=== PATIENT | female | born 1935 | race Caucasian/White ===

== ENCOUNTER 2017-03-26 11:42 | Emergency (ER) | payer MEDICARE ==
[2017-03-26] MEDS ORDERED: DIPH,PERTUS(ACELL)TETVAC-LF 0.5 ML VIAL IM ONE (12:12)
--- NOTE | 2017-03-26 12:15 | ED ---
Wound/Laceration HPI - General Chief Complaint: Wound/Laceration Stated Complaint: Fall Time Seen by Provider: 03/26/17 12:09 Source: patient, EMS, RN notes reviewed Mode of arrival: EMS Limitations: no limitations - History of Present Illness Initial Comments: 81-year-old female presents emergency department via EMS chief complaint head injury, laceration. Patient states she was going into the building tripped over a curb states she hit her head on the building. She did not lose consciousness. She does have mild headache and some neck pain on the right side. Patient denies any extremity injury no back pain. She is unsure exactly when her last tetanus was. - Related Data Home Medications Medication Instructions Recorded Confirmed Allopurinol [Zyloprim] 100 mg PO DAILY 04/04/14 03/26/17 Simvastatin [Zocor] 20 mg PO DAILY 04/04/14 03/26/17 amLODIPine [Norvasc] 10 mg PO DAILY 04/04/14 03/26/17 Cholecalciferol [Vitamin D3] 1,000 unit PO DAILY 03/26/17 03/26/17 Etanercept [Enbrel] 50 mg SQ FR 03/26/17 03/26/17 Magnesium 200 mg PO HS 03/26/17 03/26/17 Triamterene/Hydrochlorothiazid 2 tab PO DAILY 03/26/17 03/26/17 [Triamterene-Hctz 37.5-25 mg Tb] Allergies Allergy/AdvReac Type Severity Reaction Status Date / Time No Known Allergies Allergy Verified 03/26/17 12:33 Review of Systems ROS Statement: Those systems with pertinent positive or pertinent negative responses have been documented in the HPI. ROS Other: All systems not noted in ROS Statement are negative. 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 Past Anesthesia/Blood Transfusion Reactions: No Reported Reaction Past Psychological History: No Psychological Hx Reported Smoking Status: Never smoker Past Alcohol Use History: None Reported Past Drug Use History: None Reported General Exam Limitations: no limitations General appearance: alert, in no apparent distress Head exam: Present: atraumatic, normocephalic. Absent: normal inspection (9 cm laceration on the forehead) Eye exam: Present: normal appearance, PERRL, EOMI. Absent: scleral icterus, conjunctival injection, periorbital swelling ENT exam: Present: normal exam, normal oropharynx, mucous membranes moist, TM's normal bilaterally, normal external ear exam Neck exam: Present: normal inspection, tenderness. Absent: meningismus, full ROM (Patient in c-collar), lymphadenopathy Respiratory exam: Present: normal lung sounds bilaterally. Absent: respiratory distress, wheezes, rales, rhonchi, stridor Cardiovascular Exam: Present: regular rate, normal rhythm, normal heart sounds. Absent: systolic murmur, diastolic murmur, rubs, gallop, clicks Neurological exam: Present: alert, oriented X3, CN II-XII intact, reflexes normal. Absent: motor sensory deficit Skin exam: Present: warm, dry, intact, normal color. Absent: rash Course Vital Signs 03/26/17 03/26/17 03/26/17 11:51 12:48 13:18 Temperature 97.5 F L 98.5 F Pulse Rate 60 78 78 Respiratory 18 20 20 Rate Blood Pressure 111/56 163/71 163/71 O2 Sat by Pulse 97 99 98 Oximetry Procedures - Laceration Laceration #1 Consent Obtained: verbal consent Indication: laceration Site: face Size (cm): 9 Description: linear Depth: simple, single layer Pre-repair: wound explored, irrigated extensively, deep structures intact Type of Sutures: other (Dermabond) Medical Decision Making - Medical Decision Making 81-year-old female presents for facial laceration, head injury. There is no acute fracture of the cervical spine or intracranial bleed. Patient's wound was cleaned, Dermabond was used to close it. Patient underwent no comp patients. Disposition Clinical Impression: Head injury, Forehead laceration Disposition: HOME SELF-CARE Condition: Stable Instructions: Laceration (ED), Head Injury (ED) Additional Instructions: Please return to the Emergency Department if symptoms worsen or any other concerns. Referrals: Constantine Gallegos MD [Primary Care Provider] - 1-2 days Time of Disposition: 13:32
--- NOTE | 2017-03-26 13:11 | CT ---
EXAMINATION TYPE: CT brain teodora stephens con DATE OF EXAM: 03/26/2017 COMPARISON: NONE HISTORY: Fall CT DLP: 1902 mGycm. Automated Exposure Control for Dose Reduction was Utilized. TECHNIQUE: CT scan of the head and cervical spine are performed without contrast. FINDINGS: FINDINGS: There is no acute intracranial hemorrhage or midline shift identified. There is diffuse ventricular and sulcal prominence consistent with diffuse age-related cerebral atrophy. T here is low-attenuation in the periventricular white matter consistent with chronic small vessel isch emic change. Atherosclerosis is seen of the intracranial vasculature. The globes are intact. Left muc operiosteal thickening is seen of the maxillary sinus with lobular internal soft tissue density measu ring up to 2.3 cm likely related to inspissated mucosal debris. Scant mucosal thickening is seen with in the ethmoid sinuses. Remaining paranasal sinuses and mastoid air cells are well aerated. No fluid is seen within the middle ear cavities. Cervical spine is visualized in its entirety from C1 through upper thoracic levels and demonstrates s atisfactory alignment without evidence of acute fracture or dislocation. Prevertebral soft tissue ap pears within normal limits. The C1-C2 articulation is unremarkable. Complex right thyroid lesion me asures 1.1 x 1.0 cm. Heterogeneity is seen without discrete nodularity of the remainder of the thyroi d gland. Nonenlarged lymph nodes are seen within the anterior and posterior chains of the neck with t he largest lymph node measuring 6 mm in short axis. Fluid is noted within the pericardial recess. Mul tiple prominent superior mediastinal lymph nodes including right paratracheal lymph node measuring up to 6 mm in short axis. Severe multilevel degenerative changes of the cervical spine are seen with multilevel intervertebral disc space narrowing, anterior osteophytes, endplate sclerosis, and disc ossify complex as well as un covertebral hypertrophy and facet arthropathy resulting in variable degrees of neural foraminal narro wing. There is at least resultant mild spinal canal stenosis at C5-C6. IMPRESSION: 1. There is no acute fracture or dislocation evident in the cervical spine. 2. No acute intracranial hemorrhage or midline shift. 3. Diffuse age-related cerebral atrophy and chronic small vessel ischemic change noted. 4. Acute on chronic left maxillary and ethmoid paranasal sinus disease. 5. Severe multilevel degenerative disc disease of the cervical spine resulting in multilevel variable neural foraminal narrowing and at least mild spinal canal stenosis at C5-C6.
[2017-03-26 13:20] VITALS: TEMP 98.5
[2017-03-26] MEDS ORDERED: LIDOCAINE/EPINEPHR/TETRACAINE 5 ML BOTTLE TOPICAL ONE (13:24)
[2017-03-26] MEDS ORDERED: TOPICAL SKIN ADHESIVE 1 EACH AMP TOPICAL ONE ×2 (13:24→13:48)
[2017-03-26 14:09] VITALS: BP 170/73; PULSE 70; RESP 16
== END 2017-03-26 14:09 | disposition home or self-care (01) ==
LOC: EC 11:42
DX: S01.81XA Laceration without foreign body of other part of head, initial encounter (principal); M54.2 Cervicalgia; E78.5 Hyperlipidemia, unspecified; I10 Essential (primary) hypertension; M06.9 Rheumatoid arthritis, unspecified; M10.9 Gout, unspecified; Z79.899 Other long term (current) drug therapy; Z85.828 Personal history of other malignant neoplasm of skin; Z98.890 Other specified postprocedural states; Z23 Encounter for immunization; W18.09XA Striking against other object with subsequent fall, initial encounter; Y93.01 Activity, walking, marching and hiking
CPT/HCPCS: 12015; 70450; 72125; 90471; 90715; 99284

== ENCOUNTER 2020-01-05 12:45 | Inpatient (IN) | payer MEDICARE ==
--- NOTE | 2020-01-05 13:36 | ED ---
General Adult HPI - General Chief complaint: Recheck/Abnormal Lab/Rx Stated complaint: kidney issues Time Seen by Provider: 01/05/20 13:03 Source: patient, family, RN notes reviewed Mode of arrival: ambulatory Limitations: no limitations - History of Present Illness Initial comments: Patient is a pleasant 84-year-old female presenting to the emergency department after being told she had a normal lab tests from her doctor. Patient states she went to see Dr. Neely recently and then received a call today stating kidney function had worsened. Patient was requested to come to the emergency department. Patient states she feels fine otherwise and has no complaints. - Related Data Home Medications Medication Instructions Recorded Confirmed Simvastatin [Zocor] 20 mg PO DAILY 04/04/14 03/26/17 allopurinoL [Zyloprim] 100 mg PO DAILY 04/04/14 03/26/17 amLODIPine [Norvasc] 10 mg PO DAILY 04/04/14 03/26/17 Cholecalciferol [Vitamin D3] 1,000 unit PO DAILY 03/26/17 03/26/17 Etanercept [Enbrel] 50 mg SQ FR 03/26/17 03/26/17 Magnesium 200 mg PO HS 03/26/17 03/26/17 Triamterene/Hydrochlorothiazid 2 tab PO DAILY 03/26/17 03/26/17 [Triamterene-Hctz 37.5-25 mg Tb] Allergies Allergy/AdvReac Type Severity Reaction Status Date / Time No Known Allergies Allergy Verified 01/05/20 12:52 Review of Systems ROS Statement: Those systems with pertinent positive or pertinent negative responses have been documented in the HPI. ROS Other: All systems not noted in ROS Statement are negative. Constitutional: Denies: fever Eyes: Denies: eye pain ENT: Denies: ear pain Respiratory: Denies: cough Cardiovascular: Denies: chest pain Endocrine: Denies: fatigue Gastrointestinal: Denies: abdominal pain Genitourinary: Denies: dysuria Musculoskeletal: Denies: back pain Skin: Denies: rash Neurological: Denies: weakness Past Medical History Past Medical History: Cancer, Hyperlipidemia, Hypertension, Rheumatoid Arthritis (RA) Additional Past Medical History / Comment(s): GOUT, SOME KIDNEY DAMAGE FROM MEDICATIONS, SKIN CANCER ON NOSE. 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 Past Anesthesia/Blood Transfusion Reactions: No Reported Reaction Past Psychological History: No Psychological Hx Reported Smoking Status: Never smoker Past Alcohol Use History: None Reported Past Drug Use History: None Reported General Exam Limitations: no limitations General appearance: alert, in no apparent distress Head exam: Present: normocephalic Eye exam: Present: normal appearance Neck exam: Present: normal inspection Respiratory exam: Present: normal lung sounds bilaterally Cardiovascular Exam: Present: regular rate, normal rhythm GI/Abdominal exam: Present: soft. Absent: tenderness Extremities exam: Present: normal inspection Neurological exam: Present: alert Psychiatric exam: Present: normal affect, normal mood Skin exam: Present: normal color Course Vital Signs 01/05/20 01/05/20 12:46 13:16 Temperature 98.1 F Pulse Rate 100 82 Respiratory 18 18 Rate Blood Pressure 170/71 177/77 O2 Sat by Pulse 99 98 Oximetry Medical Decision Making - Medical Decision Making Patient reevaluated and updated. Case discussed in detail with Dr. Kaplan, covering for Dr. Carson, who will admit who covers for Dr. Underwood. - Lab Data Result diagrams: 01/05/20 13:37 01/05/20 13:37 Lab Results 01/05/20 01/05/20 01/05/20 Range/Units 13:37 13:37 13:37 WBC 11.6 H (3.8-10.6) k/uL RBC 4.23 (3.80-5.40) m/uL Hgb 11.6 (11.4-16.0) gm/dL Hct 36.7 (34.0-46.0) % MCV 86.7 (80.0-100.0) fL MCH 27.4 (25.0-35.0) pg MCHC 31.6 (31.0-37.0) g/dL RDW 14.6 (11.5-15.5) % Plt Count 289 (150-450) k/uL Neutrophils % 85 % Lymphocytes % 9 % Monocytes % 4 % Eosinophils % 1 % Basophils % 1 % Neutrophils # 9.8 H (1.3-7.7) k/uL Lymphocytes # 1.0 (1.0-4.8) k/uL Monocytes # 0.5 (0-1.0) k/uL Eosinophils # 0.1 (0-0.7) k/uL Basophils # 0.1 (0-0.2) k/uL PT 10.0 (9.0-12.0) sec INR 1.0 (<1.2) APTT 22.6 (22.0-30.0) sec Sodium 138 (137-145) mmol/L Potassium 5.2 H (3.5-5.1) mmol/L Chloride 108 H (98-107) mmol/L Carbon Dioxide 16 L (22-30) mmol/L Anion Gap 14 mmol/L BUN 55 H (7-17) mg/dL Creatinine 3.19 H (0.52-1.04) mg/dL Est GFR (CKD-EPI)AfAm 15 (>60 ml/min/1.73 sqM) Est GFR (CKD-EPI)NonAf 13 (>60 ml/min/1.73 sqM) Glucose 255 H (74-99) mg/dL Calcium 9.8 (8.4-10.2) mg/dL Phosphorus 4.1 (2.5-4.5) mg/dL Magnesium 1.9 (1.6-2.3) mg/dL Total Bilirubin 0.9 (0.2-1.3) mg/dL AST 20 (14-36) U/L ALT 11 (4-34) U/L Alkaline Phosphatase 119 (38-126) U/L Total Protein 7.3 (6.3-8.2) g/dL Albumin 4.5 (3.5-5.0) g/dL Disposition Clinical Impression: Acute renal failure (ARF) Disposition: ADMITTED IP TO THIS HOSP Is patient prescribed a controlled substance at d/c from ED?: No Referrals: Al Underwood MD [Primary Care Provider] - 1-2 days Decision Time: 14:36
[2020-01-05 13:49] LABS: Basophils # (A) 0.1 k/uL (0-0.2); Basophils % (A) 1 %; Eosinophils # (A) 0.1 k/uL (0-0.7); Eosinophils % (A) 1 %; HCT 36.7 % (34.0-46.0); HGB 11.6 gm/dL (11.4-16.0); Lymphocytes % (A) 9 %; MCH 27.4 pg (25.0-35.0); MCHC 31.6 g/dL (31.0-37.0); MCV 86.7 fL (80.0-100.0); Mean Platelet Volume 6.7; Monocytes # (A) 0.5 k/uL (0-1.0); Monocytes % (A) 4 %; Neutrophils # (A) 9.8 k/uL (1.3-7.7); Neutrophils % (A) 85 %; Platelet Count 289 k/uL (150-450); RBC 4.23 m/uL (3.80-5.40); RDW 14.6 % (11.5-15.5); WBC 11.6 k/uL (3.8-10.6)
[2020-01-05 13:58] LABS: Albumin 4.5 g/dL (3.5-5.0); Calcium 9.8 mg/dL (8.4-10.2); Magnesium 1.9 mg/dL (1.6-2.3); Phosphorus 4.1 mg/dL (2.5-4.5); Potassium 5.2 mmol/L (3.5-5.1); Total Bilirubin 0.9 mg/dL (0.2-1.3); Total Protein 7.3 g/dL (6.3-8.2)
[2020-01-05 14:04] LABS: Partial Thromboplastin Time 22.6 sec (22.0-30.0)
[2020-01-05] MEDS ORDERED: NALOXONE 0.4 MG/ML 1 ML VIAL IV PRN (14:37)
--- NOTE | 2020-01-05 15:32 | US ---
EXAMINATION TYPE: US kidneys/renal and bladder DATE OF EXAM: 01/05/2020 COMPARISON: NONE CLINICAL HISTORY: arf. ARF EXAM MEASUREMENTS: Right Kidney: 9.2 x 3.6 x 3.3 cm Left Kidney: 8.8 x 3.7 x 3.4 cm Right Kidney: no evidence of hydronephrosis Left Kidney: multiple cystic areas noted, largest = 5.2 x 4.7 x 4.9cm Bladder: not fully distended Bilateral Jets seen: NO There is no evidence for hydronephrosis at this point in time. No nephrolithiasis is seen. Large exo phytic 5.2 cm thin-walled cyst is seen from the upper pole level medially left kidney. Smaller thin- walled cyst noted not measured towards end of study. Increased cortical echogenicity and loss of zarina ical medullary differentiation more prominent in left kidney noted. The urinary bladder is not greatl y distended. Bilateral ureteral jets are not seen. IMPRESSION: No hydronephrosis is noted bilaterally.
[2020-01-05 17:11] LABS: Appearance,Urine Cloudy (Clear); Bacteria,Urine Many /hpf; Bilirubin,Urine Negative (Negative); Blood,Urine Trace (Negative); Color,Urine Yellow; Glucose,Urine (UA) Trace (Negative); Hyaline Casts,Urine 1 /lpf (0-2); Ketones,Urine Negative (Negative); Leukocyte Esterase,Urine Large (Negative); Mucus,Urine Rare /hpf; Nitrite,Urine Negative (Negative); Protein,Urine 3+ (Negative); RBC,Urine 3 /hpf (0-5); Specific Gravity,Urine 1.014 (1.001-1.035); Squamous Epithelial Cell,Urine 1 /hpf (0-4); Urobilinogen,Urine <2.0 mg/dL (<2.0); WBC,Urine 63 /hpf (0-5)
[2020-01-05] MEDS: SODIUM CHLORIDE 0.9% 1,000 ML IV SCH (17:32)
[2020-01-05 17:39] LABS: Glucose,Whole Blood 109 mg/dL (75-99)
[2020-01-05] MEDS: INSULIN ASPART (NovoLOG) 100 UNIT/ML VIAL SQ SCH ×2 (17:40→20:59)
[2020-01-05 20:42] LABS: Glucose,Whole Blood 153 mg/dL (75-99)
[2020-01-05] MEDS: allopurinoL 100 MG TAB PO SCH (21:00)
--- NOTE | 2020-01-05 22:24 | HP ---
HISTORY AND PHYSICAL DATE OF SERVICE: 01/05/2020 CHIEF COMPLAINTS: Abnormal labs and worsening renal function. HISTORY OF PRESENT ILLNESS: This 84-year-old woman with a past medical history of multiple medical problems, including hypertension, hyperlipidemia, rheumatoid arthritis, history of gout, cholecystectomy, being followed by Dr. Al Underwood in the outpatient setting, had renal failure previously. The patient apparently was being followed with repeated blood testing, and today the patient was called because of a high creatinine. The patient came to [facility] and was admitted for further evaluation. Creatinine was found to be 3.19. The previous creatinine in 2013 was only 1.81. There is no history of any fever, rigor or chills. No history of headache, loss of consciousness, seizures, chest pain, palpitations, hematochezia, melena, diarrhea at this time. PAST MEDICAL HISTORY: Hypertension, hyperlipidemia, history of rheumatoid arthritis, history of gout, history of renal failure. MEDICATIONS: Medications prior to admission include Aldactone 25 mg daily and 50 mg at bedtime, Norvasc 10 mg daily, Zyloprim 100 mg t.i.d., Zocor 20 mg daily, vitamin D3 1000 daily. ALLERGIES: NONE. FAMILY HISTORY: History of myocardial infarction in the family. SOCIAL HISTORY: No history of smoking. No history of alcohol intake. REVIEW OF SYSTEMS: ENT: Diminished hearing. Diminished vision. CARDIOVASCULAR SYSTEM: No angina, palpitations. RESPIRATORY SYSTEM: No cough, hemoptysis. GI: As mentioned earlier. : As mentioned earlier. NERVOUS SYSTEM: No numbness, weakness. ALLERGY/IMMUNOLOGY: No asthma, hayfever. MUSCULOSKELETAL: As mentioned earlier. HEMATOLOGY/ONCOLOGY: No history of anemia. ENDOCRINE: No history of diabetes, hypothyroidism. CONSTITUTIONAL: As mentioned earlier. DERMATOLOGY: Negative. RHEUMATOLOGY: Negative. PSYCHIATRY: As mentioned earlier. PHYSICAL EXAMINATION: Patient alert and oriented x3. Pulse is 87, blood pressure 163/71, respiration 18, temperature 97.4, pulse ox 100% on room air. HEENT: Conjunctivae normal. Oral mucosa moist. NECK: No jugular venous distention. No carotid bruit. No lymph node enlargement. CARDIOVASCULAR SYSTEM: S1, S2 muffled. RESPIRATORY SYSTEM: Breath sounds diminished at the bases. No rhonchi. No crackles. ABDOMEN: Soft, non-tender. No mass palpable. LEGS: No edema. No swelling. NERVOUS SYSTEM: Higher functions as mentioned earlier. Moves all 4 limbs. No focal motor or sensory deficit. LYMPHATICS: No lymph node palpable in neck, axillae or groin. SKIN: No ulcer, rash, bleeding. JOINTS: No active deforming arthropathy. LABS: Labs at this time show WBC 11.6 and sodium 138, potassium 5.2. Creatinine is 3.19 and glucose is 255. UA: Possible UTI. ASSESSMENT: 1. Acute on chronic renal failure, possibly acute prerenal acute tubular necrosis. 2. Acute urinary tract infection, present on admission. 3. Diabetes mellitus, type 2, with hyperglycemia. 4. History of hypertension. 5. Hyperlipidemia. 6. History of rheumatoid arthritis. 7. History of gout. 8. History of chronic kidney disease, stage 3 baseline. 9. History of cholecystectomy. 10.History of hysterectomy. 11.History of cataracts. RECOMMENDATIONS AND DISCUSSION: In this 84-year-old woman who presented with multiple complex medical issues, we will monitor the patient closely, continue the current medications, continue with symptomatic treatment. IV fluids. Repeat labs. Nephrology evaluation. Empiric antibiotics. Follow the cultures. Prognosis is guarded because of multiple complex medical issues. Further recommendations to follow. COVID-19 has also been ordered. A copy of this dictation is being forwarded to Dr. Al Underwood, who is the primary physician. MMODL / IJN: [id number] /
[2020-01-06] MEDS: SODIUM CHLORIDE 0.9% 1,000 ML IV SCH (05:48)
[2020-01-06 07:01] LABS: Glucose,Whole Blood 119 mg/dL (75-99)
[2020-01-06 07:31] LABS: Basophils # (A) 0.1 k/uL (0-0.2); Basophils % (A) 1 %; Eosinophils # (A) 0.2 k/uL (0-0.7); Eosinophils % (A) 2 %; HCT 33.7 % (34.0-46.0); HGB 10.6 gm/dL (11.4-16.0); Lymphocytes # (A) 1.2 k/uL (1.0-4.8); Lymphocytes % (A) 14 %; MCH 27.2 pg (25.0-35.0); MCHC 31.3 g/dL (31.0-37.0); MCV 86.9 fL (80.0-100.0); Mean Platelet Volume 6.6; Monocytes # (A) 0.5 k/uL (0-1.0); Monocytes % (A) 5 %; Neutrophils # (A) 6.8 k/uL (1.3-7.7); Neutrophils % (A) 77 %; Platelet Count 258 k/uL (150-450); RBC 3.88 m/uL (3.80-5.40); RDW 14.6 % (11.5-15.5); WBC 8.9 k/uL (3.8-10.6)
[2020-01-06 07:54] LABS: Calcium 9.3 mg/dL (8.4-10.2); Potassium 5.1 mmol/L (3.5-5.1)
[2020-01-06] MEDS: INSULIN ASPART (NovoLOG) 100 UNIT/ML VIAL SQ SCH ×4 (08:05→22:09)
[2020-01-06] MEDS: ATORVASTATIN 10 MG TAB PO SCH (08:13)
[2020-01-06] MEDS: allopurinoL 100 MG TAB PO SCH ×3 (08:13→22:10)
[2020-01-06] MEDS: CHOLECALCIFEROL 1,000 UNIT TAB PO SCH (08:13)
[2020-01-06] MEDS: amLODIPine 10 MG TAB PO SCH (08:13)
--- NOTE | 2020-01-06 08:52 | XR ---
EXAMINATION TYPE: XR chest 1V portable DATE OF EXAM: 01/06/2020 CLINICAL HISTORY: CHF TECHNIQUE: Frontal portable view of the chest obtained COMPARISON: None FINDINGS: The cardiomediastinal silhouette is within normal limits for size. Pulmonary vasculature i s mildly prominent. There is no focal air space opacity, pleural effusion, or pneumothorax seen. The osseous structures are intact. IMPRESSION: Mild central pulmonary vascular congestion.
[2020-01-06 11:30] LABS: Glucose,Whole Blood 123 mg/dL (75-99)
--- NOTE | 2020-01-06 11:46 | CONS ---
CONSULTATION REASON FOR CONSULT: Renal failure. HISTORY OF PRESENT ILLNESS: The patient is an 84-year-old female with past medical history of chronic kidney disease, NKF stage 3B to 4 with baseline creatinine 1.9 to 2.3 for the last couple of years. Patient was admitted to the hospital as her renal function was progressively worsening as outpatient. Her diuretics were held. However, her creatinine still increased to 3.4 on 01/03/2020 with estimated GFR of 12 mL/minute. Patient denies any significant symptoms. She was found to have a urinary tract infection, is currently maintained on IV fluids. She denied any nausea, vomiting, abdominal pain, diarrhea. No change in medications. No history of use of NSAIDs. PAST MEDICAL HISTORY: Chronic kidney disease stage 4, hypertension, history of rheumatoid arthritis, hyperlipidemia, gout, skin cancer on the nose. PAST SURGICAL HISTORY: Cholecystectomy, hysterectomy, cataract surgery left eye. MEDICATIONS: Prior to admission, Zocor, Zyloprim, Norvasc, vitamin D3, Amaryl, triamterene, hydrochlorothiazide. ALLERGIES: None. REVIEW OF SYSTEMS: As per HPI. Other systems negative. PHYSICAL EXAMINATION: Patient is comfortable, awake, she is not in any acute distress. Alert and oriented x3. Blood pressure is elevated 173/72, heart rate 80 per minute, she is afebrile. Examination of the heart S1, S2. Examination of the lungs, bilateral breath sounds are heard. Abdomen is soft, nontender. Examination of the lower extremities shows no evidence of edema. 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 LABS: Show sodium 141, potassium 5.1, chloride 112, CO2 is 17, BUN 55, creatinine 3.15, hemoglobin 10.6. UA shows 3+ protein, trace blood, WBC is 63, WBC clumps few. Hemoglobin 10.6 g/dL. ASSESSMENT: 1. Acute kidney injury most likely prerenal. Continue with IV fluids. Check ultrasound of the kidneys. This was already done yesterday and it shows no evidence of hydronephrosis. Both kidneys are of fair size. 2. Urinary tract infection. Urine culture is pending. Patient is maintained on empiric antibiotics. 3. Hypertension. I will maintain the patient off the hydrochlorothiazide. We can add Norvasc for blood pressure as her blood pressure is elevated and then add Cozaar if it remains uncontrolled. 4. Dyslipidemia, maintained on Lipitor. 5. History of gout, currently on allopurinol. 6. Metabolic acidosis secondary to renal failure. Change IV to bicarb drip. PLAN: Change IV fluids to bicarb drip and repeat labs in a.m. Encourage increased oral intake. Continue empiric antibiotics. Continue IV fluids and repeat labs in a.m. Thank you for this consultation. Will continue to follow the patient with you during her hospitalization. MMODL / IJN: [id number] /
[2020-01-06] MEDS: DEXTROSE 5% IN WATER 1,000 ML with SODIUM BICARB (1 MEQ/ML) 150 ML IV SCH (13:46)
--- NOTE | 2020-01-06 16:27 | PN ---
PROGRESS NOTE DATE OF SERVICE: 01/06/2020 This is an 84-year-old woman who was admitted with abnormal labs and worsening renal failure, is being closely monitored. Patient also had UTI. The patient is on antibiotics. No chest pain. No palpitations. No fever. PHYSICAL EXAMINATION: Alert and oriented x3. Pulse 77, blood pressure 170/69, respiration 18, temperature 98.2, pulse ox 98% on room air. HEENT: Conjunctivae normal. NECK: No jugular venous distension. CARDIOVASCULAR: S1, S2, muffled. RESPIRATORY: Breath sounds diminished at the bases, no rhonchi, no crackles. ABDOMEN: Soft, nontender. LEGS: No edema, no swelling. NERVOUS SYSTEM: No focal deficits. LABS: WBC 8.2, hemoglobin 10.6, sodium 141, potassium 5.1 creatinine is 3.15. ASSESSMENT: 1. Acute on chronic renal failure with possible acute prerenal acute tubular necrosis. 2. Acute urinary tract infection present on admission. 3. Diabetes mellitus type 2 with hyperglycemia. 4. History of hypertension. 5. Hyperlipidemia. 6. History of rheumatoid arthritis. 7. History of gout. 8. History of chronic kidney stage 3, baseline. 9. History of cholecystectomy. 10.History of hysterectomy. 11.History of cataracts. RECOMMENDATION: Recommend to continue current medications, management and symptomatic treatment. Otherwise at this time, the antibiotics initiated discussed with Dr. Neely. Continue with IV fluids. Further recommendations to follow. MMODL / MORALESN: [id number] /
[2020-01-06 17:09] LABS: Glucose,Whole Blood 176 mg/dL (75-99)
[2020-01-06 20:12] LABS: Glucose,Whole Blood 148 mg/dL (75-99)
[2020-01-07 05:30] VITALS: BP 134/66; PULSE 92; RESP 16; TEMP 98.3
[2020-01-07] MEDS: DEXTROSE 5% IN WATER 1,000 ML with SODIUM BICARB (1 MEQ/ML) 150 ML IV SCH ×2 (06:24→08:10)
[2020-01-07 07:04] LABS: Glucose,Whole Blood 146 mg/dL (75-99)
[2020-01-07] MEDS: allopurinoL 100 MG TAB PO SCH (08:11)
[2020-01-07] MEDS: ATORVASTATIN 10 MG TAB PO SCH (08:11)
[2020-01-07] MEDS: INSULIN ASPART (NovoLOG) 100 UNIT/ML VIAL SQ SCH (08:11)
[2020-01-07] MEDS: CHOLECALCIFEROL 1,000 UNIT TAB PO SCH (08:11)
[2020-01-07] MEDS: amLODIPine 10 MG TAB PO SCH (08:11)
[2020-01-07 09:21] LABS: Basophils # (A) 0.1 k/uL (0-0.2); Basophils % (A) 1 %; Calcium 9.3 mg/dL (8.4-10.2); Eosinophils # (A) 0.2 k/uL (0-0.7); Eosinophils % (A) 3 %; HCT 33.8 % (34.0-46.0); HGB 11.2 gm/dL (11.4-16.0); Lymphocytes # (A) 1.3 k/uL (1.0-4.8); Lymphocytes % (A) 15 %; MCH 28.6 pg (25.0-35.0); MCHC 33.1 g/dL (31.0-37.0); MCV 86.5 fL (80.0-100.0); Mean Platelet Volume 6.5; Monocytes # (A) 0.4 k/uL (0-1.0); Monocytes % (A) 5 %; Neutrophils # (A) 6.4 k/uL (1.3-7.7); Neutrophils % (A) 76 %; Platelet Count 280 k/uL (150-450); Potassium 4.7 mmol/L (3.5-5.1); RBC 3.91 m/uL (3.80-5.40); RDW 14.4 % (11.5-15.5); WBC 8.4 k/uL (3.8-10.6)
--- NOTE | 2020-01-07 13:08 | PN ---
PROGRESS NOTE Patient is seen for followup for acute kidney injury which was mainly prerenal on top of chronic kidney disease. She is doing well. She is started on IV fluids. Renal function has improved with creatinine down to 2.72. The patient wants to go home and she could be discharged and plans to follow up as outpatient in one weeks time. PHYSICAL EXAMINATION: On examination today, blood pressure is 134/66, heart rate 92 per minute, she is afebrile. Examination shows patient is euvolemic with no evidence of edema bilateral lower extremities. 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 LABS: Show sodium 139, potassium 4.7, chloride 108, BUN 49, creatinine 2.7. ASSESSMENT: 1. Acute kidney injury, prerenal, currently improved. 2. Chronic kidney disease stage 4 secondary to nephrosclerosis. Baseline creatinine about 1.9-2.3 mg/dL. 3. Hypertension. Continue off hydrochlorothiazide for now. 4. Metabolic acidosis, improved. Patient has been on IV bicarb. 5. Urinary tract infection. Urine culture grew Gram-negative bacilli. ASSESSMENT: Patient can go home on antibiotics. She is encouraged to increase her oral fluid intake and we will follow her up as outpatient in 1-2 weeks. MMODL / IJN: [id number] /
--- NOTE | 2020-01-07 13:50 | DS ---
DISCHARGE SUMMARY DATE OF SERVICE: 01/07/2020 FINAL DIAGNOSES: 1. Acute on chronic renal failure with possible acute tubular necrosis. 2. Acute urinary tract infection present on admission. 3. Diabetes type 2 with hyperglycemia. 4. History of hypertension. 5. Hyperlipidemia. 6. History of rheumatoid arthritis. 7. History of gout. 8. History of chronic kidney stage 3 baseline. 9. History of cholecystectomy. 10.History of hysterectomy. 11.History of cataracts. DISCHARGE DISPOSITION: The patient will be discharged in stable condition with guarded prognosis. Nephrology cleared the patient for discharge. HISTORY OF PRESENT ILLNESS: This 84-year-old woman with a past medical history of multiple medical problems, admitted with acute on chronic renal failure. Treated symptomatically. Creatinine stabilized. Urine culture showed gram-negative bacilli. The patient was empirically treated. The final culture report to be followed by Dr. Leonel Underwood in the outpatient setting. On exam: Vitals signs stable. Cardiovascular S1, S2. Abdomen soft. Nervous system: No numbness or weakness. DISCHARGE ADVICE AND MEDICATIONS: 1. Discharge diet is cardiac diet. 2. Activity limited until followup. 3. Follow up with Dr. Leonel Underwood within 2-3 days. 4. Follow up with Nephrology as recommended. 5. Norvasc 10 mg daily. 6. Vitamin D3 daily. 7. Zocor 20 mg daily. 8. Zyloprim 100 mg daily. 9. Hold the Aldactone. 10.Ceftin 500 daily p.o. b.i.d. for 3 days. 11.Sodium bicarb 650 b.i.d. 12. MMODL / IJN: [id number] /
== END 2020-01-07 11:15 | disposition home or self-care (01) | DRG 683 ==
LOC: EC 12:45 → 4SSUR 14:37 → 5NMEDONC 15:25
PROVIDERS: ADMIT Hospitalist; ATTEND Hospitalist
DX: N17.0 Acute kidney failure with tubular necrosis (principal); E87.2 Acidosis; N39.0 Urinary tract infection, site not specified; N18.4 Chronic kidney disease, stage 4 (severe); E11.22 Type 2 diabetes mellitus with diabetic chronic kidney disease; E11.65 Type 2 diabetes mellitus with hyperglycemia; E78.5 Hyperlipidemia, unspecified; I12.9 Hypertensive chronic kidney disease with stage 1 through stage 4 chronic kidney disease, or unspecified chronic kidney disease; M06.9 Rheumatoid arthritis, unspecified; B96.89 Other specified bacterial agents as the cause of diseases classified elsewhere; H26.9 Unspecified cataract; M10.9 Gout, unspecified; Z11.59 Encounter for screening for other viral diseases; H91.90 Unspecified hearing loss, unspecified ear; H54.7 Unspecified visual loss; Z79.899 Other long term (current) drug therapy; Z85.828 Personal history of other malignant neoplasm of skin; Z90.49 Acquired absence of other specified parts of digestive tract; Z90.710 Acquired absence of both cervix and uterus; Z98.42 Cataract extraction status, left eye; Z82.49 Family history of ischemic heart disease and other diseases of the circulatory system
CPT/HCPCS: 36415; 71045; 76770; 80048; 80053; 81001; 83735; 84100; 85025; 85610; 85730; 87040; 87077; 87086; 87186; 99284

== ENCOUNTER 2020-02-14 14:42 | Observation (INO) | payer MEDICARE ==
[2020-02-14] MEDS ORDERED: SODIUM CHLORIDE 0.9% 500 ML 500 ML IV STA (14:58)
[2020-02-14] MEDS ORDERED: SODIUM CHLORIDE 0.9% 1,000 ML IV ONE (14:58)
[2020-02-14] MEDS ORDERED: SODIUM CHLORIDE 0.9% 1,000 ML IV STA (14:58)
--- NOTE | 2020-02-14 15:00 | ED ---
Recheck HPI - General Chief Complaint: Recheck/Abnormal Lab/Rx Stated Complaint: Abn Labs Time Seen by Provider: 02/14/20 14:58 Source: patient, RN notes reviewed, old records reviewed Mode of arrival: ambulatory Limitations: no limitations - History of Present Illness Initial Comments: This is an 82-year-old female DF for evaluation recheck of abnormal labs. Patient was seen at another facility prior to arrival with renal failure elevated potassium dehydration. Patient has no complaints currently no new complaints. MD Complaint: abnormal lab (Elevated potassium) -: unknown Returns Today for: Called Because of Abnormal Lab/Test Symptoms Since Prior Visit: no new symptoms Context: planned re-check, called for abnormal lab result Associated Symptoms: none - Related Data Home Medications Medication Instructions Recorded Confirmed Simvastatin [Zocor] 20 mg PO HS 04/04/14 02/14/20 allopurinoL [Zyloprim] 100 mg PO TID 04/04/14 02/14/20 amLODIPine [Norvasc] 10 mg PO DAILY 04/04/14 02/14/20 Cholecalciferol [Vitamin D3 (25 1,000 unit PO DAILY 03/26/17 02/14/20 Mcg = 1000 Iu)] Etanercept [Enbrel Sureclick] 50 mg SQ Q7D 02/14/20 02/14/20 Magnesium Gluconate [Magonate] 500 mg PO DAILY 02/14/20 02/14/20 Allergies Allergy/AdvReac Type Severity Reaction Status Date / Time No Known Allergies Allergy Verified 02/14/20 15:37 Review of Systems ROS Statement: Those systems with pertinent positive or pertinent negative responses have been documented in the HPI. ROS Other: All systems not noted in ROS Statement are negative. 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 Past Anesthesia/Blood Transfusion Reactions: No Reported Reaction Past Psychological History: No Psychological Hx Reported Smoking Status: Never smoker Past Alcohol Use History: None Reported Past Drug Use History: None Reported - Past Family History Father Family Medical History: Myocardial Infarction ([place]) Mother Family Medical History: Myocardial Infarction ([place]) General Exam Limitations: no limitations General appearance: alert, in no apparent distress Head exam: Present: atraumatic, normocephalic, normal inspection Eye exam: Present: normal appearance, PERRL, EOMI. Absent: scleral icterus, conjunctival injection, periorbital swelling ENT exam: Present: normal exam, mucous membranes moist Neck exam: Present: normal inspection. Absent: tenderness, meningismus, lymphadenopathy Respiratory exam: Present: normal lung sounds bilaterally. Absent: respiratory distress, wheezes, rales, rhonchi, stridor Cardiovascular Exam: Present: regular rate, normal rhythm, normal heart sounds. Absent: systolic murmur, diastolic murmur, rubs, gallop, clicks GI/Abdominal exam: Present: soft, normal bowel sounds. Absent: distended, tenderness, guarding, rebound, rigid Extremities exam: Present: normal inspection, full ROM, normal capillary refill. Absent: tenderness, pedal edema, joint swelling, calf tenderness Back exam: Present: normal inspection Neurological exam: Present: alert, oriented X3, CN II-XII intact Psychiatric exam: Present: normal affect, normal mood Skin exam: Present: warm, dry, intact, normal color. Absent: rash Course Vital Signs 02/14/20 14:44 Temperature 97.7 F Pulse Rate 97 Respiratory 18 Rate Blood Pressure 114/71 O2 Sat by Pulse 99 Oximetry - Reevaluation(s) Reevaluation #1: 02/14/20 16:09 Medical records reviewed 02/14/20 16:09 Transfer paperwork is reviewed Reevaluation #2: 02/14/20 16:09 Patient remains asymptomatic - Consultations Consultation #1: Spoke with H who agree to admit this patient Medical Decision Making - Medical Decision Making 84 female DF for evaluation of weakness patient is to be admitted for renal failure dehydration and elevated potassium - Lab Data Result diagrams: 02/14/20 15:30 02/14/20 15:30 - EKG Data -: EKG Interpreted by Me (EKG shows sinus rhythm 80 OK 20 to QRS 94 QTC 426) Disposition Clinical Impression: Acute renal failure (ARF), Hyperkalemia Disposition: ADMITTED IP TO THIS HOSP Condition: Fair Is patient prescribed a controlled substance at d/c from ED?: No
[2020-02-14 15:41] LABS: Basophils # (A) 0.1 k/uL (0-0.2); Basophils % (A) 1 %; Eosinophils % (A) 0 %; HGB 11.4 gm/dL (11.4-16.0); Lymphocytes # (A) 0.8 k/uL (1.0-4.8); Lymphocytes % (A) 9 %; MCH 28.5 pg (25.0-35.0); MCHC 32.4 g/dL (31.0-37.0); MCV 87.7 fL (80.0-100.0); Mean Platelet Volume 6.8; Monocytes # (A) 0.5 k/uL (0-1.0); Monocytes % (A) 5 %; Neutrophils # (A) 7.3 k/uL (1.3-7.7); Neutrophils % (A) 83 %; Platelet Count 262 k/uL (150-450); RBC 3.99 m/uL (3.80-5.40); RDW 15.5 % (11.5-15.5); WBC 8.8 k/uL (3.8-10.6)
--- NOTE | 2020-02-14 15:50 | XR ---
EXAMINATION TYPE: XR chest 2V DATE OF EXAM: 02/14/2020 COMPARISON: Chest x-ray January 06, 2020. HISTORY: Abnormal labs. Weakness. TECHNIQUE: Frontal and lateral views of the chest are obtained. FINDINGS: There is some chronic frontal changes without suspicious focal air space opacity, pleural effusion, or pneumothorax seen. The cardiac silhouette size remains within normal limits. Multilevel spurring of thoracic spine is present. IMPRESSION: No acute cardiopulmonary process.
[2020-02-14 15:54] LABS: Albumin 4.2 g/dL (3.5-5.0); Calcium 9.7 mg/dL (8.4-10.2); Magnesium 2.1 mg/dL (1.6-2.3); Phosphorus 4.1 mg/dL (2.5-4.5); Total Bilirubin 0.7 mg/dL (0.2-1.3); Total Protein 6.8 g/dL (6.3-8.2)
[2020-02-14] MEDS ORDERED: DEXTROSE 50% SYRINGE 50 ML IVP STA (17:05)
[2020-02-14] MEDS ORDERED: INSULIN REGULAR 100 UNIT/ML VIAL IV ONE (17:15)
[2020-02-14] MEDS ORDERED: SODIUM BICARB 8.4% 50 ML SYR (1 MEQ/ML) IV STA (17:45)
[2020-02-14] MEDS ORDERED: DEXTROSE 5% IN WATER 1,000 ML with SODIUM BICARB (1 MEQ/ML) 150 ML IV SCH (18:30)
[2020-02-14] MEDS ORDERED: ATORVASTATIN 10 MG TAB PO SCH (21:00)
[2020-02-14 22:21] LABS: Calcium 9.2 mg/dL (8.4-10.2); Potassium 5.1 mmol/L (3.5-5.1)
[2020-02-14 23:25] LABS: Appearance,Urine Clear (Clear); Bilirubin,Urine Negative (Negative); Blood,Urine Negative (Negative); Color,Urine Light Yellow; Glucose,Urine (UA) Negative (Negative); Ketones,Urine Negative (Negative); Leukocyte Esterase,Urine Negative (Negative); Nitrite,Urine Negative (Negative); PH, Urine 7.5 (5.0-8.0); Protein,Urine 1+ (Negative); RBC,Urine 1 /hpf (0-5); Specific Gravity,Urine 1.009 (1.001-1.035); Urobilinogen,Urine <2.0 mg/dL (<2.0); WBC,Urine <1 /hpf (0-5)
[2020-02-14 23:38] LABS: Glucose,Whole Blood 114 mg/dL (75-99)
--- NOTE | 2020-02-15 00:25 | P.HPIM ---
History of Present Illness H&P Date: 02/14/20 Chief Complaint: Abnormal Potassium level Patient is a 84-year-old female with a known history of CKD stage IV, hypertension, hyperlipidemia, gout, rheumatoid arthritis currently on Enbrel was sent to hospital due to elevated potassium levels. Patient was on follow-up with nephrology in the clinic and had lab work-up done which showed elevated potassium level and patient was referred to ER for evaluation. Currently patient denied any complaints of chest pain or shortness breath. No fever no chills. Denied any palpitations. No headache or dizziness or ligh theadedness. Laboratory data showed WBC 8.8, hemoglobin 11.4, platelets 262 Sodium 138, potassium 6.0 Chloride 113 and bicarb is 16 BUN 16 creatinine 3.19 Liver enzymes are not elevated Urinalysis is negative for infection. Chest x-ray showed no acute cardiopulmonary process EKG showed normal sinus rhythm. No evidence of peaked. T waves Review of Systems Constitutional: Patient denies any fever or chills . No generalized weakness or weight loss. Abdomen: Patient denied nausea vomiting and diarrhea and abdominal pain. Cardiovascular: Patient denies any chest pain or short of breath no palpitations. Respiratory: patient denied any cough is from production. No shortness of breath Neurologic: Patient denied any numbness or tingling headache. Musculoskeletal: Patient denies any complaints of joint swelling or deformity. Skin: Negative Psychiatric: Negative Endocrine: No heat or cold intolerance. No recent weight gain. Genitourinary: No dysuria or hematuria. All other 14 point ROS negative except the above Past Medical History Past Medical History: Cancer, Hyperlipidemia, Hypertension, Rheumatoid Arthritis (RA) Additional Past Medical History / Comment(s): GOUT, SOME KIDNEY DAMAGE FROM MEDICATIONS, SKIN CANCER ON NOSE. 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 Past Anesthesia/Blood Transfusion Reactions: No Reported Reaction Past Psychological History: No Psychological Hx Reported Smoking Status: Never smoker Past Alcohol Use History: None Reported Past Drug Use History: None Reported - Past Family History Father Family Medical History: Myocardial Infarction ([place]) Mother Family Medical History: Myocardial Infarction ([place]) Medications and Allergies Home Medications Medication Instructions Recorded Confirmed Type Simvastatin [Zocor] 20 mg PO HS 04/04/14 02/14/20 History allopurinoL [Zyloprim] 100 mg PO TID 04/04/14 02/14/20 History amLODIPine [Norvasc] 10 mg PO DAILY 04/04/14 02/14/20 History Cholecalciferol [Vitamin D3 (25 1,000 unit PO DAILY 03/26/17 02/14/20 History Mcg = 1000 Iu)] Etanercept [Enbrel Sureclick] 50 mg SQ Q7D 02/14/20 02/14/20 History Magnesium Gluconate [Magonate] 500 mg PO DAILY 02/14/20 02/14/20 History Allergies Allergy/AdvReac Type Severity Reaction Status Date / Time No Known Allergies Allergy Verified 02/14/20 15:37 Physical Exam Vitals: Vital Signs Temp Pulse Resp BP Pulse Ox 02/14/20 16:24 87 18 173/68 96 02/14/20 14:44 97.7 F 97 18 114/71 99 Intake and Output 02/14/20 02/14/20 02/14/20 06:59 14:59 22:59 Other: Weight 70.307 kg PHYSICAL EXAMINATION: Patient is lying in the bed comfortably, no acute distress, awake alert and oriented.. HEENT: Normocephalic. Neck is supple. Pupils reactive. Nostrils clear. Oral cavity is moist. Ears reveal no drainage. Neck reveals no JVD, carotid bruits, or thyromegaly. CHEST EXAMINATION: Trachea is central. Symmetrical expansion. Lung davidson clear to auscultation and percussion. CARDIAC: Normal S1, S2 with no gallops. No murmurs ABDOMEN: Soft. Bowel sounds normal. No organomegaly. No abdominal bruits. Extremities: reveal no edema. No clubbing or cyanosis Neurologically awake, alert, oriented x3 with well-coordinated movements. No focal deficits noted Skin: No rash or skin lesions. Psychiatric: Coperative. Nonsuicidal Musculoskeletal: No joint swelling or deformity. Normal range of motion. Results CBC & Chem 7: 02/14/20 15:30 02/14/20 21:32 Labs: Abnormal Lab Results - Last 24 Hours (Table) 02/14/20 02/14/20 Range/Units 15:30 15:30 Lymphocytes # 0.8 L (1.0-4.8) k/uL Potassium 6.0 H (3.5-5.1) mmol/L Chloride 113 H (98-107) mmol/L Carbon Dioxide 16 L (22-30) mmol/L BUN 60 H (7-17) mg/dL Creatinine 3.19 H (0.52-1.04) mg/dL Glucose 119 H (74-99) mg/dL Thrombosis Risk Factor Assmnt - DVT/VTE Prophylaxis DVT/VTE Prophylaxis: Pharmacologic Prophylaxis ordered Assessment and Plan Assessment: Hyperkalemia due to acute on chronic kidney disease Acute on chronic kidney disease stage IV with baseline creatinine around 2.7 Metabolic acidosis secondary to CKD hypertension Gout Rheumatoid arthritis currently on Enbrel Hyperlipidemia DVT prophylaxis with heparin subcu Plan: Patient was given fluid bolus in the ER. Will review D50 and insulin. Repeat potassium level. Nephrology was consulted. EKG showed no changes. Continue with home medications and follow-up closely. Time with Patient: Greater than 30
[2020-02-15 06:57] LABS: Basophils # (A) 0.1 k/uL (0-0.2); Basophils % (A) 1 %; Eosinophils # (A) 0.2 k/uL (0-0.7); Eosinophils % (A) 2 %; HCT 33.4 % (34.0-46.0); HGB 10.5 gm/dL (11.4-16.0); Lymphocytes # (A) 1.6 k/uL (1.0-4.8); Lymphocytes % (A) 20 %; MCH 27.6 pg (25.0-35.0); MCHC 31.5 g/dL (31.0-37.0); MCV 87.7 fL (80.0-100.0); Mean Platelet Volume 6.8; Monocytes # (A) 0.5 k/uL (0-1.0); Monocytes % (A) 6 %; Neutrophils # (A) 5.6 k/uL (1.3-7.7); Neutrophils % (A) 70 %; Platelet Count 247 k/uL (150-450); RBC 3.81 m/uL (3.80-5.40); RDW 15.5 % (11.5-15.5)
[2020-02-15] MEDS ORDERED: amLODIPine 10 MG TAB PO SCH (09:00)
[2020-02-15] MEDS ORDERED: SODIUM CHLORIDE 0.9% 1,000 ML IV SCH (09:00)
[2020-02-15 09:31] VITALS: RESP 16
[2020-02-15 14:42] VITALS: BP 159/64; PULSE 89; TEMP 98.2
--- NOTE | 2020-02-15 15:59 | CONS ---
CONSULTATION REASON FOR CONSULT: Renal failure. HISTORY OF PRESENT ILLNESS: The patient is an 84-year-old female who was admitted to the hospital for evaluation of abnormal labs as outpatient. The patient was noted to have an elevated potassium at 6.0 and a creatinine of 3.19. The patient has a history of hypertension and chronic kidney disease, NKF stage 3B to 4, with previous creatinine around 3 and 2.7 mg/dL. The patient was supposed to follow up as outpatient. She has not been seen outpatient yet for chronic kidney disease. The patient denied use of any nonsteroidal anti- inflammatory agents prior to admission. Her blood pressure was not low. She was noted to be acidotic and is currently maintained on bicarb drip. Her potassium has improved to 5.0 and creatinine is down to 2.75 today. No nausea, vomiting or diarrhea noted. PAST MEDICAL HISTORY: 1. CKD, stage 4, secondary to nephrosclerosis. Baseline creatinine 2.7 previously in December of 2019. Patient will need followup as outpatient. 2. Acute kidney injury, mostly prerenal, currently improved with IV fluids. 3. Non-gap metabolic acidosis secondary to renal failure, improved with bicarb drip. 4. History of gout. 5. Dyslipidemia. 6. Hyperkalemia associated with acute kidney injury and metabolic acidosis, now improved. 7. Rheumatoid arthritis, maintained on Enbrel. PLAN: Maintain patient on oral sodium bicarb. She could be discharged and she should follow up as outpatient in about 1 to 2 weeks' time. Continue to avoid use of NSAIDs and monitor blood pressure at home. Thank you for this consultation. Will continue to follow the patient with you during her hospitalization. MMODL / IJN: [id number] /
[2020-02-15] MEDS ORDERED: SODIUM BICARBONATE TAB 650 MG TAB PO SCH (21:00)
--- NOTE | 2020-02-28 21:29 | P.DS ---
Providers Date of admission: 02/14/20 15:09 Expected date of discharge: 02/15/20 Attending physician: Marilu Kaplan Consults: 02/14/20 17:02 Consult Physician Routine Consulting Provider: Migue Yan Consult Reason/Comments: hyperkalemia Do you want consulting provider notified?: Yes Primary care physician: Al Underwood MD Hospital Course: Discharge diagnosis Hyperkalemia due to acute on chronic kidney disease Acute on chronic kidney disease stage IV with baseline creatinine around 2.7 Metabolic acidosis secondary to CKD hypertension Gout Rheumatoid arthritis currently on Enbrel Hyperlipidemia DVT prophylaxis with heparin subcu Hospital course Patient is a 84-year-old female with a known history of CKD stage IV, hypertension, hyperlipidemia, gout, rheumatoid arthritis currently on Enbrel was sent to hospital due to elevated potassium levels. Patient was on follow-up with nephrology in the clinic and had lab work-up done which showed elevated potassium level and patient was referred to ER for evaluation. Currently patient denied any complaints of chest pain or shortness breath. No fever no chills. Denied any palpitations. No headache or dizziness or lightheadedness. Laboratory data showed WBC 8.8, hemoglobin 11.4, platelets 262 Sodium 138, potassium 6.0 Chloride 113 and bicarb is 16 BUN 16 creatinine 3.19 Liver enzymes are not elevated Urinalysis is negative for infection. Chest x-ray showed no acute cardiopulmonary process EKG showed normal sinus rhythm. No evidence of peaked. T waves On 02/15/2020 Patient is currently lying in the bed comfortably. Awake alert oriented x3. Potassium level is normalized at 5.0 today. Renal function with slight improvement of creatinine to 2.75 around her baseline. Patient will need to be followed up with nephrology in the clinic. No complaints of chest pain or shortness breath. No palpitations. Patient wishes to be discharged home. PHYSICAL EXAMINATION: Patient is lying in the bed comfortably, no acute distress, awake alert and oriented.. HEENT: Normocephalic. Neck is supple. Pupils reactive. Nostrils clear. Oral cavity is moist. Ears reveal no drainage. Neck reveals no JVD, carotid bruits, or thyromegaly. CHEST EXAMINATION: Trachea is central. Symmetrical expansion. Lung davidson clear to auscultation and percussion. CARDIAC: Normal S1, S2 with no gallops. No murmurs ABDOMEN: Soft. Bowel sounds normal. No organomegaly. No abdominal bruits. Extremities: reveal no edema. No clubbing or cyanosis Neurologically awake, alert, oriented x3 with well-coordinated movements. No focal deficits noted Skin: No rash or skin lesions. Psychiatric: Coperative. Nonsuicidal Musculoskeletal: No joint swelling or deformity. Normal range of motion. Discharge vitals reviewed. Patient Condition at Discharge: Fair Plan - Discharge Summary Discharge Rx Participant: No New Discharge Prescriptions: Continue Simvastatin [Zocor] 20 mg PO HS amLODIPine [Norvasc] 10 mg PO DAILY Cholecalciferol [Vitamin D3 (25 Mcg = 1000 Iu)] 1,000 unit PO DAILY Magnesium Gluconate [Magonate] 500 mg PO DAILY Etanercept [Enbrel Sureclick] 50 mg SQ Q7D Changed allopurinoL [Zyloprim] 100 mg PO BID #0 Discharge Medication List Simvastatin [Zocor] 20 mg PO HS 04/04/14 [History] amLODIPine [Norvasc] 10 mg PO DAILY 04/04/14 [History] Cholecalciferol [Vitamin D3 (25 Mcg = 1000 Iu)] 1,000 unit PO DAILY 03/26/17 [History] Etanercept [Enbrel Sureclick] 50 mg SQ Q7D 02/14/20 [History] Magnesium Gluconate [Magonate] 500 mg PO DAILY 02/14/20 [History] allopurinoL [Zyloprim] 100 mg PO BID #0 02/15/20 [Rx] Follow up Appointment(s)/Referral(s): Al Underwood MD [Primary Care Provider] - 02/16/20 2:00 pm Patient Instructions/Handouts: Acute Kidney Injury (GEN), Hyperkalemia (GEN) Discharge Disposition: HOME SELF-CARE
== END 2020-02-15 15:25 | disposition home or self-care (01) ==
LOC: EC 14:42 → 3NCARDOBS 15:09
PROVIDERS: ADMIT Hospitalist; ATTEND Hospitalist
DX: N17.9 Acute kidney failure, unspecified (principal); E87.5 Hyperkalemia; N18.4 Chronic kidney disease, stage 4 (severe); I12.9 Hypertensive chronic kidney disease with stage 1 through stage 4 chronic kidney disease, or unspecified chronic kidney disease; E87.2 Acidosis; E86.0 Dehydration; M06.9 Rheumatoid arthritis, unspecified; E78.5 Hyperlipidemia, unspecified; M10.9 Gout, unspecified; Z79.899 Other long term (current) drug therapy; Z90.49 Acquired absence of other specified parts of digestive tract; Z90.710 Acquired absence of both cervix and uterus; Z98.42 Cataract extraction status, left eye; Z85.828 Personal history of other malignant neoplasm of skin; Z82.49 Family history of ischemic heart disease and other diseases of the circulatory system
CPT/HCPCS: 99285 ×3; 96374; 96375; 96361; 93005; 80053; 80048 ×2; 83605; 83735; 84100; 84484; 85025 ×2; 81001; 71046; G0378 ×2

== ENCOUNTER 2020-06-05 20:06 | Inpatient (IN) | payer MEDICARE ==
--- NOTE | 2020-06-05 20:57 | ED ---
General Adult HPI - General Source: patient Mode of arrival: wheelchair Limitations: no limitations <Linda Sinclair - Last Filed: 06/05/20 22:29> <Amber Garcia - Last Filed: 06/06/20 09:07> - General Chief complaint: Shortness of Breath Stated complaint: Kidney Failure Time Seen by Provider: 06/05/20 20:30 - History of Present Illness Initial comments: 84-year-old female patient presents to the emergency department today for recheck of her kidney function. Patient states that she recently had a fistula placed in her left arm to start dialysis. States that her physician told her that her labs are worsening or couple of days ago and to present to the emergency department she developed any vomiting or diarrhea. Patient states that she did have a loose bowel movement today so she presented here for further evaluation. She has been having intermittent nausea, no vomiting. Patient states that she goes from lying to sitting she does feel some shortness of breath but she is able to ablate to the house without any difficulty. Denies any cough or congestion. Denies any chest pain or abdominal pain. Patient denies any recent rash, back pain, numbness, tingling, dizziness, weakness, hematuria, dysuria, urinary urgency, urinary frequency, headache, visual changes, or any other complaints. (Linda Sinclair) - Related Data Home Medications Medication Instructions Recorded Confirmed Simvastatin [Zocor] 20 mg PO HS 04/04/14 06/05/20 amLODIPine [Norvasc] 10 mg PO DAILY 04/04/14 06/05/20 Etanercept [Enbrel Sureclick] 50 mg SQ FR 02/14/20 06/05/20 Sodium Bicarbonate Tab 650 mg PO BID 06/05/20 06/05/20 allopurinoL [Zyloprim] 100 mg PO TID 06/05/20 06/05/20 cloNIDine HCL [Catapres] 0.1 mg PO BID 06/05/20 06/05/20 Allergies Allergy/AdvReac Type Severity Reaction Status Date / Time No Known Allergies Allergy Verified 06/05/20 21:21 Review of Systems ROS Other: All systems not noted in ROS Statement are negative. <Linda Sinclair - Last Filed: 06/05/20 22:29> ROS Other: All systems not noted in ROS Statement are negative. <Amber Garcia - Last Filed: 06/06/20 09:07> ROS Statement: Those systems with pertinent positive or pertinent negative responses have been documented in the HPI. 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 Past Anesthesia/Blood Transfusion Reactions: No Reported Reaction Past Psychological History: No Psychological Hx Reported Smoking Status: Never smoker Past Alcohol Use History: None Reported Past Drug Use History: None Reported - Past Family History Father Family Medical History: Myocardial Infarction ([place]) Mother Family Medical History: Myocardial Infarction ([place]) <Linda Sinclair - Last Filed: 06/05/20 22:29> General Exam Limitations: no limitations General appearance: alert, in no apparent distress, other (Physical well- developed, well-nourished adult female patient in no acute distress. Vital signs upon presentation are temperature 98.9F, pulse 101, respirations 18, blood pressure 138/72, pulse ox 97% on room air.) Respiratory exam: Present: normal lung sounds bilaterally. Absent: respiratory distress, wheezes, rales, rhonchi, stridor Cardiovascular Exam: Present: regular rate, normal rhythm, normal heart sounds. Absent: systolic murmur, diastolic murmur, rubs, gallop, clicks GI/Abdominal exam: Present: soft, normal bowel sounds. Absent: distended, tenderness, guarding, rebound, rigid Extremities exam: Present: normal inspection, full ROM, normal capillary refill, other (Radial pulses 2+ and equal bilaterally). Absent: tenderness, pedal edema, joint swelling, calf tenderness Psychiatric exam: Present: normal affect, normal mood Skin exam: Present: warm, dry, intact, normal color. Absent: rash <Linda Sinclair - Last Filed: 06/05/20 22:29> Course Vital Signs 06/05/20 06/05/20 06/05/20 20:17 22:00 23:00 Temperature 98.9 F Pulse Rate 101 H 83 82 Pulse Rate [ Pulse Oximetery ] Respiratory 18 18 16 Rate Blood Pressure 138/72 165/62 161/64 Blood Pressure [Right Arm] O2 Sat by Pulse 97 97 96 Oximetry 06/05/20 06/05/20 23:15 23:58 Temperature 98.5 F 98.2 F Pulse Rate 96 Pulse Rate [ 98 Pulse Oximetery ] Respiratory 22 18 Rate Blood Pressure 167/61 Blood Pressure 169/65 [Right Arm] O2 Sat by Pulse 95 96 Oximetry EKG Findings - EKG Comments: EKG Findings:: EKG obtained at 2102 shows sinus rhythm with a first-degree AV block with a right bundle branch block. Ventricular rate is 91, LA interval to 18, QRS duration 144, QT 396, QTC 487. <Linda Sinclair - Last Filed: 06/05/20 22:29> Medical Decision Making - Lab Data Result diagrams: 06/05/20 21:03 06/05/20 21:03 - Radiology Data Radiology results: report reviewed, image reviewed <Linda Sinclair - Last Filed: 06/05/20 22:29> - Lab Data Result diagrams: 06/05/20 21:03 06/05/20 21:03 <Amber Garcia - Last Filed: 06/06/20 09:07> - Medical Decision Making 84-year-old female patient presents to the emergency department today for evaluation of shortness of breath and possible worsening kidney function. Physical examination reveals clear equal lung sounds. Labs reviewed and revealed normal CBC, sodium 136, chloride 111, carbon dioxide 16, BUN 52, creatinine 2.95, glucose 130, alk phos 127. Kidney function is not significantly worsened previous exam but chest x-ray does show bilateral pleural effusions and patient does have edema to her face, hands, and ankles. She'll be admitted for fluid overload, we did give Lasix. Patient is agreeable with this plan. (Linda Sinclair) I was available for consultation in the emergency department. The history and physical exam were done by the midlevel provider. I was consulted for this patients care. I reviewed the case with the midlevel provider and based on their presentation of the patient, I agree with the assessment, medical decision making and plan of care as documented. Chart was dictated using [employer] dictation software. Attempts were made to correct any dictation errors however some typographical errors may persist. Patient was seen during a national state of emergency due to the Covid-19 pandemic. (Amber Garcia) - Lab Data Lab Results 06/05/20 06/05/20 06/05/20 Range/Units 21:03 21:03 21:03 WBC 6.8 (3.8-10.6) k/uL RBC 4.16 (3.80-5.40) m/uL Hgb 11.8 (11.4-16.0) gm/dL Hct 36.9 (34.0-46.0) % MCV 88.6 (80.0-100.0) fL MCH 28.3 (25.0-35.0) pg MCHC 32.0 (31.0-37.0) g/dL RDW 14.3 (11.5-15.5) % Plt Count 246 (150-450) k/uL MPV 6.9 Neutrophils % 75 % Lymphocytes % 14 % Monocytes % 6 % Eosinophils % 4 % Basophils % 1 % Neutrophils # 5.1 (1.3-7.7) k/uL Lymphocytes # 0.9 L (1.0-4.8) k/uL Monocytes # 0.4 (0-1.0) k/uL Eosinophils # 0.2 (0-0.7) k/uL Basophils # 0.0 (0-0.2) k/uL PT 10.3 (9.0-12.0) sec INR 1.0 (<1.2) APTT 23.8 (22.0-30.0) sec Sodium 136 L (137-145) mmol/L Potassium 4.8 (3.5-5.1) mmol/L Chloride 111 H (98-107) mmol/L Carbon Dioxide 16 L (22-30) mmol/L Anion Gap 9 mmol/L BUN 52 H (7-17) mg/dL Creatinine 2.95 H (0.52-1.04) mg/dL Est GFR (CKD-EPI)AfAm 16 (>60 ml/min/1.73 sqM) Est GFR (CKD-EPI)NonAf 14 (>60 ml/min/1.73 sqM) Glucose 130 H (74-99) mg/dL Calcium 9.3 (8.4-10.2) mg/dL Phosphorus 4.0 (2.5-4.5) mg/dL Magnesium 2.0 (1.6-2.3) mg/dL Total Bilirubin 1.0 (0.2-1.3) mg/dL AST 28 (14-36) U/L ALT 17 (4-34) U/L Alkaline Phosphatase 127 H (38-126) U/L Total Protein 6.6 (6.3-8.2) g/dL Albumin 4.0 (3.5-5.0) g/dL - Radiology Data Two-view x-ray of the chest is obtained. Report was reviewed in its entirety. Impression by Dr. Purcell shows new bilateral pleural effusions and basilar pulmonary infiltrates compared to old exam. There is probably minimal heart failure. (Linda Sinclair) Disposition Decision to Admit Reason: Admit from EC Decision Date: 06/05/20 Decision Time: 22:11 <Linda Sinclair - Last Filed: 06/05/20 22:29> <Amber Garcia - Last Filed: 06/06/20 09:07> Clinical Impression: Fluid overload, Dyspnea, Pleural effusion, bilateral Disposition: ADMITTED IP TO THIS [facility] Condition: Serious
[2020-06-05 21:10] LABS: Basophils % (A) 1 %; Eosinophils # (A) 0.2 k/uL (0-0.7); Eosinophils % (A) 4 %; HCT 36.9 % (34.0-46.0); HGB 11.8 gm/dL (11.4-16.0); Lymphocytes # (A) 0.9 k/uL (1.0-4.8); Lymphocytes % (A) 14 %; MCH 28.3 pg (25.0-35.0); MCV 88.6 fL (80.0-100.0); Mean Platelet Volume 6.9; Monocytes # (A) 0.4 k/uL (0-1.0); Monocytes % (A) 6 %; Neutrophils # (A) 5.1 k/uL (1.3-7.7); Neutrophils % (A) 75 %; Platelet Count 246 k/uL (150-450); RBC 4.16 m/uL (3.80-5.40); RDW 14.3 % (11.5-15.5); WBC 6.8 k/uL (3.8-10.6)
[2020-06-05 21:18] LABS: Partial Thromboplastin Time 23.8 sec (22.0-30.0); Prothrombin Time 10.3 sec (9.0-12.0)
[2020-06-05 21:21] LABS: Calcium 9.3 mg/dL (8.4-10.2); Potassium 4.8 mmol/L (3.5-5.1); Total Protein 6.6 g/dL (6.3-8.2)
--- NOTE | 2020-06-05 21:30 | XR ---
EXAMINATION TYPE: XR chest 2V DATE OF EXAM: 06/05/2020 COMPARISON: 02/14/2020 HISTORY: Short of breath TECHNIQUE: FINDINGS: There is blunting of the costophrenic angles. Heart is slightly enlarged. There is some inf iltrate at the lung bases. There are chest leads. There is minimal pulmonary congestion. IMPRESSION: There are new bilateral pleural effusions and basilar pulmonary infiltrates compared to o ld exam. There is probably minimal heart failure.
[2020-06-05] MEDS ORDERED: FUROSEMIDE 10 MG/ML 4 ML VIAL IV STA (22:08)
[2020-06-05] MEDS ORDERED: ACETAMINOPHEN TAB 325 MG TAB PO PRN (22:09)
[2020-06-05] MEDS ORDERED: NALOXONE 0.4 MG/ML 1 ML VIAL IV PRN (22:09)
[2020-06-05] MEDS ORDERED: ONDANSETRON 4 MG/2 ML VIAL IVP PRN (22:09)
[2020-06-06 07:14] VITALS: RESP 18
[2020-06-06] MEDS ORDERED: FUROSEMIDE 10 MG/ML 4 ML VIAL IV SCH (09:00)
--- NOTE | 2020-06-06 10:59 | P.NPCON ---
History of Present Illness - Reason for Consult chronic renal failure - History of Present Illness Reason for consultation: Chronic kidney disease History of present illness: A stent patient is a 84-year-old female seen in consultation for chronic kidney disease. 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 Patient presented to the hospital with diarrhea. Patient states she developed 2-3 loose bowel movements prior to admission but now resolved. She denies any vomiting. Oral intake is good. Denies metallic taste in her mouth. No fever or chills. No chest pain. She did have some shortness of breath as well as edema in her ankles. She is currently on IV Lasix 40 mg twice daily. Admits to good urine output. Edema is improved. No shortness of breath at this time. Creatinine was 2.95 on admission yesterday. Labs from today are pending. She does have an AV fistula which was placed about a week ago. Denies use of nonsteroidals. No history of diabetes. Vital signs are stable. General: The patient appeared well nourished and normally developed. HEENT: Head exam is unremarkable. Neck is without jugular venous distension. LUNGS: Breath sounds decreased. HEART: Rate and Rhythm are regular. ABDOMEN: Soft, nontender. EXTREMITITES: Trace edema. 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 Past Anesthesia/Blood Transfusion Reactions: No Reported Reaction Past Psychological History: No Psychological Hx Reported Smoking Status: Never smoker Past Alcohol Use History: None Reported Past Drug Use History: None Reported - Past Family History Father Family Medical History: No Reported History, Myocardial Infarction ([place]) Additional Family Medical History / Comment(s): pt. can't remember medical hx Mother Family Medical History: No Reported History, Myocardial Infarction ([place]) Additional Family Medical History / Comment(s): pt. can't remember medical hx Medications and Allergies Home Medications Medication Instructions Recorded Confirmed Type Simvastatin [Zocor] 20 mg PO HS 04/04/14 06/05/20 History amLODIPine [Norvasc] 10 mg PO DAILY 04/04/14 06/05/20 History Etanercept [Enbrel Sureclick] 50 mg SQ FR 02/14/20 06/05/20 History Sodium Bicarbonate Tab 650 mg PO BID 06/05/20 06/05/20 History allopurinoL [Zyloprim] 100 mg PO TID 06/05/20 06/05/20 History cloNIDine HCL [Catapres] 0.1 mg PO BID 06/05/20 06/05/20 History Allergies Allergy/AdvReac Type Severity Reaction Status Date / Time No Known Allergies Allergy Verified 06/05/20 21:21 Physical Exam Vitals: Vital Signs Temp Pulse Pulse Resp BP BP Pulse Ox 06/06/20 07:13 98.2 F 92 18 178/78 94 L 06/06/20 06:58 99 20 06/06/20 02:34 99 20 06/06/20 01:13 98.0 F 99 20 177/64 95 06/06/20 00:15 98.5 F 98 22 169/65 95 06/05/20 23:58 98.2 F 96 18 167/61 96 06/05/20 23:15 98.5 F 98 22 169/65 95 06/05/20 23:00 82 16 161/64 96 06/05/20 22:00 83 18 165/62 97 06/05/20 20:17 98.9 F 101 H 18 138/72 97 Intake and Output 06/05/20 06/06/20 06/06/20 22:59 06:59 14:59 Other: Voiding Method Toilet # Voids 3 Weight 74.843 kg 74.843 kg Results - Lab Results Most recent lab results Calcium 9.3 mg/dL (8.4-10.2) 06/05/20 21:03 Phosphorus 4.0 mg/dL (2.5-4.5) 06/05/20 21:03 Magnesium 2.0 mg/dL (1.6-2.3) 06/05/20 21:03 06/05/20 21:03 06/05/20 21:03 Assessment and Plan Plan: Assessment: 1. 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 She has a maturing AV fistula. GFR at baseline. Labs pending from today. 2. Volume overload. Improved with diuresis. 3. Hypertension with chronic kidney disease. 4. Metabolic acidosis secondary to chronic kidney disease and diarrhea. 5. Diarrhea. Likely viral. Rule out C. diff. Plan: Stop IV Lasix. Add Demadex 20 mg once daily. Add oral sodium bicarbonate. Resume amlodipine and clonidine. Check phosphorus level. No urgent need for renal replacement therapy at this time. Continue to monitor renal function and urine output. Thank you for the consultation. I will continue to follow the patient with you during her hospital stay.
[2020-06-06] MEDS ORDERED: amLODIPine 10 MG TAB PO SCH (11:00)
[2020-06-06] MEDS ORDERED: SODIUM BICARBONATE TAB 650 MG TAB PO SCH (11:00)
[2020-06-06 11:53] LABS: African American GFR (CKD) 16 (>60 ml/min/1.73 sqM); Anion Gap 8 mmol/L; Blood Urea Nitrogen 52 mg/dL (7-17); Calcium 9.2 mg/dL (8.4-10.2); Carbon Dioxide 19 mmol/L (22-30); Chloride 112 mmol/L (98-107); Glucose 142 mg/dL (74-99); Magnesium 1.8 mg/dL (1.6-2.3); Non-African American GFR(CKD) 14 (>60 ml/min/1.73 sqM); Phosphorus 3.8 mg/dL (2.5-4.5); Potassium 4.7 mmol/L (3.5-5.1); Sodium 139 mmol/L (137-145)
[2020-06-06 14:15] VITALS: BP 173/52; PULSE 102; TEMP 98.4
--- NOTE | 2020-06-06 14:23 | P.HPIM ---
History of Present Illness H&P Date: 06/06/20 Chief Complaint: Vomiting and diarrhea 84-year-old female patient presents to the emergency department today for recheck of her kidney function. Patient states that she recently had a fistula placed in her left arm to start dialysis. States that her physician told her that her labs are worsening or couple of days ago and to present to the emergency department she developed any vomiting or diarrhea. Patient states that she did have a loose bowel movement today so she presented here for further evaluation. She has been having intermittent nausea, no vomiting. Patient states that she goes from lying to sitting she does feel some shortness of breath but she is able to ablate to the house without any difficulty. Denies any cough or congestion. Denies any chest pain or abdominal pain. Patient denies any recent rash, back pain, numbness, tingling, dizziness, weakness, hematuria, dysuria, urinary urgency, urinary frequency, headache, visual changes, or any other complaints. Nephrology has been consulted there evaluated the patient, patient was kept overnight for ongoing diarrhea-like symptoms Review of Systems All systems: negative Past Medical History Past Medical History: Cancer, Hyperlipidemia, Hypertension, Rheumatoid Arthritis (RA) Additional Past Medical History / Comment(s): GOUT, SOME KIDNEY DAMAGE FROM MEDICATIONS, SKIN CANCER ON NOSE. 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 Past Anesthesia/Blood Transfusion Reactions: No Reported Reaction Past Psychological History: No Psychological Hx Reported Smoking Status: Never smoker Past Alcohol Use History: None Reported Past Drug Use History: None Reported - Past Family History Father Family Medical History: No Reported History, Myocardial Infarction ([place]) Additional Family Medical History / Comment(s): pt. can't remember medical hx Mother Family Medical History: No Reported History, Myocardial Infarction ([place]) Additional Family Medical History / Comment(s): pt. can't remember medical hx Medications and Allergies Home Medications Medication Instructions Recorded Confirmed Type Simvastatin [Zocor] 20 mg PO HS 04/04/14 06/05/20 History amLODIPine [Norvasc] 10 mg PO DAILY 04/04/14 06/05/20 History Etanercept [Enbrel Sureclick] 50 mg SQ FR 02/14/20 06/05/20 History Sodium Bicarbonate Tab 650 mg PO BID 06/05/20 06/05/20 History allopurinoL [Zyloprim] 100 mg PO TID 06/05/20 06/05/20 History cloNIDine HCL [Catapres] 0.1 mg PO BID 06/05/20 06/05/20 History Allergies Allergy/AdvReac Type Severity Reaction Status Date / Time No Known Allergies Allergy Verified 06/05/20 21:21 Physical Exam Vitals: Vital Signs Temp Pulse Pulse Resp BP BP Pulse Ox 06/06/20 14:00 98.4 F 102 H 18 173/52 96 06/06/20 11:39 85 179/69 06/06/20 07:13 98.2 F 92 18 178/78 94 L 06/06/20 06:58 99 20 06/06/20 02:34 99 20 06/06/20 01:13 98.0 F 99 20 177/64 95 06/06/20 00:15 98.5 F 98 22 169/65 95 06/05/20 23:58 98.2 F 96 18 167/61 96 06/05/20 23:15 98.5 F 98 22 169/65 95 06/05/20 23:00 82 16 161/64 96 06/05/20 22:00 83 18 165/62 97 06/05/20 20:17 98.9 F 101 H 18 138/72 97 Intake and Output 06/05/20 06/06/20 06/06/20 22:59 06:59 14:59 Other: Voiding Method Toilet # Voids 3 Weight 74.843 kg 74.843 kg - Constitutional General appearance: average body habitus - EENT Eyes: PERRLA Ears: bilateral: normal - Neck Carotids: bilateral: upstroke normal - Respiratory Respiratory: bilateral: CTA - Cardiovascular Heart sounds: normal: S1, S2 - Gastrointestinal General gastrointestinal: normal bowel sounds, soft - Integumentary Integumentary: normal turgor - Neurologic Neurologic: CNII-XII intact - Musculoskeletal Musculoskeletal: gait normal, generalized weakness - Psychiatric Psychiatric: A&O x's 3 Results CBC & Chem 7: 06/05/20 21:03 06/06/20 11:22 Labs: Abnormal Lab Results - Last 24 Hours (Table) 06/05/20 06/05/20 06/06/20 Range/Units 21:03 21:03 11:22 Lymphocytes # 0.9 L (1.0-4.8) k/uL Sodium 136 L (137-145) mmol/L Chloride 111 H 112 H (98-107) mmol/L Carbon Dioxide 16 L 19 L (22-30) mmol/L BUN 52 H 52 H (7-17) mg/dL Creatinine 2.95 H 2.97 H (0.52-1.04) mg/dL Glucose 130 H 142 H (74-99) mg/dL Alkaline Phosphatase 127 H (38-126) U/L Thrombosis Risk Factor Assmnt - Choose All That Apply Any of the Below Risk Factors Present?: Yes Each Factor Represents 1 point: Swollen legs (current) Each Risk Factor Represents 3 Points: Age 75 years or older Other congenital or acquired thrombophilia - If yes, enter type in comment: No Thrombosis Risk Factor Assessment Total Risk Factor Score: 4 Thrombosis Risk Factor Assessment Level: Moderate Risk Assessment and Plan Assessment: Nausea vomiting Dyslipidemia Hypertension hypertensive cardiovascular disease Rheumatoid arthritis Chronic kidney disease stage V due to interstitial nephritis\\volume overload\\metabolic acidosis Plan: Monitor clinical course closely gentle rehydration likely discharge in next 24 hours patient to be evaluated by renal services were Time with Patient: Greater than 30
--- NOTE | 2020-06-06 14:35 | P.DS ---
Providers Date of admission: 06/05/20 22:30 Expected date of discharge: 06/06/20 Attending physician: Baldev Manriquez Consults: 06/05/20 22:29 Consult Physician Routine Consulting Provider: Gloria Neely Consult Reason/Comments: Fluid overload Do you want consulting provider notified?: Yes Primary care physician: Al Underwood MD Hospital Course: 06/06/2020, patient expresses that she wants to go home feeling fine and denies any nausea vomiting diarrhea no dizziness lightheadedness is present, discussed with the renal service here for discharge 84-year-old female patient presents to the emergency department today for recheck of her kidney function. Patient states that she recently had a fistula placed in her left arm to start dialysis. States that her physician told her t hat her labs are worsening or couple of days ago and to present to the emergency department she developed any vomiting or diarrhea. Patient states that she did have a loose bowel movement today so she presented here for further evaluation. She has been having intermittent nausea, no vomiting. Patient states that she goes from lying to sitting she does feel some shortness of breath but she is abl e to ablate to the house without any difficulty. Denies any cough or congestion. Denies any chest pain or abdominal pain. Patient denies any recent rash, back pain, numbness, tingling, dizziness, weakness, hematuria, dysuria, urinary urgency, urinary frequency, headache, visual changes, or any other complaints. 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\\volume overload\\metabolic acidosis Patient Condition at Discharge: Good Plan - Discharge Summary Discharge Rx Participant: Yes New Discharge Prescriptions: Continue Simvastatin [Zocor] 20 mg PO HS amLODIPine [Norvasc] 10 mg PO DAILY Etanercept [Enbrel Sureclick] 50 mg SQ FR Sodium Bicarbonate Tab 650 mg PO BID cloNIDine HCL [Catapres] 0.1 mg PO BID allopurinoL [Zyloprim] 100 mg PO TID Discharge Medication List Simvastatin [Zocor] 20 mg PO HS 04/04/14 [History] amLODIPine [Norvasc] 10 mg PO DAILY 04/04/14 [History] Etanercept [Enbrel Sureclick] 50 mg SQ FR 02/14/20 [History] Sodium Bicarbonate Tab 650 mg PO BID 06/05/20 [History] allopurinoL [Zyloprim] 100 mg PO TID 06/05/20 [History] cloNIDine HCL [Catapres] 0.1 mg PO BID 06/05/20 [History] Follow up Appointment(s)/Referral(s): Al Underwood MD [Primary Care Provider] - 1-2 days Discharge Disposition: HOME SELF-CARE
[2020-06-06] MEDS ORDERED: cloNIDine HCL 0.1 MG TAB PO SCH (21:00)
[2020-06-07] MEDS ORDERED: TORSEMIDE 20 MG TAB PO SCH (09:00)
== END 2020-06-06 15:54 | disposition home or self-care (01) | DRG 683 ==
LOC: EC 20:06 → 5NMEDONC 22:30
PROVIDERS: ADMIT Internal Medicine Sleep Medicine; ATTEND Internal Medicine Sleep Medicine
DX: I12.0 Hypertensive chronic kidney disease with stage 5 chronic kidney disease or end stage renal disease (principal); N18.5 Chronic kidney disease, stage 5; N12 Tubulo-interstitial nephritis, not specified as acute or chronic; E87.2 Acidosis; J90 Pleural effusion, not elsewhere classified; M06.9 Rheumatoid arthritis, unspecified; K29.70 Gastritis, unspecified, without bleeding; I45.10 Unspecified right bundle-branch block; I44.0 Atrioventricular block, first degree; E78.5 Hyperlipidemia, unspecified; M10.9 Gout, unspecified; Z79.899 Other long term (current) drug therapy; Z90.49 Acquired absence of other specified parts of digestive tract; Z90.710 Acquired absence of both cervix and uterus; Z87.19 Personal history of other diseases of the digestive system; Z85.828 Personal history of other malignant neoplasm of skin; Z87.42 Personal history of other diseases of the female genital tract; Z98.42 Cataract extraction status, left eye; Z98.890 Other specified postprocedural states; Z82.49 Family history of ischemic heart disease and other diseases of the circulatory system
CPT/HCPCS: 36415; 71046; 80048; 80053; 83735; 84100; 85025; 85610; 85730; 93005; 96374; 99285

== ENCOUNTER 2020-08-11 22:38 | Inpatient (IN) | payer MEDICARE ==
--- NOTE | 2020-08-11 23:34 | XR ---
EXAMINATION TYPE: XR Hip LT and AP Pelvis DATE OF EXAM: 08/11/2020 COMPARISON: NONE HISTORY: Left hip pain TECHNIQUE: 3 views FINDINGS: The pelvic ring is intact. There is acetabular spur formation bilaterally. There is left hi p joint space narrowing. I see no fracture. The proximal femurs are intact. Sacroiliac joints are nor mal. 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 No fracture seen.
--- NOTE | 2020-08-11 23:36 | XR ---
EXAMINATION TYPE: XR chest 2V DATE OF EXAM: 08/11/2020 COMPARISON: 06/05/2020 HISTORY: Chest pain TECHNIQUE: 2 views FINDINGS: Heart is enlarged. There is blunting of the costophrenic angles. There is probably some inf iltrate right lung base. Bony thorax is intact. IMPRESSION: Pleural effusions and basilar pulmonary infiltrates overall not significantly different t lou last exam minimal pulmonary congestion but no obvious heart failure.
--- NOTE | 2020-08-12 00:01 | ED ---
Extremity Problem HPI - General Chief complaint: Extremity Problem,Nontraumatic Stated complaint: Left hip pain Time Seen by Provider: 08/11/20 22:47 Source: patient, EMS, RN notes reviewed, old records reviewed Mode of arrival: EMS Limitations: no limitations - History of Present Illness Initial comments: This is a 85-year-old female to the ER for evaluation patient presenta today for left hip and upper thigh. Multiple other complaints, patient feels weak patient is coming in for hip pain but on arrival was found to be short of breath with low oxygen. History of obtained from her daughter who is ar bedside MD Complaint: other (atient has significant weakness does not feel well) -: days(s) Location: right, lower extremity History of Same: Yes -: Yes arthralgia Radiation: none Severity scale (1-10): 7 Quality: aching Consistency: constant Improves with: nothing Worsens with: nothing Associated Symptoms: fever - Related Data Home Medications Medication Instructions Recorded Confirmed Simvastatin [Zocor] 20 mg PO HS 04/04/14 08/12/20 amLODIPine [Norvasc] 10 mg PO DAILY 04/04/14 08/12/20 Etanercept [Enbrel Sureclick] 50 mg SQ FR 02/14/20 08/12/20 allopurinoL [Zyloprim] 100 mg PO BID 06/05/20 08/12/20 Cholecalciferol [Vitamin D3 (25 25 mcg PO DAILY 08/12/20 08/12/20 Mcg = 1000 Iu)] Previous Rx's Medication Instructions Recorded Acetaminophen Tab [Tylenol] 650 mg PO Q4HR PRN tab 08/13/20 Capsaicin Cream [Trixaicin Cream] 1 applic TOPICAL TID applic 08/13/20 Torsemide [Demadex] 40 mg PO DAILY 30 Days #30 tab 08/13/20 traMADol HCl [Ultram] 50 mg PO BID #10 tab 08/13/20 Allergies Allergy/AdvReac Type Severity Reaction Status Date / Time No Known Allergies Allergy Verified 08/12/20 08:28 Review of Systems ROS Statement: Those systems with pertinent positive or pertinent negative responses have been documented in the HPI. ROS Other: All systems not noted in ROS Statement are negative. 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 Past Anesthesia/Blood Transfusion Reactions: No Reported Reaction Past Psychological History: No Psychological Hx Reported Smoking Status: Never smoker Past Alcohol Use History: None Reported Past Drug Use History: None Reported - Past Family History Father Family Medical History: No Reported History, Myocardial Infarction ([place]) Additional Family Medical History / Comment(s): pt. can't remember medical hx Mother Family Medical History: No Reported History, Myocardial Infarction ([place]) Additional Family Medical History / Comment(s): pt. can't remember medical hx General Exam Limitations: no limitations Course Vital Signs 08/11/20 08/11/20 08/12/20 22:39 22:56 00:53 Temperature 99.1 F 99.3 F Pulse Rate 69 98 Respiratory 18 20 Rate Blood Pressure 148/68 157/71 O2 Sat by Pulse 86 L 94 L 94 L Oximetry 08/12/20 01:59 Temperature Pulse Rate 98 Respiratory 18 Rate Blood Pressure 146/72 O2 Sat by Pulse 95 Oximetry - Reevaluation(s) Reevaluation #1: Medical record is reviewed Patient symptoms are improved here in the ER Patient is significantly hypoxic on arrival although improved here in the ER Patient will admit for monitoring of hypoxia Medical Decision Making - Medical Decision Making 85 female to the ER for evaluation patient found to be significantly hypoxic here in the ER x-ray does show pulmonary edema patient will be admitted for cardiology to evaluate treat - Lab Data Result diagrams: 08/12/20 06:59 08/12/20 06:59 Lab Results 08/12/20 08/12/20 08/12/20 Range/Units 00:01 00:14 00:14 WBC 12.1 H (3.8-10.6) k/uL RBC 3.73 L (3.80-5.40) m/uL Hgb 10.5 L (11.4-16.0) gm/dL Hct 33.0 L (34.0-46.0) % MCV 88.7 (80.0-100.0) fL MCH 28.1 (25.0-35.0) pg MCHC 31.7 (31.0-37.0) g/dL RDW 15.0 (11.5-15.5) % Plt Count 224 (150-450) k/uL MPV 6.7 Neutrophils % 88 % Lymphocytes % 5 % Monocytes % 6 % Eosinophils % 0 % Basophils % 0 % Neutrophils # 10.6 H (1.3-7.7) k/uL Lymphocytes # 0.6 L (1.0-4.8) k/uL Monocytes # 0.7 (0-1.0) k/uL Eosinophils # 0.1 (0-0.7) k/uL Basophils # 0.0 (0-0.2) k/uL PT 10.8 (9.0-12.0) sec INR 1.0 (<1.2) APTT 22.3 (22.0-30.0) sec Sodium (137-145) mmol/L Potassium (3.5-5.1) mmol/L Chloride (98-107) mmol/L Carbon Dioxide (22-30) mmol/L Anion Gap mmol/L BUN (7-17) mg/dL Creatinine (0.52-1.04) mg/dL Est GFR (CKD-EPI)AfAm (>60 ml/min/1.73 sqM) Est GFR (CKD-EPI)NonAf (>60 ml/min/1.73 sqM) Glucose (74-99) mg/dL Plasma Lactic Acid Clarence (0.7-2.0) mmol/L Calcium (8.4-10.2) mg/dL Phosphorus (2.5-4.5) mg/dL Magnesium (1.6-2.3) mg/dL Total Bilirubin (0.2-1.3) mg/dL AST (14-36) U/L ALT (4-34) U/L Alkaline Phosphatase (38-126) U/L Creatine Kinase (30-135) U/L Troponin I (0.000-0.034) ng/mL NT-Pro-B Natriuret Pep pg/mL Total Protein (6.3-8.2) g/dL Albumin (3.5-5.0) g/dL Urine Color Yellow Urine Appearance Clear (Clear) Urine pH 6.5 (5.0-8.0) Ur Specific [place] 1.011 (1.001-1.035) Urine Protein 3+ H (Negative) Urine Glucose (UA) Negative (Negative) Urine Ketones Negative (Negative) Urine Blood Negative (Negative) Urine Nitrite Negative (Negative) Urine Bilirubin Negative (Negative) Urine Urobilinogen <2.0 (<2.0) mg/dL Ur Leukocyte Esterase Negative (Negative) Urine RBC <1 (0-5) /hpf Urine WBC 2 (0-5) /hpf Ur Squamous Epith Cells <1 (0-4) /hpf Hyaline Casts 23 H (0-2) /lpf Urine Mucus Rare H (None) /hpf 08/12/20 08/12/20 08/12/20 Range/Units 00:14 00:14 00:14 WBC (3.8-10.6) k/uL RBC (3.80-5.40) m/uL Hgb (11.4-16.0) gm/dL Hct (34.0-46.0) % MCV (80.0-100.0) fL MCH (25.0-35.0) pg MCHC (31.0-37.0) g/dL RDW (11.5-15.5) % Plt Count (150-450) k/uL MPV Neutrophils % % Lymphocytes % % Monocytes % % Eosinophils % % Basophils % % Neutrophils # (1.3-7.7) k/uL Lymphocytes # (1.0-4.8) k/uL Monocytes # (0-1.0) k/uL Eosinophils # (0-0.7) k/uL Basophils # (0-0.2) k/uL PT (9.0-12.0) sec INR (<1.2) APTT (22.0-30.0) sec Sodium 136 L (137-145) mmol/L Potassium 3.6 (3.5-5.1) mmol/L Chloride 96 L (98-107) mmol/L Carbon Dioxide 30 (22-30) mmol/L Anion Gap 10 mmol/L BUN 20 H (7-17) mg/dL Creatinine 2.62 H (0.52-1.04) mg/dL Est GFR (CKD-EPI)AfAm 19 (>60 ml/min/1.73 sqM) Est GFR (CKD-EPI)NonAf 16 (>60 ml/min/1.73 sqM) Glucose 149 H (74-99) mg/dL Plasma Lactic Acid Clarence 0.7 (0.7-2.0) mmol/L Calcium 8.8 (8.4-10.2) mg/dL Phosphorus 3.5 (2.5-4.5) mg/dL Magnesium 1.8 (1.6-2.3) mg/dL Total Bilirubin 1.9 H (0.2-1.3) mg/dL AST 25 (14-36) U/L ALT 13 (4-34) U/L Alkaline Phosphatase 100 (38-126) U/L Creatine Kinase 33 (30-135) U/L Troponin I 0.048 H* (0.000-0.034) ng/mL NT-Pro-B Natriuret Pep pg/mL Total Protein 5.7 L (6.3-8.2) g/dL Albumin 3.5 (3.5-5.0) g/dL Urine Color Urine Appearance (Clear) Urine pH (5.0-8.0) Ur Specific [place] (1.001-1.035) Urine Protein (Negative) Urine Glucose (UA) (Negative) Urine Ketones (Negative) Urine Blood (Negative) Urine Nitrite (Negative) Urine Bilirubin (Negative) Urine Urobilinogen (<2.0) mg/dL Ur Leukocyte Esterase (Negative) Urine RBC (0-5) /hpf Urine WBC (0-5) /hpf Ur Squamous Epith Cells (0-4) /hpf Hyaline Casts (0-2) /lpf Urine Mucus (None) /hpf 08/12/20 Range/Units 00:14 WBC (3.8-10.6) k/uL RBC (3.80-5.40) m/uL Hgb (11.4-16.0) gm/dL Hct (34.0-46.0) % MCV (80.0-100.0) fL MCH (25.0-35.0) pg MCHC (31.0-37.0) g/dL RDW (11.5-15.5) % Plt Count (150-450) k/uL MPV Neutrophils % % Lymphocytes % % Monocytes % % Eosinophils % % Basophils % % Neutrophils # (1.3-7.7) k/uL Lymphocytes # (1.0-4.8) k/uL Monocytes # (0-1.0) k/uL Eosinophils # (0-0.7) k/uL Basophils # (0-0.2) k/uL PT (9.0-12.0) sec INR (<1.2) APTT (22.0-30.0) sec Sodium (137-145) mmol/L Potassium (3.5-5.1) mmol/L Chloride (98-107) mmol/L Carbon Dioxide (22-30) mmol/L Anion Gap mmol/L BUN (7-17) mg/dL Creatinine (0.52-1.04) mg/dL Est GFR (CKD-EPI)AfAm (>60 ml/min/1.73 sqM) Est GFR (CKD-EPI)NonAf (>60 ml/min/1.73 sqM) Glucose (74-99) mg/dL Plasma Lactic Acid Cla[place] (0.7-2.0) mmol/L Calcium (8.4-10.2) mg/dL Phosphorus (2.5-4.5) mg/dL Magnesium (1.6-2.3) mg/dL Total Bilirubin (0.2-1.3) mg/dL AST (14-36) U/L ALT (4-34) U/L Alkaline Phosphatase (38-126) U/L Creatine Kinase (30-135) U/L Troponin I (0.000-0.034) ng/mL NT-Pro-B Natriuret Pep 40227 pg/mL Total Protein (6.3-8.2) g/dL Albumin (3.5-5.0) g/dL Urine Color Urine Appearance (Clear) Urine pH (5.0-8.0) Ur Specific [place] (1.001-1.035) Urine Protein (Negative) Urine Glucose (UA) (Negative) Urine Ketones (Negative) Urine Blood (Negative) Urine Nitrite (Negative) Urine Bilirubin (Negative) Urine Urobilinogen (<2.0) mg/dL Ur Leukocyte Esterase (Negative) Urine RBC (0-5) /hpf Urine WBC (0-5) /hpf Ur Squamous Epith Cells (0-4) /hpf Hyaline Casts (0-2) /lpf Urine Mucus (None) /hpf - EKG Data -: EKG Interpreted by Me (EKG is sinus rhythm 100 AL 214 QRS 142 QTC 523) - Radiology Data Radiology results: report reviewed (Chest x-ray hip x-ray does show PERRLA edema and effusion), image reviewed Disposition Clinical Impression: Acute renal failure (ARF), Dyspnea, Pleural effusion, bilateral, Urinary tract infection, Fluid overload Disposition: ADMITTED IP TO THIS HOSP Condition: Fair Is patient prescribed a controlled substance at d/c from ED?: No
[2020-08-12 00:35] LABS: Basophils % (A) 0 %; Eosinophils # (A) 0.1 k/uL (0-0.7); Eosinophils % (A) 0 %; HGB 10.5 gm/dL (11.4-16.0); Lymphocytes # (A) 0.6 k/uL (1.0-4.8); Lymphocytes % (A) 5 %; MCH 28.1 pg (25.0-35.0); MCHC 31.7 g/dL (31.0-37.0); MCV 88.7 fL (80.0-100.0); Mean Platelet Volume 6.7; Monocytes # (A) 0.7 k/uL (0-1.0); Monocytes % (A) 6 %; Neutrophils # (A) 10.6 k/uL (1.3-7.7); Neutrophils % (A) 88 %; Platelet Count 224 k/uL (150-450); RBC 3.73 m/uL (3.80-5.40); WBC 12.1 k/uL (3.8-10.6)
[2020-08-12] MEDS ORDERED: MORPHINE SULFATE 4 MG/ML SYRINGE IVP STA (00:46)
[2020-08-12 00:47] LABS: Partial Thromboplastin Time 22.3 sec (22.0-30.0); Prothrombin Time 10.8 sec (9.0-12.0)
[2020-08-12 00:49] LABS: Albumin 3.5 g/dL (3.5-5.0); Calcium 8.8 mg/dL (8.4-10.2); Magnesium 1.8 mg/dL (1.6-2.3); Phosphorus 3.5 mg/dL (2.5-4.5); Potassium 3.6 mmol/L (3.5-5.1); Total Bilirubin 1.9 mg/dL (0.2-1.3); Total Protein 5.7 g/dL (6.3-8.2)
[2020-08-12] MEDS: FUROSEMIDE 10 MG/ML 4 ML VIAL IV SCH ×2 (01:59→08:21)
[2020-08-12] MEDS: MORPHINE SULFATE 4 MG/ML SYRINGE IVP PRN ×2 (03:02→06:40)
[2020-08-12 07:26] LABS: Basophils # (A) 0.1 k/uL (0-0.2); Basophils % (A) 1 %; Eosinophils % (A) 0 %; HGB 10.4 gm/dL (11.4-16.0); Lymphocytes # (A) 0.9 k/uL (1.0-4.8); Lymphocytes % (A) 9 %; MCH 29.4 pg (25.0-35.0); MCHC 32.7 g/dL (31.0-37.0); MCV 90.1 fL (80.0-100.0); Mean Platelet Volume 6.7; Monocytes # (A) 0.8 k/uL (0-1.0); Monocytes % (A) 8 %; Neutrophils # (A) 8.3 k/uL (1.3-7.7); Neutrophils % (A) 82 %; Platelet Count 197 k/uL (150-450); RBC 3.55 m/uL (3.80-5.40); WBC 10.2 k/uL (3.8-10.6)
[2020-08-12 07:42] LABS: Calcium 8.5 mg/dL (8.4-10.2); Magnesium 1.8 mg/dL (1.6-2.3); Potassium 3.5 mmol/L (3.5-5.1)
[2020-08-12] MEDS ORDERED: HYDROcodone/APAP 7.5-325MG 1 EACH TAB PO ONE (09:45)
[2020-08-12] MEDS ORDERED: POTASSIUM CHLORIDE ER 20 MEQ TAB.ER PO STA (10:21)
--- NOTE | 2020-08-12 10:21 | P.NPCON ---
History of Present Illness - Reason for Consult end stage renal disease - History of Present Illness Reason for consultation: End-stage renal disease History of present illness: Patient is a 85-year-old female seen in renal consultation for end-stage renal disease. Etiology is interstitial nephritis. She is maintained on hemodialysis at [facility]. She has a left upper extremity AV fistula. Patient presented to the hospital with pain in her left hip. Patient states she was having difficulty with ambulation. She denies any falls or trauma. She does have history of rheumatoid arthritis. X-ray revealed hip joint osteoarthritis which is worse on the left side. Blood pressure stable. No fever or chills. No vomiting. Oral intake is fair. Chest x-ray did reveal pleural effusions and basilar pulmonary infiltrates similar to prior exam. Hemoglobin is stable. No melena or hematochezia. No chest pain or shortness of breath. She does make some urine. No history of diabetes. Vital signs are stable. General: The patient appeared well nourished and normally developed. HEENT: Head exam is unremarkable. Neck is without jugular venous distension. LUNGS: Breath sounds decreased. HEART: Rate and Rhythm are regular. ABDOMEN: Soft, nontender. EXTREMITITES: Trace edema. 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 Past Anesthesia/Blood Transfusion Reactions: No Reported Reaction Past Psychological History: No Psychological Hx Reported Smoking Status: Never smoker Past Alcohol Use History: None Reported Past Drug Use History: None Reported - Past Family History Father Family Medical History: No Reported History, My[place] Infarction ([place]) Additional Family Medical History / Comment(s): pt. can't remember medical hx Mother Family Medical History: No Reported History, Myocardial Infarction ([place]) Additional Family Medical History / Comment(s): pt. can't remember medical hx Medications and Allergies Home Medications Medication Instructions Recorded Confirmed Type Simvastatin [Zocor] 20 mg PO HS 04/04/14 08/12/20 History amLODIPine [Norvasc] 10 mg PO DAILY 04/04/14 08/12/20 History Etanercept [Enbrel Sureclick] 50 mg SQ FR 02/14/20 08/12/20 History allopurinoL [Zyloprim] 100 mg PO BID 06/05/20 08/12/20 History Cholecalciferol [Vitamin D3 (25 25 mcg PO DAILY 08/12/20 08/12/20 History Mcg = 1000 Iu)] Allergies Allergy/AdvReac Type Severity Reaction Status Date / Time No Known Allergies Allergy Verified 08/12/20 08:28 Physical Exam Vitals: Vital Signs Temp Pulse Pulse Resp BP BP BP 08/12/20 08:15 98.6 F 93 18 159/71 08/12/20 04:00 99.0 F 90 16 159/72 08/12/20 03:22 94 18 08/12/20 03:00 99 F 94 19 164/74 08/12/20 01:59 98 18 146/72 08/12/20 00:53 99.3 F 98 20 157/71 08/11/20 22:56 08/11/20 22:39 99.1 F 69 18 148/68 Pulse Ox 08/12/20 08:15 94 L 08/12/20 04:00 92 L 08/12/20 03:22 08/12/20 03:00 95 08/12/20 01:59 95 08/12/20 00:53 94 L 08/11/20 22:56 94 L 08/11/20 22:39 86 L Intake and Output 08/11/20 08/12/20 08/12/20 22:59 06:59 14:59 Output Total 0 Balance 0 Output: Urine 0 Other: Voiding Method External Catheter External Catheter # Voids 0 0 # Bowel Movements 0 Weight 77.111 kg 71 kg Results - Lab Results Most recent lab results Calcium 8.5 mg/dL (8.4-10.2) 08/12/20 06:59 Phosphorus 3.5 mg/dL (2.5-4.5) 08/12/20 00:14 Magnesium 1.8 mg/dL (1.6-2.3) 08/12/20 06:59 08/12/20 06:59 08/12/20 06:59 Assessment and Plan Plan: Assessment: 1. End-stage renal disease maintained on hemodialysis on Thursday schedule. She has a left upper extremity AV fistula. 2. Mild volume overload. 3. Left hip pain. X-ray concerning for worsening arthritis. 4. Hypertension with chronic kidney disease. 5. Hypokalemia from diuresis. 6. Rheumatoid arthritis. Plan: Hemodialysis tomorrow. I will change Lasix to Demadex 40 mg daily. Replace potassium. 40 mEq today. Phosphorus normal. Thank you for the consultation. I will continue to follow the patient with you during her hospital stay.
--- NOTE | 2020-08-12 10:49 | P.CRDCN ---
History of Present Illness History of present illness: HISTORY OF PRESENTING ILLNESS This is a pleasant 85-year-old male past medical history significant for hypertension, dyslipidemia, chronic kidney disease, rheumatoid arthritis. She states she recently started dialysis for the first time last week. She denies prior history of coronary artery disease and does not follow with a quitline counselor for any reason. We have been asked to see in consultation for heart failure. She presented to the hospital with symptoms of left leg discomfort. She states she woke up yesterday morning and she felt achy in the left hip. She went to dialysis and sat in the chair for 4 hours and the maneuvers time to get up and move around her left hip again continue to feel achy and sore. Diagnostic imaging reveals hip joint osteoarthritis worse on the left with no acute fracture noted. The patient states she did not fall or have any injury. She denies shortness of breath, chest pain, dizziness or palpitations. DIAGNOSTICS EKG reveals sinus mechanism, first-degree AV block and right bundle branch block. Telemetry tracings indicate sinus mechanism. Chest xray blunting of the costophrenic angles with pleural effusions no change from previous. Laboratory reviewed, WBC 12.1 on admission, repeat today 10.2, hemoglobin 10.4, platelets 197, sodium 136, potassium 3.5, creatinine 2.77, magnesium 1.8, troponin 0.0 48 and NT proBNP 17,600. Current cardiac medications include amlodipine 10 mg daily and simvastatin 20 mg daily. REVIEW OF SYSTEMS At the time of my exam: CONSTITUTIONAL: Denies fever or chills. CARDIOVASCULAR: Denies chest pain, shortness of breath, orthopnea, PND or palpitations. RESPIRATORY: Denies cough. GASTROINTESTINAL: Denies abdominal pain, diarrhea, constipation, nausea or vomiting. MUSCULOSKELETAL: Complains of left hip pain NEUROLOGIC: Denies numbness, tingling, headacbe or weakness. ENDOCRINE: Denies fatigue, weight change, polydipsia or polyurina. GENITOURINARY: Denies burning, hematuria or urgency with micturation. HEMATOLOGIC: Denies history of anemia or bleeding. PHYSICAL EXAMINATION Blood pressure 159/71 heart rate 93 afebrile and maintaining oxygen saturation on nasal cannula. CONSTITUTIONAL: No apparent distress. HEENT: Head is normocephalic. Pupils are equal, round. Sclerae anicteric. Mucous membranes of the mouth are moist. No JVD. No carotid bruit. CHEST EXAMINATION: Lungs are clear to auscultation. No chest wall tenderness is noted on palpation or with deep breathing. HEART EXAMINATION: Regular rate and rhythm. S1, S2 heard. No murmurs, gallops or rub. ABDOMEN: Soft, nontender. Positive bowel sounds. EXTREMITIES: 2+ peripheral pulses, no lower extremity edema and no calf tend erness. NEUROLOGIC EXAMINATION: Patient is awake, alert and oriented x3. ASSESSMENT Left hip pain Chronic kidney disease on HD Hypertension PLAN Elevated troponin secondary to renal function, not primary myocardial injury. Elevated BNP secondary to renal function not heart failure. Diuretics per nephrology. Clinically she is euvolemic and not in overt heart failure. Continue amlodipine as previously ordered. Obtain 2D echocardiogram and doppler study to assess cardiac structure and function. Thank you kindly for this consultation. Nurse Practitioner note has been reviewed, I agree with a documented findings and plan of care. Patient was seen and examined. 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 Past Anesthesia/Blood Transfusion Reactions: No Reported Reaction Past Psychological History: No Psychological Hx Reported Smoking Status: Never smoker Past Alcohol Use History: None Reported Past Drug Use History: None Reported - Past Family History Father Family Medical History: No Reported History, Myocardial Infarction ([place]) Additional Family Medical History / Comment(s): pt. can't remember medical hx Mother Family Medical History: No Reported History, Myocardial Infarction ([place]) Additional Family Medical History / Comment(s): pt. can't remember medical hx Medications and Allergies Home Medications Medication Instructions Recorded Confirmed Type Simvastatin [Zocor] 20 mg PO HS 04/04/14 08/12/20 History amLODIPine [Norvasc] 10 mg PO DAILY 04/04/14 08/12/20 History Etanercept [Enbrel Sureclick] 50 mg SQ FR 02/14/20 08/12/20 History allopurinoL [Zyloprim] 100 mg PO BID 06/05/20 08/12/20 History Cholecalciferol [Vitamin D3 (25 25 mcg PO DAILY 08/12/20 08/12/20 History Mcg = 1000 Iu)] Allergies Allergy/AdvReac Type Severity Reaction Status Date / Time No Known Allergies Allergy Verified 08/12/20 08:28 Physical Exam Vitals: Vital Signs Temp Pulse Pulse Resp BP BP BP 08/12/20 08:15 98.6 F 93 18 159/71 08/12/20 04:00 99.0 F 90 16 159/72 08/12/20 03:22 94 18 08/12/20 03:00 99 F 94 19 164/74 08/12/20 01:59 98 18 146/72 08/12/20 00:53 99.3 F 98 20 157/71 08/11/20 22:56 08/11/20 22:39 99.1 F 69 18 148/68 Pulse Ox 08/12/20 08:15 94 L 08/12/20 04:00 92 L 08/12/20 03:22 08/12/20 03:00 95 08/12/20 01:59 95 08/12/20 00:53 94 L 08/11/20 22:56 94 L 08/11/20 22:39 86 L Intake and Output 08/11/20 08/12/20 08/12/20 22:59 06:59 14:59 Output Total 0 Balance 0 Output: Urine 0 Other: Voiding Method External Catheter External Catheter # Voids 0 0 # Bowel Movements 0 Weight 77.111 kg 71 kg Results 08/12/20 06:59 08/12/20 06:59 Cardiac Enzymes 08/12/20 08/12/20 Range/Units 00:14 00:14 AST 25 (14-36) U/L Troponin I 0.048 H* (0.000-0.034) ng/mL Coagulation 08/12/20 Range/Units 00:14 PT 10.8 (9.0-12.0) sec APTT 22.3 (22.0-30.0) sec CBC 08/12/20 08/12/20 Range/Units 00:14 06:59 WBC 12.1 H 10.2 (3.8-10.6) k/uL RBC 3.73 L 3.55 L (3.80-5.40) m/uL Hgb 10.5 L 10.4 L (11.4-16.0) gm/dL Hct 33.0 L 32.0 L (34.0-46.0) % Plt Count 224 197 (150-450) k/uL Comprehensive Metabolic Panel 08/12/20 08/12/20 Range/Units 00:14 06:59 Sodium 136 L 136 L (137-145) mmol/L Potassium 3.6 3.5 (3.5-5.1) mmol/L Chloride 96 L 98 (98-107) mmol/L Carbon Dioxide 30 33 H (22-30) mmol/L BUN 20 H 21 H (7-17) mg/dL Creatinine 2.62 H 2.77 H (0.52-1.04) mg/dL Glucose 149 H 124 H (74-99) mg/dL Calcium 8.8 8.5 (8.4-10.2) mg/dL AST 25 (14-36) U/L ALT 13 (4-34) U/L Alkaline Phosphatase 100 (38-126) U/L Total Protein 5.7 L (6.3-8.2) g/dL Albumin 3.5 (3.5-5.0) g/dL Current Medications Generic Name Dose Route Start Last Admin Trade Name Freq PRN Reason Stop Dose Admin Amlodipine Besylate 10 mg 08/12/20 09:30 Amlodipine 10 Mg Tab PO DAILY [facility] Atorvastatin Calcium 10 mg 08/12/20 21:00 Atorvastatin 10 Mg Tab PO HS [facility] Capsaicin 1 applic 08/12/20 10:00 Capsaicin 0.025% Cream 60 Gm Tube TOPICAL TID AGUSTINA Morphine Sulfate 4 mg 08/12/20 00:46 08/12/20 06:40 Morphine Sulfate 4 Mg/Ml Syringe IVP 4 mg Q4HR PRN Administration Pain Torsemide 40 mg 08/13/20 09:00 Torsemide 20 Mg Tab PO DAILY [facility] Intake and Output 08/11/20 08/12/20 08/12/20 22:59 06:59 14:59 Output Total 0 Balance 0 Output: Urine 0 Other: Voiding Method External Catheter External Catheter # Voids 0 0 # Bowel Movements 0 Weight 77.111 kg 71 kg 08/12/20 06:59 08/12/20 06:59
[2020-08-12] MEDS ORDERED: ACETAMINOPHEN TAB 325 MG TAB PO PRN (11:05)
[2020-08-12] MEDS ORDERED: traMADol 50 MG TAB PO PRN (11:05)
[2020-08-12] MEDS: amLODIPine 10 MG TAB PO SCH (12:03)
--- NOTE | 2020-08-12 13:52 | P.HPIM ---
History of Present Illness 85-year-old female patient came in with severe pain in the left hip is found have severe osteoarthritis of the left hip. Although cardiology was consulted for mildly elevated troponins and concerns of heart failure although patient doesn't have any signs or symptoms of heart failure patient doesn't have any pedal edema doesn't have JVD. Patient does have a history of ulcer disease secondary to interstitial nephritis was recently started on hemodialysis patient has an AV fistula in the left arm. Patient doesn't creatinine is 2.77 nephrology evaluated the patient. Patient does have elevated BNP secondary to renal failure. He still having severe pain in the left hip operative surgery will be consulted patient was started on nonsteroidal anti-puberty medications. Patient does have leukocytosis or any evidence of infection. He doesn't have any chest pain at this time. - Review of Systems REVIEW OF SYSTEMS: CONSTITUTIONAL: No fever, no malaise, no fatigue. HEENT: No recent visual problems or hearing problems. Denied any sore throat. CARDIOVASCULAR: No chest pain, orthopnea, PND, no palpitations, no syncope. PULMONARY: No shortness of breath, no cough, no hemoptysis. GASTROINTESTINAL: No diarrhea, no nausea, no vomiting, no abdominal pain. NEUROLOGICAL: No headaches, no weakness, no numbness. HEMATOLOGICAL: Denies any bleeding or petechiae. GENITOURINARY: Denies any burning micturition, frequency, or urgency. MUSCULOSKELETAL/RHEUMATOLOGICAL: As mentioned in HPI ENDOCRINE: Denies any polyuria or polydipsia. The rest of the 14-point review of systems is negative. 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 Past Anesthesia/Blood Transfusion Reactions: No Reported Reaction Past Psychological History: No Psychological Hx Reported Smoking Status: Never smoker Past Alcohol Use History: None Reported Past Drug Use History: None Reported - Past Family History Father Family Medical History: No Reported History, Myocardial Infarction (AL) Additional Family Medical History / Comment(s): pt. can't remember medical hx Mother Family Medical History: No Reported History, Myocardial Infarction (AL) Additional Family Medical History / Comment(s): pt. can't remember medical hx Medications and Allergies Home Medications Medication Instructions Recorded Confirmed Type Simvastatin [Zocor] 20 mg PO HS 04/04/14 08/12/20 History amLODIPine [Norvasc] 10 mg PO DAILY 04/04/14 08/12/20 History Etanercept [Enbrel Sureclick] 50 mg SQ FR 02/14/20 08/12/20 History allopurinoL [Zyloprim] 100 mg PO BID 06/05/20 08/12/20 History Cholecalciferol [Vitamin D3 (25 25 mcg PO DAILY 08/12/20 08/12/20 History Mcg = 1000 Iu)] Allergies Allergy/AdvReac Type Severity Reaction Status Date / Time No Known Allergies Allergy Verified 08/12/20 08:28 Physical Exam Vitals: Vital Signs Temp Pulse Pulse Resp BP BP BP 08/12/20 12:01 78 16 127/60 08/12/20 08:15 98.6 F 93 18 159/71 08/12/20 04:00 99.0 F 90 16 159/72 08/12/20 03:22 94 18 08/12/20 03:00 99 F 94 19 164/74 08/12/20 01:59 98 18 146/72 08/12/20 00:53 99.3 F 98 20 157/71 08/11/20 22:56 08/11/20 22:39 99.1 F 69 18 148/68 Pulse Ox 08/12/20 12:01 94 L 08/12/20 08:15 94 L 08/12/20 04:00 92 L 08/12/20 03:22 08/12/20 03:00 95 08/12/20 01:59 95 08/12/20 00:53 94 L 08/11/20 22:56 94 L 08/11/20 22:39 86 L Intake and Output 08/11/20 08/12/20 08/12/20 22:59 06:59 14:59 Output Total 0 Balance 0 Output: Urine 0 Other: Voiding Method External Catheter External Catheter # Voids 0 0 # Bowel Movements 0 Weight 77.111 kg 71 kg PHYSICAL EXAMINATION: GENERAL: The patient is alert and oriented x3, not in any acute distress. Well developed, well nourished. HEENT: Pupils are round and equally reacting to light. EOMI. No scleral icterus. No conjunctival pallor. Normocephalic, atraumatic. No pharyngeal erythema. No thyromegaly. CARDIOVASCULAR: S1 and S2 present. No murmurs, rubs, or gallops. PULMONARY: Chest is clear to auscultation, no wheezing or crackles. ABDOMEN: Soft, nontender, nondistended, normoactive bowel sounds. No palpable organomegaly. MUSCULOSKELETAL: No joint swelling or deformity. EXTREMITIES: No cyanosis, clubbing, or pedal edema. NEUROLOGICAL: Gross neurological examination did not reveal any focal deficits. SKIN: No rashes. Results CBC & Chem 7: 08/12/20 06:59 08/12/20 06:59 Labs: Abnormal Lab Results - Last 24 Hours (Table) 08/12/20 08/12/20 08/12/20 Range/Units 00:14 00:14 00:14 WBC 12.1 H (3.8-10.6) k/uL RBC 3.73 L (3.80-5.40) m/uL Hgb 10.5 L (11.4-16.0) gm/dL Hct 33.0 L (34.0-46.0) % Neutrophils # 10.6 H (1.3-7.7) k/uL Lymphocytes # 0.6 L (1.0-4.8) k/uL Sodium 136 L (137-145) mmol/L Chloride 96 L (98-107) mmol/L Carbon Dioxide (22-30) mmol/L BUN 20 H (7-17) mg/dL Creatinine 2.62 H (0.52-1.04) mg/dL Glucose 149 H (74-99) mg/dL Total Bilirubin 1.9 H (0.2-1.3) mg/dL Troponin I 0.048 H* (0.000-0.034) ng/mL Total Protein 5.7 L (6.3-8.2) g/dL 08/12/20 08/12/20 Range/Units 06:59 06:59 WBC (3.8-10.6) k/uL RBC 3.55 L (3.80-5.40) m/uL Hgb 10.4 L (11.4-16.0) gm/dL Hct 32.0 L (34.0-46.0) % Neutrophils # 8.3 H (1.3-7.7) k/uL Lymphocytes # 0.9 L (1.0-4.8) k/uL Sodium 136 L (137-145) mmol/L Chloride (98-107) mmol/L Carbon Dioxide 33 H (22-30) mmol/L BUN 21 H (7-17) mg/dL Creatinine 2.77 H (0.52-1.04) mg/dL Glucose 124 H (74-99) mg/dL Total Bilirubin (0.2-1.3) mg/dL Troponin I (0.000-0.034) ng/mL Total Protein (6.3-8.2) g/dL Thrombosis Risk Factor Assmnt - Choose All That Apply Each Factor Represents 1 point: Obesity (BMI >25), Swollen legs (current) Each Risk Factor Represents 3 Points: Age 75 years or older Thrombosis Risk Factor Assessment Total Risk Factor Score: 5 Thrombosis Risk Factor Assessment Level: High Risk Assessment and Plan Plan: Severe osteoporosis of the left hip: Patient has significant irritability because of this osteoporosis. Physical therapy and occupational therapy will evaluate the patient. Ultimate decision surgery will evaluate the patient. -End-stage renal disease dialysis dependent nephrology evaluated the patient patient will be discontinued on scheduled hemodialysis patient was a started on Demadex 40 mg by nephrology -Elevated troponins and BMP secondary to end-stage renal disease patient doesn't appear to be in volume overload clinically. 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
[2020-08-12 16:20] LABS: Appearance,Urine Clear (Clear); Bilirubin,Urine Negative (Negative); Blood,Urine Negative (Negative); Color,Urine Yellow; Glucose,Urine (UA) Negative (Negative); Hyaline Casts,Urine 23 /lpf (0-2); Ketones,Urine Negative (Negative); Leukocyte Esterase,Urine Negative (Negative); Mucus,Urine Rare /hpf; Nitrite,Urine Negative (Negative); PH, Urine 6.5 (5.0-8.0); Protein,Urine 3+ (Negative); RBC,Urine <1 /hpf (0-5); Specific Gravity,Urine 1.011 (1.001-1.035); Squamous Epithelial Cell,Urine <1 /hpf (0-4); Urobilinogen,Urine <2.0 mg/dL (<2.0); WBC,Urine 2 /hpf (0-5)
[2020-08-12] MEDS: CAPSAICIN 0.025% CREAM 60 GM TUBE TOPICAL SCH ×3 (16:31→22:59)
[2020-08-12] MEDS: HEPARIN SODIUM,PORCINE 5,000 UNIT/ML 1 ML VIAL SQ SCH (19:37)
[2020-08-12] MEDS ORDERED: ATORVASTATIN 10 MG TAB PO SCH (21:00)
[2020-08-13] MEDS: CAPSAICIN 0.025% CREAM 60 GM TUBE TOPICAL SCH (08:08)
[2020-08-13] MEDS: HEPARIN SODIUM,PORCINE 5,000 UNIT/ML 1 ML VIAL SQ SCH (08:08)
[2020-08-13] MEDS: amLODIPine 10 MG TAB PO SCH (08:08)
[2020-08-13] MEDS ORDERED: TORSEMIDE 20 MG TAB PO SCH (09:00)
--- NOTE | 2020-08-13 11:16 | P.PN ---
Subjective Patient is seen in follow-up for end-stage renal disease. Scheduled for dialysis today. Hip pain improved. Hemodynamically stable. No active com plaints at this time. Vital signs are stable. General: The patient appeared well nourished and normally developed. HEENT: Head exam is unremarkable. Neck is without jugular venous distension. LUNGS: Breath sounds decreased. HEART: Rate and Rhythm are regular. ABDOMEN: Soft, nontender. EXTREMITITES: 1+ edema. Objective - Vital Signs Vital signs: Vital Signs Temp 97.4 F L 08/13/20 08:00 Pulse 104 H 08/13/20 08:00 Resp 18 08/13/20 08:00 BP 148/66 08/13/20 08:00 Pulse Ox 95 08/13/20 08:00 Intake & Output 08/12/20 08/13/20 08/13/20 18:59 06:59 18:59 Intake Total 760 300 Output Total 200 Balance 560 300 Weight 69.8 kg Intake: Oral 760 Blood Product 300 Output: Urine 200 Other: Voiding Method External Catheter Toilet Toilet # Voids 0 1 1 # Bowel Movements 0 - Labs CBC & Chem 7: 08/12/20 06:59 08/12/20 06:59 Labs: Abnormal Lab Results - Last 24 Hours (Table) 08/12/20 Range/Units 00:01 Urine Protein 3+ H (Negative) Hyaline Casts 23 H (0-2) /lpf Urine Mucus Rare H (None) /hpf Assessment and Plan Plan: Assessment: 1. End-stage renal disease maintained on hemodialysis on Thursday schedule. She has a left upper extremity AV fistula. 2. Mild volume overload. 3. Left hip pain. X-ray concerning for worsening arthritis. Pain improved. 4. Hypertension with chronic kidney disease. Stable. 5. Hypokalemia from diuresis. Replaced. 6. Rheumatoid arthritis. Plan: Hemodialysis today. Maintain Demadex. Phosphorus normal. Stable for discharge after dialysis today.
--- NOTE | 2020-08-13 12:47 | ECHOF ---
Referral Reason:elev trop MEASUREMENTS -------- HEIGHT: 165.1 cm WEIGHT: 69.4 kg BP: 133/61 RVIDd: 2.7 cm (< 3.3) IVSd: 1.3 cm (0.6 - 1.1) LVIDd: 5.0 cm (3.9 - 5.3) LVPWd: 1.3 cm (0.6 - 1.1) IVSs: 1.5 cm LVIDs: 3.9 cm LVPWs: 1.6 cm LA Diam: 3.2 cm (2.7 - 3.8) LAESV Index (A-L): 33.84 ml/m Ao Diam: 3.1 cm (2.0 - 3.7) AV Cusp: 1.7 cm (1.5 - 2.6) MV EXCURSION: 21.171 mm (> 18.000) MV EF SLOPE: 96 mm/s (70 - 150) EPSS: 0.9 cm MV E Branden: 0.45 m/s MV DecT: 199 ms MV A Branden: 0.84 m/s MV E/A Ratio: 0.53 AR PHT: 389 ms RAP: 5.00 mmHg RVSP: 36.89 mmHg FINDINGS -------- Sinus rhythm. This was a technically adequate study. The left ventricular size is normal. There is mild concentric left ventricular hypertrophy. Overa ll left ventricular systolic function is low-normal with, an EF between 50 - 55 %. The right ventricle is normal in size. LA is midly dilated 29-33ml/m2. The right atrial size is normal. There is mild aortic valve sclerosis. There is mild aortic regurgitation. Moderate mitral regurgitation is present. Moderate tricuspid regurgitation present. There is mild pulmonary hypertension. The right ventric ular systolic pressure, as measured by Doppler, is 36.89mmHg. Trace/mild (physiologic) pulmonic regurgitation. The aortic root size is normal. There is a trivial pericardial effusion present. CONCLUSIONS -------- 1. The left ventricular size is normal. 2. There is mild concentric left ventricular hypertrophy. 3. Overall left ventricular systolic function is low-normal with, an EF between 50 - 55 %. 4. The right ventricle is normal in size. 5. LA is midly dilated 29-33ml/m2. 6. The right atrial size is normal. 7. There is mild aortic valve sclerosis. 8. There is mild aortic regurgitation. 9. Moderate mitral regurgitation is present. 10. Moderate tricuspid regurgitation present. 11. There is mild pulmonary hypertension. 12. The right ventricular systolic pressure, as measured by Doppler, is 36.89mmHg. 13. Trace/mild (physiologic) pulmonic regurgitation. 14. The aortic root size is normal. 15. There is a trivial pericardial effusion present. CUSTOM FEED MILL OPERATOR HELPER: Татьяна Echols RDCS
[2020-08-13 14:58] VITALS: BMI 25.6
--- NOTE | 2020-08-13 15:13 | P.PN ---
Subjective This is a pleasant 85-year-old female past medical history significant for hypertension, dyslipidemia, chronic kidney disease, rheumatoid arthritis. She states she recently started dialysis for the first time last week. She denies prior history of coronary artery disease and does not follow with a systems development consultant for any reason. We have been asked to see in consultation for heart failure and elevated troponins. Chest xray blunting of the costophrenic angles with pleural effusions no change from previous. Patient seen and examined this morning, resting in bed comfortably. She denies shortness of breath, chest pain, dizziness or palpitations. She still makes urine. Telemetry tracings indicate sinus mechanism. Laboratory reviewed from yesterday, WBC 10.2, hemoglobin 10.4, platelets 197, sodium 136, potassium 3.5, creatinine 2.77, magnesium 1.8, troponin 0.0 48 and NT proBNP 17,600. Current cardiac medications include amlodipine 10 mg daily and simvastatin 20 mg daily. Echo 08/13/20- EF 50-55%, mild aortic valve sclerosis, mild aortic regurgitation, moderate mitral regurgitation, moderate tricuspid regurgitation, mild pulmonary hypertension. PHYSICAL EXAMINATION Blood pressure 137/53 heart rate 85 afebrile and maintaining oxygen saturation on nasal cannula. CONSTITUTIONAL: No apparent distress. HEENT: Head is normocephalic. Pupils are equal, round. Sclerae anicteric. Mucous membranes of the mouth are moist. No JVD. No carotid bruit. CHEST EXAMINATION: Lungs are clear to auscultation. No chest wall tenderness is noted on palpation or with deep breathing. HEART EXAMINATION: Regular rate and rhythm. S1, S2 heard. No murmurs, gallops or rub. ABDOMEN: Soft, nontender. Positive bowel sounds. EXTREMITIES: LUE AV fistula positive thrill, positive bruit, 2+ peripheral pulses, no lower extremity edema and no calf tenderness. NEUROLOGIC EXAMINATION: Patient is awake, alert and oriented x3. ASSESSMENT Left hip pain End Stage Renal Disease on Hemodialysis (MWF) through LUE AV fistula Hypertension Elevated troponin secondary to renal function, not primary myocardial injury Elevated BNP secondary to renal function not heart failure. PLAN Diuretics per nephrology. Clinically she is euvolemic and not in overt heart failure, TTE today revealed EF 50-55%. Continue amlodipine as previously ordered. Cardiology will sign off at this time, patient to follow up with cardiology in outpatient clinic. Thank you kindly for this consultation. Nurse Practitioner note has been reviewed, I agree with a documented findings and plan of care. Patient was seen and examined. Objective - Vital Signs Vital signs: Vital Signs Temp 98 F 08/13/20 11:25 Pulse 85 08/13/20 11:25 Resp 16 08/13/20 11:25 BP 137/53 08/13/20 11:25 Pulse Ox 95 08/13/20 11:25 Intake & Output 08/12/20 08/13/20 08/13/20 18:59 06:59 18:59 Intake Total 760 300 Output Total 200 Balance 560 300 Weight 69.8 kg Intake: Oral 760 Blood Product 300 Output: Urine 200 Other: Voiding Method External Catheter Toilet Toilet # Voids 0 1 1 # Bowel Movements 0 - Labs CBC & Chem 7: 08/12/20 06:59 08/12/20 06:59 Labs: Abnormal Lab Results - Last 24 Hours (Table) 08/12/20 Range/Units 00:01 Urine Protein 3+ H (Negative) Hyaline Casts 23 H (0-2) /lpf Urine Mucus Rare H (None) /hpf
[2020-08-13 16:32] VITALS: BP 142/76; PULSE 84; RESP 20; TEMP 98.4
[2020-08-14 06:06] LABS: Hepatitis B Surface AB- Quant 3.5 mIU/mL; Hepatitis B Surface Antibody Non-Reactive (Non-Reactive); Hepatitis B Surface Antigen Non-Reactive (Non-Reactive)
--- NOTE | 2020-08-14 09:14 | P.DS ---
Providers Date of admission: 08/12/20 00:46 Expected date of discharge: 08/13/20 Attending physician: Marilu Kaplan Consults: 08/12/20 00:46 Consult Physician Routine Consulting Provider: Tamela Roman Consult Reason/Comments: chf Do you want consulting provider notified?: Yes Consult Physician Routine Consulting Provider: Gloria Neely Consult Reason/Comments: renalFail Do you want consulting provider notified?: Yes Primary care physician: Al Underwood MD Hospital Course: Final diagnosis -Severe osteoporosis of the left hip -End-stage renal disease dialysis dependent -Elevated troponins and BMP secondary to end-stage renal disease -Hypertension -Hypokalemia -Rheumatoid arthritis -Hyperlipidemia -Rhematoid arthritis Discharge disposition Patient is being discharged in a stable condition with guarded prognosis to home. Patient will follow-up with Dr. Al Underwood in the outpatient setting upon discharge. Patient also instructed to follow-up with cardiology Dr. Roman along with nephrology in the outpatient setting. Patient is to continue with hemodialysis Thursday/Thursday/Thursday as scheduled. Total time taken is greater than 35 minutes. Hospital course 85-year-old female patient came in with severe pain in the left hip is found have severe osteoarthritis of the left hip. Although cardiology was consulted for mildly elevated troponins and concerns of heart failure although patient doesn't have any signs or symptoms of heart failure patient doesn't have any pedal edema doesn't have JVD. Patient does have a history of ulcer disease s econdary to interstitial nephritis was recently started on hemodialysis patient has an AV fistula in the left arm. Patient doesn't creatinine is 2.77 nephrology evaluated the patient. Patient does have elevated BNP secondary to renal failure. He still having severe pain in the left hip operative surgery will be consulted patient was started on nonsteroidal anti-puberty medications. Patient does have leukocytosis or any evidence of infection. He doesn't have any chest pain at this time. 08/13/2020 Patient is seen and evaluated and is continued to be closely monitored. Cardiology has evaluated the patient recommending outpatient follow-up with Dr. Roman. Patient also being followed by nephrology and currently awaiting to receive hemodialysis today as she is on a Thursday/Thursday/Thursday schedule. Attempts for weaning FiO2 with nursing staff was unsuccessful yesterday although patient states shortness of breath has improved and is currently 94% on room air. Patient will need outpatient follow-up for further testing with pulmonary if oxygen is needed. Patient is being continued on torsemide 40 mg daily and will follow-up closely with repeat labs with nephrology and continue her hemodialysis schedule. Patient states she would like to go home. Currently no reports of chest pain, worsening shortness of breath, or palpitations. Patient is afebrile. No reports of nausea or vomiting and patient is tolerating diet. Patient will discharged home today. On exam vital signs are stable. Cardio S1, S2 are muffled. Respiratory system shows diminished breath sounds at the bases with no wheezing or rhonchi noted. Abdomen is soft and nontender. Nervous system show no focal deficits. Please refer to medication reconciliation sheet for a list of medications. Patient Condition at Discharge: Stable Plan - Discharge Summary Discharge Rx Participant: Yes New Discharge Prescriptions: New Torsemide [Demadex] 40 mg PO DAILY 30 Days #30 tab Capsaicin Cream [Trixaicin Cream] 1 applic TOPICAL TID applic Acetaminophen Tab [Tylenol] 650 mg PO Q4HR PRN tab PRN Reason: Fever And/ Or Pain traMADol HCl [Ultram] 50 mg PO BID #10 tab Continue Simvastatin [Zocor] 20 mg PO HS amLODIPine [Norvasc] 10 mg PO DAILY Etanercept [Enbrel Sureclick] 50 mg SQ FR allopurinoL [Zyloprim] 100 mg PO BID Cholecalciferol [Vitamin D3 (25 Mcg = 1000 Iu)] 25 mcg PO DAILY Discharge Medication List Simvastatin [Zocor] 20 mg PO HS 04/04/14 [History] amLODIPine [Norvasc] 10 mg PO DAILY 04/04/14 [History] Etanercept [Enbrel Sureclick] 50 mg SQ FR 02/14/20 [History] allopurinoL [Zyloprim] 100 mg PO BID 06/05/20 [History] Cholecalciferol [Vitamin D3 (25 Mcg = 1000 Iu)] 25 mcg PO DAILY 08/12/20 [History] Acetaminophen Tab [Tylenol] 650 mg PO Q4HR PRN tab 08/13/20 [Rx] Capsaicin Cream [Trixaicin Cream] 1 applic TOPICAL TID applic 08/13/20 [Rx] Torsemide [Demadex] 40 mg PO DAILY 30 Days #30 tab 08/13/20 [Rx] traMADol HCl [Ultram] 50 mg PO BID #10 tab 08/13/20 [Rx] Follow up Appointment(s)/Referral(s): Gloria Neely MD [STAFF PHYSICIAN] - 1 Week (please make f/u appt ) Tamela Roman MD [STAFF PHYSICIAN] - 2 Weeks (office closed make appointment tomorrow please, cardiology office f/u) Al Underwood MD [Primary Care Provider] - 1-2 days (please call office tomorrow to make f/u appt ) Patient Instructions/Handouts: Dialysis Diet (DC) Activity/Diet/Wound Care/Special Instructions: Patient will need home O2 due to CHF Activity Limited until follow-up Follow Up with primary care provider upon discharge Follow-up with cardiology outpatient Continue dialysis Thursday/Thursday/Thursday Continue current renal diet low-sodium, low potassium Discharge Disposition: HOME SELF-CARE
== END 2020-08-13 18:10 | disposition home or self-care (01) | DRG 553 ==
LOC: EC 22:38 → 3SCARD 08-12 00:46
PROVIDERS: ADMIT Hospitalist; ATTEND Hospitalist
PROC: 5A1D70Z Performance of Urinary Filtration, Intermittent, Less than 6 Hours Per Day (ICD-10-PCS; principal; 2020-08-13)
DX: M16.12 Unilateral primary osteoarthritis, left hip (principal); N18.6 End stage renal disease; I13.2 Hypertensive heart and chronic kidney disease with heart failure and with stage 5 chronic kidney disease, or end stage renal disease; N12 Tubulo-interstitial nephritis, not specified as acute or chronic; E78.5 Hyperlipidemia, unspecified; E87.6 Hypokalemia; I08.1 Rheumatic disorders of both mitral and tricuspid valves; I27.20 Pulmonary hypertension, unspecified; I44.0 Atrioventricular block, first degree; I45.10 Unspecified right bundle-branch block; I50.9 Heart failure, unspecified; M06.9 Rheumatoid arthritis, unspecified; Z20.822 Contact with and (suspected) exposure to COVID-19; Z79.899 Other long term (current) drug therapy; Z85.828 Personal history of other malignant neoplasm of skin; Z90.710 Acquired absence of both cervix and uterus; Z99.2 Dependence on renal dialysis; Z90.49 Acquired absence of other specified parts of digestive tract; Z98.42 Cataract extraction status, left eye; T50.2X5A Adverse effect of carbonic-anhydrase inhibitors, benzothiadiazides and other diuretics, initial encounter; M10.9 Gout, unspecified; E87.70 Fluid overload, unspecified
CPT/HCPCS: 36415; 71046; 73502; 80048; 80053; 81001; 82550; 83605; 83735; 83880; 84100; 84484; 85025; 85610; 85730; 86706; 87340; 87635; 90935; 93005; 93306; 96374; 96375; 99285

== ENCOUNTER → 2021-07-23 | Outpatient (CLI) | payer MEDICARE ==
[2021-07-23 18:19] LABS: Basophils # (A) 0.07 X 10*3/uL (0.00-0.10); Basophils % (A) 0.7 %; Eosinophils # (A) 0.27 X 10*3/uL (0.04-0.35); Eosinophils % (A) 2.7 %; HCT 37.5 % (37.2-46.3); HGB 11.8 g/dL (12.0-15.0); Immature Grans, Automated 0.2 %; Lymphocytes # (A) 1.69 X 10*3/uL (0.90-5.00); MCH 29.7 pg (27.0-32.0); MCHC 31.5 g/dL (32.0-37.0); MCV 94.5 fL (80.0-97.0); Mean Platelet Volume 9.4 fL (9.5-12.2); Monocytes # (A) 1.02 X 10*3/uL (0.20-1.00); Monocytes % (A) 10.2 %; NRBC Per 100 WBC 0 /100 WBCS (0.0-0.0); Neutrophils % (A) 69.2 %; Platelet Count 331 X 10*3/uL (140-440); RBC 3.97 X 10*6/uL (4.10-5.20); RDW 13.6 % (11.5-14.5); WBC 9.97 X 10*3/uL (4.50-10.00)
[2021-07-23 18:25] LABS: Carbon Dioxide 28.9 mmol/L (20.0-27.5); Potassium 3.8 mmol/L (3.5-5.5)
== END | disposition home or self-care (01) ==
LOC: LABPAT 13:41
PROVIDERS: ATTEND Surgery
DX: Z01.812 Encounter for preprocedural laboratory examination (principal); N18.6 End stage renal disease
CPT/HCPCS: 80051; 85025

== ENCOUNTER → 2021-07-30 | Day surgery (SDC) | payer MEDICARE ==
[2021-07-26 17:21] VITALS: BMI 24.1
[~2021-07-30] MED LIST: SODIUM CHLORIDE 0.9% 1,000 ML in EMPTY BAG 1 BAG IV ONE
[2021-07-30 09:37] VITALS: BP 190/81; PULSE 83; RESP 16; TEMP 98.9
== END ==
LOC: CATHCVL 09:08
PROVIDERS: ATTEND Surgery
DX: Z53.9 Procedure and treatment not carried out, unspecified reason (principal); Z20.822 Contact with and (suspected) exposure to COVID-19
CPT/HCPCS: 87635

== ENCOUNTER 2021-08-06 06:22 | Day surgery (SDC) | payer MEDICARE ==
[2021-08-02 15:30] VITALS: BMI 23.9
[2021-08-06 06:59] VITALS: RESP 18; TEMP 98.5
[2021-08-06] MEDS ORDERED: SODIUM CHLORIDE 0.9% 500 ML 500 ML IV ONE (06:59)
[2021-08-06] MEDS ORDERED: LIDOCAINE 1% INJ 10MG/ML (20 ML MDV) ONE (07:30)
[2021-08-06] MEDS ORDERED: MIDAZOLAM 2 MG/2 ML VIAL IV ONE (07:35)
[2021-08-06] MEDS ORDERED: LIDOCAINE 1% INJ 10MG/ML (20 ML MDV) SQ ONE (07:39)
[2021-08-06] MEDS ORDERED: HEPARIN SODIUM 1,000 UN/ML (10ML VL) ONE (07:45)
[2021-08-06] MEDS ORDERED: HEPARIN SODIUM 1,000 UN/ML (10ML VL) IV ONE (07:46)
[2021-08-06] MEDS ORDERED: IOPAMIDOL-370 50ML BTL INJ ONE (08:08)
--- NOTE | 2021-08-06 08:28 | P.OP ---
Date of Procedure: 08/06/21 Preoperative Diagnosis: ESRD on HD, Fistula dysfunction Postoperative Diagnosis: Left upper extremity fistula dysfunction with outflow stenosis Procedure(s) Performed: 1. Ultrasound guided left upper extremity fistula access 2. Fistulagram left upper extremity 3. PTBA of the outflow stenosis 4. Conscious sedation x 30 mins Anesthesia: local Surgeon: Memo Delatorre Estimated Blood Loss (ml): 10 Pathology: none sent Condition: stable Disposition: PACU Indications for Procedure: 86 year old female with history of ESRD on HD via left upper extremity fistula presented to the office for evaluation and ultrasound demonstrated decrease flows distal at the shoulder. She states having some decreased flows during dialysis and presents today for evaluation. 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 Description of Procedure: Operative narrative: After written informed consent was obtained the patient all risks benefits competitions were described the patient is brought to the Court Registry Officer and laid in a supine position with their left arm outstretched on an armboard. The area of the arm was prepped and draped in usual sterile fashion. Utilizing local anesthetic the fistula was accessed under ultrasound guidance and a 6-Guyanese sheath was placed. Fistulogram was then obtained demonstrating stenosis at the cephalic vein at the axillary region measuring roughly 90%. 035 Glidewire was then placed across this lesion and serial balloon dilation with a 7 x 40 mm balloon and high pressured 7 x 40 mm balloon followed by a drug- eluting 8 x 40 mm balloon. Once completed the fissure gram was obtained demonstrating improvement of the stenosis with residual of 20%. Patient had good palpable thrill throughout the fistula and guidewires and catheters were then removed. Sheath was removed and suture was placed for hemostasis. She tolerated the procedure well and was sent to recovery. Plan - Discharge Summary Discharge Rx Participant: No New Discharge Prescriptions: No Action Simvastatin [Zocor] 20 mg PO HS amLODIPine [Norvasc] 10 mg PO DAILY Etanercept [Enbrel Sureclick] 50 mg SQ FR allopurinoL [Zyloprim] 100 mg PO BID Cholecalciferol [Vitamin D3 (25 Mcg = 1000 Iu)] 25 mcg PO DAILY Acetaminophen Tab [Tylenol] 650 mg PO Q6H PRN PRN Reason: Pain Furosemide [Lasix] 80 mg PO DAILY Sevelamer [Renvela] 800 mg PO AC-TID Discharge Medication List Simvastatin [Zocor] 20 mg PO HS 04/04/14 [History] amLODIPine [Norvasc] 10 mg PO DAILY 04/04/14 [History] Etanercept [Enbrel Sureclick] 50 mg SQ FR 02/14/20 [History] allopurinoL [Zyloprim] 100 mg PO BID 06/05/20 [History] Cholecalciferol [Vitamin D3 (25 Mcg = 1000 Iu)] 25 mcg PO DAILY 08/12/20 [History] Acetaminophen Tab [Tylenol] 650 mg PO Q6H PRN 07/26/21 [History] Furosemide [Lasix] 80 mg PO DAILY 07/26/21 [History] Sevelamer [Renvela] 800 mg PO AC-TID 07/26/21 [History]
[2021-08-06 09:13] VITALS: BP 151/73; PULSE 76
--- NOTE | 2021-08-06 11:29 | IR ---
Fluoroscopy support for Fistulogram HISTORY: Venous stenosis 6.2 minutes fluoroscopy time supplied to the referring clinician, 205 intraoperative C-arm images doc ument the procedure, see vascular surgery report for full evaluation.
== END 2021-08-06 09:20 | disposition home or self-care (01) ==
LOC: CATHCVL 06:22
PROVIDERS: ATTEND Surgery
DX: T82.858A Stenosis of other vascular prosthetic devices, implants and grafts, initial encounter (principal); I12.0 Hypertensive chronic kidney disease with stage 5 chronic kidney disease or end stage renal disease; N18.6 End stage renal disease; Z99.2 Dependence on renal dialysis; Z20.822 Contact with and (suspected) exposure to COVID-19; C44.90 Unspecified malignant neoplasm of skin, unspecified; Z90.49 Acquired absence of other specified parts of digestive tract; Z90.710 Acquired absence of both cervix and uterus; Z82.49 Family history of ischemic heart disease and other diseases of the circulatory system; Z83.3 Family history of diabetes mellitus; Z79.899 Other long term (current) drug therapy
CPT/HCPCS: 36901; 87635; C1894 ×2; C1769 ×4; C1725 ×2; C2623; J2250; J2001; J1644; Q9967

== ENCOUNTER 2022-10-14 05:48 | Day surgery (SDC) | payer MEDICARE ==
[2022-10-14] MEDS ORDERED: SODIUM CHLORIDE 0.9% 500 ML 500 ML IV ONE (06:23)
[2022-10-14 06:24] VITALS: RESP 18; TEMP 98.6
[2022-10-14 06:50] LABS: Basophils # (A) 0.1 k/uL (0-0.2); Basophils % (A) 1 %; Eosinophils # (A) 0.1 k/uL (0-0.7); Eosinophils % (A) 1 %; HCT 39.1 % (34.0-46.0); HGB 12.4 gm/dL (11.4-16.0); Lymphocytes # (A) 1.5 k/uL (1.0-4.8); Lymphocytes % (A) 13 %; MCH 29.4 pg (25.0-35.0); MCHC 31.6 g/dL (31.0-37.0); MCV 93.1 fL (80.0-100.0); Mean Platelet Volume 6.9; Monocytes # (A) 0.7 k/uL (0-1.0); Monocytes % (A) 7 %; Neutrophils # (A) 8.3 k/uL (1.3-7.7); Neutrophils % (A) 77 %; Platelet Count 287 k/uL (150-450); RBC 4.21 m/uL (3.80-5.40); RDW 14.2 % (11.5-15.5); WBC 10.8 k/uL (3.8-10.6)
[2022-10-14 06:59] LABS: Calcium 9.4 mg/dL (8.4-10.2); Potassium 5.5 mmol/L (3.5-5.1)
[2022-10-14] MEDS ORDERED: LIDOCAINE 1% INJ 10MG/ML (20 ML MDV) ONE (07:26)
[2022-10-14] MEDS ORDERED: fentaNYL (PF) 50 MCG/ML 2 ML AMP ONE (07:33)
[2022-10-14] MEDS: MIDAZOLAM 2 MG/2 ML VIAL IVP ONE ×2 (07:37→08:33)
[2022-10-14] MEDS: fentaNYL (PF) 50 MCG/ML 2 ML AMP IVP ONE ×3 (07:37→08:55)
[2022-10-14] MEDS ORDERED: LIDOCAINE 1% INJ 10MG/ML (20 ML MDV) SQ ONE (07:40)
[2022-10-14] MEDS ORDERED: ALTEPLASE 2 MG VIAL (CATHFLO) IA STA (08:07)
[2022-10-14] MEDS ORDERED: ALTEPLASE 2 MG VIAL (CATHFLO) IV STA (08:27)
[2022-10-14] MEDS ORDERED: ALTEPLASE 2 MG VIAL (CATHFLO) IV ONE ×4 (08:29→08:48)
[2022-10-14] MEDS ORDERED: HEPARIN SODIUM 1,000 UN/ML (10ML VL) ONE (08:44)
[2022-10-14] MEDS ORDERED: HEPARIN SODIUM 1,000 UN/ML (10ML VL) IVP ONE (08:45)
[2022-10-14] MEDS ORDERED: HYDROmorphone 0.5 MG/0.5 ML SYRINGE IVP ONE (08:51)
[2022-10-14] MEDS ORDERED: MIDAZOLAM 2 MG/2 ML VIAL IVP ONE (09:07)
[2022-10-14] MEDS ORDERED: IOPAMIDOL-370 100ML BTL INJ ONE ×2 (09:26→09:30)
--- NOTE | 2022-10-14 10:00 | P.OP ---
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 Ultrasound guided left upper extremity fistula access 2. Left upper extremity fistulagram 3. Percutaneous thrombolysis and thrombectomy with Penumbra CAT 8 device 4. Percutaneous balloon angioplasty of the outflow stenosis with 6x60, 8x60 Blanchard balloons and 8x60 drug eluding balloon 5. Conscious sedation 110 minutes Anesthesia: local Surgeon: Memo Delatorre Estimated Blood Loss (ml): 300 Pathology: none sent Condition: stable Disposition: PACU Indications for Procedure: 87 year old female with history of ESRD on HD via left upper extremity fistula has been having issues with access at the dialysis center. She states the last complete run was Thursday. She had an ultrasound which demonstrated some thrombus and stenosis of the outflow and she presents today for fistulagram and intervention. Operative Findings: Thrombosed left upper extremity fistula Outflow stenosis >80% at the cephalic sweep and midportion of the fistula Description of Procedure: Operative narrative: After written informed consent was obtained the patient all risks benefits competitions were described the patient is brought to the [employer] Member and laid in a supine position with their left arm outstretched on an armboard. The area of the arm was prepped and draped in usual sterile fashion. Utilizing local anesthetic the fistula was accessed under ultrasound guidance and a 6-Beninese sheath was placed. Fistulogram was then obtained demonstrating thrombus extending from the midportion to the axillary region. It was difficult to pass a wire demonstrating significant thrombus and possible chronicity. An 035 Glidewire was then placed followed by a quick cross catheter and the thrombus, lesion was crossed. Central venogram was obtained demonstrating good intraluminal access of the subclavian vein. Due to the significant thrombus the catheter, fistula was infused with 4 mg of TPA and the sheath was upsized to a 10-Beninese sheath to allow access for a Penumbra catheter. A Penumbra CAT 8 device was then placed and multiple passes were performed throughout the entirety of the fistula with large amount of thrombus removed. Once this was completed fistulogram was obtained demonstrating improved lumen to the fistula but significant areas of stenosis noted throughout as well as retained thrombus. A guidewire was then placed across the lesions and balloon angioplasty was performed with a 6 x 60 mm Blanchard balloon at the cephalic sweep followed by an 8 x 60 mm Blanchard balloon throughout the entirety of the fistula. Once completed a cystogram was obtained demonstrating improved lumen but still retained thrombus and therefore the thrombectomy catheter was placed and suction thrombectomy was performed once again as well as another infusion of 4 mg of TPA. Utilizing an 8 x 60 mm drug-eluting balloon the area at the axillary region was ballooned again with significant improvement of flow. Majority of the residual thrombus was removed with final thrombectomy. Final fistulogram demonstrated brisk flow through this area with significantly improved stenosis. The fistula itself does appear to be older and has areas of abnormality but ultimately patent. All guidewires and catheters were then removed. Suture was placed at the access site and hemostasis was ensured as the suture was secured. The patient tolerated the procedure well and had a palpable thrill at the fistula at the conclusion of the procedure. She will follow-up in one week for reevaluation in the office. Plan - Discharge Summary Discharge Rx Participant: No New Discharge Prescriptions: No Action Simvastatin [Zocor] 20 mg PO HS amLODIPine [Norvasc] 10 mg PO DAILY Etanercept [Enbrel Sureclick] 50 mg SQ FR allopurinoL [Zyloprim] 100 mg PO BID Cholecalciferol [Vitamin D3 (25 Mcg = 1000 Iu)] 25 mcg PO DAILY Furosemide [Lasix] 80 mg PO DAILY Sevelamer [Renvela] 800 mg PO AC-TID Discharge Medication List Simvastatin [Zocor] 20 mg PO HS 04/04/14 [History] amLODIPine [Norvasc] 10 mg PO DAILY 04/04/14 [History] Etanercept [Enbrel Sureclick] 50 mg SQ FR 02/14/20 [History] allopurinoL [Zyloprim] 100 mg PO BID 06/05/20 [History] Cholecalciferol [Vitamin D3 (25 Mcg = 1000 Iu)] 25 mcg PO DAILY 08/12/20 [History] Furosemide [Lasix] 80 mg PO DAILY 07/26/21 [History] Sevelamer [Renvela] 800 mg PO AC-TID 07/26/21 [History] Follow up Appointment(s)/Referral(s): Memo Delatorre DO [STAFF PHYSICIAN] - 1 Week Patient Instructions/Handouts: Moderate Sedation (DC), Fistulogram (DC) Discharge Disposition: HOME SELF-CARE
--- NOTE | 2022-10-14 10:46 | IR ---
EXAMINATION TYPE: IR angio upper extremity LT DATE OF EXAM: 10/14/2022 COMPARISON: NONE HISTORY: Fluoroscopy time. Fluoroscopy was provided to the referring clinician.
[2022-10-14 11:30] VITALS: BP 160/68; PULSE 66
== END 2022-10-14 10:50 | disposition home or self-care (01) ==
LOC: CATHCVL 05:48
PROVIDERS: ATTEND Surgery
DX: T82.868A Thrombosis due to vascular prosthetic devices, implants and grafts, initial encounter (principal); T82.858A Stenosis of other vascular prosthetic devices, implants and grafts, initial encounter; I12.0 Hypertensive chronic kidney disease with stage 5 chronic kidney disease or end stage renal disease; N18.6 End stage renal disease; Z99.2 Dependence on renal dialysis; Z85.828 Personal history of other malignant neoplasm of skin; Z79.899 Other long term (current) drug therapy; Z98.890 Other specified postprocedural states; Y82.8 Other medical devices associated with adverse incidents
CPT/HCPCS: 36905; 80048; 85025; C1894 ×3; C1769 ×4; C1887; C1757; C1725 ×2; C2623; J2250; J2001; J3010; J1644; J2997; J1170; Q9967; 36902; 36904

== ENCOUNTER 2022-10-28 09:26 | Day surgery (SDC) | payer MEDICARE ==
[2022-10-24 14:39] VITALS: BMI 23.3
[~2022-10-28 09:26] MED LIST changes: +SODIUM CHLORIDE 0.9% 1,000 ML IV SCH; -SODIUM CHLORIDE 0.9% 1,000 ML in EMPTY BAG 1 BAG IV ONE
[2022-10-28 09:55] VITALS: TEMP 97.9
[2022-10-28 10:15] LABS: Calcium 8.9 mg/dL (8.4-10.2); Potassium 4.4 mmol/L (3.5-5.1)
[2022-10-28] MEDS: MIDAZOLAM 2 MG/2 ML VIAL IVP ONE ×2 (11:35→11:53)
[2022-10-28] MEDS: fentaNYL (PF) 50 MCG/1 ML VIAL IVP ONE ×2 (11:35→11:53)
[2022-10-28] MEDS ORDERED: LIDOCAINE 1% INJ 10MG/ML (5 ML VIAL-PF) SQ ONE (11:37)
[2022-10-28] MEDS ORDERED: IOPAMIDOL-370 100ML BTL INTRATHECA ONE (12:12)
--- NOTE | 2022-10-28 12:36 | IR ---
EXAMINATION TYPE: IR fistula/abscess/sinus tract DATE OF EXAM: 10/28/2022 COMPARISON: NONE HISTORY: Fluoroscopy time. Fluoroscopy was provided to the referring clinician.
[2022-10-28 18:38] VITALS: RESP 16
[2022-10-28 18:47] VITALS: BP 152/65; PULSE 72
--- NOTE | 2022-11-08 14:54 | P.OP ---
Date of Procedure: 10/28/22 Preoperative Diagnosis: left upper extremity fistula dysfunction Postoperative Diagnosis: Left upper extremity fistula thrombosis Procedure(s) Performed: 1. Left upper extremity fistulagram 2. Failed thrombectomy Anesthesia: local Surgeon: Memo Delatorre Estimated Blood Loss (ml): 10 Pathology: none sent Condition: stable Disposition: PACU Indications for Procedure: 87 year old female with history of ESRD on HD presents to the hospital secondary to dysfunctional AVF for fistulagram. Operative Findings: Thrombosed left upper extremity fistula with occluded cephalic vein. Branch noted extending to the proximal forearm filling without stenosis. Description of Procedure: After written and informed consent was obtained and all risks, benefits and complications were discussed the patient was brought to the laborer poultry hatchery and laid in a supine position with left arm outstretched on an armboard. The area of the left upper extremity was prepped and draped in the usual sterile fashion. Utilizing ultrasound the fistula was accessed with a multipurpose needle and a 4 maltese sheath was placed and fistulagram was obtained demonstrating occlusion of the outflow. Attempt with multiple wires and and crossing catheters was per formed without success. Multiple angiograms demonstrated occlusion with reconstitution at the subclavian vein. No other significant stenosis noted. All guidewires and catheters were then removed and pressure held for hemostasis and dressings were placed. The patient tolerated the procedure well and will require revision of the fistula and possible tunneled catheter.
== END 2022-10-28 14:02 | disposition home or self-care (01) ==
LOC: CATHCVL 09:26
PROVIDERS: ATTEND Surgery
DX: T82.898A Other specified complication of vascular prosthetic devices, implants and grafts, initial encounter (principal); T82.868A Thrombosis due to vascular prosthetic devices, implants and grafts, initial encounter; I12.0 Hypertensive chronic kidney disease with stage 5 chronic kidney disease or end stage renal disease; N18.6 End stage renal disease; Z99.2 Dependence on renal dialysis; Z85.828 Personal history of other malignant neoplasm of skin; Z79.899 Other long term (current) drug therapy; Y82.8 Other medical devices associated with adverse incidents
CPT/HCPCS: 76080; 80048; 36901; C1894; C1769 ×5; C1887; J2250; J2001; Q9967; J3010

== ENCOUNTER 2022-11-11 09:21 | Day surgery (SDC) | payer MEDICARE ==
[2022-11-06 15:37] VITALS: BMI 23.4
[~2022-11-11 09:21] MED LIST changes: -SODIUM CHLORIDE 0.9% 1,000 ML IV SCH; +SODIUM CHLORIDE 0.9% 500 ML 500 ML IV SCH
[2022-11-11 09:57] VITALS: RESP 16; TEMP 98
[2022-11-11] MEDS ORDERED: LIDOCAINE 1% INJ 10MG/ML (20 ML MDV) ONE (10:35)
[2022-11-11] MEDS ORDERED: HEPARIN SODIUM 1,000 UN/ML (10ML VL) ONE (10:35)
[2022-11-11] MEDS ORDERED: LIDOCAINE 1% INJ 10MG/ML (30 ML VIAL-PF) SQ ONE (11:00)
[2022-11-11] MEDS ORDERED: MIDAZOLAM 2 MG/2 ML VIAL IV ONE (11:05)
--- NOTE | 2022-11-11 11:32 | P.OP ---
Date of Procedure: 11/11/22 Description of Procedure: Preoperative diagnosis: End-stage renal failure Postoperative diagnosis: Same Procedure: Placement of tunneled hemodialysis catheter via right internal jugular vein ultrasound-guided access Surgeon: Memo Delatorre D.O. Anesthesia: Local with sedation Estimated blood loss: Minimal Complications: None Condition: Stable Indication for procedure: 87-year-old female with history of end-stage renal disease on hemodialysis via left upper extremity arteriovenous fistula which has been failing and has had multiple interventions, balloon angioplasty of the outflow with last intervention failing to get across the thrombosed fistula. She presents today for tunneled hemodialysis catheter placement and will follow- up in the office for further planning for revision of the left upper extremity access. Operative narrative: After written and informed consent was obtained and all risks, benefits and competitions were described the patient was brought to the Media Marketing Director and laid in a supine position. The area of the right neck was prepped and draped in the usual sterile fashion. Timeout was performed in normal fashion and antibiotics were administered prior to access. Utilizing ultrasound the right internal jugular vein was visualized and shown to be patent without any thrombus. Under ultrasound guidance the vein was then cannulated with dark nonpulsatile blood flow visualized. Guidewire was placed under direct visualization of fluoroscopy into the superior vena cava. Attention was then placed to the chest wall. A small incision was created on the lateral aspect of the chest wall as well as the access site at the neck. A 19 centimeter palindrome hemodialysis catheter was then tunneled from the chest wall to the neck. Serial dilation was then performed and breakaway sheath was placed into the internal jugular vein under direct visualization of fluoroscopy. The catheter was then placed within the break away sheath the sheath was removed. The ports were assessed for patency and rosalba and flushed easily and then were hep-locked. The catheter was then sutured in place, cleansed and dressings were placed. The patient tolerated procedure well. Plan - Discharge Summary Discharge Rx Participant: No New Discharge Prescriptions: No Action Simvastatin [Zocor] 20 mg PO HS amLODIPine [Norvasc] 10 mg PO DAILY Etanercept [Enbrel Sureclick] 50 mg SQ FR allopurinoL [Zyloprim] 100 mg PO BID Cholecalciferol [Vitamin D3 (25 Mcg = 1000 Iu)] 25 mcg PO DAILY Furosemide [Lasix] 80 mg PO DAILY Sevelamer [Renvela] 800 mg PO AC-TID Discharge Medication List Simvastatin [Zocor] 20 mg PO HS 04/04/14 [History] amLODIPine [Norvasc] 10 mg PO DAILY 04/04/14 [History] Etanercept [Enbrel Sureclick] 50 mg SQ FR 02/14/20 [History] allopurinoL [Zyloprim] 100 mg PO BID 06/05/20 [History] Cholecalciferol [Vitamin D3 (25 Mcg = 1000 Iu)] 25 mcg PO DAILY 08/12/20 [History] Furosemide [Lasix] 80 mg PO DAILY 07/26/21 [History] Sevelamer [Renvela] 800 mg PO AC-TID 07/26/21 [History]
--- NOTE | 2022-11-11 11:37 | IR ---
EXAMINATION TYPE: IR cvc insert central tunneled DATE OF EXAM: 11/11/2022 COMPARISON: NONE HISTORY: Fluoroscopy time. Fluoroscopy was provided to the referring clinician.
--- NOTE | 2022-11-11 12:04 | XR ---
EXAMINATION TYPE: XR chest 1V confirm line [facility] DATE OF EXAM: 11/11/2022 COMPARISON: 08/11/2020 HISTORY: Postdialysis catheter placement TECHNIQUE: Single frontal view of the chest is obtained. FINDINGS: There is no focal air space opacity, pleural effusion, or pneumothorax seen. The cardiac silhouette size is within normal limits. The osseous structures demonstrate hypertrophic degenerati ve change of the spine. Diffuse osteopenia.. Hyperinflation suggests COPD. Double lumen dialysis cath eter seen with the tip overlying the SVC. IMPRESSION: 1. Dialysis catheter the tip overlying the SVC and no pneumothorax. 2. COPD.
[2022-11-11 18:57] VITALS: BP 154/70; PULSE 83
== END 2022-11-11 12:35 | disposition home or self-care (01) ==
LOC: CATHCVL 09:21
PROVIDERS: ATTEND Surgery
DX: I12.0 Hypertensive chronic kidney disease with stage 5 chronic kidney disease or end stage renal disease (principal); N18.6 End stage renal disease; Z99.2 Dependence on renal dialysis; Z98.890 Other specified postprocedural states; Z85.828 Personal history of other malignant neoplasm of skin; Z79.899 Other long term (current) drug therapy
CPT/HCPCS: 36558; 76937; 77001; C1769; C1750; J2250; J0690; J2001

== ENCOUNTER 2022-11-12 15:45 | Emergency (ER) | payer MEDICARE ==
[2022-11-12 15:51] VITALS: TEMP 97.9
[2022-11-12] MEDS ORDERED: cloNIDine HCL 0.2 MG TAB PO STA (17:11)
[2022-11-12 17:45] LABS: Basophils % (A) 1 %; Eosinophils # (A) 0.1 k/uL (0-0.7); Eosinophils % (A) 1 %; HCT 33.1 % (34.0-46.0); HGB 10.7 gm/dL (11.4-16.0); Hypochromasia Slight; Lymphocytes # (A) 0.9 k/uL (1.0-4.8); Lymphocytes % (A) 12 %; MCH 30.9 pg (25.0-35.0); MCHC 32.3 g/dL (31.0-37.0); MCV 95.6 fL (80.0-100.0); Mean Platelet Volume 7.2; Monocytes # (A) 0.5 k/uL (0-1.0); Monocytes % (A) 7 %; Neutrophils # (A) 6.2 k/uL (1.3-7.7); Neutrophils % (A) 78 %; Platelet Count 323 k/uL (150-450); RBC 3.46 m/uL (3.80-5.40); RDW 15.5 % (11.5-15.5); WBC 7.8 k/uL (3.8-10.6)
--- NOTE | 2022-11-12 17:49 | ED ---
General Adult HPI - General Chief complaint: Recheck/Abnormal Lab/Rx Stated complaint: left arm bump Time Seen by Provider: 11/12/22 17:05 Source: patient Mode of arrival: ambulatory Limitations: no limitations - History of Present Illness Initial comments: This patient has an 87-year-old woman with history of end-stage renal disease taking hemodialysis, who presents with complaint that her left arm is having progressive swelling near the side of the dialysis graft. The patient did have her last dialysis session today. They're using a right chest dialysis catheter, they are not currently using the left arm. The patient is denying symptoms currently staying that she feels well. History is also given per the patient's son who states that they are able to notice increasing swelling of the arm over the past 45 minutes. Patient denies weakness or numbness. No systemic symptoms. Onset/Timin -: hour(s) Severity scale (1-10): 0 Consistency: constant Improves with: none Worsens with: none Associated Symptoms: denies other symptoms Treatments Prior to Arrival: none - Related Data Home Medications Medication Instructions Recorded Confirmed Simvastatin [Zocor] 20 mg PO HS 04/04/14 11/13/22 amLODIPine [Norvasc] 10 mg PO DAILY 04/04/14 11/13/22 Etanercept [Enbrel Sureclick] 50 mg SQ FR 02/14/20 11/13/22 allopurinoL [Zyloprim] 100 mg PO BID 06/05/20 11/13/22 Cholecalciferol [Vitamin D3 (25 25 mcg PO DAILY 08/12/20 11/13/22 Mcg = 1000 Iu)] Furosemide [Lasix] 80 mg PO DAILY 07/26/21 11/13/22 Sevelamer [Renvela] 800 mg PO AC-TID 07/26/21 11/13/22 Allergies Allergy/AdvReac Type Severity Reaction Status Date / Time No Known Allergies Allergy Verified 11/13/22 14:52 Review of Systems ROS Statement: Those systems with pertinent positive or pertinent negative responses have been documented in the HPI. ROS Other: All systems not noted in ROS Statement are negative. Constitutional: Denies: fever, chills Respiratory: Denies: cough, dyspnea Cardiovascular: Denies: chest pain, palpitations, edema Gastrointestinal: Denies: abdominal pain, nausea, vomiting Genitourinary: Denies: dysuria, hematuria Musculoskeletal: Reports: other (Left arm swelling). Denies: back pain Skin: Denies: rash Neurological: Denies: headache, weakness, numbness Hematological/Lymphatic: Denies: easy bleeding Past Medical History Past Medical History: Cancer, Hyperlipidemia, Hypertension, Renal Disease, Rheumatoid Arthritis (RA), Thyroid Disorder Additional Past Medical History / Comment(s): Gout, kidney damage from Rx - dialysis MWF, skin cancer, thyroid nodules. History of Any Multi-Drug Resistant Organisms: None Reported Past Surgical History: Cholecystectomy, Hysterectomy Additional Past Surgical History / Comment(s): Bilateral cataract surgery, skin cancer excised from nose X2, fistula left arm, "artery in left arm cleaned out." Past Anesthesia/Blood Transfusion Reactions: No Reported Reaction Past Psychological History: No Psychological Hx Reported Smoking Status: Never smoker Past Alcohol Use History: None Reported Past Drug Use History: None Reported - Past Family History Father Family Medical History: Unable to Obtain, Myocardial Infarction (VT) Additional Family Medical History / Comment(s): Pt can't remember medical hx. Mother Family Medical History: Unable to Obtain, Myocardial Infarction (VT) Additional Family Medical History / Comment(s): Pt can't remember medical hx. General Exam Limitations: no limitations General appearance: alert, in no apparent distress Head exam: Present: atraumatic, normocephalic Eye exam: Present: normal appearance. Absent: scleral icterus, conjunctival injection ENT exam: Present: normal oropharynx Neck exam: Present: normal inspection Respiratory exam: Present: normal lung sounds bilaterally. Absent: respiratory distress, wheezes, rales, rhonchi, stridor Cardiovascular Exam: Present: regular rate, normal rhythm, normal heart sounds. Absent: systolic murmur, diastolic murmur, rubs, gallop GI/Abdominal exam: Present: soft. Absent: distended, tenderness, guarding, rebound, rigid, mass Extremities exam: Present: normal inspection, normal capillary refill, other (There is a small hematoma over the left upper arm dialysis graft). Absent: pedal edema, calf tenderness Back exam: Present: normal inspection. Absent: CVA tenderness (R), CVA tenderness (L) Neurological exam: Present: alert Skin exam: Present: warm, dry, intact, normal color. Absent: rash Course Vital Signs 11/12/22 11/12/22 11/12/22 15:49 18:38 21:00 Temperature 97.9 F Pulse Rate 110 H 73 70 Respiratory 20 18 16 Rate Blood Pressure 160/75 136/71 127/80 O2 Sat by Pulse 99 100 99 Oximetry Medical Decision Making - Medical Decision Making This patient is a 87-year-old woman presenting with acute hematoma from the left arm dialysis graft. Pressure was applied here and there did appear to be hemostasis, there was no further enlargement. The patient has no neurovascular complications to the arm. I did discuss the case with vascular surgery on-call and they believe that patient is stable for outpatient follow-up. Laboratory evaluation is reassuring, there is not significant anemia. Discussed with the patient and her family the appropriate further care and follow-up. Discussed return parameters. Was pt. sent in by a medical professional or institution (, GERA, [employer], urgent care, hospital, or detention...) When possible be specific @ -[No] Did you speak to anyone other than the patient for history (EMS, parent, family, police, friend...)? What history was obtained from this source @ -[Patient's family member gave additional history Did you review nursing and triage notes (agree or disagree)? Why? @ -[I reviewed and agree with nursing and triage notes] Were old charts reviewed (outside hosp., previous admission, EMS record, old EKG, old radiological studies, urgent care reports/EKG's, detention records)? Report findings @ -[No old charts were reviewed] Differential Diagnosis (chest pain, altered mental status, abdominal pain women, abdominal pain men, vaginal bleeding, weakness, fever, dyspnea, syncope, headache, dizziness, GI bleed, back pain, seizure, CVA, palpatations, mental health, musculoskeletal)? @ -[Differential diagnosis of the patient's arm swelling includes acute trauma, hematoma, lymphedema, DVT, dissection, amongst other conditions EKG interpreted by me (3pts min.). @ -[ X-rays interpreted by me (1pt min.). @ -[None done] CT interpreted by me (1pt min.). @ -[None done] U/S interpreted by me (1pt. min.). @ -[None done] What testing was considered but not performed or refused? (CT, X-rays, U/S, labs)? Why? @ -[None] What meds were considered but not given or refused? Why? @ -[None] Did you discuss the management of the patient with other professionals (professionals i.e. , PA, [employer], lab, RT, psych nurse, social sciences lecturer, cookie mixer helper, teacher, gifts officer, onsite case manager)? Give summary @ -[Case was discussed with the vascular surgeon Was smoking cessation discussed for >3mins.? @ -[No] Was critical care preformed (if so, how long)? @ -[No] Were there social determinants of health that impacted care today? How? (Homelessness, low income, unemployed, alcoholism, drug addiction, transportation, low edu. Level, literacy, decrease access to med. care, retirement, rehab)? @ -[No] Was there de-escalation of care discussed even if they declined (Discuss DNR or withdrawal of care, Hospice)? DNR status @ -[No] What co-morbidities impacted this encounter? (DM, HTN, Smoking, COPD, CAD, Cancer, CVA, ARF, Chemo, Hep., AIDS, mental health diagnosis, sleep apnea, morbid obesity)? @ -[Chronic renal failure Was patient admitted / discharged? Hospital course, mention meds given and route, prescriptions, significant lab abnormalities, going to OR and other pertinent info. @ -[The patient was discharged after having had pressure applied, and then being observed to ensure no further enlargement of the hematoma Undiagnosed new problem with uncertain prognosis? @ -[No] Drug Therapy requiring intensive monitoring for toxicity (Heparin, Nitro, Insulin, Cardizem)? @ -[No] Were any procedures done? @ -[No] Diagnosis/symptom? @ -[Acute left arm hematoma, related to dialysis graft Acute, or Chronic, or Acute on Chronic? @ -[Acute Uncomplicated (without systemic symptoms) or Complicated (systemic symptoms)? @ -[Uncomplicated Side effects of treatment? @ -[No] Exacerbation, Progression, or Severe Exacerbation? @ -[No] Poses a threat to life or bodily function? How? (Chest pain, USA, VT, pneumonia, PE, COPD, DKA, ARF, appy, cholecystitis, CVA, Diverticulitis, Homicidal, Suicidal, threat to staff... and all critical care pts) @ -[No] - Lab Data Result diagrams: 11/12/22 17:30 11/12/22 17:30 Lab Results 11/12/22 11/12/22 11/12/22 Range/Units 17:30 17:30 17:30 WBC 7.8 (3.8-10.6) k/uL RBC 3.46 L (3.80-5.40) m/uL Hgb 10.7 L (11.4-16.0) gm/dL Hct 33.1 L (34.0-46.0) % MCV 95.6 (80.0-100.0) fL MCH 30.9 (25.0-35.0) pg MCHC 32.3 (31.0-37.0) g/dL RDW 15.5 (11.5-15.5) % Plt Count 323 (150-450) k/uL MPV 7.2 Neutrophils % 78 % Lymphocytes % 12 % Monocytes % 7 % Eosinophils % 1 % Basophils % 1 % Neutrophils # 6.2 (1.3-7.7) k/uL Lymphocytes # 0.9 L (1.0-4.8) k/uL Monocytes # 0.5 (0-1.0) k/uL Eosinophils # 0.1 (0-0.7) k/uL Basophils # 0.0 (0-0.2) k/uL Hypochromasia Slight PT 9.9 (9.0-12.0) sec INR 0.9 (<1.2) APTT 22.4 (22.0-30.0) sec Sodium 139 (137-145) mmol/L Potassium 4.2 (3.5-5.1) mmol/L Chloride 102 (98-107) mmol/L Carbon Dioxide 26 (22-30) mmol/L Anion Gap 11 mmol/L BUN 52 H (7-17) mg/dL Creatinine 3.72 H (0.52-1.04) mg/dL Est GFR (CKD-EPI)AfAm 12 (>60 ml/min/1.73 sqM) Est GFR (CKD-EPI)NonAf 11 (>60 ml/min/1.73 sqM) Glucose 110 H (74-99) mg/dL Calcium 8.8 (8.4-10.2) mg/dL Total Bilirubin 0.6 (0.2-1.3) mg/dL AST 17 (14-36) U/L ALT 9 (4-34) U/L Alkaline Phosphatase 110 (38-126) U/L Total Protein 6.8 (6.3-8.2) g/dL Albumin 3.7 (3.5-5.0) g/dL Disposition Clinical Impression: Hematoma Disposition: HOME SELF-CARE Condition: Good Instructions (If sedation given, give patient instructions): Hematoma (ED) Is patient prescribed a controlled substance at d/c from ED?: No Referrals: None,Stated [Primary Care Provider] - 1-2 days Memo Dealtorre DO [STAFF PHYSICIAN] - 1-2 days
[2022-11-12 17:54] LABS: Albumin 3.7 g/dL (3.5-5.0); Calcium 8.8 mg/dL (8.4-10.2); Potassium 4.2 mmol/L (3.5-5.1); Total Bilirubin 0.6 mg/dL (0.2-1.3); Total Protein 6.8 g/dL (6.3-8.2)
[2022-11-12 18:03] LABS: INR 0.9 (<1.2); Partial Thromboplastin Time 22.4 sec (22.0-30.0); Prothrombin Time 9.9 sec (9.0-12.0)
[2022-11-12] MEDS ORDERED: TRANEXAMIC ACID 1,000 MG in SODIUM CHLORIDE 0.9% 100 ML IVPB ONE (19:17)
[2022-11-12] MEDS ORDERED: HYDROcodone/APAP 5-325MG 1 EACH TAB PO STA (20:24)
[2022-11-12 21:37] VITALS: BP 127/80; PULSE 70; RESP 16
== END 2022-11-12 21:32 | disposition home or self-care (01) ==
LOC: EC 15:45
DX: S40.022A Contusion of left upper arm, initial encounter (principal); E78.5 Hyperlipidemia, unspecified; M06.9 Rheumatoid arthritis, unspecified; I12.0 Hypertensive chronic kidney disease with stage 5 chronic kidney disease or end stage renal disease; N18.6 End stage renal disease; Z99.2 Dependence on renal dialysis; Z79.899 Other long term (current) drug therapy
CPT/HCPCS: 36415; 80053; 85025; 85610; 85730; 96365; 99283

== ENCOUNTER → 2022-11-13 | Outpatient (CLI) | payer MEDICARE ==
[2022-11-13] MEDS: ALTEPLASE 2 MG VIAL (CATHFLO) MISCELLANE NR ×2 (15:00→15:01)
[2022-11-13 15:20] VITALS: BP 150/73; PULSE 80; RESP 16; TEMP 97.8
== END ==
LOC: PROCWHC3 14:16
PROVIDERS: ATTEND Surgery
DX: Z46.82 Encounter for fitting and adjustment of non-vascular catheter (principal)
CPT/HCPCS: 36593; J2997

== ENCOUNTER 2022-12-08 11:49 | Day surgery (SDC) | payer MEDICARE ==
[~2022-12-08 11:49] MED LIST changes: +DEXAMETHASONE SOD PHOSPHATE 4 MG/ML 1 ML VIAL IV ONE; +HYDROmorphone 0.5 MG/0.5 ML SYRINGE IVP PRN; +LACTATED RINGERS 1,000 ML IV SCH; +MIDAZOLAM 2 MG/2 ML VIAL IV PRN; +ONDANSETRON 4 MG/2 ML VIAL IVP ONE; -SODIUM CHLORIDE 0.9% 500 ML 500 ML IV SCH
[2022-12-08 12:45] LABS: Glucose,Whole Blood 175 mg/dL (70-110)
[2022-12-08] MEDS ORDERED: SODIUM CHLORIDE 0.9% 1,000 ML IV ONE (12:55)
[2022-12-08 13:13] LABS: ALT 14 U/L (4-34); AST 18 U/L (14-36); African American GFR (CKD) 11 (>60 ml/min/1.73 sqM); Albumin 3.7 g/dL (3.5-5.0); Alkaline Phosphatase 123 U/L (38-126); Anion Gap 10 mmol/L; Blood Urea Nitrogen 49 mg/dL (7-17); Calcium 8.8 mg/dL (8.4-10.2); Carbon Dioxide 26 mmol/L (22-30); Chloride 101 mmol/L (98-107); Glucose 178 mg/dL (74-99); Non-African American GFR(CKD) 9 (>60 ml/min/1.73 sqM); Potassium 4.3 mmol/L (3.5-5.1); Sodium 137 mmol/L (137-145); Total Bilirubin 0.7 mg/dL (0.2-1.3); Total Protein 6.7 g/dL (6.3-8.2)
[2022-12-08] MEDS ORDERED: HEPARIN SODIUM,PORCINE 5,000 UNIT/ML 1 ML VIAL ONE (13:40)
[2022-12-08] MEDS ORDERED: PROPOFOL 10 MG/ML 20 ML VIAL IV ONE (13:40)
[2022-12-08] MEDS ORDERED: SUCCINYLCHOLINE CHLORIDE 200 MG/10 ML VIAL IV ONE (13:40)
[2022-12-08] MEDS ORDERED: fentaNYL (PF) 50 MCG/ML 2 ML AMP ONE (13:40)
[2022-12-08] MEDS ORDERED: LIDOCAINE 1% INJ 10MG/ML (20 ML MDV) SQ ONE ×2 (14:07)
[2022-12-08] MEDS ORDERED: HEPARIN SODIUM (1,000 UNIT/ML) 2,000 UNIT in SODIUM CHLORIDE 0.9% 1,000 ML IRRIGATION ONE (14:10)
[2022-12-08] MEDS ORDERED: ceFAZolin 2,000 MG in SODIUM CHLORIDE 0.9% 500 ML IRRIGATION ONE (14:43)
[2022-12-08 17:11] VITALS: TEMP 97
--- NOTE | 2022-12-08 17:26 | XR ---
EXAMINATION TYPE: XR chest 1V portable DATE OF EXAM: 12/08/2022 HISTORY: Shortness of breath. COMPARISON: 11/11/2022 TECHNIQUE: Single view of the chest is submitted. FINDINGS: Demonstrated are scattered senescent parenchymal change. There is no evidence for focal infiltrate. Large bore right sided central venous line with its distal tip overlying the SVC. No evidence for pneumothorax. Soft tissue air noted in the region of the left axilla. The heart is stable. Hilar and mediastinal structures are within normal limits. Degenerative changes are seen of the dorsal spine. IMPRESSION: 1. Chronic changes without evidence for acute pulmonary disease.
[2022-12-08 18:05] VITALS: RESP 14
[2022-12-08 18:25] VITALS: BP 133/63; PULSE 62
--- NOTE | 2022-12-08 22:34 | FL ---
EXAMINATION TYPE: FL guided central line placement DATE OF EXAM: 12/08/2022 CLINICAL HISTORY: Tunneled catheter replacement TECHNIQUE: Fluoroscopy. COMPARISON: None. FINDINGS: Fluoroscopic guidance was provided during tunneled catheter replacement procedure performe d by Dr. Delatorre. A total of 19 seconds of fluoroscopic time was utilized during the procedure and 4 spot images was acquired. Total dose area product (DAP) in uGy*m?, mGy*cm? (or similar: 0.8851. IMPRESSION: As Above.
--- NOTE | 2022-12-09 17:31 | P.OP ---
Date of Procedure: 12/08/22 Description of Procedure: Date: 12/08/2022 Preoperative diagnosis: End-stage renal failure Postoperative diagnosis: Same Procedure: 1. Left upper extremity arteriovenous fistula revision with interposition [place] PTFE graft placement. 2. Guidewire exchange of right IJ tunneled hemodialysis catheter Surgeon: Memo Delatorre D.O. Anesthesia: General Estimated blood loss: Minimal Complications: None Condition: Stable Indication for procedure: 87-year-old female with history of end-stage renal disease on hemodialysis via a right-sided tunneled hemodialysis catheter. She has a history of previous left upper extremity arteriovenous fistula which has since thrombosed and was unable to be revascularized. She is also having issues with her tunneled hemodialysis catheter per the dialysis center and would like it replaced. She does have a previous large branch coming off her arteriovenous fistula on the left that they have attempted to utilize but was unable to run with good flows and therefore she presents today for revision of her left upper extremity arteriovenous fistula with tunneled loop graft and ligation of the previous branch. Operative narrative: After written informed consent was obtained the patient all risks benefits and complications were described patient is brought to the operative suite and laid in a supine position with the left arm outstretched on an armboard. The area of the arm was then prepped and draped in usual sterile fashion after appropriate anesthetic was performed per the anesthesiologist. A timeout was performed in normal fashion antibiotics were administered prior to incision. A transverse incision was then created just proximal to the elbow and dissection was carried down to the existing arteriovenous fistula and this was dissected free in a circumferential manner. Proximal and distal control was obtained with vessel loops. Attention was then placed to the axillary vein. A vertical incision was created just anterior to the axilla after utilizing ultrasound to localize the brachial and axillary vein. The vein was then located and circumference a dissection was created around this area and multiple branches were encountered dissected free and controlled with vessel loops. Once controlled attention was then placed to tunneling the [place] graft. A tunnel was then created from the previous incision at the antecubital area to the axillary incision. A 4-7 mm [place] propatent graft was then tunneled. Patient was then administered heparin. Arterial anastomosis was then performed after the previous fistula was clamped and cut. The distal aspect was suture ligated with Prolene suture. The [place] graft was then spatulated and an anterior and anastomosis was created with 6-0 Prolene suture in a running fashion. Control was then released into the graft revealing good pulsatile blood flow. Attention was then placed to the venous anastomosis at the axilla. Venotomy was created with 11 blade scalpel and extended with Pott Underwood scissors at the axillary vein. A 7 mm aspect of the graft was then spatulated in normal fashion and anastomosis was created with 6-0 Prolene suture in a running fashion. Prior to last sutures being placed control was released revealing good backbleeding from the vein. The graft was flushed with heparin saline. Control was then released revealing good pulsatile blood flow within the vein with a good palpable thrill noted. Hemostasis was then assured. Incisions were then closed in a multilayer fashion. Skin was cleansed and dressings were placed. The patient tolerated the procedure well and was sent to PACU for recovery. Attention was then placed to the tunneled catheter placement. The area of the right neck was prepped and draped in the usual sterile fashion. Timeout was performed in normal fashion and antibiotics were administered prior to access. Small incision was created overlying the existing catheter at the neck and dissection was carried down to the catheter which was grasped and pulled externally. The catheter was then cut and a guidewire was placed under direct visualization of fluoroscopy into the superior vena cava and the catheter was removed. Attention was then placed to the chest wall. A small incision was created on the lateral aspect of the chest wall as well as the access site at the neck. A 23 centimeter palindrome hemodialysis catheter was then tunneled from the chest wall to the neck. Breakaway sheath was placed into the internal jugular vein under direct visualization of fluoroscopy. The catheter was then placed within the break away sheath the sheath was removed. The ports were assessed for patency and rosalba and flushed easily and then were hep-locked. The catheter was then sutured in place, cleansed and dressings were placed. The patient tolerated procedure well.
== END 2022-12-08 18:54 | disposition home or self-care (01) ==
LOC: OR 11:49
PROVIDERS: ATTEND Surgery
DX: T82.868A Thrombosis due to vascular prosthetic devices, implants and grafts, initial encounter (principal); Y83.2 Surgical operation with anastomosis, bypass or graft as the cause of abnormal reaction of the patient, or of later complication, without mention of misadventure at the time of the procedure; I12.0 Hypertensive chronic kidney disease with stage 5 chronic kidney disease or end stage renal disease; N18.6 End stage renal disease; Z99.2 Dependence on renal dialysis; Z85.828 Personal history of other malignant neoplasm of skin; Z79.52 Long term (current) use of systemic steroids; Z79.899 Other long term (current) drug therapy; Z98.890 Other specified postprocedural states
CPT/HCPCS: 36832; 80053; 77001; 71045; L8670; J0330; J1644 ×2; J0690 ×2; J2405; J2001; J3010; J1642; J2704

== ENCOUNTER 2023-04-02 14:15 | Emergency (ER) | payer MEDICARE ==
--- NOTE | 2023-04-02 14:44 | ED ---
Fall HPI - General Chief Complaint: Fall Stated Complaint: Fall,Head Injury Time Seen by Provider: 04/02/23 14:17 Source: patient, RN notes reviewed, old records reviewed Mode of arrival: EMS Limitations: no limitations - History of Present Illness Initial Comments: This is a 87-year-old female to the emergency department for evaluation today. Patient Dese for evaluation regards to fall. Significant fall from standing she did land on her face after tripping off the curb she has have significant pain to her forehead right eye with positive loss of consciousness. No blood thinners MD Complaint: fall -: minutes(s) Fall From: standing, from height (distance) (Off a curb) When Fall Occurred: 1 hour [employer] INSPECT[employer] Fall Witnessed: no Place Fall Occurred: home Loss of Consciousness: none Prolonged Down Time?: no Symptoms Prior to Fall: none Location: head, face Severity: severe Severity scale (1-10): 5 Quality: sharp Context: tripped/slipped Associated Symptoms: denies - Related Data Home Medications Medication Instructions Recorded Confirmed Simvastatin [Zocor] 20 mg PO HS 04/04/14 12/08/22 amLODIPine [Norvasc] 10 mg PO DAILY 04/04/14 12/08/22 Etanercept [Enbrel Sureclick] 50 mg SQ FR 02/14/20 12/08/22 allopurinoL [Zyloprim] 100 mg PO BID 06/05/20 12/08/22 Cholecalciferol [Vitamin D3 (25 25 mcg PO DAILY 08/12/20 12/08/22 Mcg = 1000 Iu)] Furosemide [Lasix] 80 mg PO DAILY 07/26/21 12/08/22 Sevelamer [Renvela] 800 mg PO AC-TID 07/26/21 12/08/22 predniSONE 1.5 mg PO DAILY 12/04/22 12/08/22 Allergies Allergy/AdvReac Type Severity Reaction Status Date / Time No Known Allergies Allergy Verified 04/02/23 14:21 Review of Systems ROS Statement: Those systems with pertinent positive or pertinent negative responses have been documented in the HPI. ROS Other: All systems not noted in ROS Statement are negative. Past Medical History Past Medical History: Cancer, Hyperlipidemia, Hypertension, Renal Disease, Rheumatoid Arthritis (RA), Thyroid Disorder Additional Past Medical History / Comment(s): Gout, kidney damage from Rx - dialysis MWF, skin cancer, thyroid nodules. fisutla to left arm not able to be used at this time. History of Any Multi-Drug Resistant Organisms: None Reported Past Surgical History: Cholecystectomy, Hysterectomy Additional Past Surgical History / Comment(s): Bilateral cataract surgery, skin cancer excised from nose X2, fistula left arm, "artery in left arm cleaned out.". mediport to rt chest,10/2022 has since plugged up. Past Anesthesia/Blood Transfusion Reactions: No Reported Reaction Past Psychological History: No Psychological Hx Reported Smoking Status: Never smoker Past Alcohol Use History: None Reported Past Drug Use History: None Reported - Past Family History Father Family Medical History: Unable to Obtain, Myocardial Infarction (AR) Additional Family Medical History / Comment(s): Pt can't remember medical hx. Mother Family Medical History: Unable to Obtain, Myocardial Infarction (AR) Additional Family Medical History / Comment(s): Pt can't remember medical hx. General Exam Limitations: no limitations General appearance: alert, in no apparent distress Head exam: Present: normocephalic, normal inspection. Absent: atraumatic (Facial hematoma) Eye exam: Present: normal appearance, PERRL, EOMI. Absent: scleral icterus, conjunctival injection, periorbital swelling ENT exam: Present: normal exam, mucous membranes moist Neck exam: Present: normal inspection. Absent: tenderness, meningismus, lymp hadenopathy Respiratory exam: Present: normal lung sounds bilaterally. Absent: respiratory distress, wheezes, rales, rhonchi, stridor Cardiovascular Exam: Present: regular rate, normal rhythm, normal heart sounds. Absent: systolic murmur, diastolic murmur, rubs, gallop, clicks GI/Abdominal exam: Present: soft, normal bowel sounds. Absent: distended, tenderness, guarding, rebound, rigid Extremities exam: Present: normal inspection, full ROM, normal capillary refill. Absent: tenderness, pedal edema, joint swelling, calf tenderness Back exam: Present: normal inspection Neurological exam: Present: alert, oriented X3, CN II-XII intact Psychiatric exam: Present: normal affect, normal mood Skin exam: Present: warm, dry, intact, normal color. Absent: rash Course Vital Signs 04/02/23 04/02/23 14:17 16:24 Temperature 98.5 F 98.1 F Pulse Rate 95 83 Respiratory 18 16 Rate Blood Pressure 186/75 166/76 O2 Sat by Pulse 95 96 Oximetry - Reevaluation(s) Reevaluation #1: 04/02/23 15:07 Medical records reviewed Reevaluation #2: Patient symptoms are improved here in the ER Reevaluation #3: Patient informed of results questions answered Reevaluation #4: 04/02/23 14:57 Was pt. sent in by a medical professional or institution ([facility] [place], [employer], urgent care, hospital, or long term...) When possible be specific @ -no Did you speak to anyone other than the patient for history (EMS, parent, family, police, friend...)? What history was obtained from this source @ -no Did you review nursing and triage notes (agree or disagree)? Why? @ -agree Are old charts reviewed (outside hosp., previous admission, EMS record, old EKG, old radiological studies, urgent care reports/EKG's, long term records)? Report findings @ -yes Differential Diagnosis (chest pain, altered mental status, abdominal pain women, abdominal pain men, vaginal bleeding, weakness, fever, dyspnea, syncope, headache, dizziness, GI bleed, back pain, seizure, CVA, palpatations, mental health, musculoskeletal)? @ -prior EKG interpreted by me (3pts min.). @ -no X-rays interpreted by me (1pt min.). @ -yes CT interpreted by me (1pt min.). @ -yes U/S interpreted by me (1pt. min.). @ -no What testing was considered but not performed or refused? (CT, X-rays, U/S, labs)? Why? @ -none What meds were considered but not given or refused? Why? @ -none Did you discuss the management of the patient with other professionals (josefina liao i.e. [facility], [employer] ENGINEER, lab, RT, psych nurse, social sciences department chair, functional analyst, teacher, commanding officer motorized squad, case reviewer)? Give summary @ -no Was smoking cessation discussed for >3mins.? @ -no Was critical care preformed (if so, how long)? @ -no Were there social determinants of health that impacted care today? How? (Homelessness, low income, unemployed, alcoholism, drug addiction, transportation, low edu. Level, literacy, decrease access to med. care, usp, rehab)? @ -none Was there de-escalation of care discussed even if they declined (Discuss DNR or withdrawal of care, Hospice)? DNR status @ -no What co-morbidities impacted this encounter? (DM, HTN, Smoking, COPD, CAD, Cancer, CVA, ARF, Chemo, Hep., AIDS, mental health diagnosis, sleep apnea, morbid obesity)? @ -none Was patient admitted / discharged? Hospital course, mention meds given and route, prescriptions, significant lab abnormalities, going to OR and other pertinent info. @ - 87 female to the emergency department for weakness after fall and periorbital hematoma no acute medical injury otherwise. Patient is able to ambulate and walk without difficulty safe for discharge home Discharge fall, head injury, periorbital hematoma Undiagnosed new problem with uncertain prognosis? @ -no Drug Therapy requiring intensive monitoring for toxicity (Heparin, Nitro, Insulin, Cardizem)? @ -no Were any procedures done? @ -no Diagnosis/symptom? @ - Acute, or Chronic, or Acute on Chronic? @ -Acute Uncomplicated (without systemic symptoms) or Complicated (systemic symptoms)? @ -Complicated Side effects of treatment? @ -no Exacerbation, Progression, or Severe Exacerbation? @ -exacerbation Poses a threat to life or bodily function? How? (Chest pain, [place], AR, pneumonia, PE, COPD, DKA, ARF, appy, cholecystitis, CVA, Diverticulitis, Homicidal, Suicidal, threat to staff... and all critical care pts) @ -yes with significant fall extreme of age Medical Decision Making - Medical Decision Making 87 female to the emergency department for weakness after fall and periorbital hematoma no acute medical injury otherwise. Patient is able to ambulate and walk without difficulty safe for discharge home - Radiology Data Radiology results: report reviewed (CT brain C-spine and x-rays negative for acute disease), image reviewed Disposition Clinical Impression: Fall, Weakness, Periorbital hematoma of right eye Disposition: HOME SELF-CARE Condition: Fair Instructions (If sedation given, give patient instructions): Fall Prevention for Older Adults (ED), Head Injury (ED), Hematoma (ED) Is patient prescribed a controlled substance at d/c from ED?: No Referrals: Al Underwood MD [Primary Care Provider] - 1-2 days Time of Disposition: 16:30
--- NOTE | 2023-04-02 15:58 | CT ---
EXAMINATION TYPE: CT brain teodora sanchez DATE OF EXAM: 04/02/2023 COMPARISON: 03/26/2017 HISTORY: pain after fall CT DLP: 987.[address] of the brain was performed. The ventricles, basal cisterns and sulci overlying the cerebral convexities demonstrate mild enlargem ent. There is no evidence for intracranial hemorrhage or sulcal effacement. There is decreased attenuatio n about the periventricular white matter and deep white matter of both cerebral hemispheres, compatib le with chronic small vessel ischemia. No mass effects are seen. If symptoms persist consider MRI. Osseous calvarium is intact. Right frontal scalp hematoma. IMPRESSION: 1. Age related atrophic and chronic small vessel ischemic change without acute intracranial process seen at this time. CT Cervical Spine: Unenhanced CT of the cervical spine was performed with bone and soft tissue window settings submitted . Coronal and sagittal reconstruction is obtained. There is normal alignment and prevertebral soft tissues. No evidence for acute cervical fracture . Scattered degenerative disc disease and spondylosis. 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 Biapical scarring. IMPRESSION: 1. No evidence for acute fracture or subluxation of the cervical spine.
--- NOTE | 2023-04-02 16:02 | CT ---
EXAMINATION TYPE: CT facial bones wo con DATE OF EXAM: 04/02/2023 COMPARISON: None HISTORY: pain after fall CT DLP: 987.[address] of the facial bones was performed in the axial and coronal planes. Bone and soft tissu e window settings are submitted. Right periorbital and supraorbital soft tissue swelling noted. I do not see evidence for acute displaced facial bone fracture or depressed facial bone fracture. T here is cortical lucency involving the posterior wall of the left maxilla with cortical thickening. T his may reflect remote fracture. The globes are intact. Moderate mucosal opacification left maxillary sinus. No air-fluid levels seen. IMPRESSION: 1. No evidence for acute depressed or displaced facial bone fracture. 2. There is cortical lucency involving the posterior wall of the left maxilla with cortical thickeni ng. This may reflect remote fracture. 3. Right periorbital and right frontal soft tissue swelling.
--- NOTE | 2023-04-02 16:14 | XR ---
EXAMINATION TYPE: XR elbow complete bilateral DATE OF EXAM: 04/02/2023 CLINICAL HISTORY: pain TECHNIQUE: Frontal, lateral and oblique images of the bilateral elbows are obtained. COMPARISON: None. FINDINGS: There is no acute fracture/dislocation evident of the elbow. Plate and screw fixation left ulna. No abnormal fat pad signs are seen. The overlying soft tissue appears unremarkable. IMPRESSION: There is no acute fracture or dislocation of the elbows. ICD 10 NO FRACTURE, INITIAL EVALUATION
[2023-04-02 16:41] VITALS: BP 166/76; PULSE 83; RESP 16; TEMP 98.1
== END 2023-04-02 17:14 | disposition home or self-care (01) ==
LOC: EC 14:15
DX: S00.11XA Contusion of right eyelid and periocular area, initial encounter (principal); R53.1 Weakness; I10 Essential (primary) hypertension; E78.5 Hyperlipidemia, unspecified; M06.9 Rheumatoid arthritis, unspecified; M10.9 Gout, unspecified; Z79.899 Other long term (current) drug therapy; Z90.49 Acquired absence of other specified parts of digestive tract; W10.1XXA Fall (on)(from) sidewalk curb, initial encounter; Y92.009 Unspecified place in unspecified non-institutional (private) residence as the place of occurrence of the external cause
CPT/HCPCS: 70450; 70486; 72125; 99285

== ENCOUNTER 2023-04-23 05:09 | Inpatient (IN) | payer MEDICARE ==
[2023-04-23] MEDS ORDERED: IPRATROPIUM-ALBUTEROL 3 ML NEB INHALATION STA ×2 (05:22→05:41)
[2023-04-23] MEDS ORDERED: MORPHINE SULFATE 2 MG/ML SYRINGE IVP STA (05:23)
[2023-04-23] MEDS ORDERED: SODIUM CHLORIDE 0.9% 1,000 ML IV STA (05:23)
[2023-04-23] MEDS ORDERED: methylPREDNISolone SOD SUCCI 125 MG/2 ML VIAL IV STA (05:23)
[2023-04-23] MEDS ORDERED: LORazepam 2 MG/ML INJ IV STA (05:23)
--- NOTE | 2023-04-23 05:27 | ED ---
SOB HPI - General Chief Complaint: Shortness of Breath Stated Complaint: Difficulty Breathing Time Seen by Provider: 04/23/23 05:21 Source: EMS, RN notes reviewed, old records reviewed Mode of arrival: EMS Limitations: no limitations - History of Present Illness Initial Comments: This is a 87-year-old female to the emergency department for evaluation of severe weakness shortness of breath significant. Patient just by EMS in significant distress a she was found to have a significantly low oxygen level on EMS arrival. Patient is no travel show sick contacts no other complaints. MD Complaint: shortness of breath, cough, anxiety -: days(s) Severity: moderate Severity scale (1-10): 6 Quality: aching Consistency: constant Improves With: nothing Known History Of: COPD, congestive heart failure Context: recent URI, recent illness Associated Symptoms: denies other symptoms Treatments Prior to Arrival: none - Related Data Home Medications Medication Instructions Recorded Confirmed Simvastatin [Zocor] 20 mg PO HS 04/04/14 04/23/23 Etanercept [Enbrel Sureclick] 50 mg SQ FR 02/14/20 04/23/23 allopurinoL [Zyloprim] 100 mg PO TID 06/05/20 04/23/23 Furosemide [Lasix] 80 mg PO DAILY 07/26/21 04/23/23 Sevelamer [Renvela] 800 mg PO AC-TID 07/26/21 04/23/23 Midodrine [ProAmatine] 5 - 10 mg PO MOWEFR 04/23/23 04/23/23 Omeprazole [PriLOSEC] 20 mg PO DAILY 04/23/23 04/23/23 predniSONE 5 mg PO DAILY 04/23/23 04/23/23 tiZANidine [Zanaflex] 2 mg PO HS PRN 04/23/23 04/23/23 Previous Rx's Medication Instructions Recorded Acetaminophen Tab [Tylenol] 650 mg PO Q6HR PRN tab 04/24/23 Cefuroxime [Ceftin] 250 mg PO DAILY 3 Days #3 tab 04/24/23 Allergies Allergy/AdvReac Type Severity Reaction Status Date / Time No Known Allergies Allergy Verified 04/23/23 08:43 Review of Systems ROS Statement: Those systems with pertinent positive or pertinent negative responses have been documented in the HPI. ROS Other: All systems not noted in ROS Statement are negative. Past Medical History Past Medical History: Cancer, Hyperlipidemia, Hypertension, Renal Disease, Rheumatoid Arthritis (RA), Thyroid Disorder Additional Past Medical History / Comment(s): Gout, kidney damage from Rx - dialysis MWF, skin cancer, thyroid nodules. fisutla to left arm not able to be used at this time. History of Any Multi-Drug Resistant Organisms: None Reported Past Surgical History: Cholecystectomy, Hysterectomy Additional Past Surgical History / Comment(s): Bilateral cataract surgery, skin cancer excised from nose X2, fistula left arm, "artery in left arm cleaned o ut.". mediport to rt chest,10/2022 has since plugged up. Past Anesthesia/Blood Transfusion Reactions: No Reported Reaction Past Psychological History: No Psychological Hx Reported Smoking Status: Never smoker Past Alcohol Use History: None Reported Past Drug Use History: None Reported - Past Family History Father Family Medical History: Unable to Obtain, Myocardial Infarction ([place]) Additional Family Medical History / Comment(s): Pt can't remember medical hx. Mother Family Medical History: Unable to Obtain, Myocardial Infarction ([place]) Additional Family Medical History / Comment(s): Pt can't remember medical hx. General Exam General appearance: alert, anxious, in distress Head exam: Present: atraumatic, normocephalic, normal inspection Eye exam: Present: normal appearance, PERRL, EOMI. Absent: scleral icterus, conjunctival injection, periorbital swelling ENT exam: Present: normal exam, mucous membranes moist Neck exam: Present: normal inspection. Absent: tenderness, meningismus, lympha denopathy Respiratory exam: Present: respiratory distress, wheezes, accessory muscle use, decreased breath sounds, prolonged expiratory. Absent: rales, rhonchi, stridor Cardiovascular Exam: Present: normal rhythm, tachycardia, normal heart sounds. Absent: systolic murmur, diastolic murmur, rubs, gallop, clicks GI/Abdominal exam: Present: soft, normal bowel sounds. Absent: distended, tenderness, guarding, rebound, rigid Extremities exam: Present: normal inspection, full ROM, normal capillary refill. Absent: tenderness, pedal edema, joint swelling, calf tenderness Back exam: Present: normal inspection Neurological exam: Present: alert, oriented X3, CN II-XII intact Psychiatric exam: Present: normal affect, normal mood Skin exam: Present: warm, dry, intact, normal color. Absent: rash Course Vital Signs 04/23/23 04/23/23 04/23/23 05:10 05:24 05:47 Temperature 98.2 F Pulse Rate 108 H 93 98 Pulse Rate [ Pulse Oximetery ] Respiratory 20 Rate Blood Pressure 186/89 Blood Pressure [Left Arm] Blood Pressure [Right Arm] O2 Sat by Pulse 95 Oximetry Fraction of Inspired Oxygen (FIO2) 04/23/23 04/23/23 04/23/23 06:40 07:32 08:13 Temperature 98.2 F Pulse Rate 96 98 101 H Pulse Rate [ Pulse Oximetery ] Respiratory 20 20 Rate Blood Pressure 175/87 180/78 Blood Pressure [Left Arm] Blood Pressure [Right Arm] O2 Sat by Pulse 95 93 L 94 L Oximetry Fraction of 94 Inspired Oxygen (FIO2) 04/23/23 04/23/23 04/23/23 08:30 11:30 11:41 Temperature Pulse Rate 103 H 107 H 96 Pulse Rate [ Pulse Oximetery ] Respiratory Rate Blood Pressure 164/82 Blood Pressure [Left Arm] Blood Pressure [Right Arm] O2 Sat by Pulse Oximetry Fraction of Inspired Oxygen (FIO2) 04/23/23 04/23/23 04/23/23 12:00 13:00 14:05 Temperature 97.5 F L Pulse Rate 101 H 110 H Pulse Rate [ 102 H Pulse Oximetery ] Respiratory 16 16 Rate Blood Pressure 177/94 168/74 Blood Pressure 171/87 [Left Arm] Blood Pressure [Right Arm] O2 Sat by Pulse 95 96 96 Oximetry Fraction of Inspired Oxygen (FIO2) 04/23/23 04/23/23 04/23/23 15:10 15:18 15:22 Temperature Pulse Rate 83 107 H Pulse Rate [ 102 H Pulse Oximetery ] Respiratory 18 18 Rate Blood Pressure Blood Pressure [Left Arm] Blood Pressure [Right Arm] O2 Sat by Pulse Oximetry Fraction of Inspired Oxygen (FIO2) 04/23/23 04/23/23 17:20 18:35 Temperature 97.6 F Pulse Rate Pulse Rate [ 92 95 Pulse Oximetery ] Respiratory 16 20 Rate Blood Pressure Blood Pressure 174/78 [Left Arm] Blood Pressure 162/90 [Right Arm] O2 Sat by Pulse 98 Oximetry Fraction of Inspired Oxygen (FIO2) - Reevaluation(s) Reevaluation #1: 04/23/23 05:45 Medical records reviewed Reevaluation #2: 04/23/23 05:45 Patient symptoms are mildly improving Reevaluation #3: 04/23/23 05:45 Patient informed results and questions answered Reevaluation #4: 04/23/23 05:45 Was pt. sent in by a medical professional or institution (, [facility], FILM LIBRARY CLERK, urgent care, hospital, or long term...) When possible be specific @ -no Did you speak to anyone other than the patient for history (EMS, parent, family, police, friend...)? What history was obtained from this source @ -no Did you review nursing and triage notes (agree or disagree)? Why? @ -agree Are old charts reviewed (outside hosp., previous admission, EMS record, old EKG, old radiological studies, urgent care reports/EKG's, long term records)? Report findings @ -yes Differential Diagnosis (chest pain, altered mental status, abdominal pain women, abdominal pain men, vaginal bleeding, weakness, fever, dyspnea, syncope, headache, dizziness, GI bleed, back pain, seizure, CVA, palpatations, mental health, musculoskeletal)? @ -prior EKG interpreted by me (3pts min.). @ -yes X-rays interpreted by me (1pt min.). @ -yes CT interpreted by me (1pt min.). @ -no U/S interpreted by me (1pt. min.). @ -no What testing was considered but not performed or refused? (CT, X-rays, U/S, labs)? Why? @ -none What meds were considered but not given or refused? Why? @ -none Did you discuss the management of the patient with other professionals (jomar quezada i.e. [facility] [place], FILM LIBRARY CLERK, lab, RT, psych nurse, social worker clinical, billiard table repairer, teacher, international first officer, casey saw operator)? Give summary @ -no Was smoking cessation discussed for >3mins.? @ -no Was critical care preformed (if so, how long)? @ -no Were there social determinants of health that impacted care today? How? (Homelessness, low income, unemployed, alcoholism, drug addiction, transportation, low edu. Level, literacy, decrease access to med. care, senior living, rehab)? @ -none Was there de-escalation of care discussed even if they declined (Discuss DNR or withdrawal of care, Hospice)? DNR status @ -no What co-morbidities impacted this encounter? (DM, HTN, Smoking, COPD, CAD, Cancer, CVA, ARF, Chemo, Hep., AIDS, mental health diagnosis, sleep apnea, morbid obesity)? @ -none Was patient admitted / discharged? Hospital course, mention meds given and route, prescriptions, significant lab abnormalities, going to OR and other pertinent info. @ - 87 female to the emergency department was severe shortness of breath does have elevated white blood cell count likely pneumonia with CHF and fluid ov erload pulmonary edema and acute kidney disease. Patient will be admitted for further evaluation management Admitted Undiagnosed new problem with uncertain prognosis? @ -no Drug Therapy requiring intensive monitoring for toxicity (Heparin, Nitro, Insulin, Cardizem)? @ -no Were any procedures done? @ -no Diagnosis/symptom? @ -Pneumonia, CHF pulmonary edema and fluid overload secondary to renal failure Acute, or Chronic, or Acute on Chronic? @ -Acute Uncomplicated (without systemic symptoms) or Complicated (systemic symptoms)? @ -Complicated Side effects of treatment? @ -no Exacerbation, Progression, or Severe Exacerbation? @ -exacerbation Poses a threat to life or bodily function? How? (Chest pain, [place], [place], pneumonia, PE, COPD, DKA, ARF, appy, cholecystitis, CVA, Diverticulitis, Homicidal, Suicidal, threat to staff... and all critical care pts) @ -yes pulmonary edema Reevaluation #5: 04/23/23 05:45 Differential Dyspnea: Coronary syndrome, arrhythmia, tamponade, asthma, COPD, pulmonary embolism, pneumonia, pneumothorax, pulmonary effusion, anaphylaxis, diabetic ketoacidosis, flailed chest, pulmonary contusion, diaphragmatic rupture, anemia, neuromuscular, this is not meant to be an all-inclusive list. - Consultations Consultation #1: Spoke with Dr. del castillo we'll admit this patient Medical Decision Making - Medical Decision Making 87 female to the emergency department was severe shortness of breath does have elevated white blood cell count likely pneumonia with CHF and fluid overload pulmonary edema and acute kidney disease. Patient will be admitted for further evaluation management - Lab Data Result diagrams: 04/24/23 07:48 04/24/23 07:48 Lab Results 04/23/23 04/23/23 04/23/23 Range/Units 05:26 05:26 05:26 WBC 16.2 H (3.8-10.6) k/uL RBC 4.75 (3.80-5.40) m/uL Hgb 14.1 (11.4-16.0) gm/dL Hct 44.7 (34.0-46.0) % MCV 94.2 (80.0-100.0) fL MCH 29.7 (25.0-35.0) pg MCHC 31.6 (31.0-37.0) g/dL RDW 17.7 H (11.5-15.5) % Plt Count 180 (150-450) k/uL MPV 7.4 Neutrophils % 85 % Lymphocytes % 9 % Monocytes % 5 % Eosinophils % 1 % Basophils % 0 % Neutrophils # 13.8 H (1.3-7.7) k/uL Lymphocytes # 1.4 (1.0-4.8) k/uL Monocytes # 0.7 (0-1.0) k/uL Eosinophils # 0.1 (0-0.7) k/uL Basophils # 0.0 (0-0.2) k/uL Hypochromasia Slight Anisocytosis Slight Macrocytosis Slight PT 10.4 (10.0-12.5) sec INR 0.9 (<1.2) APTT 21.7 L (22.0-30.0) sec Sodium 140 (137-145) mmol/L Potassium 3.4 L (3.5-5.1) mmol/L Chloride 104 (98-107) mmol/L Carbon Dioxide 22 (22-30) mmol/L Anion Gap 14 mmol/L BUN 58 H (7-17) mg/dL Creatinine 3.95 H (0.52-1.04) mg/dL Est GFR (CKD-EPI)AfAm 11 (>60 ml/min/1.73 sqM) Est GFR (CKD-EPI)NonAf 10 (>60 ml/min/1.73 sqM) Glucose 149 H (74-99) mg/dL Plasma Lactic Acid Clarence (0.7-2.0) mmol/L Calcium 8.8 (8.4-10.2) mg/dL Magnesium 2.0 (1.6-2.3) mg/dL Total Bilirubin 1.6 H (0.2-1.3) mg/dL AST 25 (14-36) U/L ALT 24 (4-34) U/L Alkaline Phosphatase 115 (38-126) U/L Troponin I (0.000-0.034) ng/mL NT-Pro-B Natriuret Pep 41359 pg/mL Total Protein 6.2 L (6.3-8.2) g/dL Albumin 3.7 (3.5-5.0) g/dL Hep Bs Antigen Hep Bs Antibody (Negative) Hep Bs Antibody, Quant mIU/mL 04/23/23 04/23/23 04/23/23 Range/Units 05:26 05:26 05:26 WBC (3.8-10.6) k/uL RBC (3.80-5.40) m/uL Hgb (11.4-16.0) gm/dL Hct (34.0-46.0) % MCV (80.0-100.0) fL MCH (25.0-35.0) pg MCHC (31.0-37.0) g/dL RDW (11.5-15.5) % Plt Count (150-450) k/uL MPV Neutrophils % % Lymphocytes % % Monocytes % % Eosinophils % % Basophils % % Neutrophils # (1.3-7.7) k/uL Lymphocytes # (1.0-4.8) k/uL Monocytes # (0-1.0) k/uL Eosinophils # (0-0.7) k/uL Basophils # (0-0.2) k/uL Hypochromasia Anisocytosis Macrocytosis PT (10.0-12.5) sec INR (<1.2) APTT (22.0-30.0) sec Sodium (137-145) mmol/L Potassium (3.5-5.1) mmol/L Chloride (98-107) mmol/L Carbon Dioxide (22-30) mmol/L Anion Gap mmol/L BUN (7-17) mg/dL Creatinine (0.52-1.04) mg/dL Est GFR (CKD-EPI)AfAm (>60 ml/min/1.73 sqM) Est GFR (CKD-EPI)NonAf (>60 ml/min/1.73 sqM) Glucose (74-99) mg/dL Plasma Lactic Acid Clarence 1.3 (0.7-2.0) mmol/L Calcium (8.4-10.2) mg/dL Magnesium (1.6-2.3) mg/dL Total Bilirubin (0.2-1.3) mg/dL AST (14-36) U/L ALT (4-34) U/L Alkaline Phosphatase (38-126) U/L Troponin I 0.323 H* (0.000-0.034) ng/mL NT-Pro-B Natriuret Pep pg/mL Total Protein (6.3-8.2) g/dL Albumin (3.5-5.0) g/dL Hep Bs Antigen Nonreactive Hep Bs Antibody (Negative) Hep Bs Antibody, Quant mIU/mL 04/23/23 Range/Units 05:26 WBC (3.8-10.6) k/uL RBC (3.80-5.40) m/uL Hgb (11.4-16.0) gm/dL Hct (34.0-46.0) % MCV (80.0-100.0) fL MCH (25.0-35.0) pg MCHC (31.0-37.0) g/dL RDW (11.5-15.5) % Plt Count (150-450) k/uL MPV Neutrophils % % Lymphocytes % % Monocytes % % Eosinophils % % Basophils % % Neutrophils # (1.3-7.7) k/uL Lymphocytes # (1.0-4.8) k/uL Monocytes # (0-1.0) k/uL Eosinophils # (0-0.7) k/uL Basophils # (0-0.2) k/uL Hypochromasia Anisocytosis Macrocytosis PT (10.0-12.5) sec INR (<1.2) APTT (22.0-30.0) sec Sodium (137-145) mmol/L Potassium (3.5-5.1) mmol/L Chloride (98-107) mmol/L Carbon Dioxide (22-30) mmol/L Anion Gap mmol/L BUN (7-17) mg/dL Creatinine (0.52-1.04) mg/dL Est GFR (CKD-EPI)AfAm (>60 ml/min/1.73 sqM) Est GFR (CKD-EPI)NonAf (>60 ml/min/1.73 sqM) Glucose (74-99) mg/dL Plasma Lactic Acid Clarence (0.7-2.0) mmol/L Calcium (8.4-10.2) mg/dL Magnesium (1.6-2.3) mg/dL Total Bilirubin (0.2-1.3) mg/dL AST (14-36) U/L ALT (4-34) U/L Alkaline Phosphatase (38-126) U/L Troponin I (0.000-0.034) ng/mL NT-Pro-B Natriuret Pep pg/mL Total Protein (6.3-8.2) g/dL Albumin (3.5-5.0) g/dL Hep Bs Antigen Hep Bs Antibody (Negative) Hep Bs Antibody, Quant 3.5 mIU/mL - EKG Data -: EKG Interpreted by Me (EKG is sinus tach 102 MO 191 QRS 149 QTc 440) Critical Care Time Critical Care Time: Yes Total Critical Care Time: 31 Disposition Clinical Impression: Weakness, Acute renal failure (ARF), Pleural effusion, bilateral, Dyspnea, Congestive heart failure, Community acquired pneumonia, Hypoxia, NSTEMI (non-ST elevated myocardial infarction), Elevated troponin Disposition: ADMITTED IP TO THIS HOSP Condition: Serious Is patient prescribed a controlled substance at d/c from ED?: No Time of Disposition: 06:00
[2023-04-23 05:36] LABS: Anisocytosis Slight; Basophils % (A) 0 %; Eosinophils # (A) 0.1 k/uL (0-0.7); Eosinophils % (A) 1 %; HCT 44.7 % (34.0-46.0); HGB 14.1 gm/dL (11.4-16.0); Hypochromasia Slight; Lymphocytes # (A) 1.4 k/uL (1.0-4.8); Lymphocytes % (A) 9 %; MCH 29.7 pg (25.0-35.0); MCHC 31.6 g/dL (31.0-37.0); MCV 94.2 fL (80.0-100.0); Macrocytosis Slight; Mean Platelet Volume 7.4; Monocytes # (A) 0.7 k/uL (0-1.0); Monocytes % (A) 5 %; Neutrophils # (A) 13.8 k/uL (1.3-7.7); Neutrophils % (A) 85 %; Platelet Count 180 k/uL (150-450); RBC 4.75 m/uL (3.80-5.40); RDW 17.7 % (11.5-15.5); WBC 16.2 k/uL (3.8-10.6)
[2023-04-23] MEDS ORDERED: NALOXONE 0.4 MG/ML 1 ML VIAL IV PRN (05:41)
[2023-04-23] MEDS ORDERED: ONDANSETRON 4 MG/2 ML VIAL IVP PRN (05:41)
[2023-04-23] MEDS ORDERED: MORPHINE SULFATE 4 MG/ML SYRINGE IV PRN (05:41)
[2023-04-23] MEDS ORDERED: AZITHROMYCIN 500 MG in SODIUM CHLORIDE 0.9% 250 ML IVPB STA (05:41)
[2023-04-23 05:45] LABS: ALT 24 U/L (4-34); AST 25 U/L (14-36); African American GFR (CKD) 11 (>60 ml/min/1.73 sqM); Albumin 3.7 g/dL (3.5-5.0); Alkaline Phosphatase 115 U/L (38-126); Anion Gap 14 mmol/L; Blood Urea Nitrogen 58 mg/dL (7-17); Calcium 8.8 mg/dL (8.4-10.2); Carbon Dioxide 22 mmol/L (22-30); Chloride 104 mmol/L (98-107); Glucose 149 mg/dL (74-99); Non-African American GFR(CKD) 10 (>60 ml/min/1.73 sqM); Potassium 3.4 mmol/L (3.5-5.1); Sodium 140 mmol/L (137-145); Total Bilirubin 1.6 mg/dL (0.2-1.3); Total Protein 6.2 g/dL (6.3-8.2)
[2023-04-23] MEDS ORDERED: SODIUM CHLORIDE 0.9% 1,000 ML IV SCH (05:45)
[2023-04-23 05:48] LABS: INR 0.9 (<1.2); Prothrombin Time 10.4 sec (10.0-12.5)
[2023-04-23 05:51] LABS: Partial Thromboplastin Time 21.7 sec (22.0-30.0)
--- NOTE | 2023-04-23 07:18 | XR ---
EXAMINATION TYPE: XR chest 1V portable DATE OF EXAM: 04/23/2023 5:44 AM CLINICAL INDICATION:Female, 87 years old with history of sob; COMPARISON: Chest radiographs from 12/08/2022 TECHNIQUE: XR chest 1V portable Frontal view of the chest. FINDINGS: Lungs/Pleura: Bibasilar airspace opacities are new. There is no evidence of pleural effusion, focal c onsolidation, or pneumothorax. Pulmonary vascularity: There may be some mild pulmonary vascular congestion. Heart/mediastinum: Cardiomediastinal silhouette is enlarged and stable. Musculoskeletal: No acute osseous pathology. Other findings: None IMPRESSION: * Bibasilar airspace opacities correlate for pneumonia possibly aspiration. * Correlate with serum BNP to rule out underlying component of congestive heart failure given cardio megaly
[2023-04-23] MEDS: ALBUTEROL NEBULIZED 2.5 MG/3 ML INHALATION SCH ×4 (08:13→20:01)
[2023-04-23] MEDS ORDERED: tiZANidine 4 MG TAB PO PRN (11:11)
[2023-04-23] MEDS: PANTOPRAZOLE 40 MG TABLET PO SCH (11:57)
[2023-04-23] MEDS: SEVELAMER 800 MG TAB PO SCH ×2 (11:57→17:51)
[2023-04-23] MEDS: allopurinoL 100 MG TAB PO SCH ×3 (11:57→21:11)
[2023-04-23] MEDS: FUROSEMIDE 80 MG TAB PO SCH (11:57)
[2023-04-23] MEDS ORDERED: ACETAMINOPHEN TAB 325 MG TAB PO PRN (13:22)
[2023-04-23] MEDS ORDERED: LACTULOSE 20 GM/30 ML CUP PO PRN (13:22)
[2023-04-23] MEDS ORDERED: CALCIUM CARBONATE 500 MG CHEWABLE PO PRN (13:22)
--- NOTE | 2023-04-23 13:50 | P.NPCON ---
History of Present Illness - Reason for Consult end stage renal disease - History of Present Illness Patient is an 87-year-old female with end-stage renal disease maintained on hemodialysis on a Thursday schedule. She is admitted to the hospital with complaints of shortness of breath. Patient denied any chest pain. She has some cough but is not bringing up any phlegm. No history of nausea vomiting abdominal pain or diarrhea. Blood pressure was elevated with systolic in the 180s. Chest x-ray shows mild pulmonary vascular congestion. Currently maintained on 2 L nasal cannula. Patient did not have dialysis yesterday. Her last treatment was 04/20/2023 Review of Systems As per HPI Past Medical History Past Medical History: Cancer, Hyperlipidemia, Hypertension, Renal Disease, Rheumatoid Arthritis (RA), Thyroid Disorder Additional Past Medical History / Comment(s): Gout, kidney damage from Rx - dialysis MWF, skin cancer, thyroid nodules. fisutla to left arm not able to be used at this time. History of Any Multi-Drug Resistant Organisms: None Reported Past Surgical History: Cholecystectomy, Hysterectomy Additional Past Surgical History / Comment(s): Bilateral cataract surgery, skin cancer excised from nose X2, fistula left arm, "artery in left arm cleaned out.". mediport to rt chest,10/2022 has since plugged up. Past Anesthesia/Blood Transfusion Reactions: No Reported Reaction Past Psychological History: No Psychological Hx Reported Smoking Status: Never smoker Past Alcohol Use History: None Reported Past Drug Use History: None Reported - Past Family History Father Family Medical History: Unable to Obtain, Myocardial Infarction ([place]) Additional Family Medical History / Comment(s): Pt can't remember medical hx. Mother Family Medical History: Unable to Obtain, Myocardial Infarction ([place]) Additional Family Medical History / Comment(s): Pt can't remember medical hx. Medications and Allergies Home Medications Medication Instructions Recorded Confirmed Type Simvastatin [Zocor] 20 mg PO HS 04/04/14 04/23/23 History Etanercept [Enbrel Sureclick] 50 mg SQ FR 02/14/20 04/23/23 History allopurinoL [Zyloprim] 100 mg PO TID 06/05/20 04/23/23 History Furosemide [Lasix] 80 mg PO DAILY 07/26/21 04/23/23 History Sevelamer [Renvela] 800 mg PO AC-TID 07/26/21 04/23/23 History Midodrine [ProAmatine] 5 - 10 mg PO MOWEFR 04/23/23 04/23/23 History Omeprazole [PriLOSEC] 20 mg PO DAILY 04/23/23 04/23/23 History predniSONE 5 mg PO DAILY 04/23/23 04/23/23 History tiZANidine [Zanaflex] 2 mg PO HS PRN 04/23/23 04/23/23 History Allergies Allergy/AdvReac Type Severity Reaction Status Date / Time No Known Allergies Allergy Verified 04/23/23 08:43 Physical Exam Vitals: Vital Signs Temp Pulse Resp BP Pulse Ox FiO2 04/23/23 13:00 97.5 F L 110 H 168/74 96 04/23/23 12:00 101 H 16 177/94 95 04/23/23 11:41 96 04/23/23 11:30 107 H 04/23/23 08:30 103 H 164/82 04/23/23 08:13 101 H 94 L 94 04/23/23 07:32 98.2 F 98 20 180/78 93 L 04/23/23 06:40 96 20 175/87 95 04/23/23 05:47 98 04/23/23 05:24 93 04/23/23 05:10 98.2 F 108 H 20 186/89 95 Intake and Output 04/22/23 04/23/23 04/23/23 22:59 06:59 14:59 Other: Weight 63.503 kg Patient is awake, comfortable, no acute distress Examination of the heart S1 and S2 Examination of the lungs bilateral breath sounds are heard Abdomen is soft nontender Examination of lower extremities shows 1+ edema bilaterally FOOD CONSULTANT exam grossly intact Results - Lab Results Most recent lab results Calcium 8.8 mg/dL (8.4-10.2) 04/23/23 05:26 Magnesium 2.0 mg/dL (1.6-2.3) 04/23/23 05:26 04/23/23 05:26 04/23/23 05:26 Assessment and Plan Assessment: 1. End-stage renal disease on hemodialysis on a Thursday schedule. Patient has a left arm AV fistula. She missed dialysis yesterday and she will be dialyzed today and then again in a.m. 2. Volume overload 3. Hypertension with CK D stage IV, uncontrolled secondary to volume overload 4. CK D mineral bone disorder. 5. Possible pneumonia maintained on antibiotics Plan: Hemodialysis today and repeat again in a.m. Continue empiric antibiotics Continue Renvela with meals. Thank you for the consultation. We will continue to follow the patient with you during her hospitalization.
[2023-04-23] MEDS: ENOXAPARIN 40 MG/0.4 ML SYRINGE SQ SCH (14:04)
--- NOTE | 2023-04-23 15:31 | P.HPIM ---
History of Present Illness H&P Date: 04/23/23 Chief Complaint: Short of breath This is a pleasant 87-year-old patient who was following with Dr. Al Underwood previously. Chronic stable medical conditions include hypertension, hyperlipidemia, rheumatoid arthritis, hypothyroid, gout, end-stage kidney disease on hemodialysis Thursday for last 3 years. Has a left upper extremity AV fistula. Few days ago patient fell down hitting her face. Computed tomography scan rule out fractures. Patient is having some pain in the abdomen in the gallbladder area. She was told it probably from the fall. Yesterday patient did not make it to the dialysis. Yesterday was not feeling well. Woke up in the middle night short of breath. Had to sit up. [place] better. No chest pain or palpitation. Decided to come to the hospital. Patient not on home oxygen. Review of systems: GEN.: Tired EYES: None HEENT: None NECK: None RESPIRATORY: As above CARDIOVASCULAR: None GASTROINTESTINAL: Has a bowel movement every day GENITOURINARY: None MUSCULOSKELETAL: Some joint pains LYMPHATICS: None HEMATOLOGICAL: None PSYCHIATRY: None NEUROLOGICAL: None Past medical history to include: Hypertension, hyperlipidemia, end-stage kidney disease on hemodialysis Thursday for 3 years with left upper extremity AV fistula. Rheumatoid arthritis, hypothyroid, gout, skin cancer, thyroid nodule Social history: Lives with . Does use a cane. No alcohol or smoking. Physical examination: VITAL SIGNS: 98.2, 98, 20, 180/78, 93% on 2 L GENERAL: BMI 23.3, sitting at the site of the bed not in distress. EYES: Pupils equal. Conjunctiva normal. HEENT: External appearance of nose and ears normal, oral cavity grossly normal. NECK: JVD not raised; masses not palpable. HEART: First and second heart sounds are normal; no edema. LUNGS: Respiratory rate increased increased breath sounds. ABDOMEN: Soft, nontender, liver spleen not palpable, no masses palpable. PSYCH: Alert and oriented x3; mood and affect normal. MUSCULOSKELETAL:No Clubbing/cyanosis;muscles-grossly intact. Left upper extremi ty AV fistula NEUROLOGICAL: Cranial nerves grossly intact; no facial asymmetry, power and sensation grossly intact. LYMPHATICS: No lymph nodes palpable in the axilla and neck INVESTIGATIONS, reviewed in the clinical context: 04/23/2023: White count 6.2 hemoglobin 14.1 platelets 48D sodium 140 potassium 3.4 BUN 58 creatinine 3.95 Troponin I 0.3-3 albumin 3.7 EKG tracing personally reviewed by me-sinus tachycardia. Intraventricular conduction delay. Chest x-ray film personally reviewed by me-cardiomegaly. Possible infiltrate Assessment and plan: -Shortness of breath that developed at night, having missed hemodialysis. Possibly fluid overload. Underlying pneumonia possible. -Possible pneumonia suspect gram-negative organism IV ceftriaxone, Zithromax -Acute Fluid overload from having missed hemodialysis Hemodialysis today -End-stage kidney disease hemodialysis for last 3 years. Left upper extremity AV fistula Nephrology consulted -Chronic hyperuricemia Allopurinol -Chronic hypotension Midodrine when necessary -Hyperlipidemia Zocor 20 mg daily at bedtime -Positive troponin in the setting of end-stage kidney disease. No chest pain. Does not require any further workup -GERD PPI -Full code Care was discussed with the patient. Questions answered. 2-D echocardiogram. Past Medical History Past Medical History: Cancer, Hyperlipidemia, Hypertension, Renal Disease, Rheumatoid Arthritis (RA), Thyroid Disorder Additional Past Medical History / Comment(s): Gout, kidney damage from Rx - dialysis MWF, skin cancer, thyroid nodules. fisutla to left arm not able to be used at this time. History of Any Multi-Drug Resistant Organisms: None Reported Past Surgical History: Cholecystectomy, Hysterectomy Additional Past Surgical History / Comment(s): Bilateral cataract surgery, skin cancer excised from nose X2, fistula left arm, "artery in left arm cleaned out.". mediport to rt chest,10/2022 has since plugged up. Past Anesthesia/Blood Transfusion Reactions: No Reported Reaction Past Psychological History: No Psychological Hx Reported Smoking Status: Never smoker Past Alcohol Use History: None Reported Past Drug Use History: None Reported - Past Family History Father Family Medical History: Unable to Obtain, Myocardial Infarction (PR) Additional Family Medical History / Comment(s): Pt can't remember medical hx. Mother Family Medical History: Unable to Obtain, Myocardial Infarction (PR) Additional Family Medical History / Comment(s): Pt can't remember medical hx. Medications and Allergies Home Medications Medication Instructions Recorded Confirmed Type Simvastatin [Zocor] 20 mg PO HS 04/04/14 04/23/23 History Etanercept [Enbrel Sureclick] 50 mg SQ FR 02/14/20 04/23/23 History allopurinoL [Zyloprim] 100 mg PO TID 06/05/20 04/23/23 History Furosemide [Lasix] 80 mg PO DAILY 07/26/21 04/23/23 History Sevelamer [Renvela] 800 mg PO AC-TID 07/26/21 04/23/23 History Midodrine [ProAmatine] 5 - 10 mg PO MOWEFR 04/23/23 04/23/23 History Omeprazole [PriLOSEC] 20 mg PO DAILY 04/23/23 04/23/23 History predniSONE 5 mg PO DAILY 04/23/23 04/23/23 History tiZANidine [Zanaflex] 2 mg PO HS PRN 04/23/23 04/23/23 History Allergies Allergy/AdvReac Type Severity Reaction Status Date / Time No Known Allergies Allergy Verified 04/23/23 08:43 Physical Exam Vitals: Vital Signs Temp Pulse Resp BP Pulse Ox FiO2 04/23/23 08:30 103 H 164/82 04/23/23 08:13 101 H 94 L 94 04/23/23 07:32 98.2 F 98 20 180/78 93 L 04/23/23 06:40 96 20 175/87 95 04/23/23 05:47 98 04/23/23 05:24 93 04/23/23 05:10 98.2 F 108 H 20 186/89 95 Intake and Output 04/22/23 04/23/23 04/23/23 22:59 06:59 14:59 Other: Weight 63.503 kg Results CBC & Chem 7: 04/23/23 05:26 04/23/23 05:26 Labs: Abnormal Lab Results - Last 24 Hours (Table) 04/23/23 04/23/23 04/23/23 Range/Units 05:26 05:26 05:26 WBC 16.2 H (3.8-10.6) k/uL RDW 17.7 H (11.5-15.5) % Neutrophils # 13.8 H (1.3-7.7) k/uL APTT 21.7 L (22.0-30.0) sec Potassium 3.4 L (3.5-5.1) mmol/L BUN 58 H (7-17) mg/dL Creatinine 3.95 H (0.52-1.04) mg/dL Glucose 149 H (74-99) mg/dL Total Bilirubin 1.6 H (0.2-1.3) mg/dL Troponin I (0.000-0.034) ng/mL Total Protein 6.2 L (6.3-8.2) g/dL 04/23/23 Range/Units 05:26 WBC (3.8-10.6) k/uL RDW (11.5-15.5) % Neutrophils # (1.3-7.7) k/uL APTT (22.0-30.0) sec Potassium (3.5-5.1) mmol/L BUN (7-17) mg/dL Creatinine (0.52-1.04) mg/dL Glucose (74-99) mg/dL Total Bilirubin (0.2-1.3) mg/dL Troponin I 0.323 H* (0.000-0.034) ng/mL Total Protein (6.3-8.2) g/dL
[2023-04-23] MEDS: predniSONE 5 MG TAB PO SCH (17:51)
[2023-04-23] MEDS ORDERED: ATORVASTATIN 10 MG TAB PO SCH (21:00)
[2023-04-23 21:45] LABS: Hepatitis B Surface AB- Quant 3.5 mIU/mL
[2023-04-24] MEDS: ALBUTEROL NEBULIZED 2.5 MG/3 ML INHALATION SCH ×5 (00:19→16:14)
[2023-04-24] MEDS ORDERED: AZITHROMYCIN 500 MG in SODIUM CHLORIDE 0.9% 250 ML IVPB SCH (06:00)
[2023-04-24] MEDS: PANTOPRAZOLE 40 MG TABLET PO SCH (06:12)
[2023-04-24] MEDS: SEVELAMER 800 MG TAB PO SCH (06:14)
[2023-04-24 07:59] LABS: Anisocytosis Slight; Basophils % (A) 0 %; Eosinophils # (A) 0.1 k/uL (0-0.7); Eosinophils % (A) 1 %; HCT 38.7 % (34.0-46.0); HGB 12.2 gm/dL (11.4-16.0); Hypochromasia Slight; Lymphocytes # (A) 0.5 k/uL (1.0-4.8); Lymphocytes % (A) 4 %; MCH 30.1 pg (25.0-35.0); MCHC 31.4 g/dL (31.0-37.0); MCV 95.6 fL (80.0-100.0); Macrocytosis Slight; Mean Platelet Volume 7.4; Monocytes # (A) 0.7 k/uL (0-1.0); Monocytes % (A) 6 %; Neutrophils # (A) 11.6 k/uL (1.3-7.7); Neutrophils % (A) 90 %; Platelet Count 224 k/uL (150-450); RBC 4.05 m/uL (3.80-5.40); RDW 17.9 % (11.5-15.5)
[2023-04-24 08:24] LABS: ALT 32 U/L (4-34); AST 36 U/L (14-36); African American GFR (CKD) 15 (>60 ml/min/1.73 sqM); Albumin 3.1 g/dL (3.5-5.0); Alkaline Phosphatase 100 U/L (38-126); Anion Gap 12 mmol/L; Blood Urea Nitrogen 40 mg/dL (7-17); Calcium 8.7 mg/dL (8.4-10.2); Carbon Dioxide 22 mmol/L (22-30); Chloride 104 mmol/L (98-107); Glucose 324 mg/dL (74-99); Non-African American GFR(CKD) 13 (>60 ml/min/1.73 sqM); Potassium 4.4 mmol/L (3.5-5.1); Sodium 138 mmol/L (137-145); Total Protein 5.6 g/dL (6.3-8.2)
[2023-04-24] MEDS ORDERED: NON FORMULARY DRUG (Etanercept [Enbrel Sureclick] 50 MG/ML Pen.Injctr) SQ SCH (09:00)
[2023-04-24] MEDS: allopurinoL 100 MG TAB PO SCH ×2 (09:04→16:28)
[2023-04-24] MEDS: ENOXAPARIN 40 MG/0.4 ML SYRINGE SQ SCH (09:05)
[2023-04-24] MEDS: predniSONE 5 MG TAB PO SCH (09:05)
--- NOTE | 2023-04-24 10:58 | P.PN ---
Subjective Patient is seen for follow-up for end-stage renal disease. She was admitted with uncontrolled hypertension and abdominal pain. Abdominal pain has improved to some degree. No fever or chills noted. Status post UF 2.5 L with hemodialysis yesterday. Patient will be dialyzed again today Objective - Vital Signs Vital signs: Vital Signs Temp 98.3 F 04/24/23 08:00 Pulse 96 04/24/23 09:00 Resp 20 04/24/23 08:00 BP 150/79 04/24/23 08:00 Pulse Ox 95 04/24/23 08:47 FiO2 94 04/23/23 08:13 Intake & Output 04/23/23 04/24/23 04/24/23 18:59 06:59 18:59 Intake Total 500 540 110 Output Total 2500 Balance -1999 540 110 Weight 63.503 kg 64 kg Intake: Oral 540 110 Hemodialysis 500 Output: Hemodialysis 2500 Other: # Voids 1 - Exam Patient is awake, comfortable, no acute distress Examination of the heart S1 and S2 Examination of the lungs bilateral breath sounds are heard Abdomen is soft nontender Examination of lower extremities shows 1+ edema bilaterally [employer] exam grossly intact - Labs CBC & Chem 7: 04/24/23 07:48 04/24/23 07:48 Labs: Abnormal Lab Results - Last 24 Hours (Table) 04/24/23 04/24/23 Range/Units 07:48 07:48 WBC 13.0 H (3.8-10.6) k/uL RDW 17.9 H (11.5-15.5) % Neutrophils # 11.6 H (1.3-7.7) k/uL Lymphocytes # 0.5 L (1.0-4.8) k/uL BUN 40 H (7-17) mg/dL Creatinine 3.04 H (0.52-1.04) mg/dL Glucose 324 H (74-99) mg/dL Total Protein 5.6 L (6.3-8.2) g/dL Albumin 3.1 L (3.5-5.0) g/dL Assessment and Plan Assessment: 1. End-stage renal disease on hemodialysis on a Thursday schedule. Patient has a left arm AV fistula. 2. Volume overload 3. Hypertension with CK D stage IV, uncontrolled secondary to volume overload 4. CK D mineral bone disorder. 5. Possible pneumonia maintained on antibiotics Plan: Hemodialysis today Continue with antibiotics Consider imaging of the abdomen of abdominal pain persists.
--- NOTE | 2023-04-24 13:09 | CDI ---
Documentation Clarification Form Date: From: Erma Chiu Phone: [phone] Admit Date: 04/23/2023 05:41:00 AM Patient Name: Shagufta Valverde Visit Number: [id number] Discharge Date: ATTENTION: The Clinical Documentation Specialists (CDI) and [facility] Coding Staff appreciate your assistance in clarifying documentation. Please respond to the clarification below the line at the bottom and electronically sign. The CDI & [facility] Coding staff will review the response and follow-up if needed. Please note: Queries are made part of the Legal Health Record. If you have any questions, please contact the author of this message via ITS. Dr. Elias Carson Your patient has Dyspnea and Oxygen usage documented in the chart. Based on this information and the findings below, is there an additional diagnosis that is clinically appropriate for this patient? History/Risk Factors: "87-year-old patient who was following with Dr. Al Underwood previously. Chronic stable medical conditions include hypertension, hyperlipidemia, rheumatoid arthritis, hypothyroid, gout, end-stage kidney disease on hemodialysis" - Per H&P on 04/23 Tobacco use: No Home oxygen: No Clinical Indicators: "Respiratory rate increased increased breath sounds." "Shortness of breath that developed at night, having missed hemodialysis. Possibly fluid overload. Underlying pneumonia possible" - Per H&P on 04/23 O2: 04/23 93% on 2L, 04/24 92% on 2L, 92% on Room Air, 95% on Room Air, Treatment: Duoneb x 2, Albuterol Q4H, Solumedrol 125mg IV x 1, Prednisone 5mg PO Daily, Lasix 80mg PO - Per AUG Intermittent Pulse ox, O2 Is there an additional diagnosis that is clinically appropriate for this patient? [ + ] Acute Hypoxic Respiratory Failure (pO2 <60 mm Hg or SpO2 <91% on room air) [ ] Acute Respiratory Distress [ ] Acute Respiratory Insufficiency [ ] Other Diagnosis, please specify [ ] Unable to determine MTDD
[2023-04-24 16:23] VITALS: BP 138/70; PULSE 82; RESP 18; TEMP 97.7
[2023-04-24] MEDS: FUROSEMIDE 80 MG TAB PO SCH (16:28)
--- NOTE | 2023-04-24 17:02 | CA ---
Transthoracic Echo Report Name: Shagufta Valverde Age: 87 Gender: F : 1935 Exam Date: 04/24/2023 11:12 Exam Location: [place] [facility] Ht (in): 65 Wt (lb): 140 Ordering Physician: Elias Crason MD Attending/Referring Phys: Cleaning Attendant Peter Durbin Procedure CPT: Indications: Cardiomegaly Cardiac Hx: Technical Quality: Technically difficult study Contrast 1: Total Dose (mL): Contrast 2: Total Dose (mL): MEASUREMENTS (Male / Female) Normal Values 2D ECHO LV Diastolic Diameter PLAX 5.3 cm 4.2 - 5.9 / 3.9 - 5.3 cm LV Systolic Diameter PLAX 4.7 cm IVS Diastolic Thickness 1.3 cm 0.6 - 1.0 / 0.6 - 0.9 cm LVPW Diastolic Thickness 1.2 cm 0.6 - 1.0 / 0.6 - 0.9 cm LV Relative Wall Thickness 0.5 RV Internal Dim ED PLAX 3.3 cm LVOT Diameter 1.9 cm Aortic Root Diameter 3.2 cm LA Systolic Diameter LX 2.8 cm 3.0 - 4.0 / 2.7 - 3.8 cm MV Area Planimetry 0.0 cm??? LV Diastolic Volume MOD BP 91.8 cm??? 67 - 155 / 56 - 104 cm??? LV Systolic Volume MOD BP 52.8 cm??? 22 - 58 / 19 - 49 cm??? LV Ejection Fraction MOD BP 42.5 % >= 55 % LV Cardiac Index MOD BP 2621.8 cm???/min???m??? LV Diastolic Volume MOD 4C 81.1 cm??? LV Systolic Volume MOD 4C 43.1 cm??? LV Ejection Fraction MOD 4C 46.9 % LV Cardiac Index MOD 4C 2550.8 cm???/min???m??? LV Diastolic Length 4C 7.0 cm LV Systolic Length 4C 6.1 cm LV Diastolic Volume MOD 2C 97.4 cm??? LV Systolic Volume MOD 2C 61.6 cm??? LV Ejection Fraction MOD 2C 36.7 % LV Cardiac Index MOD 2C 2399.9 cm???/min???m??? LV Diastolic Length 2C 6.5 cm LV Systolic Length 2C 6.4 cm LA Volume 62.0 cm??? 18 - 58 / 22 - 52 cm??? LA Volume Index 36.2 cm???/m??? 16 - 28 cm???/m??? DOPPLER AV Peak Velocity 124.1 cm/s AV Peak Gradient 6.2 mmHg AV Mean Velocity 90.8 cm/s AV Mean Gradient 3.6 mmHg AV Velocity Time Integral 25.8 cm AI Peak Velocity 365.2 cm/s AI Peak Gradient 53.3 mmHg AI Pressure Half Time 245.7 ms LVOT Peak Velocity 75.4 cm/s LVOT Peak Gradient 2.3 mmHg LVOT Velocity Time Integral 16.2 cm LVOT Stroke Volume 45.9 cm??? LVOT Stroke Volume Index 27.0 ml/m??? LVOT Cardiac Index 3082.3 cm???/min???m??? AV Area Cont Eq vti 1.8 cm??? AV Area Cont Eq pk 1.7 cm??? MV Peak Velocity 235.1 cm/s MV Peak Gradient 22.1 mmHg MV Mean Velocity 90.4 cm/s MV Mean Gradient 4.9 mmHg MV Velocity Time Integral 32.1 cm MR Peak Velocity 552.5 cm/s MR Peak Gradient 122.1 mmHg Mitral E Point Velocity 182.4 cm/s Mitral A Point Velocity 42.2 cm/s Mitral E to A Ratio 4.3 MV Deceleration Time 107.1 ms TR Peak Velocity 289.8 cm/s TR Peak Gradient 33.6 mmHg Right Ventricular Systolic Press 38.7 mmHg PV Peak Velocity 103.4 cm/s PV Peak Gradient 4.3 mmHg FINDINGS Left Ventricle Mildly increased left ventricular systolic volume. Moderately decreased left ventricular ejection fraction. Left ventricular ejection fraction is estimated at 30-35 %. Global hypokinesis.Mildly increased left ventricular wall thickness. Right Ventricle RV at upper limits of size. RVSP= 39mmHg. Right Atrium Normal right atrial size. Left Atrium Mildly increased left atrial volume. LA volume index= 36ml/m2 Mitral Valve Structurally normal mitral valve. Moderate to severeMR. Mitral annular calcification. Aortic Valve Trileaflet aortic valve. Mild to Moderate AI. Tricuspid Valve Mild to moderate TR.structurally normal tricuspid valve. Pulmonic Valve Pulmonic valve not well visualized. Mild PI. Pericardium No pericardial effusion. Aorta Normal size aortic root. CONCLUSIONS 1. Severely impaired left ventricle systolic function with global hypokinesis 2. Moderate severe mitral with mild to moderate aortic regurgitation 3. Mild to moderate tricuspid regurgitation Previewed by: Dr. Tamela Roman MD (Electronically Signed) Final Date: 24 April 2023 17:01
--- NOTE | 2023-04-24 17:23 | P.DS ---
Providers Date of admission: 04/23/23 05:41 Expected date of discharge: 04/24/23 Attending physician: Elias Carson Consults: 04/23/23 07:41 Consult Physician Stat Consulting Provider: Gloria Neely Consult Reason/Comments: dialysis Do you want consulting provider notified?: Yes Primary care physician: Al Underwood MD Hospital Course: Chief Complaint: Short of breath This is a pleasant 87-year-old patient who was following with Dr. Al Underwood previously. Chronic stable medical conditions include hypertension, hyperlipidemia, rheumatoid arthritis, hypothyroid, gout, end-stage kidney disease on hemodialysis Thursday for last 3 years. Has a left upper extremity AV fistula. Few days ago patient fell down hitting her face. Computed tomography scan rule out fractures. Patient is having some pain in the abdomen in the gallbladder area. She was told it probably from the fall. Yesterday patient did not make it to the dialysis. Yesterday was not feeling well. Woke up in the middle night short of breath. Had to sit up. [place] better. No chest pain or palpitation. Decided to come to the hospital. Patient not on home oxygen. April 24: Feeling really good. Sitting up in bed. Was dialyzed yesterday. dialysis today. He came to home. Discussed. 2-D echo came back showing EF 30- 35%. Patient will follow-up with cardiology. Discussed with patient. Past medical history to include: Hypertension, hyperlipidemia, end-stage kidney disease on hemodialysis Thursday for 3 years with left upper extremity AV fistula. Rheumatoid arthritis, hypothyroid, gout, skin cancer, thyroid nodule Social history: Lives with . Does use a cane. No alcohol or smoking. Physical examination: VITAL SIGNS: 98.1, 89, 19, 1:30/70, 95% room air GENERAL: Sitting edge of the bed, comfortable EYES: Pupils equal. Conjunctiva normal. HEENT: External appearance of nose and ears normal, oral cavity grossly normal. NECK: JVD not raised; masses not palpable. HEART: First and second heart sounds are normal; no edema. LUNGS: Respiratory rate normal , lungs clear. ABDOMEN: Soft, nontender, liver spleen not palpable, no masses palpable. PSYCH: Alert and oriented x3; mood and affect normal. MUSCULOSKELETAL:No Clubbing/cyanosis;muscles-grossly intact. Left upper extremity AV fistula INVESTIGATIONS, reviewed in the clinical context: April 24: White count 13 hemoglobin 12.2 potassium 4.4 BUN 40 creatinine 3.04 procalcitonin 0.65 04/23/2023: White count 6.2 hemoglobin 14.1 platelets 48D sodium 140 potassium 3.4 BUN 58 creatinine 3.95 Troponin I 0.3-3 albumin 3.7 EKG tracing personally reviewed by me-sinus tachycardia. Intraventricular conduction delay. Chest x-ray film personally reviewed by me-cardiomegaly. Possible infiltrate Assessment and plan: -Possible pneumonia suspect gram-negative organism: Improved IV ceftriaxone, Zithromax Discharge on Ceftin 250 mg daily for 3 more days -Acute Fluid overload from having missed hemodialysis and CHF exacerbation Hemodialysis yesterday and today -Acute congestive heart failure exacerbation from systolic dysfunction EF 30-35%.: Improved Follow-up with cardiology outpatient -End-stage kidney disease hemodialysis for last 3 years. Left upper extremity AV fistula Nephrology followed -Chronic hyperuricemia Allopurinol -Chronic hypotension Midodrine when necessary -Hyperlipidemia Zocor 20 mg daily at bedtime -Positive troponin in the setting of end-stage kidney disease. No chest pain. Does not require any further workup -GERD PPI -Full code Disposition: Home Patient Condition at Discharge: Serious Plan - Discharge Summary Discharge Rx Participant: No New Discharge Prescriptions: New Acetaminophen Tab [Tylenol] 650 mg PO Q6HR PRN tab PRN Reason: Mild Pain Or Fever > 100.5 Cefuroxime [Ceftin] 250 mg PO DAILY 3 Days #3 tab Continue Simvastatin [Zocor] 20 mg PO HS Etanercept [Enbrel Sureclick] 50 mg SQ FR allopurinoL [Zyloprim] 100 mg PO TID predniSONE 5 mg PO DAILY Midodrine [ProAmatine] 5 - 10 mg PO MOWEFR Omeprazole [PriLOSEC] 20 mg PO DAILY Furosemide [Lasix] 80 mg PO DAILY Sevelamer [Renvela] 800 mg PO AC-TID tiZANidine [Zanaflex] 2 mg PO HS PRN PRN Reason: Muscle Spasm Discharge Medication List Simvastatin [Zocor] 20 mg PO HS 04/04/14 [History] Etanercept [Enbrel Sureclick] 50 mg SQ FR 02/14/20 [History] allopurinoL [Zyloprim] 100 mg PO TID 06/05/20 [History] Furosemide [Lasix] 80 mg PO DAILY 07/26/21 [History] Sevelamer [Renvela] 800 mg PO AC-TID 07/26/21 [History] Midodrine [ProAmatine] 5 - 10 mg PO MOWEFR 04/23/23 [History] Omeprazole [PriLOSEC] 20 mg PO DAILY 04/23/23 [History] predniSONE 5 mg PO DAILY 04/23/23 [History] tiZANidine [Zanaflex] 2 mg PO HS PRN 04/23/23 [History] Acetaminophen Tab [Tylenol] 650 mg PO Q6HR PRN tab 04/24/23 [Rx] Cefuroxime [Ceftin] 250 mg PO DAILY 3 Days #3 tab 04/24/23 [Rx] Follow up Appointment(s)/Referral(s): Rigoberto Rae MD [Medical Doctor] - 1 Week (Office will give you a call for date and time for follow up. ) Leonel Farley MD [REFERRING] - 1 Week Activity/Diet/Wound Care/Special Instructions: inform pt pharmacy to cancel previous ceftin Rx Discharge Disposition: HOME SELF-CARE
[2023-04-25] MEDS ORDERED: ENOXAPARIN 30 MG/0.3 ML SYRINGE SQ SCH (09:00)
== END 2023-04-24 16:45 | disposition home or self-care (01) | DRG 291 ==
LOC: EC 05:09 → 4SSUR 05:41 → 3SCARD 07:17
PROVIDERS: ADMIT Hospitalist; ATTEND Hospitalist
PROC: 5A1D70Z Performance of Urinary Filtration, Intermittent, Less than 6 Hours Per Day (ICD-10-PCS; principal; 2023-04-23)
DX: I13.2 Hypertensive heart and chronic kidney disease with heart failure and with stage 5 chronic kidney disease, or end stage renal disease (principal); I50.23 Acute on chronic systolic (congestive) heart failure; N18.6 End stage renal disease; J15.69 Pneumonia due to other Gram-negative bacteria; N17.9 Acute kidney failure, unspecified; I95.89 Other hypotension; Z99.2 Dependence on renal dialysis; M06.9 Rheumatoid arthritis, unspecified; E03.9 Hypothyroidism, unspecified; Z79.890 Hormone replacement therapy; E78.5 Hyperlipidemia, unspecified; F41.9 Anxiety disorder, unspecified; K21.9 Gastro-esophageal reflux disease without esophagitis; E04.1 Nontoxic single thyroid nodule; M10.9 Gout, unspecified; M89.8X9 Other specified disorders of bone, unspecified site; Z85.828 Personal history of other malignant neoplasm of skin; Z90.710 Acquired absence of both cervix and uterus; Z79.899 Other long term (current) drug therapy; Z82.49 Family history of ischemic heart disease and other diseases of the circulatory system
CPT/HCPCS: 36415; 71045; 80053; 83605; 83735; 83880; 84145; 84484; 85025; 85610; 85730; 86706; 87040; 87340; 90935; 93005; 93306; 94640; 94760

== ENCOUNTER 2023-05-07 16:51 | Inpatient (IN) | payer MEDICARE ==
--- NOTE | 2023-05-07 17:24 | ED ---
Dizziness HPI - General Chief Complaint: Dizziness Stated Complaint: Dizziness Time Seen by Provider: 05/07/23 17:03 Source: patient, RN notes reviewed, old records reviewed, Caregiver Mode of arrival: ambulatory Limitations: no limitations - History of Present Illness Initial Comments: This is a 87-year-old female the ER stay. Patient comes in after Thanksgiving dinner stay not feeling well. Lightheaded dizziness or weakness all starting after dialysis yesterday. Patient did complete dialysis yesterday and is since about a week weak on her feet with shortness of breath. Significant shortness of breath this emergency room exertion. Occasional chest pain. No fevers no cough no congestion. Ration does feel weak in the legs especially with exertion MD Complaint: dizziness, lightheadedness -: days(s) Timing: gradual onset Description: lightheadedness History of Same: Yes History of Trauma: Yes Severity: moderate Improves With: nothing Worsens With: movement, exertion Associated Symptoms: chest pain, loss of appetite, malaise, shortness of breath, weakness - Related Data Home Medications Medication Instructions Recorded Confirmed Simvastatin [Zocor] 20 mg PO HS 04/04/14 05/07/23 Etanercept [Enbrel Sureclick] 50 mg SQ FR 02/14/20 05/07/23 allopurinoL [Zyloprim] 100 mg PO TID 06/05/20 05/07/23 Sevelamer [Renvela] 800 mg PO AC-TID 07/26/21 05/07/23 Midodrine [ProAmatine] 5 - 10 mg PO MOWEFR 04/23/23 05/07/23 Omeprazole [PriLOSEC] 20 mg PO DAILY 04/23/23 05/07/23 predniSONE 5 mg PO DAILY 04/23/23 05/07/23 Benzonatate [Tessalon Perles] 100 mg PO TID PRN 05/07/23 05/07/23 Previous Rx's Medication Instructions Recorded Acetaminophen Tab [Tylenol] 650 mg PO Q6HR PRN tab 04/24/23 Allergies Allergy/AdvReac Type Severity Reaction Status Date / Time No Known Allergies Allergy Verified 05/07/23 20:13 Review of Systems ROS Statement: Those systems with pertinent positive or pertinent negative responses have been documented in the HPI. ROS Other: All systems not noted in ROS Statement are negative. Past Medical History Past Medical History: Cancer, Hyperlipidemia, Hypertension, Renal Disease, Rheumatoid Arthritis (RA), Thyroid Disorder Additional Past Medical History / Comment(s): Gout, kidney damage from Rx - dialysis MWF, skin cancer, thyroid nodules. fisutla to left arm not able to be used at this time. History of Any Multi-Drug Resistant Organisms: None Reported Past Surgical History: Cholecystectomy, Hysterectomy Additional Past Surgical History / Comment(s): Bilateral cataract surgery, skin cancer excised from nose X2, fistula left arm, "artery in left arm cleaned out.". mediport to rt chest,10/2022 has since plugged up. Past Anesthesia/Blood Transfusion Reactions: No Reported Reaction Past Psychological History: No Psychological Hx Reported Smoking Status: Never smoker Past Alcohol Use History: None Reported Past Drug Use History: None Reported - Past Family History Father Family Medical History: Unable to Obtain, Myocardial Infarction ([place]) Additional Family Medical History / Comment(s): Pt can't remember medical hx. Mother Family Medical History: Unable to Obtain, Myocardial Infarction ([place]) Additional Family Medical History / Comment(s): Pt can't remember medical hx. General Exam Limitations: no limitations General appearance: alert, in no apparent distress, anxious Head exam: Present: atraumatic, normocephalic, normal inspection Eye exam: Present: normal appearance, PERRL, EOMI. Absent: scleral icterus, conjunctival injection, periorbital swelling ENT exam: Present: normal exam, mucous membranes moist Neck exam: Present: normal inspection. Absent: tenderness, meningismus, lymphadenopathy Respiratory exam: Present: rhonchi, decreased breath sounds, prolonged expiratory. Absent: respiratory distress, wheezes, rales, stridor Cardiovascular Exam: Present: regular rate, normal rhythm, normal heart sounds. Absent: systolic murmur, diastolic murmur, rubs, gallop, clicks GI/Abdominal exam: Present: soft, normal bowel sounds. Absent: distended, tenderness, guarding, rebound, rigid Extremities exam: Present: normal inspection, full ROM, normal capillary refill. Absent: tenderness, pedal edema, joint swelling, calf tenderness Back exam: Present: normal inspection Neurological exam: Present: alert, oriented X3, CN II-XII intact Psychiatric exam: Present: normal affect, normal mood Skin exam: Present: warm, dry, intact, normal color. Absent: rash Course Vital Signs 05/07/23 05/07/23 05/07/23 16:58 19:52 20:02 Temperature 98.4 F 98.3 F Pulse Rate 80 93 Pulse Rate [ Right Brachial] Respiratory 20 18 Rate Blood Pressure 131/70 145/78 Blood Pressure [Right Arm] O2 Sat by Pulse 96 92 L Oximetry 05/07/23 05/07/23 05/07/23 21:00 22:00 22:04 Temperature Pulse Rate 84 89 89 Pulse Rate [ Right Brachial] Respiratory 20 20 22 Rate Blood Pressure 143/90 140/70 144/69 Blood Pressure [Right Arm] O2 Sat by Pulse 95 93 L 94 L Oximetry 05/07/23 05/08/23 05/08/23 23:00 00:00 01:00 Temperature Pulse Rate 98 99 82 Pulse Rate [ Right Brachial] Respiratory 24 17 22 Rate Blood Pressure 144/69 149/69 137/76 Blood Pressure [Right Arm] O2 Sat by Pulse 93 L 92 L 94 L Oximetry 05/08/23 05/08/23 05/08/23 02:00 03:00 04:00 Temperature Pulse Rate 94 93 97 Pulse Rate [ Right Brachial] Respiratory 19 22 18 Rate Blood Pressure 148/72 139/76 142/97 Blood Pressure [Right Arm] O2 Sat by Pulse 96 94 L 91 L Oximetry 05/08/23 05/08/23 05/08/23 08:00 11:00 12:00 Temperature Pulse Rate 97 94 99 Pulse Rate [ Right Brachial] Respiratory 18 18 20 Rate Blood Pressure 146/79 154/67 121/91 Blood Pressure [Right Arm] O2 Sat by Pulse 90 L 96 Oximetry 05/08/23 05/08/23 05/08/23 14:12 17:09 18:16 Temperature 97.7 F Pulse Rate 94 96 Pulse Rate [ 88 Right Brachial] Respiratory 18 18 18 Rate Blood Pressure 129/82 130/78 Blood Pressure 138/92 [Right Arm] O2 Sat by Pulse 95 94 L Oximetry 05/08/23 05/08/23 19:00 20:16 Temperature 97.9 F Pulse Rate 112 H 93 Pulse Rate [ Right Brachial] Respiratory 18 22 Rate Blood Pressure 157/109 145/80 Blood Pressure [Right Arm] O2 Sat by Pulse 94 L 95 Oximetry - Reevaluation(s) Reevaluation #1: 05/07/23 21:22 Medical records reviewed Reevaluation #2: 05/07/23 21:22 Patient symptoms unchanged Reevaluation #3: 05/07/23 21:22 Patient informed results and questions are answered Reevaluation #4: 05/07/23 21:22 Was pt. sent in by a medical professional or institution ([facility], PRISON CLASSIFICATION COUNSELOR, urgent care, hospital, or alf...) When possible be specific @ -no Did you speak to anyone other than the patient for history (EMS, parent, family, police, friend...)? What history was obtained from this source @ -no Did you review nursing and triage notes (agree or disagree)? Why? @ -agree Are old charts reviewed (outside hosp., previous admission, EMS record, old EKG, old radiological studies, urgent care reports/EKG's, alf records)? Report findings @ -yes Differential Diagnosis (chest pain, altered mental status, abdominal pain women, abdominal pain men, vaginal bleeding, weakness, fever, dyspnea, syncope, headache, dizziness, GI bleed, back pain, seizure, CVA, palpatations, mental health, musculoskeletal)? @ -prior EKG interpreted by me (3pts min.). @ -yes X-rays interpreted by me (1pt min.). @ -yes CT interpreted by me (1pt min.). @ -no U/S interpreted by me (1pt. min.). @ -no What testing was considered but not performed or refused? (CT, X-rays, U/S, labs)? Why? @ -none What meds were considered but not given or refused? Why? @ -none Did you discuss the management of the patient with other professionals (professionals i.e. [facility], PRISON CLASSIFICATION COUNSELOR, lab, RT, psych nurse, social scientist, bar supervisor, teacher, environmental compliance officer, dependency case manager)? Give summary @ -no Was smoking cessation discussed for >3mins.? @ -no Was critical care preformed (if so, how long)? @ -no Were there social determinants of health that impacted care today? How? (Homelessness, low income, unemployed, alcoholism, drug addiction, transportation, low edu. Level, literacy, decrease access to med. care, usp, rehab)? @ -none Was there de-escalation of care discussed even if they declined (Discuss DNR or withdrawal of care, Hospice)? DNR status @ -no What co-morbidities impacted this encounter? (DM, HTN, Smoking, COPD, CAD, Cancer, CVA, ARF, Chemo, Hep., AIDS, mental health diagnosis, sleep apnea, morbid obesity)? @ -none Was patient admitted / discharged? Hospital course, mention meds given and route, prescriptions, significant lab abnormalities, going to OR and other pertinent info. @ - 87 female to the emergency department today with significant weakness elder ecially with exertion shortness of breath and CHF. Patient will be admitted to the hospital with significant respiratory distress, diuresis and supportive care Admitted Undiagnosed new problem with uncertain prognosis? @ -no Drug Therapy requiring intensive monitoring for toxicity (Heparin, Nitro, Insulin, Cardizem)? @ -no Were any procedures done? @ -no Diagnosis/symptom? @ -CHF, weakness Acute, or Chronic, or Acute on Chronic? @ -Acute Uncomplicated (without systemic symptoms) or Complicated (systemic symptoms)? @ -Complicated Side effects of treatment? @ -no Exacerbation, Progression, or Severe Exacerbation? @ -exacerbation Poses a threat to life or bodily function? How? (Chest pain, [place], [place], pneumonia, PE, COPD, DKA, ARF, appy, cholecystitis, CVA, Diverticulitis, Homicidal, Awad icidal, threat to staff... and all critical care pts) @ -yes with significant extremity Reevaluation #5: 05/07/23 21:23 Differential Dyspnea: Coronary syndrome, arrhythmia, tamponade, asthma, COPD, pulmonary embolism, pneumonia, pneumothorax, pulmonary effusion, anaphylaxis, diabetic ketoacidosis, flailed chest, pulmonary contusion, diaphragmatic rupture, anemia, neuromuscular, this is not meant to be an all-inclusive list. Differential Weakness: Hypoglycemia, shock, sepsis, hyponatremia, anemia, infection, [place], ETOH, adverse medicine reaction, overdose, stroke, this is not meant to be an all-inclusive list. - Consultations Consultation #1: With sound who agrees to admit this patient EKG Findings - EKG Comments: EKG Findings:: EKG is sinus 93 MA 208 QRS 158 QTc 461 - EKG Results: EKG: interpreted by [facility] Medical Decision Making - Medical Decision Making 87 female to the emergency department today with significant weakness especially with exertion shortness of breath and CHF. Patient will be admitted to the hospital with significant respiratory distress, diuresis and supportive care - Lab Data Result diagrams: 05/08/23 06:43 05/12/23 07:56 Lab Results 05/07/23 05/07/23 05/07/23 Range/Units 17:58 17:58 17:58 WBC 7.5 (3.8-10.6) k/uL RBC 3.98 (3.80-5.40) m/uL Hgb 12.3 (11.4-16.0) gm/dL Hct 37.6 (34.0-46.0) % MCV 94.6 (80.0-100.0) fL MCH 30.9 (25.0-35.0) pg MCHC 32.7 (31.0-37.0) g/dL RDW 16.8 H (11.5-15.5) % Plt Count 363 (150-450) k/uL MPV 7.4 Neutrophils % 87 % Lymphocytes % 8 % Monocytes % 4 % Eosinophils % 0 % Basophils % 0 % Neutrophils # 6.6 (1.3-7.7) k/uL Lymphocytes # 0.6 L (1.0-4.8) k/uL Monocytes # 0.3 (0-1.0) k/uL Eosinophils # 0.0 (0-0.7) k/uL Basophils # 0.0 (0-0.2) k/uL Anisocytosis Slight PT 10.3 (10.0-12.5) sec INR 0.9 (<1.2) APTT 23.4 (22.0-30.0) sec Sodium 134 L (137-145) mmol/L Potassium 4.0 (3.5-5.1) mmol/L Chloride 97 L (98-107) mmol/L Carbon Dioxide 24 (22-30) mmol/L Anion Gap 13 mmol/L BUN 33 H (7-17) mg/dL Creatinine 3.60 H (0.52-1.04) mg/dL Est GFR (CKD-EPI)AfAm 13 (>60 ml/min/1.73 sqM) Est GFR (CKD-EPI)NonAf 11 (>60 ml/min/1.73 sqM) Glucose 338 H (74-99) mg/dL Lactic Ac Sepsis Rflx Plasma Lactic Acid Clarence (0.7-2.0) mmol/L Calcium 9.1 (8.4-10.2) mg/dL Phosphorus 2.9 (2.5-4.5) mg/dL Magnesium 2.0 (1.6-2.3) mg/dL Total Bilirubin 0.9 (0.2-1.3) mg/dL AST 27 (14-36) U/L ALT 21 (4-34) U/L Alkaline Phosphatase 116 (38-126) U/L Troponin I (0.000-0.034) ng/mL NT-Pro-B Natriuret Pep 35839 pg/mL Total Protein 5.9 L (6.3-8.2) g/dL Albumin 3.3 L (3.5-5.0) g/dL TSH 1.410 (0.465-4.680) mIU/L 05/07/23 05/07/23 05/07/23 Range/Units 17:58 17:58 19:16 WBC (3.8-10.6) k/uL RBC (3.80-5.40) m/uL Hgb (11.4-16.0) gm/dL Hct (34.0-46.0) % MCV (80.0-100.0) fL MCH (25.0-35.0) pg MCHC (31.0-37.0) g/dL RDW (11.5-15.5) % Plt Count (150-450) k/uL MPV Neutrophils % % Lymphocytes % % Monocytes % % Eosinophils % % Basophils % % Neutrophils # (1.3-7.7) k/uL Lymphocytes # (1.0-4.8) k/uL Monocytes # (0-1.0) k/uL Eosinophils # (0-0.7) k/uL Basophils # (0-0.2) k/uL Anisocytosis PT (10.0-12.5) sec INR (<1.2) APTT (22.0-30.0) sec Sodium (137-145) mmol/L Potassium (3.5-5.1) mmol/L Chloride (98-107) mmol/L Carbon Dioxide (22-30) mmol/L Anion Gap mmol/L BUN (7-17) mg/dL Creatinine (0.52-1.04) mg/dL Est GFR (CKD-EPI)AfAm (>60 ml/min/1.73 sqM) Est GFR (CKD-EPI)NonAf (>60 ml/min/1.73 sqM) Glucose (74-99) mg/dL Lactic Ac Sepsis Rflx Y Plasma Lactic Acid Clarence 3.4 H* (0.7-2.0) mmol/L Calcium (8.4-10.2) mg/dL Phosphorus (2.5-4.5) mg/dL Magnesium (1.6-2.3) mg/dL Total Bilirubin (0.2-1.3) mg/dL AST (14-36) U/L ALT (4-34) U/L Alkaline Phosphatase (38-126) U/L Troponin I 0.123 H* (0.000-0.034) ng/mL NT-Pro-B Natriuret Pep pg/mL Total Protein (6.3-8.2) g/dL Albumin (3.5-5.0) g/dL TSH (0.465-4.680) mIU/L - EKG Data -: EKG Interpreted by Me - Radiology Data Radiology results: report reviewed (Chest x-rays positive for CHF), image reviewed Disposition Clinical Impression: Dehydration, Congestive heart failure, Acute renal failure (ARF), Fluid overload, Dyspnea, Pulmonary edema, Lactic acidosis, Weakness, Dizziness Disposition: ADMITTED IP TO THIS HOSP Condition: Stable Is patient prescribed a controlled substance at d/c from ED?: No Time of Disposition: 20:30
[2023-05-07 18:14] LABS: Anisocytosis Slight; Basophils % (A) 0 %; Eosinophils % (A) 0 %; HCT 37.6 % (34.0-46.0); HGB 12.3 gm/dL (11.4-16.0); Lymphocytes # (A) 0.6 k/uL (1.0-4.8); Lymphocytes % (A) 8 %; MCH 30.9 pg (25.0-35.0); MCHC 32.7 g/dL (31.0-37.0); MCV 94.6 fL (80.0-100.0); Mean Platelet Volume 7.4; Monocytes # (A) 0.3 k/uL (0-1.0); Monocytes % (A) 4 %; Neutrophils # (A) 6.6 k/uL (1.3-7.7); Neutrophils % (A) 87 %; Platelet Count 363 k/uL (150-450); RBC 3.98 m/uL (3.80-5.40); RDW 16.8 % (11.5-15.5); WBC 7.5 k/uL (3.8-10.6)
[2023-05-07 18:28] LABS: INR 0.9 (<1.2); Partial Thromboplastin Time 23.4 sec (22.0-30.0); Prothrombin Time 10.3 sec (10.0-12.5)
[2023-05-07 18:46] LABS: ALT 21 U/L (4-34); AST 27 U/L (14-36); African American GFR (CKD) 13 (>60 ml/min/1.73 sqM); Albumin 3.3 g/dL (3.5-5.0); Alkaline Phosphatase 116 U/L (38-126); Anion Gap 13 mmol/L; Blood Urea Nitrogen 33 mg/dL (7-17); Calcium 9.1 mg/dL (8.4-10.2); Carbon Dioxide 24 mmol/L (22-30); Chloride 97 mmol/L (98-107); Glucose 338 mg/dL (74-99); Non-African American GFR(CKD) 11 (>60 ml/min/1.73 sqM); Phosphorus 2.9 mg/dL (2.5-4.5); Sodium 134 mmol/L (137-145); Total Bilirubin 0.9 mg/dL (0.2-1.3); Total Protein 5.9 g/dL (6.3-8.2)
[2023-05-07 19:11] LABS: NT-Pro-B-Type Natriuretic Pept 75800 pg/mL
--- NOTE | 2023-05-07 19:12 | XR ---
EXAMINATION TYPE: XR chest 2V DATE OF EXAM: 05/07/2023 6:18 PM CLINICAL INDICATION:Female, 87 years old with history of Weakness; [facility] COMPARISON: 04/23/2023 TECHNIQUE: XR chest 2V Frontal and lateral views of the chest. FINDINGS: Lines/Tubes: EKG leads overlie the chest. No indwelling lines are seen. Lungs/Pleura: Mildly increased interstitial markings again seen. Increased bibasilar opacities, likel y small to moderate pleural effusions with adjacent atelectasis, edema or infiltrate. No visible pneu mothorax. Pulmonary vascularity: Increased Heart/mediastinum: Cardiac mediastinal silhouette is stable. Heart appears mildly enlarged. Musculoskeletal: No acute bony abnormality in the limits of the exam. Moderate degenerative changes o f the spine with apex right thoracic scoliosis. Mild degenerative changes of the shoulders. Other findings: EKG leads overlie the chest. No indwelling lines are seen. IMPRESSION: 1. Mild cardiomegaly with pulmonary vascular congestion. 2. Mild to moderate bilateral pleural effusions, with adjacent atelectasis, edema or infiltrate. Cor relate for CHF. Superimposed infection should be excluded clinically.
[2023-05-07] MEDS ORDERED: NALOXONE 0.4 MG/ML 1 ML VIAL IV PRN (20:14)
[2023-05-07] MEDS ORDERED: ONDANSETRON 4 MG/2 ML VIAL IVP PRN (20:14)
[2023-05-07] MEDS: FUROSEMIDE 10 MG/ML 10 ML VIAL IV SCH (20:36)
--- NOTE | 2023-05-08 01:13 | P.HPIM ---
History of Present Illness H&P Date: 05/07/23 Patient is a 87-year-old female with a PMH of ESRD on hemodialysis MWF, rheumatoid arthritis, hypertension, hyperlipidemia, gout who presents to the emergency room for multiple complaints. Patient notes that over the past 1 week, she has been feeling increasingly weak and not quite like herself. She has also been experiencing lightheadedness with the dialysis, and was unable to tolerate her complete dialysis session yesterday. Also reports occasional shortness of breath during this time. Denies fever, chills, cough, nausea, vomiting, diaphoresis. In the emergency room with chest x-ray revealed findings consistent with congestive heart failure. EKG reveals sinus rhythm with APCs at 93 bpm with a right bundle-branch block as reviewed by me. Laboratory evaluation was remarkable for troponin 0.1-3, lactic acid 3.4, creatinine 3.6, and sodium 134. The patient's SpO2 in the emergency room was 92% on 2 L is a cannula oxygen. ED documentation reviewed and case discussed with ED provider. Review of systems: Pertinent positives and negatives as discussed in HPI, a complete review of systems was performed and all other systems are negative. Physical examination: Vital signs reviewed General: non toxic, no distress, appears at stated age, normal weight Derm: no unusual rashes/lesions, warm Head: atraumatic, normocephalic, symmetric Eyes: EOMI, no lid lag, anicteric sclera, pupils equal round reactive to light ENT: Nose and ears atraumatic Neck: No cervical lymphadenopathy, trachea midline, supple Mouth: no lip lesion, mucus membranes moist Cardiovascular: S1S2 reg, no murmur, positive dorsalis pedis pulse bilateral, no edema Lungs: CTA bilateral, no rhonchi, no rales, no accessory muscle use Abdominal: soft, nontender to palpation, no guarding Ext: muscle strength 3 out of 5 in all 4 extremities grossly, no gross muscle atrophy, no contractures, Neuro: CN II-XI grossly intact, no gross focal neuro deficits Psych: Alert, oriented, appropriate affect Assessment: Acute hypoxic respiratory failure, suspect fluid overload Debility ESRD on hemodialysis Troponin elevation Lactic acidosis Imaging: In the emergency room with chest x-ray revealed findings consistent with congestive heart failure. EKG reveals sinus rhythm with APCs at 93 bpm with a right bundle-branch block as reviewed by me. Data Review: Laboratory evaluation was remarkable for troponin 0.1-3, lactic acid 3.4, creatinine 3.6, and sodium 134. The patient's SpO2 in the emergency room was 92 % on 2 L is a cannula oxygen. Plan: Nephrology consult for resumption of hemodialysis Supplemental oxygen C/w Lasix 40 mg IV q12h (patient still makes urine) Intake and output, daily weights Daily weights Cardiac monitoring Trend troponin PT consult DVT prophylaxis: Lovenox Subq The patient is admitted with an anticipated greater than 2 midnight stay for evaluation of respiratory failure CODE STATUS: Full Code Discussed with: Patient Anticipated discharge place: Home Past Medical History Past Medical History: Cancer, Hyperlipidemia, Hypertension, Renal Disease, Rheumatoid Arthritis (RA), Thyroid Disorder Additional Past Medical History / Comment(s): Gout, kidney damage from Rx - dialysis MWF, skin cancer, thyroid nodules. fisutla to left arm not able to be used at this time. History of Any Multi-Drug Resistant Organisms: None Reported Past Surgical History: Cholecystectomy, Hysterectomy Additional Past Surgical History / Comment(s): Bilateral cataract surgery, skin cancer excised from nose X2, fistula left arm, "artery in left arm cleaned out.". mediport to rt chest,10/2022 has since plugged up. Past Anesthesia/Blood Transfusion Reactions: No Reported Reaction Past Psychological History: No Psychological Hx Reported Smoking Status: Never smoker Past Alcohol Use History: None Reported Past Drug Use History: None Reported - Past Family History Father Family Medical History: Unable to Obtain, Myocardial Infarction ([place]) Additional Family Medical History / Comment(s): Pt can't remember medical hx. Mother Family Medical History: Unable to Obtain, Myocardial Infarction ([place]) Additional Family Medical History / Comment(s): Pt can't remember medical hx. Medications and Allergies Home Medications Medication Instructions Recorded Confirmed Type Simvastatin [Zocor] 20 mg PO HS 04/04/14 05/07/23 History Etanercept [Enbrel Sureclick] 50 mg SQ FR 02/14/20 05/07/23 History allopurinoL [Zyloprim] 100 mg PO TID 06/05/20 05/07/23 History Furosemide [Lasix] 80 mg PO DAILY 07/26/21 05/07/23 History Sevelamer [Renvela] 800 mg PO AC-TID 07/26/21 05/07/23 History Midodrine [ProAmatine] 5 - 10 mg PO MOWEFR 04/23/23 05/07/23 History Omeprazole [PriLOSEC] 20 mg PO DAILY 04/23/23 05/07/23 History predniSONE 5 mg PO DAILY 04/23/23 05/07/23 History tiZANidine [Zanaflex] 2 mg PO HS PRN 04/23/23 05/07/23 History Acetaminophen Tab [Tylenol] 650 mg PO Q6HR PRN tab 04/24/23 05/07/23 Rx Benzonatate [Tessalon Perles] 100 mg PO TID PRN 05/07/23 05/07/23 History Allergies Allergy/AdvReac Type Severity Reaction Status Date / Time No Known Allergies Allergy Verified 05/07/23 20:13 Physical Exam Vitals: Vital Signs Temp Pulse Resp BP Pulse Ox 05/07/23 22:00 89 20 140/70 93 L 05/07/23 21:00 84 20 143/90 95 05/07/23 20:02 98.3 F 05/07/23 19:52 93 18 145/78 92 L 05/07/23 16:58 98.4 F 80 20 131/70 96 Intake and Output 05/07/23 05/07/23 05/08/23 14:59 22:59 06:59 Other: Weight 63.503 kg Results CBC & Chem 7: 05/07/23 17:58 05/07/23 17:58 Labs: Abnormal Lab Results - Last 24 Hours (Table) 05/07/23 05/07/23 05/07/23 Range/Units 17:58 17:58 17:58 RDW 16.8 H (11.5-15.5) % Lymphocytes # 0.6 L (1.0-4.8) k/uL Sodium 134 L (137-145) mmol/L Chloride 97 L (98-107) mmol/L BUN 33 H (7-17) mg/dL Creatinine 3.60 H (0.52-1.04) mg/dL Glucose 338 H (74-99) mg/dL Plasma Lactic Acid Clarence 3.4 H* (0.7-2.0) mmol/L Troponin I (0.000-0.034) ng/mL Total Protein 5.9 L (6.3-8.2) g/dL Albumin 3.3 L (3.5-5.0) g/dL 05/07/23 05/07/23 Range/Units 17:58 22:48 RDW (11.5-15.5) % Lymphocytes # (1.0-4.8) k/uL Sodium (137-145) mmol/L Chloride (98-107) mmol/L BUN (7-17) mg/dL Creatinine (0.52-1.04) mg/dL Glucose (74-99) mg/dL Plasma Lactic Acid Clarence (0.7-2.0) mmol/L Troponin I 0.123 H* 0.128 H* (0.000-0.034) ng/mL Total Protein (6.3-8.2) g/dL Albumin (3.5-5.0) g/dL
[2023-05-08 07:30] LABS: Anisocytosis Slight; Basophils % (A) 0 %; Eosinophils # (A) 0.2 k/uL (0-0.7); Eosinophils % (A) 2 %; HCT 35.2 % (34.0-46.0); HGB 11.2 gm/dL (11.4-16.0); Lymphocytes % (A) 10 %; MCH 30.1 pg (25.0-35.0); MCHC 31.9 g/dL (31.0-37.0); MCV 94.5 fL (80.0-100.0); Mean Platelet Volume 7.4; Monocytes # (A) 0.5 k/uL (0-1.0); Monocytes % (A) 5 %; Neutrophils # (A) 8.2 k/uL (1.3-7.7); Neutrophils % (A) 83 %; Platelet Count 347 k/uL (150-450); RBC 3.72 m/uL (3.80-5.40); RDW 16.8 % (11.5-15.5); WBC 9.9 k/uL (3.8-10.6)
[2023-05-08 07:40] LABS: ALT 19 U/L (4-34); AST 23 U/L (14-36); African American GFR (CKD) 11 (>60 ml/min/1.73 sqM); Albumin 2.8 g/dL (3.5-5.0); Alkaline Phosphatase 118 U/L (38-126); Anion Gap 9 mmol/L; Blood Urea Nitrogen 36 mg/dL (7-17); Calcium 8.8 mg/dL (8.4-10.2); Carbon Dioxide 26 mmol/L (22-30); Chloride 100 mmol/L (98-107); Glucose 151 mg/dL (74-99); Non-African American GFR(CKD) 10 (>60 ml/min/1.73 sqM); Phosphorus 3.1 mg/dL (2.5-4.5); Potassium 3.4 mmol/L (3.5-5.1); Sodium 135 mmol/L (137-145); Total Protein 5.4 g/dL (6.3-8.2)
[2023-05-08] MEDS: FUROSEMIDE 10 MG/ML 10 ML VIAL IV SCH (08:29)
[2023-05-08] MEDS: SEVELAMER 800 MG TAB PO SCH ×3 (08:30→19:06)
[2023-05-08] MEDS: allopurinoL 100 MG TAB PO SCH ×3 (08:30→20:42)
[2023-05-08] MEDS: predniSONE 5 MG TAB PO SCH (08:30)
[2023-05-08] MEDS ORDERED: ENOXAPARIN 30 MG/0.3 ML SYRINGE SQ SCH (09:00)
[2023-05-08] MEDS ORDERED: ENOXAPARIN 40 MG/0.4 ML SYRINGE SQ SCH (09:00)
[2023-05-08] MEDS ORDERED: POTASSIUM CHLORIDE ER 10 MEQ TAB.ER.PRT PO STA ×2 (11:44→12:23)
--- NOTE | 2023-05-08 11:46 | P.PN ---
Subjective Progress Note Date: 05/08/23 Hospital Course: 87-year-old female with a PMH of ESRD on hemodialysis MWF, rheumatoid arthritis, hypertension, hyperlipidemia, gout who presents to the emergency room for complaints of lightheadedness during dialysis, increased weakness and occasional shortness of breath. In the emergency room with chest x-ray revealed findings consistent with congestive heart failure. EKG reveals sinus rhythm with APCs at 93 bpm with a right bundle-branch block. Laboratory evaluation was remarkable for troponin 0.1-3, lactic acid 3.4, creatinine 3.6, and sodium 134. The patient's SpO2 in the emergency room was 92% on 2 L is a cannula oxygen. Patient admitted for acute hypoxic respiratory failure in the setting of hypovolemia and ESRD. Nephrology consulted. Subjective: Patient seen and examined at bedside. No acute events overnight. Pertinent positives and negatives as discussed above, a complete review of systems was performed and all other systems are negative. Vitals Signs Reviewed. General: nontoxic, no distress, appears at stated age Derm: warm, dry Head: atraumatic, normocephalic, symmetric Eyes: EOMI, no lid lag, anicteric sclera Mouth: no lip lesion, mucus membranes moist Cardiovascular: S1S2 reg, no murmur, left upper extremity AV fistula with thrill and bruit, trace edema Lungs: CTA bilateral, no rhonchi, no rales , no accessory muscle use, supplemental oxygen Abdominal: soft, nontender to palpation, no guarding, no appreciable organomegaly Ext: muscle strength 3 out of 5 in all 4 extremities grossly Neuro: CN II-XI grossly intact, no focal neuro deficits Psych: Alert, oriented, appropriate affect Data Reviewed Today: Pertinent Labs: Hemoglobin 11.2, potassium 3.4, creatinine 4.03, glucose 151, troponin peaked at 0.137 Imaging: No new imaging Assessment and Plan: Active: Acute hypoxic respiratory failure in the setting of hypovolemia ESRD on hemodialysis Mild hypokalemia Debility NSTEMI, nonischemic, in the setting of renal failure -Nephrology consulted, pending recommendations -Her last dialysis was on Thursday -Patient still making some urine, on IV Lasix 80 mg every 12 hours -10 mEq oral potassium given -PT consult -Continue telemetry monitoring Resolved: Lactic acidosis Chronic: Rheumatoid arthritis Dyslipidemia Gout DVT ppx: Subcu heparin Code status: Full code Anticipated discharge place: Home Anticipated discharge time: 1-2 days Objective - Vital Signs Vital signs: Vital Signs Temp 98.3 F 05/07/23 20:02 Pulse 94 05/08/23 11:00 Resp 18 05/08/23 11:00 BP 154/67 05/08/23 11:00 Pulse Ox 96 05/08/23 11:00 FiO2 Intake & Output 05/07/23 05/08/23 05/08/23 18:59 06:59 18:59 Weight 63.503 kg - Labs CBC & Chem 7: 05/08/23 06:43 05/08/23 06:43 Labs: Abnormal Lab Results - Last 24 Hours (Table) 05/07/23 05/07/23 05/07/23 Range/Units 17:58 17:58 17:58 RBC (3.80-5.40) m/uL Hgb (11.4-16.0) gm/dL RDW 16.8 H (11.5-15.5) % Neutrophils # (1.3-7.7) k/uL Lymphocytes # 0.6 L (1.0-4.8) k/uL Sodium 134 L (137-145) mmol/L Potassium (3.5-5.1) mmol/L Chloride 97 L (98-107) mmol/L BUN 33 H (7-17) mg/dL Creatinine 3.60 H (0.52-1.04) mg/dL Glucose 338 H (74-99) mg/dL Plasma Lactic Acid Clarence 3.4 H* (0.7-2.0) mmol/L Troponin I (0.000-0.034) ng/mL Total Protein 5.9 L (6.3-8.2) g/dL Albumin 3.3 L (3.5-5.0) g/dL 05/07/23 05/07/23 05/08/23 Range/Units 17:58 22:48 02:00 RBC (3.80-5.40) m/uL Hgb (11.4-16.0) gm/dL RDW (11.5-15.5) % Neutrophils # (1.3-7.7) k/uL Lymphocytes # (1.0-4.8) k/uL Sodium (137-145) mmol/L Potassium (3.5-5.1) mmol/L Chloride (98-107) mmol/L BUN (7-17) mg/dL Creatinine (0.52-1.04) mg/dL Glucose (74-99) mg/dL Plasma Lactic Acid Clarence (0.7-2.0) mmol/L Troponin I 0.123 H* 0.128 H* 0.137 H* (0.000-0.034) ng/mL Total Protein (6.3-8.2) g/dL Albumin (3.5-5.0) g/dL 05/08/23 05/08/23 Range/Units 06:43 06:43 RBC 3.72 L (3.80-5.40) m/uL Hgb 11.2 L (11.4-16.0) gm/dL RDW 16.8 H (11.5-15.5) % Neutrophils # 8.2 H (1.3-7.7) k/uL Lymphocytes # (1.0-4.8) k/uL Sodium 135 L (137-145) mmol/L Potassium 3.4 L (3.5-5.1) mmol/L Chloride (98-107) mmol/L BUN 36 H (7-17) mg/dL Creatinine 4.03 H (0.52-1.04) mg/dL Glucose 151 H (74-99) mg/dL Plasma Lactic Acid Clarence (0.7-2.0) mmol/L Troponin I (0.000-0.034) ng/mL Total Protein 5.4 L (6.3-8.2) g/dL Albumin 2.8 L (3.5-5.0) g/dL
--- NOTE | 2023-05-08 12:24 | P.NPCON ---
History of Present Illness - Reason for Consult Consult date: 05/08/23 end stage renal disease - Chief Complaint Dizziness - History of Present Illness Admitted to the hospital with the above complaints. She had dialysis on Thursday, after that she was feeling dizzy lightheaded which continued until yesterday. While in the ER she had a lactic acid of 3.4. No nausea vomiting diarrhea. No chest pain or shortness of breath. Chest x-ray showed pulmonary vascular congestion. Hemodynamically stable now. Review of Systems Constitutional: Reports as per HPI Past Medical History Past Medical History: Cancer, Hyperlipidemia, Hypertension, Renal Disease, Rheumatoid Arthritis (RA), Thyroid Disorder Additional Past Medical History / Comment(s): Gout, kidney damage from Rx - dialysis MWF, skin cancer, thyroid nodules. fisutla to left arm not able to be used at this time. History of Any Multi-Drug Resistant Organisms: None Reported Past Surgical History: Cholecystectomy, Hysterectomy Additional Past Surgical History / Comment(s): Bilateral cataract surgery, skin cancer excised from nose X2, fistula left arm, "artery in left arm cleaned out.". mediport to rt chest,10/2022 has since plugged up. Past Anesthesia/Blood Transfusion Reactions: No Reported Reaction Past Psychological History: No Psychological Hx Reported Smoking Status: Never smoker Past Alcohol Use History: None Reported Past Drug Use History: None Reported - Past Family History Father Family Medical History: Unable to Obtain, Myocardial Infarction ([place]) Additional Family Medical History / Comment(s): Pt can't remember medical hx. Mother Family Medical History: Unable to Obtain, Myocardial Infarction ([place]) Additional Family Medical History / Comment(s): Pt can't remember medical hx. Medications and Allergies Home Medications Medication Instructions Recorded Confirmed Type Simvastatin [Zocor] 20 mg PO HS 04/04/14 05/07/23 History Etanercept [Enbrel Sureclick] 50 mg SQ FR 02/14/20 05/07/23 History allopurinoL [Zyloprim] 100 mg PO TID 06/05/20 05/07/23 History Furosemide [Lasix] 80 mg PO DAILY 07/26/21 05/07/23 History Sevelamer [Renvela] 800 mg PO AC-TID 07/26/21 05/07/23 History Midodrine [ProAmatine] 5 - 10 mg PO MOWEFR 04/23/23 05/07/23 History Omeprazole [PriLOSEC] 20 mg PO DAILY 04/23/23 05/07/23 History predniSONE 5 mg PO DAILY 04/23/23 05/07/23 History tiZANidine [Zanaflex] 2 mg PO HS PRN 04/23/23 05/07/23 History Acetaminophen Tab [Tylenol] 650 mg PO Q6HR PRN tab 04/24/23 05/07/23 Rx Benzonatate [Tessalon Perles] 100 mg PO TID PRN 05/07/23 05/07/23 History Allergies Allergy/AdvReac Type Severity Reaction Status Date / Time No Known Allergies Allergy Verified 05/07/23 20:13 Physical Exam Vitals: Vital Signs Temp Pulse Resp BP Pulse Ox 05/08/23 12:00 99 20 121/91 05/08/23 11:00 94 18 154/67 96 05/08/23 08:00 97 18 146/79 90 L 05/08/23 04:00 97 18 142/97 91 L 05/08/23 03:00 93 22 139/76 94 L 05/08/23 02:00 94 19 148/72 96 05/08/23 01:00 82 22 137/76 94 L 05/08/23 00:00 99 17 149/69 92 L 05/07/23 23:00 98 24 144/69 93 L 05/07/23 22:04 89 22 144/69 94 L 05/07/23 22:00 89 20 140/70 93 L 05/07/23 21:00 84 20 143/90 95 05/07/23 20:02 98.3 F 05/07/23 19:52 93 18 145/78 92 L 05/07/23 16:58 98.4 F 80 20 131/70 96 Intake and Output 05/07/23 05/08/23 05/08/23 22:59 06:59 14:59 Other: Weight 63.503 kg No acute distress S1-S2 heard Decreased breath sounds Abdomen soft Left upper arm AVG No edema Results - Lab Results Most recent lab results Calcium 8.8 mg/dL (8.4-10.2) 05/08/23 06:43 Phosphorus 3.1 mg/dL (2.5-4.5) 05/08/23 06:43 Magnesium 2.0 mg/dL (1.6-2.3) 05/08/23 06:43 05/08/23 06:43 05/08/23 06:43 Assessment and Plan Assessment: #1 dizziness lightheadedness secondary to suspected hypotensive episodes #2 ESRD on hemodialysis, MWF schedule. #3 lactic acid acidosis. 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 #2 replace KCl #3 ESRD medications
[2023-05-08] MEDS: MIDODRINE 5 MG TAB PO SCH (14:10)
[2023-05-08] MEDS: HEPARIN SODIUM,PORCINE 5,000 UNIT/ML 1 ML VIAL SQ SCH ×2 (17:05→23:02)
[2023-05-08] MEDS ORDERED: ACETAMINOPHEN TAB 325 MG TAB PO PRN (19:55)
[2023-05-08] MEDS: ATORVASTATIN 10 MG TAB PO SCH (20:41)
[2023-05-09] MEDS: SEVELAMER 800 MG TAB PO SCH ×3 (06:55→16:52)
[2023-05-09] MEDS: HEPARIN SODIUM,PORCINE 5,000 UNIT/ML 1 ML VIAL SQ SCH ×3 (09:00→23:43)
[2023-05-09] MEDS: predniSONE 5 MG TAB PO SCH (09:00)
[2023-05-09] MEDS: allopurinoL 100 MG TAB PO SCH ×3 (09:00→20:16)
[2023-05-09 09:52] LABS: African American GFR (CKD) 19 (>60 ml/min/1.73 sqM); Anion Gap 9 mmol/L; Blood Urea Nitrogen 18 mg/dL (7-17); Calcium 8.1 mg/dL (8.4-10.2); Carbon Dioxide 26 mmol/L (22-30); Chloride 97 mmol/L (98-107); Glucose 187 mg/dL (74-99); Magnesium 1.8 mg/dL (1.6-2.3); Non-African American GFR(CKD) 17 (>60 ml/min/1.73 sqM); Potassium 4.2 mmol/L (3.5-5.1); Sodium 132 mmol/L (137-145)
[2023-05-09] MEDS: METOPROLOL TARTRATE 25 MG TAB PO SCH ×3 (10:27→20:16)
--- NOTE | 2023-05-09 13:05 | P.PN ---
Subjective Progress Note Date: 05/09/23 Follow-up for ESRD, had dialysis yesterday. Tolerated well. No dizziness or lightheadedness. Objective - Vital Signs Vital signs: Vital Signs Temp 97.9 F 05/09/23 08:00 Pulse 89 05/09/23 12:00 Resp 18 05/09/23 12:00 BP 126/74 05/09/23 12:00 Pulse Ox 93 L 05/09/23 12:00 FiO2 Intake & Output 05/08/23 05/09/23 05/09/23 18:59 06:59 18:59 Intake Total 400 240 Output Total 2000 50 Balance -1600 190 Weight 62.4 kg 62.4 kg Intake: Oral 240 Hemodialysis 400 Output: Urine 50 Hemodialysis 1999 Other: # Voids 1 - Exam No acute distress. S1-S2 heard Lungs clear No edema - Labs CBC & Chem 7: 05/08/23 06:43 05/09/23 07:27 Labs: Abnormal Lab Results - Last 24 Hours (Table) 05/09/23 Range/Units 07:27 Sodium 132 L (137-145) mmol/L Chloride 97 L (98-107) mmol/L BUN 18 H (7-17) mg/dL Creatinine 2.53 H (0.52-1.04) mg/dL Glucose 187 H (74-99) mg/dL Calcium 8.1 L (8.4-10.2) mg/dL Assessment and Plan Assessment: #1 dizziness lightheadedness secondary to suspected hypotensive episodes #2 ESRD on hemodialysis, MWF schedule. #3 lactic acid acidosis. 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 #2 replaced KCl #3 ESRD medications #4 stable from nephrology for discharge
--- NOTE | 2023-05-09 14:23 | P.PN ---
Subjective Progress Note Date: 05/09/23 Hospital Course: 87-year-old female with a PMH of ESRD on hemodialysis MWF, rheumatoid arthritis, hypertension, hyperlipidemia, gout who presents to the emergency room for complaints of lightheadedness during dialysis, increased weakness and occasional shortness of breath. In the emergency room with chest x-ray revealed findings consistent with congestive heart failure. EKG reveals sinus rhythm with APCs at 93 bpm with a right bundle-branch block. Laboratory evaluation was remarkable for troponin 0.1-3, lactic acid 3.4, creatinine 3.6, and sodium 134. The patient's SpO2 in the emergency room was 92% on 2 L is a cannula oxygen. Patient admitted for acute hypoxic respiratory failure in the setting of hypovolemia and ESRD. Nephrology consulted. Patient is also tachycardic, questionable Atrial flutter/fibrillation. Currently on metoprolol tartrate. Repeat EKG pending. Subjective: Patient seen and examined at bedside. No acute events overnight. She had a brief episode of tachycardia. Pertinent positives and negatives as discussed above, a complete review of sys tems was performed and all other systems are negative. Vitals Signs Reviewed. General: nontoxic, no distress, appears at stated age Derm: warm, dry Head: atraumatic, normocephalic, symmetric Eyes: EOMI, no lid lag, anicteric sclera Mouth: no lip lesion, mucus membranes moist Cardiovascular: S1S2 reg, no murmur, left upper extremity AV fistula with thrill and bruit, trace edema Lungs: CTA bilateral, no rhonchi, no rales , no accessory muscle use, supplemental oxygen Abdominal: soft, nontender to palpation, no guarding, no appreciable organomegaly Ext: muscle strength 3 out of 5 in all 4 extremities grossly Neuro: CN II-XI grossly intact, no focal neuro deficits Psych: Alert, oriented, appropriate affect Data Reviewed Today: Pertinent Labs: Hemoglobin 11.2, sodium 132, potassium 4.2, creatinine 2.53, magnesium 1.8 Imaging: No new imaging Assessment and Plan: Patient is critically ill and prognosis guarded. Active: Acute hypoxic respiratory failure in the setting of hypovolemia ESRD on hemodialysis Debility NSTEMI, nonischemic, in the setting of renal failure New-onset Suspected atrial flutter/fibrillation -Nephrology note reviewed, patient may be discharged from their standpoint -She had dialysis yesterday -PT consult -Continue telemetry monitoring -Repeat EKG pending, if still concerning for atrial flutter/fibrillation, we will need to start anticoagulation -Continue metoprolol tartrate 25 3 times a day Resolved: Lactic acidosis Hypokalemia Chronic: Rheumatoid arthritis Dyslipidemia Gout DVT ppx: Subcu heparin Code status: Full code Anticipated discharge place: Pending clinical course Anticipated discharge time: Pending clinical course Objective - Vital Signs Vital signs: Vital Signs Temp 97.9 F 05/09/23 08:00 Pulse 89 05/09/23 12:00 Resp 18 05/09/23 12:00 BP 126/74 05/09/23 12:00 Pulse Ox 93 L 05/09/23 12:00 FiO2 Intake & Output 05/08/23 05/09/23 05/09/23 18:59 06:59 18:59 Intake Total 400 240 Output Total 2000 50 Balance -1600 190 Weight 62.4 kg 62.4 kg Intake: Oral 240 Hemodialysis 400 Output: Urine 50 Hemodialysis 2000 Other: # Voids 1 - Labs CBC & Chem 7: 05/08/23 06:43 05/09/23 07:27 Labs: Abnormal Lab Results - Last 24 Hours (Table) 05/09/23 Range/Units 07:27 Sodium 132 L (137-145) mmol/L Chloride 97 L (98-107) mmol/L BUN 18 H (7-17) mg/dL Creatinine 2.53 H (0.52-1.04) mg/dL Glucose 187 H (74-99) mg/dL Calcium 8.1 L (8.4-10.2) mg/dL
[2023-05-09] MEDS ORDERED: CALCIUM CARBONATE 500 MG CHEWABLE PO PRN (18:06)
[2023-05-09] MEDS: ATORVASTATIN 10 MG TAB PO SCH (20:16)
[2023-05-10] MEDS: MORPHINE SULFATE 4 MG/ML SYRINGE IV PRN ×2 (01:15→06:18)
[2023-05-10] MEDS: SEVELAMER 800 MG TAB PO SCH ×3 (06:15→17:07)
[2023-05-10] MEDS: allopurinoL 100 MG TAB PO SCH ×3 (09:31→21:35)
[2023-05-10] MEDS: predniSONE 5 MG TAB PO SCH (09:31)
[2023-05-10] MEDS: HEPARIN SODIUM,PORCINE 5,000 UNIT/ML 1 ML VIAL SQ SCH ×3 (09:31→23:27)
[2023-05-10] MEDS: METOPROLOL TARTRATE 25 MG TAB PO SCH (09:31)
[2023-05-10 09:51] LABS: African American GFR (CKD) 13 (>60 ml/min/1.73 sqM); Anion Gap 9 mmol/L; Blood Urea Nitrogen 28 mg/dL (7-17); Calcium 8.4 mg/dL (8.4-10.2); Carbon Dioxide 28 mmol/L (22-30); Chloride 96 mmol/L (98-107); Glucose 175 mg/dL (74-99); Non-African American GFR(CKD) 12 (>60 ml/min/1.73 sqM); Potassium 4.3 mmol/L (3.5-5.1); Sodium 133 mmol/L (137-145)
--- NOTE | 2023-05-10 12:48 | P.PN ---
Subjective Progress Note Date: 05/10/23 Hospital Course: 87-year-old female with a PMH of ESRD on hemodialysis MWF, rheumatoid arthritis, hypertension, hyperlipidemia, gout who presents to the emergency room for complaints of lightheadedness during dialysis, increased weakness and occasional shortness of breath. In the emergency room with chest x-ray revealed findings consistent with congestive heart failure. EKG reveals sinus rhythm with APCs at 93 bpm with a right bundle-branch block. Laboratory evaluation was remarkable for troponin 0.1-3, lactic acid 3.4, creatinine 3.6, and sodium 134. The patient's SpO2 in the emergency room was 92% on 2 L is a cannula oxygen. Patient admitted for acute hypoxic respiratory failure in the setting of hypovolemia and ESRD. Nephrology consulted. Patient is also tachycardic, questionable Atrial flutter/fibrillation. Telemetry reviewed, as well as multiple ectopic beats, repeat EKG is normal. Metoprolol discontinued. Subjective: Patient seen and examined at bedside. No acute events overnight. Still having shortness of breath. Pertinent positives and negatives as discussed above, a complete review of systems was performed and all other systems are negative. Vitals Signs Reviewed. General: nontoxic, no distress, appears at stated age Derm: warm, dry Head: atraumatic, normocephalic, symmetric Eyes: EOMI, no lid lag, anicteric sclera Mouth: no lip lesion, mucus membranes moist Cardiovascular: S1S2 reg, no murmur, left upper extremity AV fistula with thrill and bruit, trace edema Lungs: CTA bilateral, no rhonchi, no rales , no accessory muscle use, supplemental oxygen Abdominal: soft, nontender to palpation, no guarding, no appreciable organomegaly Ext: muscle strength 4 out of 5 in all 4 extremities grossly Neuro: CN II-XI grossly intact, no focal neuro deficits Psych: Alert, oriented, appropriate affect Data Reviewed Today: Pertinent Labs: Sodium 133, creatinine 3.42, magnesium 2 Imaging: EKG independently interpreted, shows sinus rhythm with history of AV block. Assessment and Plan: Patient is critically ill and prognosis guarded. Active: Acute hypoxic respiratory failure in the setting of hypervolemia ESRD on hemodialysis Debility NSTEMI, nonischemic, in the setting of renal failure Tachycardia with multiple ectopic beats -Continue to wean oxygen -Repeat chest x-ray today -Nephrology following, patient may be discharged from their standpoint -Likely dialysis tomorrow -PT consult -Continue telemetry monitoring -Metoprolol discontinued -Repeat BMP and magnesium, Resolved: Lactic acidosis Hypokalemia Chronic: Rheumatoid arthritis Dyslipidemia Gout DVT ppx: Subcu heparin Code status: Full code Anticipated discharge place: Need PT evaluation, home O2 evaluation Anticipated discharge time: Pending clinical course Objective - Vital Signs Vital signs: Vital Signs Temp 97.9 F 05/10/23 08:00 Pulse 75 05/10/23 11:49 Resp 18 05/10/23 11:43 BP 144/63 05/10/23 11:43 Pulse Ox 85 L 05/10/23 11:49 FiO2 Intake & Output 05/09/23 05/10/23 05/10/23 18:59 06:59 18:59 Intake Total 120 Output Total 400 Balance -400 120 Weight 62.4 kg Intake: Oral 120 Output: Urine 400 Other: Voiding Method Toilet Toilet # Voids 1 - Labs CBC & Chem 7: 05/08/23 06:43 05/10/23 08:40 Labs: Abnormal Lab Results - Last 24 Hours (Table) 05/10/23 Range/Units 08:40 Sodium 133 L (137-145) mmol/L Chloride 96 L (98-107) mmol/L BUN 28 H (7-17) mg/dL Creatinine 3.42 H (0.52-1.04) mg/dL Glucose 175 H (74-99) mg/dL
--- NOTE | 2023-05-10 13:09 | XR ---
EXAMINATION TYPE: XR chest 1V portable DATE OF EXAM: 05/10/2023 1:04 PM CLINICAL INDICATION:Female, 87 years old with history of hypoxia; PHH COMPARISON: Chest radiographs from 05/07/2023 TECHNIQUE: XR chest 1V portable Frontal view of the chest. FINDINGS: Lungs/Pleura: Worsening of right lower lung airspace opacification and obscuration of the right costo phrenic sulcus. The left lung demonstrates subsegmental atelectasis in the lung bases. No evidence of pneumothorax. Pulmonary vascularity: Unremarkable. Heart/mediastinum: Cardiomediastinal silhouette is unremarkable. Musculoskeletal: No acute osseous pathology. IMPRESSION: Interval worsening of right lung airspace disease and now small right pleural effusion
--- NOTE | 2023-05-10 14:38 | P.PN ---
Subjective Progress Note Date: 05/10/23 Follow-up for ESRD, had dialysis on Thursday. Tolerated well. No dizziness or lightheadedness. Objective - Vital Signs Vital signs: Vital Signs Temp 97.9 F 05/10/23 08:00 Pulse 75 05/10/23 11:49 Resp 18 05/10/23 11:43 BP 144/63 05/10/23 11:43 Pulse Ox 85 L 05/10/23 11:49 FiO2 Intake & Output 05/09/23 05/10/23 05/10/23 18:59 06:59 18:59 Intake Total 120 Output Total 400 Balance -400 120 Weight 62.4 kg Intake: Oral 120 Output: Urine 400 Other: Voiding Method Toilet Toilet # Voids 1 - Exam No acute distress. S1-S2 heard Lungs clear No edema - Labs CBC & Chem 7: 05/08/23 06:43 05/10/23 08:40 Labs: Abnormal Lab Results - Last 24 Hours (Table) 05/10/23 Range/Units 08:40 Sodium 133 L (137-145) mmol/L Chloride 96 L (98-107) mmol/L BUN 28 H (7-17) mg/dL Creatinine 3.42 H (0.52-1.04) mg/dL Glucose 175 H (74-99) mg/dL Assessment and Plan Assessment: #1 dizziness lightheadedness secondary to suspected hypotensive episodes #2 ESRD on hemodialysis, MWF schedule. #3 lactic acid acidosis. 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
[2023-05-10] MEDS: ATORVASTATIN 10 MG TAB PO SCH (21:35)
[2023-05-11] MEDS: SEVELAMER 800 MG TAB PO SCH ×3 (05:56→16:32)
[2023-05-11] MEDS: MORPHINE SULFATE 4 MG/ML SYRINGE IV PRN (05:56)
--- NOTE | 2023-05-11 08:27 | XR ---
EXAMINATION TYPE: XR chest 1V portable DATE OF EXAM: 05/11/2023 CLINICAL HISTORY: Difficulty breathing progress study. Hypoxia. TECHNIQUE: Single AP portable upright view of the chest is obtained. COMPARISON: Chest x-ray from one day earlier and older studies. FINDINGS: Persistent mild cardiomegaly with small bilateral pleural effusions and central vascular c ongestion. Associated bibasilar opacities favor compressive atelectasis. Scoliotic curvature redemons trated. IMPRESSION: Findings consistent with CHF exacerbation and/or fluid overload state remain present. No significant change from most recent x-ray.
[2023-05-11] MEDS: allopurinoL 100 MG TAB PO SCH ×3 (08:33→20:17)
[2023-05-11] MEDS: HEPARIN SODIUM,PORCINE 5,000 UNIT/ML 1 ML VIAL SQ SCH ×3 (08:33→23:40)
[2023-05-11] MEDS: predniSONE 5 MG TAB PO SCH (08:33)
--- NOTE | 2023-05-11 09:16 | P.PN ---
Subjective Patient is seen in follow-up for end-stage liver disease. She is maintained on hemodialysis on Thursday schedule. Resting in bed. Denies lightheadedness today. Hemodynamically stable. Vital signs are stable. General: No acute distress. HEENT: Head exam is unremarkable. LUNGS: No audible rhonchi or wheezes. HEART: Rate and Rhythm are regular. ABDOMEN: Nontender. EXTREMITITES: No edema. Objective - Vital Signs Vital signs: Vital Signs Temp 98.6 F 05/11/23 08:34 Pulse 88 05/11/23 08:34 Resp 16 05/11/23 08:34 BP 166/63 05/11/23 08:34 Pulse Ox 92 L 05/11/23 08:34 FiO2 Intake & Output 05/10/23 05/11/23 05/11/23 18:59 06:59 18:59 Intake Total 238 180 Balance 238 180 Weight 62.8 kg Intake: Oral 238 180 Other: Voiding Method Toilet Toilet Toilet # Voids 2 1 0 - Labs CBC & Chem 7: 05/08/23 06:43 05/10/23 08:40 Labs: Abnormal Lab Results - Last 24 Hours (Table) 05/10/23 Range/Units 08:40 Sodium 133 L (137-145) mmol/L Chloride 96 L (98-107) mmol/L BUN 28 H (7-17) mg/dL Creatinine 3.42 H (0.52-1.04) mg/dL Glucose 175 H (74-99) mg/dL Assessment and Plan Plan: Assessment: 1. End-stage renal disease maintained on hemodialysis on Thursday schedule via left upper extremity AV fistula. 2. Lightheadedness possibly from hemodynamic instability. 3. Hypotension maintained on midodrine. 4. Chronic kidney disease mineral bone disease maintained on Renvela. Phosphorus level 3.1 dated 05/08/2023. 5. Acute on chronic systolic CHF with ejection fraction of 30-35% with moderate to severe mitral regurgitation and mild to moderate tricuspid regurgitation. 6. Volume overload. Plan: Hemodialysis today. Challenge ultrafiltration. Check orthostatic vital signs.
--- NOTE | 2023-05-11 11:32 | P.PN ---
Subjective Progress Note Date: 05/11/23 Hospital Course: 87-year-old female with a PMH of ESRD on hemodialysis MWF, systolic cardiomyop athy EF 30-35%, rheumatoid arthritis, hypertension, hyperlipidemia, gout who presents to the emergency room for complaints of lightheadedness during dialysis, increased weakness and occasional shortness of breath. In the emergency room with chest x-ray revealed findings consistent with congestive he art failure. EKG reveals sinus rhythm with APCs at 93 bpm with a right bundle- branch block. Laboratory evaluation was remarkable for troponin 0.1-3, lactic acid 3.4, creatinine 3.6, and sodium 134. The patient's SpO2 in the emergency room was 92% on 2 L is a cannula oxygen. Patient admitted for acute hypoxic respiratory failure in the setting of hypervolemia and ESRD. Nephrology consulted. Patient is also tachycardic, questionable Atrial flutter/fibrillation. Telemetry reviewed, as well as multiple ectopic beats, repeat EKG is normal. Metoprolol discontinued. Subjective: Patient seen and examined at bedside. No acute events overnight. Still having shortness of breath. Slightly worsened. Pertinent positives and negatives as discussed above, a complete review of systems was performed and all other systems are negative. Vitals Signs Reviewed. General: nontoxic, no distress, appears at stated age Derm: warm, dry Head: atraumatic, normocephalic, symmetric Eyes: EOMI, no lid lag, anicteric sclera Mouth: no lip lesion, mucus membranes moist Cardiovascular: S1S2 reg, no murmur, left upper extremity AV fistula with thrill and bruit, trace edema Lungs: Decreased breath sounds on the right, I basilar crackles, no accessory muscle use, supplemental oxygen Abdominal: soft, nontender to palpation, no guarding, no appreciable organomegaly Ext: muscle strength 4 out of 5 in all 4 extremities grossly Neuro: CN II-XI grossly intact, no focal neuro deficits Psych: Alert, oriented, appropriate affect Data Reviewed Today: Pertinent Labs: BMP and magnesium pending, will be reviewed when available Imaging: Chest x-ray independently interpreted, worsening pleural effusion on the right Assessment and Plan: Patient is critically ill and prognosis guarded. Active: Acute hypoxic respiratory failure in the setting of hypervolemia ESRD on hemodialysis Acute on chronic systolic CHF exacerbation, last known EF 30-35% Debility NSTEMI, nonischemic, in the setting of renal failure Tachycardia with multiple ectopic beats -Continue to wean oxygen -Nephrology note reviewed, pending dialysis today -PT consult -Continue telemetry monitoring -Repeat BMP and magnesium tomorrow Resolved: Lactic acidosis Hypokalemia Chronic: Rheumatoid arthritis Dyslipidemia Gout DVT ppx: Subcu heparin Code status: Full code Anticipated discharge place: Need PT evaluation, home O2 evaluation Anticipated discharge time: Pending clinical course Objective - Vital Signs Vital signs: Vital Signs Temp 98.6 F 05/11/23 08:34 Pulse 88 05/11/23 08:34 Resp 16 05/11/23 08:34 BP 166/63 05/11/23 08:34 Pulse Ox 92 L 05/11/23 10:08 FiO2 Intake & Output 05/10/23 05/11/23 05/11/23 18:59 06:59 18:59 Intake Total 238 180 Output Total 200 Balance 238 -20 Weight 62.8 kg Intake: Oral 238 180 Output: Urine 200 Other: Voiding Method Toilet Toilet Toilet # Voids 2 1 0 - Labs CBC & Chem 7: 05/08/23 06:43 05/10/23 08:40
[2023-05-11] MEDS: MIDODRINE 5 MG TAB PO SCH (16:18)
[2023-05-11] MEDS: ATORVASTATIN 10 MG TAB PO SCH (20:17)
[2023-05-11 20:21] LABS: African American GFR (CKD) 21 (>60 ml/min/1.73 sqM); Anion Gap 8 mmol/L; Blood Urea Nitrogen 17 mg/dL (7-17); Calcium 8.1 mg/dL (8.4-10.2); Carbon Dioxide 28 mmol/L (22-30); Chloride 96 mmol/L (98-107); Glucose 128 mg/dL (74-99); Magnesium 1.9 mg/dL (1.6-2.3); Non-African American GFR(CKD) 19 (>60 ml/min/1.73 sqM); Potassium 3.7 mmol/L (3.5-5.1); Sodium 132 mmol/L (137-145)
[2023-05-11 20:38] VITALS: RESP 18
[2023-05-12] MEDS: SEVELAMER 800 MG TAB PO SCH ×2 (06:39→13:06)
[2023-05-12 08:35] LABS: African American GFR (CKD) 16 (>60 ml/min/1.73 sqM); Anion Gap 12 mmol/L; Blood Urea Nitrogen 24 mg/dL (7-17); Calcium 8.4 mg/dL (8.4-10.2); Carbon Dioxide 25 mmol/L (22-30); Chloride 95 mmol/L (98-107); Glucose 125 mg/dL (74-99); Non-African American GFR(CKD) 14 (>60 ml/min/1.73 sqM); Sodium 132 mmol/L (137-145)
[2023-05-12] MEDS: predniSONE 5 MG TAB PO SCH (09:33)
[2023-05-12] MEDS: allopurinoL 100 MG TAB PO SCH (09:33)
[2023-05-12] MEDS: HEPARIN SODIUM,PORCINE 5,000 UNIT/ML 1 ML VIAL SQ SCH (09:34)
--- NOTE | 2023-05-12 10:30 | P.PN ---
Subjective Patient is seen in follow-up for end-stage liver disease. She is maintained on hemodialysis on Thursday schedule. Resting in bed. Denies lightheadedness today. Hemodynamically stable. No problems with dialysis yesterday. Vital signs are stable. General: No acute distress. HEENT: Head exam is unremarkable. LUNGS: No audible rhonchi or wheezes. HEART: Rate and Rhythm are regular. ABDOMEN: Nontender. EXTREMITITES: No edema. Objective - Vital Signs Vital signs: Vital Signs Temp 98.3 F 05/12/23 08:00 Pulse 82 05/12/23 08:00 Resp 18 05/12/23 08:00 BP 160/76 05/12/23 08:00 Pulse Ox 92 L 05/12/23 09:45 FiO2 Intake & Output 05/11/23 05/12/23 05/12/23 18:59 06:59 18:59 Intake Total 580 118 Output Total 2500 150 Balance -1920 -150 118 Weight 60.5 kg Intake: Oral 180 118 Hemodialysis 400 Output: Urine 200 150 Hemodialysis 2300 Other: Voiding Method Toilet Toilet Toilet # Voids 0 1 - Labs CBC & Chem 7: 05/08/23 06:43 05/12/23 07:56 Labs: Abnormal Lab Results - Last 24 Hours (Table) 05/11/23 05/12/23 Range/Units 19:39 07:56 Sodium 132 L 132 L (137-145) mmol/L Chloride 96 L 95 L (98-107) mmol/L BUN 24 H (7-17) mg/dL Creatinine 2.32 H 2.93 H (0.52-1.04) mg/dL Glucose 128 H 125 H (74-99) mg/dL Calcium 8.1 L (8.4-10.2) mg/dL Assessment and Plan Plan: Assessment: 1. End-stage renal disease maintained on hemodialysis on Thursday schedule via left upper extremity AV fistula. 2. Lightheadedness possibly from hemodynamic instability. Improved. 3. Hypotension maintained on midodrine. 4. Chronic kidney disease mineral bone disease maintained on Renvela. Phosphorus level 3.1 dated 05/08/2023. 5. Acute on chronic systolic CHF with ejection fraction of 30-35% with moderate to severe mitral regurgitation and mild to moderate tricuspid regurgitation. 6. Volume overload. Improved with ultrafiltration. Plan: Hemodialysis tomorrow. Check orthostatic vital signs. Discussed with nurse.
[2023-05-12 12:05] VITALS: BP 140/70; PULSE 64; TEMP 97.4
--- NOTE | 2023-05-12 12:17 | P.DS ---
Providers Date of admission: 05/07/23 20:16 Expected date of discharge: 05/12/23 Attending physician: Daina Puri MD Consults: 05/07/23 20:14 Consult Physician Routine Consulting Provider: Destiny Olsen Consult Reason/Comments: renalFailure Do you want consulting provider notified?: Yes Primary care physician: Tereza Webster MD Hospital Course: Discharge Diagnosis: Acute hypoxic respiratory failure in the setting of hypervolemia ESRD on hemodialysis Acute on chronic systolic CHF exacerbation, last known EF 30-35% Debility NSTEMI, nonischemic, in the setting of renal failure Tachycardia with multiple ectopic beats Lactic acidosis Hypokalemia Rheumatoid arthritis Dyslipidemia Gout Hospital Course: 87-year-old female with a PMH of ESRD on hemodialysis MWF, systolic cardiomyopathy EF 30-35%, rheumatoid arthritis, hypertension, hyperlipidemia, gout who presents to the emergency room for complaints of lightheadedness during dialysis, increased weakness and occasional shortness of breath. In the emergency room with chest x-ray revealed findings consistent with congestive heart failure. EKG reveals sinus rhythm with APCs at 93 bpm with a right bundle-branch block. Laboratory evaluation was remarkable for troponin 0.1-3, lactic acid 3.4, creatinine 3.6, and sodium 134. The patient's SpO2 in the emergency room was 92% on 2 L is a cannula oxygen. Patient admitted for acute hypoxic respiratory failure in the setting of CHF exacerbation and ESRD. Nephrology consulted. Patient is also tachycardic, questionable Atrial flutter/fibrillation. Was briefly started on metoprolol. Telemetry reviewed, as well as multiple ectopic beats, repeat EKG is normal. Metoprolol discontinued. She'll be discharged home with home oxygen. Patient seen and examined at bedside. Vital signs reviewed and stable. General: nontoxic, no distress, appears at stated age Derm: warm, dry Head: atraumatic, normocephalic, symmetric Eyes: EOMI, no lid lag, anicteric sclera Mouth: no lip lesion, mucus membranes moist Cardiovascular: S1S2 reg, no murmur, left upper extremity AV fistula with thrill and bruit Lungs: CTA bilateral, no rhonchi, no rales , no accessory muscle use, supplemental oxygen Abdominal: soft, nontender to palpation, no guarding, no appreciable organomegaly Ext: no gross muscle atrophy, no edema, no contractures Neuro: CN II-XI grossly intact, no focal neuro deficits Psych: Alert, oriented, appropriate affect A total of 33 minutes of time were spent preparing this complex discharge summary. Patient was discharged on 05/12/23 at 11:38. Patient Condition at Discharge: Stable Plan - Discharge Summary Discharge Rx Participant: No New Discharge Prescriptions: Continue Simvastatin [Zocor] 20 mg PO HS Etanercept [Enbrel Sureclick] 50 mg SQ FR allopurinoL [Zyloprim] 100 mg PO TID predniSONE 5 mg PO DAILY Midodrine [ProAmatine] 5 - 10 mg PO MOWEFR Omeprazole [PriLOSEC] 20 mg PO DAILY Acetaminophen Tab [Tylenol] 650 mg PO Q6HR PRN tab PRN Reason: Mild Pain Or Fever > 100.5 Sevelamer [Renvela] 800 mg PO AC-TID Benzonatate [Tessalon Perles] 100 mg PO TID PRN PRN Reason: Cough Discontinued Furosemide [Lasix] 80 mg PO DAILY tiZANidine [Zanaflex] 2 mg PO HS PRN PRN Reason: Muscle Spasm Discharge Medication List Simvastatin [Zocor] 20 mg PO HS 04/04/14 [History] Etanercept [Enbrel Sureclick] 50 mg SQ FR 02/14/20 [History] allopurinoL [Zyloprim] 100 mg PO TID 06/05/20 [History] Sevelamer [Renvela] 800 mg PO AC-TID 07/26/21 [History] Midodrine [ProAmatine] 5 - 10 mg PO MOWEFR 04/23/23 [History] Omeprazole [PriLOSEC] 20 mg PO DAILY 04/23/23 [History] predniSONE 5 mg PO DAILY 04/23/23 [History] Acetaminophen Tab [Tylenol] 650 mg PO Q6HR PRN tab 04/24/23 [Rx] Benzonatate [Tessalon Perles] 100 mg PO TID PRN 05/07/23 [History] Follow up Appointment(s)/Referral(s): Al Underwood MD [REFERRING] - 1-2 days Patient Instructions/Handouts: Dialysis Diet (DC), End Stage Kidney Disease (DC) Activity/Diet/Wound Care/Special Instructions: Please see your PCP and financial recording clerk. Discharge Disposition: HOME WITH HOME HEALTH SERVICES
--- NOTE | 2023-05-12 13:23 | CDI ---
Documentation Clarification Form Date: 05/12/2023 From: Alyce Antony Admit Date: 05/07/2023 08:16:00 PM Patient Name: Shagufta Valverde Visit Number: [id number] ATTENTION: The Clinical Documentation Specialists (CDI) and [facility] Coding Staff appreciate your assistance in clarifying documentation. Please respond to the clarification below the line at the bottom and electronically sign. The CDI & [facility] Coding staff will review the response and follow-up if needed. Please note: Queries are made part of the Legal Health Record. If you have any questions, please contact the author of this message via ITS. Dr. Tanner Pimentel NSTEMI, nonischemic, in the setting of renal failure. Additional clarification regarding the NSTEMI is requested. Patient History/Risk Factors: 87yo with a h/o ESRD, systolic cardiomyopathy EF 30-35%, HTN presented with weakness, acute respiratory failure, hypovolemia Clinical Indicators: Troponin 05/07-05/08: 0.123-0.128-0.137 BNP 05/07: 06656 Lactic Acid 05/07: 3.4-1.7 CXR 05/07: mild cardiomegaly w/ pulm vasc congestion, mild to mod B/L pleural effusions, w/ adjacent atelectasis, edema or infiltrate. EKG Results: sinus rhythm w/ APCs at 93 bpm w/ a RBBB per H&P on 05/07 Treatment: supplemental O2, Lasix IV, monitoring, HD Please clarify the NSTEMI, if known: [ x] Type 2 LA due to acute on chronic renal failure [ ] Type 2 LA due to other (please specify ) [ ] Type 1 LA (NSTEMI) [ ] Other Condition, please specify [ ] Unable to determine (Template Last Revised: August 2020) MTDD
[2023-05-12 13:37] VITALS: BMI 22.1
== END 2023-05-12 15:54 | disposition home health service (06) | DRG 280 ==
LOC: EC 16:51 → 3SCARD 20:16
PROVIDERS: ADMIT Internal Medicine; ATTEND Internal Medicine
PROC: 5A1D70Z Performance of Urinary Filtration, Intermittent, Less than 6 Hours Per Day (ICD-10-PCS; principal; 2023-05-08)
DX: I13.2 Hypertensive heart and chronic kidney disease with heart failure and with stage 5 chronic kidney disease, or end stage renal disease (principal); I50.23 Acute on chronic systolic (congestive) heart failure; I21.A1 Myocardial infarction type 2; J96.01 Acute respiratory failure with hypoxia; N18.6 End stage renal disease; E87.20 Acidosis, unspecified; N17.9 Acute kidney failure, unspecified; D63.1 Anemia in chronic kidney disease; E78.5 Hyperlipidemia, unspecified; I5A Non-ischemic myocardial injury (non-traumatic); E86.0 Dehydration; E86.1 Hypovolemia; E87.6 Hypokalemia; R53.81 Other malaise; I42.8 Other cardiomyopathies; M06.9 Rheumatoid arthritis, unspecified; M10.9 Gout, unspecified; I95.9 Hypotension, unspecified; I08.1 Rheumatic disorders of both mitral and tricuspid valves; M89.8X9 Other specified disorders of bone, unspecified site; Z79.899 Other long term (current) drug therapy; Z85.828 Personal history of other malignant neoplasm of skin; Z90.710 Acquired absence of both cervix and uterus; Z99.2 Dependence on renal dialysis; Z82.49 Family history of ischemic heart disease and other diseases of the circulatory system
CPT/HCPCS: 36415; 71045; 71046; 80048; 80053; 83605; 83735; 83880; 84100; 84443; 84484; 85025; 85610; 85730; 90935; 93005; 94760; 96372; 96374; 96376; 99285

== ENCOUNTER 2023-05-15 14:02 | Observation (INO) | payer MEDICARE ==
--- NOTE | 2023-05-15 14:26 | ED ---
Weakness HPI - General Source: patient, family, RN notes reviewed Mode of arrival: wheelchair Limitations: no limitations <Deja Elmore - Last Filed: 05/15/23 14:24> <Memo Barron - Last Filed: 05/15/23 19:17> - General Chief complaint: Weakness Stated complaint: Heart Papl, sent by Cardio Dr Time Seen by Provider: 05/15/23 14:25 - History of Present Illness Initial comments: Patient is an 87-year-old female presented ER with chief complaint of weakness. Patient was admitted recently and diagnosed with congestive heart failure. Patient has been on dialysis for the past 3 years last was today. Was sent here by dialysis due to low oxygen saturation. Patient denies any current chest pain or shortness of breath. No fevers chills or night sweats. (Deja Elmore) - Related Data Home Medications Medication Instructions Recorded Confirmed Simvastatin [Zocor] 20 mg PO HS 04/04/14 05/07/23 allopurinoL [Zyloprim] 100 mg PO TID 06/05/20 05/07/23 Sevelamer [Renvela] 800 mg PO AC-TID 07/26/21 05/07/23 Midodrine [ProAmatine] 5 - 10 mg PO MOWEFR 04/23/23 05/07/23 Allergies Allergy/AdvReac Type Severity Reaction Status Date / Time No Known Allergies Allergy Verified 05/07/23 20:13 Review of Systems ROS Other: All systems not noted in ROS Statement are negative. <Deja Elmore - Last Filed: 05/15/23 14:24> ROS Other: All systems not noted in ROS Statement are negative. <Memo Barron - Last Filed: 05/15/23 19:17> ROS Statement: Those systems with pertinent positive or pertinent negative responses have been documented in the HPI. Past Medical History Past Medical History: Cancer, Heart Failure, Hyperlipidemia, Hypertension, Renal Disease, Rheumatoid Arthritis (RA), Thyroid Disorder Additional Past Medical History / Comment(s): Gout, kidney damage from Rx - dialysis MWF, skin cancer, thyroid nodules. fisutla to left arm not able to be used at this time. History of Any Multi-Drug Resistant Organisms: None Reported Past Surgical History: Cholecystectomy, Hysterectomy Additional Past Surgical History / Comment(s): Bilateral cataract surgery, skin cancer excised from nose X2, fistula left arm, "artery in left arm cleaned out.". mediport to rt chest,10/2022 has since plugged up. Past Anesthesia/Blood Transfusion Reactions: No Reported Reaction Past Psychological History: No Psychological Hx Reported Smoking Status: Never smoker Past Alcohol Use History: None Reported Past Drug Use History: None Reported - Past Family History Father Family Medical History: Unable to Obtain, Myocardial Infarction ([place]) Additional Family Medical History / Comment(s): Pt can't remember medical hx. Mother Family Medical History: Unable to Obtain, Myocardial Infarction ([place]) Additional Family Medical History / Comment(s): Pt can't remember medical hx. <Deja Elmore - Last Filed: 05/15/23 14:24> General Exam Limitations: no limitations <Deja Elmore - Last Filed: 05/15/23 14:24> Limitations: no limitations General appearance: alert, in no apparent distress Head exam: Present: atraumatic, normocephalic Eye exam: Present: normal appearance. Absent: scleral icterus, conjunctival injection ENT exam: Present: normal oropharynx Neck exam: Present: normal inspection Respiratory exam: Absent: respiratory distress, wheezes, rales, rhonchi, stridor, accessory muscle use Cardiovascular Exam: Present: regular rate, normal rhythm, systolic murmur, gallop. Absent: diastolic murmur, rubs GI/Abdominal exam: Present: soft. Absent: distended, tenderness, guarding, rebound, rigid, mass Extremities exam: Present: normal inspection, normal capillary refill. Absent: pedal edema, calf tenderness Back exam: Present: normal inspection. Absent: CVA tenderness (R), CVA tenderness (L) Neurological exam: Present: alert Skin exam: Present: warm, dry, intact, normal color. Absent: rash <Memo Barron - Last Filed: 05/15/23 19:17> - General Exam Comments Initial Comments: Visual Physical Exam Vital signs reviewed General: Well-appearing, nontoxic, no acute distress. Head: Normocephalic, atraumatic Eyes: PERRLA, EOMI ENT: Airway patent Chest: Nonlabored breathing Skin: No visual rash, normal skin tone Neuro: Alert and oriented 3 Musculoskeletal: No gross abnormalities (Deja Elmore) Course Vital Signs 05/15/23 05/15/23 14:12 18:04 Temperature 97.9 F Pulse Rate 90 88 Respiratory 16 20 Rate Blood Pressure 143/63 140/68 O2 Sat by Pulse 98 98 Oximetry EKG Findings - EKG Results: EKG: interpreted by ERMD, sinus rhythm (Rate 86 bpm) - Blocks, [place], Hypertrophy, ST Abn: AV and intraventricular conduction: 1 AV block, right bundle branch block (fixed/intermittent, complete/incomplete), left posterior fascicular block <Memo Barron - Last Filed: 05/15/23 19:17> Medical Decision Making <Deja Elmore - Last Filed: 05/15/23 14:24> - Lab Data Result diagrams: 05/15/23 14:30 05/15/23 14:30 <Memo Barron - Last Filed: 05/15/23 19:17> - Medical Decision Making I performed the quick note portion of the exam. Electronically signed by Deja Elmore PA-C (Deja Elmore) Patient is an 87-year-old woman here for exertional dyspnea, generalized weakness, she went to the cardiology clinic and was directed to come to the emergency department to be seen by cardiology. When the studies had resulted I discussed case with Dr. Rae, like the patient admitted observation and he will see and ideally adjust medications. (Memo Barron) - Lab Data Lab Results 05/15/23 05/15/23 05/15/23 Range/Units 14:30 14:30 14:30 WBC 14.4 H (3.8-10.6) k/uL RBC 3.84 (3.80-5.40) m/uL Hgb 11.7 (11.4-16.0) gm/dL Hct 35.9 (34.0-46.0) % MCV 93.6 (80.0-100.0) fL MCH 30.4 (25.0-35.0) pg MCHC 32.5 (31.0-37.0) g/dL RDW 16.1 H (11.5-15.5) % Plt Count 298 (150-450) k/uL MPV 7.2 Neutrophils % 93 % Lymphocytes % 4 % Monocytes % 2 % Eosinophils % 1 % Basophils % 0 % Neutrophils # 13.4 H (1.3-7.7) k/uL Lymphocytes # 0.5 L (1.0-4.8) k/uL Monocytes # 0.3 (0-1.0) k/uL Eosinophils # 0.1 (0-0.7) k/uL Basophils # 0.0 (0-0.2) k/uL Anisocytosis Slight PT 11.4 (10.0-12.5) sec INR 1.0 (<1.2) APTT 21.0 L (22.0-30.0) sec Sodium 134 L (137-145) mmol/L Potassium 4.1 (3.5-5.1) mmol/L Chloride 97 L (98-107) mmol/L Carbon Dioxide 27 (22-30) mmol/L Anion Gap 10 mmol/L BUN 27 H (7-17) mg/dL Creatinine 2.62 H (0.52-1.04) mg/dL Est GFR (CKD-EPI)AfAm 19 (>60 ml/min/1.73 sqM) Est GFR (CKD-EPI)NonAf 16 (>60 ml/min/1.73 sqM) Glucose 186 H (74-99) mg/dL Calcium 8.4 (8.4-10.2) mg/dL Phosphorus 3.1 (2.5-4.5) mg/dL Magnesium 2.0 (1.6-2.3) mg/dL Total Bilirubin 0.9 (0.2-1.3) mg/dL AST 26 (14-36) U/L ALT 16 (4-34) U/L Alkaline Phosphatase 111 (38-126) U/L Troponin I (0.000-0.034) ng/mL NT-Pro-B Natriuret Pep 95663 pg/mL Total Protein 5.8 L (6.3-8.2) g/dL Albumin 2.9 L (3.5-5.0) g/dL TSH 1.400 (0.465-4.680) mIU/L 05/15/23 Range/Units 14:30 WBC (3.8-10.6) k/uL RBC (3.80-5.40) m/uL Hgb (11.4-16.0) gm/dL Hct (34.0-46.0) % MCV (80.0-100.0) fL MCH (25.0-35.0) pg MCHC (31.0-37.0) g/dL RDW (11.5-15.5) % Plt Count (150-450) k/uL MPV Neutrophils % % Lymphocytes % % Monocytes % % Eosinophils % % Basophils % % Neutrophils # (1.3-7.7) k/uL Lymphocytes # (1.0-4.8) k/uL Monocytes # (0-1.0) k/uL Eosinophils # (0-0.7) k/uL Basophils # (0-0.2) k/uL Anisocytosis PT (10.0-12.5) sec INR (<1.2) APTT (22.0-30.0) sec Sodium (137-145) mmol/L Potassium (3.5-5.1) mmol/L Chloride (98-107) mmol/L Carbon Dioxide (22-30) mmol/L Anion Gap mmol/L BUN (7-17) mg/dL Creatinine (0.52-1.04) mg/dL Est GFR (CKD-EPI)AfAm (>60 ml/min/1.73 sqM) Est GFR (CKD-EPI)NonAf (>60 ml/min/1.73 sqM) Glucose (74-99) mg/dL Calcium (8.4-10.2) mg/dL Phosphorus (2.5-4.5) mg/dL Magnesium (1.6-2.3) mg/dL Total Bilirubin (0.2-1.3) mg/dL AST (14-36) U/L ALT (4-34) U/L Alkaline Phosphatase (38-126) U/L Troponin I 0.068 H* (0.000-0.034) ng/mL NT-Pro-B Natriuret Pep pg/mL Total Protein (6.3-8.2) g/dL Albumin (3.5-5.0) g/dL TSH (0.465-4.680) mIU/L Disposition <Deja Elmore - Last Filed: 05/15/23 14:24> Is patient prescribed a controlled substance at d/c from ED?: No <Memo Barron - Last Filed: 05/15/23 19:17> Clinical Impression: Congestive heart failure Disposition: ADMITTED IP TO THIS HOSP Condition: Fair Referrals: Tereza Webster MD [Primary Care Provider] - 1-2 days
[2023-05-15 14:55] LABS: Anisocytosis Slight; Basophils % (A) 0 %; Eosinophils # (A) 0.1 k/uL (0-0.7); Eosinophils % (A) 1 %; HCT 35.9 % (34.0-46.0); HGB 11.7 gm/dL (11.4-16.0); Lymphocytes # (A) 0.5 k/uL (1.0-4.8); Lymphocytes % (A) 4 %; MCH 30.4 pg (25.0-35.0); MCHC 32.5 g/dL (31.0-37.0); MCV 93.6 fL (80.0-100.0); Mean Platelet Volume 7.2; Monocytes # (A) 0.3 k/uL (0-1.0); Monocytes % (A) 2 %; Neutrophils # (A) 13.4 k/uL (1.3-7.7); Neutrophils % (A) 93 %; Platelet Count 298 k/uL (150-450); RBC 3.84 m/uL (3.80-5.40); RDW 16.1 % (11.5-15.5); WBC 14.4 k/uL (3.8-10.6)
[2023-05-15 15:06] LABS: ALT 16 U/L (4-34); African American GFR (CKD) 19 (>60 ml/min/1.73 sqM); Albumin 2.9 g/dL (3.5-5.0); Anion Gap 10 mmol/L; Blood Urea Nitrogen 27 mg/dL (7-17); Calcium 8.4 mg/dL (8.4-10.2); Carbon Dioxide 27 mmol/L (22-30); Chloride 97 mmol/L (98-107); Glucose 186 mg/dL (74-99); Non-African American GFR(CKD) 16 (>60 ml/min/1.73 sqM); Sodium 134 mmol/L (137-145); Total Bilirubin 0.9 mg/dL (0.2-1.3); Total Protein 5.8 g/dL (6.3-8.2)
[2023-05-15 15:12] LABS: AST 26 U/L (14-36)
[2023-05-15 15:13] LABS: Alkaline Phosphatase 111 U/L (38-126); Phosphorus 3.1 mg/dL (2.5-4.5); Potassium 4.1 mmol/L (3.5-5.1)
--- NOTE | 2023-05-15 15:15 | XR ---
EXAMINATION TYPE: XR chest 2V DATE OF EXAM: 05/15/2023 3:11 PM CLINICAL INDICATION:Female, 87 years old with history of Weakness; [facility] COMPARISON: Chest radiographs from 05/11/2023 TECHNIQUE: XR chest 2V Frontal and lateral views of the chest. FINDINGS: Lungs/Pleura: No evidence of focal consolidation or pneumothorax. Blunting of the costophrenic angles is present. Pulmonary vascularity: Unremarkable. Heart/mediastinum: Cardiomediastinal silhouette is enlarged and stable. Musculoskeletal: No acute osseous pathology. Other findings: None IMPRESSION: Bilateral pleural effusions.
[2023-05-15 15:18] LABS: Prothrombin Time 11.4 sec (10.0-12.5)
[2023-05-15 15:40] LABS: NT-Pro-B-Type Natriuretic Pept 74300 pg/mL
[2023-05-15] MEDS ORDERED: NITROGLYCERIN SL TABS 0.4 MG TAB SUBLINGUAL PRN (19:07)
[2023-05-16] MEDS ORDERED: NALOXONE 0.4 MG/ML 1 ML VIAL IV PRN (06:16)
[2023-05-16] MEDS ORDERED: ACETAMINOPHEN TAB 325 MG TAB PO PRN (06:17)
[2023-05-16] MEDS ORDERED: ONDANSETRON 4 MG/2 ML VIAL IVP PRN (06:17)
[2023-05-16] MEDS ORDERED: ALPRAZolam 0.25 MG TAB PO PRN (06:17)
--- NOTE | 2023-05-16 06:18 | P.HPIM ---
History of Present Illness H&P Date: 05/15/23 Chief Complaint: fluid overload 87-year-old female in the stage renal disease, congestive heart failure left ventricular ejection fraction 3035 percent Patient coming in upon recommendations of cardiology for further cardiac workup. Patient was recently hospitalized and discharged couple days ago for acute CHF exacerbation with fluid overload she received dialysis while inpatient patient was discharged with oxygen She is coming back today upon recommendation of her missile facilities repairer due to fluid overload for further workup and medication adjustments Patient herself denies any shortness of breath or chest pain. She denies any fevers or chills she denies any coughing denies any nausea vomiting she denies any GI bleeding She does report increased swelling over her bilateral lower and upper extremities review of systems Pertinent positives as noted in HPI. All other systems were reviewed and are negative on exam Constitutional: No acute distress, conversant, pleasant Eyes: Anicteric sclerae, moist conjunctiva, Pupils equal round reactive to light ENMT: NC/AT Oropharynx clear, no erythema, or exudates Neck: Supple, no masses, or JVD No carotid bruits No thyromegaly Lungs: Decreased breath sounds over lung bases bilaterally Clear to percussion Normal respiratory effort, no accessory muscle use Cardiovascular: Heart regular in rate and rhythm, No murmurs, gallops, or rubs +3 bilateral peripheral edema over the legs and upper extremities Abdominal: Soft Nontender, no guarding, rebound or rigidity Abdomen moving with respiration Normoactive bowel sounds No hepatomegaly, No splenomegaly No palpable mass No abdominal wall hernia noted Extremities: No digital cyanosis No clubbing Pedal pulses intact and symmetrical Radial pulses intact and symmetrical No calf tenderness Psychiatric: Alert and oriented to person, place and time Appropriate affect fair judgement Neuro Muscles Strength 4/5 in all 4 extremities Sensation to light touch grossly present throughout Cranial nerves II-XII grossly intact Lymphatics: no palpable cervical or supraclavicular lymph nodes Past Medical History Past Medical History: Cancer, Heart Failure, Hyperlipidemia, Hypertension, Renal Disease, Rheumatoid Arthritis (RA), Thyroid Disorder Additional Past Medical History / Comment(s): Gout, kidney damage from Rx - dialysis MWF, skin cancer, thyroid nodules. fisutla to left arm not able to be used at this time. History of Any Multi-Drug Resistant Organisms: None Reported Past Surgical History: Cholecystectomy, Hysterectomy Additional Past Surgical History / Comment(s): Bilateral cataract surgery, skin cancer excised from nose X2, fistula left arm, "artery in left arm cleaned out.". mediport to rt chest,10/2022 has since plugged up. Past Anesthesia/Blood Transfusion Reactions: No Reported Reaction Past Psychological History: No Psychological Hx Reported Smoking Status: Never smoker Past Alcohol Use History: None Reported Past Drug Use History: None Reported - Past Family History Father Family Medical History: Unable to Obtain, Myocardial Infarction ([place]) Additional Family Medical History / Comment(s): Pt can't remember medical hx. Mother Family Medical History: Unable to Obtain, Myocardial Infarction ([place]) Additional Family Medical History / Comment(s): Pt can't remember medical hx. Medications and Allergies Home Medications Medication Instructions Recorded Confirmed Type Simvastatin [Zocor] 20 mg PO HS 04/04/14 05/15/23 History allopurinoL [Zyloprim] 100 mg PO TID 06/05/20 05/15/23 History Sevelamer [Renvela] 800 mg PO AC-TID 07/26/21 05/15/23 History Midodrine [ProAmatine] 5 - 10 mg PO MOWEFR 04/23/23 05/15/23 History Atorvastatin [Lipitor] 20 mg PO DIRECTED 05/15/23 05/15/23 History Metoprolol Succinate (ER) [Toprol 25 mg PO DIRECTED 05/15/23 05/15/23 History Xl] methylPREDNISolone [Medrol Dose See Taper PO DIRECTED 05/15/23 05/15/23 History Pack] Allergies Allergy/AdvReac Type Severity Reaction Status Date / Time No Known Allergies Allergy Verified 05/07/23 20:13 Physical Exam Vitals: Vital Signs Temp Pulse Resp BP Pulse Ox 05/16/23 05:00 87 22 125/61 97 05/16/23 04:00 96 14 123/69 97 05/16/23 03:22 93 19 123/69 98 05/16/23 03:00 96 13 107/65 98 05/16/23 02:00 96 14 86/64 98 05/16/23 01:00 111 H 16 88/64 97 05/16/23 00:00 134/98 05/15/23 23:07 96 18 94 L 05/15/23 23:00 98 12 139/68 05/15/23 22:00 95 19 123/78 90 L 05/15/23 21:52 25 H 05/15/23 18:04 88 20 140/68 98 05/15/23 14:12 97.9 F 90 16 143/63 98 Intake and Output 05/15/23 05/15/23 05/16/23 14:59 22:59 06:59 Other: Weight 63.503 kg Results CBC & Chem 7: 05/15/23 14:30 05/15/23 14:30 Labs: Abnormal Lab Results - Last 24 Hours (Table) 05/15/23 05/15/23 05/15/23 Range/Units 14:30 14:30 14:30 WBC 14.4 H (3.8-10.6) k/uL RDW 16.1 H (11.5-15.5) % Neutrophils # 13.4 H (1.3-7.7) k/uL Lymphocytes # 0.5 L (1.0-4.8) k/uL APTT 21.0 L (22.0-30.0) sec Sodium 134 L (137-145) mmol/L Chloride 97 L (98-107) mmol/L BUN 27 H (7-17) mg/dL Creatinine 2.62 H (0.52-1.04) mg/dL Glucose 186 H (74-99) mg/dL Troponin I (0.000-0.034) ng/mL Total Protein 5.8 L (6.3-8.2) g/dL Albumin 2.9 L (3.5-5.0) g/dL 05/15/23 05/15/23 05/15/23 Range/Units 14:30 19:20 23:03 WBC (3.8-10.6) k/uL RDW (11.5-15.5) % Neutrophils # (1.3-7.7) k/uL Lymphocytes # (1.0-4.8) k/uL APTT (22.0-30.0) sec Sodium (137-145) mmol/L Chloride (98-107) mmol/L BUN (7-17) mg/dL Creatinine (0.52-1.04) mg/dL Glucose (74-99) mg/dL Troponin I 0.068 H* 0.061 H* 0.059 H* (0.000-0.034) ng/mL Total Protein (6.3-8.2) g/dL Albumin (3.5-5.0) g/dL Assessment and Plan Assessment: 87-year-old female end-stage renal disease on hemodialysis Thursday, systolic CHF with left ventricular ejection fraction 3035 percent coming in upon recommendation of her missile facilities repairer for further workup and medication adjustment due to fluid overload I discussed case with the romy hoffman ccepted the admission for acute CHF exacerbation with fluid overload with anticipated length of stay more than 2 midnights acute CHF exacerbation with fluid overload Left ventricular ejection fraction 3035 percent on echocardiogram done 3 weeks ago Chest x-ray showed bilateral pleural effusion Continue metoprolol Cardiology consult Troponin flat, chronically elevated with history of interstitial renal disease TSH 1.4 ProBNP elevated 34514 Daily weights Fluid restriction 2 L per day Continue statin End-stage renal disease on hemodialysis Continue with Thursday hemodialysis per nephrology recommendations Nephrology consultation Continue sevelamer Blood work overall stable and unremarkable sodium 134 potassium 4.1 BUN 27 creatinine 2.6 White count 14.4 in: 11.7 Afebrile No identifiable focus of infection Full code DVT prophylaxis heparin subcu 3 times a day Fall precautions
[2023-05-16] MEDS: SEVELAMER 800 MG TAB PO SCH ×3 (08:00→17:25)
[2023-05-16] MEDS: HEPARIN SODIUM,PORCINE 5,000 UNIT/ML 1 ML VIAL SQ SCH ×3 (08:00→23:09)
[2023-05-16] MEDS: ATORVASTATIN 20 MG TAB PO SCH (08:07)
[2023-05-16] MEDS: METOPROLOL SUCCINATE (ER) 25 MG TAB.ER.24H PO SCH (08:08)
[2023-05-16] MEDS ORDERED: FUROSEMIDE 10 MG/ML 2 ML VIAL IV SCH (08:15)
[2023-05-16 09:55] LABS: Chol/HDL Ratio 1.86 Ratio; LDL Cholesterol,Calculated 34.1 mg/dL (0.0-131.0)
[2023-05-16] MEDS: ASPIRIN 81 MG PO SCH (10:00)
--- NOTE | 2023-05-16 10:04 | P.PN ---
Subjective Progress Note Date: 05/16/23 Hospital course: Patient is a very pleasant 87-year-old female with a past medical history of ESRD on hemodialysis Thursday/Thursday/Fridays, systolic heart failure with EF of 30-35%, hypertension, hyperlipidemia, hypothyroidism, and rheumatoid arthritis. She presented to the emergency department on 05/15/23 was instructed by her wood boring machine operator secondary to concerns of fluid volume overload. Patient recently underwent a hospitalization from 05/07/23 through 05/12/23 secondary to acute hypoxic respiratory failure in which patient underwent dialysis and was discharged home on continuous home oxygen. Per documentation in chart at follow-up appointment with wood boring machine operator wood boring machine operator felt patient to again be in fluid volume overload with need for hospitalization and IV diuresis. Patient was sent to our facility for admission and further workup of CHF. Labs completed and reviewed. CBC showing mild leukocytosis with WBC count of 14.4. Coagulation profile showing low PTT of 21.0 otherwise normal findings. BMP showing mild hyponatremia with sodium 134 hypochloremia with chloride of 97 and renal function consistent with patient's known ESRD with BUN of 27, creatinine 2.62, and GFR 16. Blood glucose was 186. Magnesium was normal findings at 2.0. Liver profile unremarkable. Troponin elevated at 0.068 with proBNP is 74,300. Troponins are chronically elevated dating back to 2020 secondary to ESRD. EKG was completed showing normal sinus rhythm at 86 bpm with a right bundle branch block upon personal review and interpretation. Chest x-ray completed revealing bilateral pleural effusions. Patient admitted under our services with consultation to cardiology and nephrology. Troponins trended overnight resulting at 0.068, 0.061, and 0.059. Physical exam: Patient seen and fully evaluated at bedside this morning. She was sitting up in chair and reports continued fatigue and exertional dyspnea. Patient denies dizziness, lightheadedness, chest pain, palpitations, nausea, vomiting, or experiencing any numbness/tingling/weakness in her extremities. She is curre ntly on 2 L O2 via nasal cannula. Vital signs reviewed and stable. General: Nontoxic, no distress and appears stated age. Derm: Skin warm and dry, normal coloration for ethnicity. Head: Atraumatic, normocephalic and symmetric. Eyes: EOMs intact, no lid lag, and anicteric sclera Mouth: no lip lesions, mucus membranes moist Cardiovascular: regular rate and rhythm with normal S1S2, systolic murmur, positive posterior tibial pulses bilaterally, and cap refill < [address] AV fistula LUE bruit and thrill present Lungs: Respirations even, regular, and unlabored.. Lungs diminished, no rhonch i, no rales, no wheezing, and no accessory muscle usage. Abdominal: soft, nontender to palpation, no guarding, no appreciable organomegaly Ext: No gross muscle atrophy, 2+ pitting BLE edema, no contractures, Movement and sensation intact Neuro: Speech clear, face symmetrical and CN II-XII grossly intact with no noted focal neuro deficits Psych: Alert and oriented to person, place, time, and situation. Appropriate and pleasant affect. Assessment and Plan of Care: Fluid volume overload secondary to HFrEF and ESRD HFrEF ESRD on hemodialysis Elevated troponins, chronically elevated secondary to ESRD and chronic systolic heart failure Hypertension Hyperlipidemia Hypothyroidism Rheumatoid arthritis -Cardiology consulted for evaluation of worsening heart failure and reduced EF -Nephrology consultation for management of hemodialysis -Telemetry monitoring -Trend troponins -ProBNP -Daily weights -Close monitoring of I's and O's -Renal diet with 2L fluid restriction -Lasix 20 mg IVP q 8 hours -Patient to continue daily medication regimen with atorvastatin 20 mg daily, metoprolol 25 mg daily, sevelamer 800 mg 3 times daily with meals , and placed on aspirin 81 mg daily. -Continued close monitoring of electrolytes while diuresing. Data and imaging reviewed: -Vitals reviewed and stable. Blood pressure 113/59, heart rate 92, respiratory rate 18, temp 97.7F, and SpO2 of 98% on 2 L. -Troponins trended overnight resulting at 0.068, 0.061, and 0.059. CODE STATUS: Full code DVT prophylaxis: Heparin Anticipated discharge date: Clinical course to determine Anticipated discharge place: Clinical course to determine Patient was seen independently by Nurse Pracitioner. This document was prepared using [employer] dictation software. Please allow for errors in home health provider, while rare they do occur. Objective - Vital Signs Vital signs: Vital Signs Temp 97.7 F 05/16/23 08:04 Pulse 94 05/16/23 08:04 Resp 20 05/16/23 08:04 BP 119/62 05/16/23 08:04 Pulse Ox 96 05/16/23 08:04 FiO2 Intake & Output 12/01/23 12/02/23 12/02/23 18:59 06:59 18:59 Weight 63.503 kg - Labs CBC & Chem 7: 05/15/23 14:30 05/15/23 14:30 Labs: Abnormal Lab Results - Last 24 Hours (Table) 05/15/23 05/15/23 05/15/23 Range/Units 14:30 14:30 14:30 WBC 14.4 H (3.8-10.6) k/uL RDW 16.1 H (11.5-15.5) % Neutrophils # 13.4 H (1.3-7.7) k/uL Lymphocytes # 0.5 L (1.0-4.8) k/uL APTT 21.0 L (22.0-30.0) sec Sodium 134 L (137-145) mmol/L Chloride 97 L (98-107) mmol/L BUN 27 H (7-17) mg/dL Creatinine 2.62 H (0.52-1.04) mg/dL Glucose 186 H (74-99) mg/dL Troponin I (0.000-0.034) ng/mL Total Protein 5.8 L (6.3-8.2) g/dL Albumin 2.9 L (3.5-5.0) g/dL 05/15/23 05/15/23 05/15/23 Range/Units 14:30 19:20 23:03 WBC (3.8-10.6) k/uL RDW (11.5-15.5) % Neutrophils # (1.3-7.7) k/uL Lymphocytes # (1.0-4.8) k/uL APTT (22.0-30.0) sec Sodium (137-145) mmol/L Chloride (98-107) mmol/L BUN (7-17) mg/dL Creatinine (0.52-1.04) mg/dL Glucose (74-99) mg/dL Troponin I 0.068 H* 0.061 H* 0.059 H* (0.000-0.034) ng/mL Total Protein (6.3-8.2) g/dL Albumin (3.5-5.0) g/dL
--- NOTE | 2023-05-16 11:27 | P.NPCON ---
History of Present Illness - Reason for Consult end stage renal disease - History of Present Illness Patient is an 87-year-old female with history of end-stage renal disease on a Thursday schedule. She has underlying cardiomyopathy with EF of 30-35%. Patient is admitted to the hospital with complaints of increased weakness and was instructed by cardiology to go to the hospital for volume overload. Status post recent hospitalization from 05/07/2023 to 05/12/2023 for acute hypoxic respiratory failure and volume overload. No significant complaints of shortness of breath Patient did have hemodialysis yesterday as outpatient. Total UF not available at this time. No complaints of fever chills nausea vomiting or abdominal pain. Maintained on 2 L oxygen via nasal cannula Review of Systems As per HPI Past Medical History Past Medical History: Cancer, Heart Failure, Hyperlipidemia, Hypertension, Renal Disease, Rheumatoid Arthritis (RA), Thyroid Disorder Additional Past Medical History / Comment(s): Gout, kidney damage from Rx - dialysis MWF, skin cancer, thyroid nodules. fisutla to left arm not able to be used at this time. History of Any Multi-Drug Resistant Organisms: None Reported Past Surgical History: Cholecystectomy, Hysterectomy Additional Past Surgical History / Comment(s): Bilateral cataract surgery, skin cancer excised from nose X2, fistula left arm, "artery in left arm cleaned out.". mediport to rt chest,10/2022 has since plugged up. Past Anesthesia/Blood Transfusion Reactions: No Reported Reaction Past Psychological History: No Psychological Hx Reported Smoking Status: Never smoker Past Alcohol Use History: None Reported Past Drug Use History: None Reported - Past Family History Father Family Medical History: Unable to Obtain, Myocardial Infarction ([place]) Additional Family Medical History / Comment(s): Pt can't remember medical hx. Mother Family Medical History: Unable to Obtain, Myocardial Infarction ([place]) Additional Family Medical History / Comment(s): Pt can't remember medical hx. Medications and Allergies Home Medications Medication Instructions Recorded Confirmed Type Simvastatin [Zocor] 20 mg PO HS 04/04/14 05/15/23 History allopurinoL [Zyloprim] 100 mg PO TID 06/05/20 05/15/23 History Sevelamer [Renvela] 800 mg PO AC-TID 07/26/21 05/15/23 History Midodrine [ProAmatine] 5 - 10 mg PO MOWEFR 04/23/23 05/15/23 History Atorvastatin [Lipitor] 20 mg PO DIRECTED 05/15/23 05/15/23 History Metoprolol Succinate (ER) [Toprol 25 mg PO DIRECTED 05/15/23 05/15/23 History Xl] methylPREDNISolone [Medrol Dose See Taper PO DIRECTED 05/15/23 05/15/23 History Pack] Allergies Allergy/AdvReac Type Severity Reaction Status Date / Time No Known Allergies Allergy Verified 05/07/23 20:13 Physical Exam Vitals: Vital Signs Temp Pulse Resp BP Pulse Ox 05/16/23 10:01 97.8 F 86 18 127/65 8 L 05/16/23 09:10 84 19 118/49 98 05/16/23 08:40 92 18 113/59 98 05/16/23 08:04 97.7 F 94 20 119/62 96 05/16/23 06:13 87 18 129/60 99 05/16/23 05:00 87 22 125/61 97 05/16/23 04:00 96 14 123/69 97 05/16/23 03:22 93 19 123/69 98 05/16/23 03:00 96 13 107/65 98 05/16/23 02:00 96 14 86/64 98 05/16/23 01:00 111 H 16 88/64 97 05/16/23 00:00 134/98 05/15/23 23:07 96 18 94 L 05/15/23 23:00 98 12 139/68 05/15/23 22:00 95 19 123/78 90 L 05/15/23 21:52 25 H 05/15/23 18:04 88 20 140/68 98 05/15/23 14:12 97.9 F 90 16 143/63 98 Patient is awake, comfortable, no acute distress Examination of the heart S1 and S2 Examination of the lungs bilateral breath sounds are heard Abdomen is soft nontender Examination of lower extremity shows trace edema bilaterally BARREL INSPECTOR exam grossly intact Results - Lab Results Most recent lab results Calcium 8.4 mg/dL (8.4-10.2) 05/15/23 14:30 Phosphorus 3.1 mg/dL (2.5-4.5) 05/15/23 14:30 Magnesium 2.0 mg/dL (1.6-2.3) 05/15/23 14:30 05/15/23 14:30 05/15/23 14:30 Assessment and Plan Assessment: 1. End-stage renal disease on hemodialysis on a Thursday schedlaura hubbard 2. Volume overload with recent hospitalization for the same. Patient will be scheduled for an extra treatment of hemodialysis today 3. CK D mineral bone disorder 4. Cardiomyopathy with reduced EF of 30-35% Plan: Hemodialysis today as an extra treatment. Increase UF as tolerated Increase dose of Lasix continue with Rubina Thank you for the consultation. We will continue to follow the patient with you during her hospitalization.
--- NOTE | 2023-05-16 15:03 | P.CRDCN ---
History of Present Illness Consult date: 05/16/23 History of present illness: HISTORY OF PRESENTING ILLNESS 87-year-old female with history of end-stage renal disease on hemodialysis, rheumatoid arthritis, on hemodialysis for last 3 years, congestive heart failure with EF 30-35% she was recently hospitalized when her echo cardiogram showed a finding of EF of 30-35% which is a new finding for her. She saw me for the first time in the clinic this week on Thursday. On that visit be scheduled for heart catheterization for . On Thursday patient was noticed by her family that she is more fatigued and has worsening swelling of her bilateral lower extremity. Due to this she was brought to the hospital. Patient received hemodialysis yesterday. Her symptoms of fatigue were mostly after the hemodialysis. On my evaluation today she does have 2-3+ pitting edema in bilateral lower extremity and left upper extremity. This is somewhat chronic for her. Does report that she makes some urine but for last few weeks she has had very low urine output. When she was admitted last in the hospital a few weeks ago for a mechanical fall at the time of discharge her Lasix was discontinued and this could be related to that. Her chest x-ray does not show any signs of pulmonary congestion. Her ECG shows sinus rhythm with right bundle branch block and first-degree AV block. WBC 14, hemoglobin 11.7, creatinine 2.9, troponin is flat at 0.06, BNP 74,000 REVIEW OF SYSTEMS 14 point review of system is negative except what is mentioned above in HPI. PHYSICAL EXAMINATION Vital signs reviewed. Head: Normocephalic. Eyes: Sclerae nonicteric. Neck: Brisk carotid upstroke, no jugular venous distention. Lungs: Clear to auscultation. Heart: Regular rate and rhythm, S1-S2, no S3, no murmur or rub. Abdomen: Soft nontender, positive bowel sounds no organomegaly. Extremities: 2+ pitting edema in bilateral LE. 2+ pitting edema in left upper e xtremity. Neuro: Alert, oritented, no focal deficits ASSESSMENT Mildly volume overloaded because of discontinuation of Lasix on after prior hospitalization on discharge. ESRD for last 3 years on hemodialysis Thursday Rheumatoid arthritis Dilated cardiomyopathy with EF of 30-35% PLAN Continue aspirin 20 mg, atorvastatin 20 mg, metoprolol succinate 25 mg daily Agree with IV Lasix 60 mg every 8 hours today. Hemodialysis today Discharge after hemodialysis. Discharged on Lasix 80 mg by mouth daily Outpatient heart catheterization on Past Medical History Past Medical History: Cancer, Heart Failure, Hyperlipidemia, Hypertension, Renal Disease, Rheumatoid Arthritis (RA), Thyroid Disorder Additional Past Medical History / Comment(s): Gout, kidney damage from Rx - dialysis MWF, skin cancer, thyroid nodules. fisutla to left arm not able to be used at this time. History of Any Multi-Drug Resistant Organisms: None Reported Past Surgical History: Cholecystectomy, Hysterectomy Additional Past Surgical History / Comment(s): Bilateral cataract surgery, skin cancer excised from nose X2, fistula left arm, "artery in left arm cleaned out.". mediport to rt chest,10/2022 has since plugged up. Past Anesthesia/Blood Transfusion Reactions: No Reported Reaction Past Psychological History: No Psychological Hx Reported Smoking Status: Never smoker Past Alcohol Use History: None Reported Past Drug Use History: None Reported - Past Family History Father Family Medical History: Unable to Obtain, Myocardial Infarction ([place]) Additional Family Medical History / Comment(s): Pt can't remember medical hx. Mother Family Medical History: Unable to Obtain, Myocardial Infarction ([place]) Additional Family Medical History / Comment(s): Pt can't remember medical hx. Medications and Allergies Home Medications Medication Instructions Recorded Confirmed Type Simvastatin [Zocor] 20 mg PO HS 04/04/14 05/15/23 History allopurinoL [Zyloprim] 100 mg PO TID 06/05/20 05/15/23 History Sevelamer [Renvela] 800 mg PO AC-TID 07/26/21 05/15/23 History Midodrine [ProAmatine] 5 - 10 mg PO MOWEFR 04/23/23 05/15/23 History Atorvastatin [Lipitor] 20 mg PO DIRECTED 05/15/23 05/15/23 History Metoprolol Succinate (ER) [Toprol 25 mg PO DIRECTED 05/15/23 05/15/23 History Xl] methylPREDNISolone [Medrol Dose See Taper PO DIRECTED 05/15/23 05/15/23 History Pack] Allergies Allergy/AdvReac Type Severity Reaction Status Date / Time No Known Allergies Allergy Verified 05/07/23 20:13 Physical Exam Vitals: Vital Signs Temp Pulse Resp BP Pulse Ox 05/16/23 14:04 97.4 F L 86 17 119/54 96 05/16/23 13:06 82 19 104/57 98 05/16/23 12:04 97.6 F 80 16 125/60 99 05/16/23 11:30 97.6 F 85 17 121/60 99 05/16/23 10:01 97.8 F 86 18 127/65 98 05/16/23 09:10 84 19 118/49 98 05/16/23 08:40 92 18 113/59 98 05/16/23 08:04 97.7 F 94 20 119/62 96 05/16/23 06:13 87 18 129/60 99 05/16/23 05:00 87 22 125/61 97 05/16/23 04:00 96 14 123/69 97 05/16/23 03:22 93 19 123/69 98 05/16/23 03:00 96 13 107/65 98 05/16/23 02:00 96 14 86/64 98 05/16/23 01:00 111 H 16 88/64 97 05/16/23 00:00 134/98 05/15/23 23:07 96 18 94 L 05/15/23 23:00 98 12 139/68 05/15/23 22:00 95 19 123/78 90 L 05/15/23 21:52 25 H 05/15/23 18:04 88 20 140/68 98 Results 05/15/23 14:30 05/15/23 14:30 Cardiac Enzymes 05/15/23 05/15/23 05/15/23 Range/Units 14:30 14:30 19:20 AST 26 (14-36) U/L Troponin I 0.068 H* 0.061 H* (0.000-0.034) ng/mL 05/15/23 Range/Units 23:03 AST (14-36) U/L Troponin I 0.059 H* (0.000-0.034) ng/mL Coagulation 05/15/23 Range/Units 14:30 PT 11.4 (10.0-12.5) sec APTT 21.0 L (22.0-30.0) sec Lipids 05/15/23 Range/Units 09:58 Triglycerides 102.00 (0.00-149.00) mg/dL Cholesterol 118.00 (0.00-200.00) mg/dL HDL Cholesterol 63.50 H (40.00-60.00) mg/dL Cholesterol/HDL Ratio 1.86 Ratio Comprehensive Metabolic Panel 05/15/23 Range/Units 14:30 Sodium 134 L (137-145) mmol/L Potassium 4.1 (3.5-5.1) mmol/L Chloride 97 L (98-107) mmol/L Carbon Dioxide 27 (22-30) mmol/L BUN 27 H (7-17) mg/dL Creatinine 2.62 H (0.52-1.04) mg/dL Glucose 186 H (74-99) mg/dL Calcium 8.4 (8.4-10.2) mg/dL AST 26 (14-36) U/L ALT 16 (4-34) U/L Alkaline Phosphatase 111 (38-126) U/L Total Protein 5.8 L (6.3-8.2) g/dL Albumin 2.9 L (3.5-5.0) g/dL Current Medications Generic Name Dose Route Start Last Admin Trade Name Freq PRN Reason Stop Dose Admin Acetaminophen 650 mg 05/16/23 06:17 Acetaminophen Tab 325 Mg Tab PO Q6HR PRN Mild Pain or Fever > 100.5 Alprazolam 0.25 mg 05/16/23 06:17 Alprazolam 0.25 Mg Tab PO Q6HR PRN Anxiety Aspirin 81 mg 05/16/23 10:00 05/16/23 10:00 Aspirin 81 Mg PO 81 mg DAILY AGUSTINA Administration Atorvastatin Calcium 20 mg 05/16/23 09:00 05/16/23 08:07 Atorvastatin 20 Mg Tab PO 20 mg DAILY AGUSTINA Administration Furosemide 60 mg 05/16/23 16:00 Furosemide 10 Mg/Ml 10 Ml Vial IV Q8HR AGUSTINA Heparin Sodium (Porcine) 5,000 unit 05/16/23 08:00 05/16/23 08:00 Heparin Sodium,Porcine 5,000 Unit/Ml 1 Ml Vial SQ 5,000 unit Q8HR AGUSTINA Administration Metoprolol Succinate 25 mg 05/16/23 09:00 05/16/23 08:08 Metoprolol Succinate (Er) 25 Mg Tab.Er.24h PO 25 mg DAILY AGUSTINA Administration Naloxone HCl 0.2 mg 05/16/23 06:16 Naloxone 0.4 Mg/Ml 1 Ml Vial IV Q2M PRN Opioid Reversal Nitroglycerin 0.4 mg 05/15/23 19:07 Nitroglycerin Sl Tabs 0.4 Mg Tab SUBLINGUAL Q5M PRN Chest Pain Ondansetron HCl 4 mg 05/16/23 06:17 Ondansetron 4 Mg/2 Ml Vial IVP Q8HR PRN Nausea And Vomiting Sevelamer Carbonate 800 mg 05/16/23 07:30 05/16/23 11:52 Sevelamer 800 Mg Tab PO 800 mg AC-TID AGUSTINA Administration Sodium Chloride 10 ml 05/15/23 21:00 05/16/23 08:09 Sodium Chloride 0.9% Flush 10 Ml Syringe IV Not Given BID AGUSTINA 05/15/23 14:30 05/15/23 14:30
[2023-05-16] MEDS: FUROSEMIDE 10 MG/ML 10 ML VIAL IV SCH ×2 (15:29→23:07)
[2023-05-17] MEDS: SEVELAMER 800 MG TAB PO SCH (06:39)
[2023-05-17] MEDS: FUROSEMIDE 10 MG/ML 10 ML VIAL IV SCH (07:41)
[2023-05-17] MEDS: METOPROLOL SUCCINATE (ER) 25 MG TAB.ER.24H PO SCH (07:41)
[2023-05-17] MEDS: ATORVASTATIN 20 MG TAB PO SCH (07:41)
[2023-05-17] MEDS: ASPIRIN 81 MG PO SCH (07:41)
[2023-05-17] MEDS: HEPARIN SODIUM,PORCINE 5,000 UNIT/ML 1 ML VIAL SQ SCH (07:41)
[2023-05-17 07:57] VITALS: RESP 20; TEMP 98.9
--- NOTE | 2023-05-17 10:11 | P.DS ---
Providers Date of admission: 05/15/23 19:09 Expected date of discharge: 05/17/23 Attending physician: Ciro Ladd MD Consults: 05/15/23 19:07 Consult Physician Routine Consulting Provider: Rigoberto Rae Consult Reason/Comments: CHF patient Do you want consulting provider notified?: Already Contacted 05/16/23 08:09 Consult Physician Routine Consulting Provider: Migue Yan Consult Reason/Comments: ESRD on dialysis Do you want consulting provider notified?: Yes Primary care physician: Tereza Webster MD Hospital Course: Discharge Diagnosis: Fluid volume overload secondary to HFrEF and ESRD. Patient discharged home with [facility], CHF navigator program, and referral was sent for palliative care to be set up outpatient. HFrEF. Patient was evaluated by assistant commissioner. Cardiology recommending patient resume Lasix 80 mg daily and follow-up outpatient in his office this week and for scheduled cardiac catheterization. ESRD on hemodialysis. Patient underwent an additional dialysis treatment and has been restarted on Lasix 80 mg daily. Patient to follow-up with dialysis as scheduled Thursday/Thursday/Fridays. Elevated troponins, chronically elevated secondary to ESRD and chronic systolic heart failure. Hypertension Hyperlipidemia Hypothyroidism Rheumatoid arthritis Hospital Course: Patient is a very pleasant 87-year-old female with a past medical history of ESRD on hemodialysis Thursday/Thursday/Fridays, systolic heart failure with EF of 30-35%, hypertension, hyperlipidemia, hypothyroidism, and rheumatoid arthritis. She presented to the emergency department on 05/15/23 was instructed by her assistant commissioner secondary to concerns of fluid volume overload. Patient recently underwent a hospitalization from 05/07/23 through 05/12/23 secondary to acute hypoxic respiratory failure in which patient underwent dialysis and was discharged home on continuous home oxygen. Per documentation in chart at follow-up appointment with assistant commissioner assistant commissioner felt patient to again be in fluid volume overload with need for hospitalization and IV diuresis. Patient was sent to our facility for admission and further workup of CHF. Labs completed and reviewed. CBC showing mild leukocytosis with WBC count of 14.4. Coagulation profile showing low PTT of 21.0 otherwise normal findings. BMP showing mild hyponatremia with sodium 134 hypochloremia with chloride of 97 and renal function consistent with patient's known ESRD with BUN of 27, creatinine 2.62, and GFR 16. Blood glucose was 186. Magnesium was normal findings at 2.0. Liver profile unremarkable. Troponin elevated at 0.068 with proBNP is 74,300. Troponins are chronically elevated dating back to 2020 secondary to ESRD. EKG was completed showing normal sinus rhythm at 86 bpm with a right bundle branch block upon personal review and interpretation. Chest x-ray completed revealing bilateral pleural effusions. Patient admitted under our services with consultation to cardiology and nephrology. Troponins trended overnight resulting at 0.068, 0.061, and 0.059. Nephrology evaluated and scheduled for patient to receive an additional dialysis session secondary to fluid overload. Cardiology evaluated recommending patient resume Lasix 80 mg daily and follow-up outpatient in his office this week and for scheduled cardiac catheterization. Medically, patient is stable for discharge at this time. Had long discussion with patient and patient's son regarding fluid overload and jama gement course. Patient being discharged home with [facility] as well as palliative home care. They're being set up to help patient managed these chronic issues and identify early signs of fluid overload to prevent recurrent exacerbations. Physical exam: Vital signs reviewed and stable. General: Nontoxic, no distress and appears stated age. Derm: Skin warm and dry, normal coloration for ethnicity. Head: Atraumatic, normocephalic and symmetric. Eyes: EOMs intact, no lid lag, and anicteric sclera Mouth: no lip lesions, mucus membranes moist Cardiovascular: regular rate and rhythm with normal S1S2, systolic murmur, positive posterior tibial pulses bilaterally, and cap refill < 2 seconds. AV fistula LUE bruit and thrill present Lungs: Respirations even, regular, and unlabored.. Lungs diminished, no rhonchi, no rales, no wheezing, and no accessory muscle usage. Abdominal: soft, nontender to palpation, no guarding, no appreciable o rganomegaly Ext: No gross muscle atrophy, 1+ pitting BLE edema, no contractures, Movement and sensation intact Neuro: Speech clear, face symmetrical and CN II-XII grossly intact with no noted focal neuro deficits Psych: Alert and oriented to person, place, time, and situation. Appropriate and pleasant affect. A total of 39 minutes of time were spent preparing this complex discharge summary. Pt was discharged on 05/17/23 at 9:58 AM. Patient was seen independently by Nurse Practitioner. This document was prepared using bTendo dictation software. Please allow for errors in dynamiter while rare they do occur. Patient Condition at Discharge: Stable Plan - Discharge Summary Discharge Rx Participant: No New Discharge Prescriptions: New Furosemide [Lasix] 80 mg PO DAILY 90 Days #90 tablet Continue Simvastatin [Zocor] 20 mg PO HS allopurinoL [Zyloprim] 100 mg PO TID Midodrine [ProAmatine] 5 - 10 mg PO MOWEFR Metoprolol Succinate (ER) [Toprol XL] 25 mg PO DIRECTED Sevelamer [Renvela] 800 mg PO AC-TID Atorvastatin [Lipitor] 20 mg PO DIRECTED Discontinued methylPREDNISolone [Medrol Dose Pack] See Taper PO DIRECTED Discharge Medication List Simvastatin [Zocor] 20 mg PO HS 04/04/14 [History] allopurinoL [Zyloprim] 100 mg PO TID 06/05/20 [History] Sevelamer [Renvela] 800 mg PO AC-TID 07/26/21 [History] Midodrine [ProAmatine] 5 - 10 mg PO MOWEFR 04/23/23 [History] Atorvastatin [Lipitor] 20 mg PO DIRECTED 05/15/23 [History] Metoprolol Succinate (ER) [Toprol XL] 25 mg PO DIRECTED 05/15/23 [History] Furosemide [Lasix] 80 mg PO DAILY 90 Days #90 tablet 05/17/23 [Rx] Follow up Appointment(s)/Referral(s): Rigoberto Rae MD [Medical Doctor] - 1 Week ([facility]; complete scheduled heart catheterization as discussed previously.) Gloria Neely MD [STAFF PHYSICIAN] - 1 Week ([facility]; office closed at this time. Please call on Thursday to schedule follow up appointment.) [facility], [NON-STAFF] - 1 Week (clinical applications manager will set this up on Thursday.) Tereza Webster MD [Primary Care Provider] - 1-2 days (Primary care; office closed at this time. Please call on Thursday to schedule follow up appointment.) Patient Instructions/Handouts: Heart Failure (DC) Activity/Diet/Wound Care/Special Instructions: Activity: As tolerated. Take breaks as needed. Diet: Heart healthy and carb consistent diet. Avoid salts, or foods with hidden salts such as canned or boxed foods and frozen dinners. Extra salt makes your heart work harder and traps the fluid in your body for longer. Special Instructions: Weigh yourself every morning after you urinate. If you gain 3 pounds overnight or more than 5 pounds in one week, call your [facility] (Dr. Rae) and Voice Over Announcer (Dr. Neely) for guidance on your medications or they may want to see you in their office. Keep a daily log of your weights and be sure to bring with you at follow up visits as well. You were given an extra dialysis session due to your fluid overload, it is important to return to hemodialysis schedule Mondays/Wednesdays/Fridays. It is also important to take all of your medications as directed, especially your water pill (Furosemide/Lasix). NEVER skip a dose. And remember to keep all of your doctor's appointments and follow-up as needed. Elevate your legs when you are not up moving around to help with circulation and prevent swelling. Compression stockings are also a great way to improve lower extremity circulation and prevent/improve lower extremity edema. Call your primary Voice Over Announcer and assistant commissioner if you notice any extra swelling in your legs, ankles, feet or abdomen, if you have a new dry cough, if your shortness of breath worsens with activity or at rest, or if you feel more fatigued. You are being discharged home with homecare nurse and Palliative care to help monitor you closely in the outpatient setting and identify any early signs of fluid overload to prevent further episodes of CHF exacerbation. Someone will be reaching out to you this week to set up arrangements for Palliative and Homecare!! Thank you for allowing us to participate in your care, it was truly a pleasure having you for our patient!!! Discharge Disposition: HOME WITH HOME HEALTH SERVICES
[2023-05-17 11:18] VITALS: BP 116/56; PULSE 89
--- NOTE | 2023-05-17 11:23 | P.PN ---
Subjective Patient is seen for follow-up for end-stage renal disease. Status post hemodialysis yesterday with UF of 2.6 L. Patient is also maintained on IV Lasix and has had good diuresis. No complaints of shortness of breath today Lower extremity edema much improved. Objective - Vital Signs Vital signs: Vital Signs Temp 98.9 F 05/17/23 07:44 Pulse 89 05/17/23 11:00 Resp 20 05/17/23 11:00 BP 116/56 05/17/23 11:00 Pulse Ox 95 05/17/23 11:00 FiO2 Intake & Output 05/16/23 05/17/23 05/17/23 18:59 06:59 18:59 Intake Total 0 400 Output Total 2600 Balance 0 -2200 Weight 63.503 kg 58.2 kg Intake: Oral 0 Hemodialysis 400 Output: Hemodialysis 2600 Other: Voiding Method Toilet Toilet # Voids 2 1 - Exam Patient is awake, comfortable, no acute distress Examination of the heart S1 and S2 Examination of the lungs bilateral breath sounds are heard Abdomen is soft nontender Examination of lower extremity shows trace edema bilaterally BELL MAKER exam grossly intact - Labs CBC & Chem 7: 05/15/23 14:30 05/15/23 14:30 Assessment and Plan Assessment: 1. End-stage renal disease on hemodialysis on a Thursday schedule 2. Volume overload with recent hospitalization for the same. Status post extra treatment and UF of 2.6 L yesterday 3. CK D mineral bone disorder 4. Cardiomyopathy with reduced EF of 30-35% Plan: Patient can be discharged from nephrology standpoint. Follow-up for hemodialysis tomorrow as outpatient. Continue with oral Lasix upon discharge
[2023-05-17 11:58] LABS: Anisocytosis Slight; HCT 35.9 % (34.0-46.0); HGB 11.4 gm/dL (11.4-16.0); Hypochromasia Slight; MCH 30.5 pg (25.0-35.0); MCHC 31.7 g/dL (31.0-37.0); MCV 96.1 fL (80.0-100.0); Mean Platelet Volume 7.2; Platelet Count 303 k/uL (150-450); RBC 3.74 m/uL (3.80-5.40); RDW 16.1 % (11.5-15.5); WBC 8.8 k/uL (3.8-10.6)
[2023-05-17 12:38] LABS: ALT 13 U/L (4-34); AST 18 U/L (14-36); African American GFR (CKD) 14 (>60 ml/min/1.73 sqM); Albumin 2.6 g/dL (3.5-5.0); Alkaline Phosphatase 105 U/L (38-126); Anion Gap 10 mmol/L; Blood Urea Nitrogen 32 mg/dL (7-17); Calcium 8.1 mg/dL (8.4-10.2); Carbon Dioxide 25 mmol/L (22-30); Chloride 98 mmol/L (98-107); Glucose 147 mg/dL (74-99); Magnesium 1.9 mg/dL (1.6-2.3); Non-African American GFR(CKD) 12 (>60 ml/min/1.73 sqM); Potassium 3.7 mmol/L (3.5-5.1); Sodium 133 mmol/L (137-145); Total Bilirubin 0.7 mg/dL (0.2-1.3); Total Protein 5.3 g/dL (6.3-8.2)
== END 2023-05-17 12:17 | disposition home health service (06) ==
LOC: EC 14:02 → 3SCARD 19:09
PROVIDERS: ADMIT Internal Medicine; ATTEND Internal Medicine
DX: I13.2 Hypertensive heart and chronic kidney disease with heart failure and with stage 5 chronic kidney disease, or end stage renal disease (principal); I50.22 Chronic systolic (congestive) heart failure; N18.6 End stage renal disease; E87.1 Hypo-osmolality and hyponatremia; E87.8 Other disorders of electrolyte and fluid balance, not elsewhere classified; I42.0 Dilated cardiomyopathy; I45.2 Bifascicular block; I44.0 Atrioventricular block, first degree; E03.9 Hypothyroidism, unspecified; D72.829 Elevated white blood cell count, unspecified; E78.5 Hyperlipidemia, unspecified; M89.8X9 Other specified disorders of bone, unspecified site; M06.9 Rheumatoid arthritis, unspecified; M10.9 Gout, unspecified; Z99.81 Dependence on supplemental oxygen; Z99.2 Dependence on renal dialysis; Z79.899 Other long term (current) drug therapy; Z85.828 Personal history of other malignant neoplasm of skin; Z90.49 Acquired absence of other specified parts of digestive tract; Z90.710 Acquired absence of both cervix and uterus; Z98.42 Cataract extraction status, left eye; Z98.41 Cataract extraction status, right eye; Z98.890 Other specified postprocedural states; Z82.49 Family history of ischemic heart disease and other diseases of the circulatory system
CPT/HCPCS: 96376 ×3; 96372 ×3; 96374; 99285; 36415; 93005; 83880; 80061; 80053 ×2; 83735 ×2; 84100; 84443; 84484; 85025; 85027; 85610; 85730; 71046; G0257; G0378 ×3; J1644 ×2; J1940 ×3; 90935

== ENCOUNTER 2023-09-01 19:35 | Inpatient (IN) | payer MEDICARE ==
--- NOTE | 2023-09-01 21:07 | ED ---
General Adult HPI - General Chief complaint: Extremity Injury, Upper Stated complaint: ARM SWELLING Time Seen by Provider: 09/01/23 19:41 Source: patient, EMS, RN notes reviewed, old records reviewed Mode of arrival: EMS Limitations: no limitations - History of Present Illness Initial comments: This is an 88-year-old female who is brought into the emergency department by EMS from [facility]. They Zakia called prior to arrival telling me that she has a blood clot in her left cephalic and subclavian artery. Patient states she noted today that her left arm was getting swollen that is why she went to the hospital initially. Patient states this morning her and she been running around town when she noticed the swelling in her left arm. Patient does have a fistula therefore dialysis but when she went to [facility] she stated that they did an ultrasound and needed to transfer her here. Patient denies any difficulty breathing or shortness of breath. Patient Nuys any chest pain. Patient denies any abdominal pain patient has any fever or chills. - Related Data Home Medications Medication Instructions Recorded Confirmed Simvastatin [Zocor] 20 mg PO HS 04/04/14 05/15/23 allopurinoL [Zyloprim] 100 mg PO TID 06/05/20 05/15/23 Sevelamer [Renvela] 800 mg PO AC-TID 07/26/21 05/15/23 Midodrine [ProAmatine] 5 - 10 mg PO MOWEFR 04/23/23 05/15/23 Atorvastatin [Lipitor] 20 mg PO DIRECTED 05/15/23 05/15/23 Metoprolol Succinate (ER) [Toprol 25 mg PO DIRECTED 05/15/23 05/15/23 XL] Previous Rx's Medication Instructions Recorded Furosemide [Lasix] 80 mg PO DAILY 90 Days #90 tablet 05/17/23 Allergies Allergy/AdvReac Type Severity Reaction Status Date / Time No Known Allergies Allergy Verified 05/07/23 20:13 Review of Systems ROS Statement: Those systems with pertinent positive or pertinent negative responses have been documented in the HPI. ROS Other: All systems not noted in ROS Statement are negative. Past Medical History Past Medical History: Cancer, Heart Failure, Hyperlipidemia, Hypertension, Renal Disease, Rheumatoid Arthritis (RA), Thyroid Disorder Additional Past Medical History / Comment(s): Gout, kidney damage from Rx - dialysis MWF, skin cancer, thyroid nodules. fisutla to left arm not able to be used at this time. History of Any Multi-Drug Resistant Organisms: None Reported Past Surgical History: Cholecystectomy, Hysterectomy Additional Past Surgical History / Comment(s): Bilateral cataract surgery, skin cancer excised from nose X2, fistula left arm, "artery in left arm cleaned out.". mediport to rt chest,10/2022 has since plugged up. Past Anesthesia/Blood Transfusion Reactions: No Reported Reaction Past Psychological History: No Psychological Hx Reported Smoking Status: Never smoker Past Alcohol Use History: None Reported Past Drug Use History: None Reported - Past Family History Father Family Medical History: Unable to Obtain, Myocardial Infarction ([place]) Additional Family Medical History / Comment(s): Pt can't remember medical hx. Mother Family Medical History: Unable to Obtain, Myocardial Infarction ([place]) Additional Family Medical History / Comment(s): Pt can't remember medical hx. General Exam - General Exam Comments Initial Comments: GENERAL: Patient is well-developed and well-nourished. Patient is nontoxic and well- hydrated and is in no acute distress. ENT: Neck is soft and supple. No significant lymphadenopathy is noted. Oropharynx is clear. Moist mucous membranes. Neck has full range of motion without eliciting any pain. EYES: The sclera were anicteric and conjunctiva were pink and moist. Extraocular movements were intact and pupils were equal round and reactive to light. Eyelids were unremarkable. PULMONARY: Unlabored respirations. Good breath sounds bilaterally. No audible rales rhonchi or wheezing was noted. CARDIOVASCULAR: There is a regular rate and rhythm without any murmurs gallops or rubs. ABDOMEN: Soft and nontender with normal bowel sounds. SKIN: Skin is clear with no lesions or rashes and otherwise unremarkable. NEUROLOGIC: Patient is alert and oriented x3. Cranial nerves II through XII are grossly intact. Motor and sensory are also intact. Normal speech, volume and content. Symmetrical smile. MUSCULOSKELETAL: Left arm was swollen. Fistula has a thrill. LYMPHATICS: No significant lymphadenopathy is noted PSYCHIATRIC: Normal psychiatric evaluation. Limitations: no limitations Course Vital Signs 09/01/23 09/01/23 19:39 20:25 Temperature 97.6 F Pulse Rate 75 66 Respiratory 18 18 Rate Blood Pressure 154/64 152/68 O2 Sat by Pulse 100 100 Oximetry Medical Decision Making - Medical Decision Making EKG is interpreted by myself but EKG shows a sinus rhythm at 72 bpm parables 230 QRS is 153 QT interval is 468 QTc is 492. Patient's EKG shows no ST segment ovation Was pt. sent in by a medical professional or institution (GERA [place], TRACK REPAIRER, urgent care, hospital, or snf...) When possible be specific @ -[facility] sent the patient to us Did you speak to anyone other than the patient for history (EMS, parent, family, police, friend...)? What history was obtained from this source @ -I spoke with the emergency department doctor and he stated that she had a blood clot in her cephalic and subclavian artery. Did you review nursing and triage notes (agree or disagree)? Why? @ -I reviewed and agree with nursing and triage notes Were old charts reviewed (outside hosp., previous admission, EMS record, old EKG, old radiological studies, urgent care reports/EKG's, snf records)? Report findings @ -I reviewed prior charts and prior lab work Differential Diagnosis (chest pain, altered mental status, abdominal pain women, abdominal pain men, vaginal bleeding, weakness, fever, dyspnea, syncope, headache, dizziness, GI bleed, back pain, seizure, CVA, palpatations, mental health, musculoskeletal)? @ -DVT, cellulitis, edema, lymph edema, this is not an all-inclusive list EKG interpreted by me (3pts min.). @ -As above X-rays interpreted by me (1pt min.). @ -None done CT interpreted by me (1pt min.). @ -None done U/S interpreted by me (1pt. min.). @ -None done What testing was considered but not performed or refused? (CT, X-rays, U/S, labs)? Why? @ -None What meds were considered but not given or refused? Why? @ -None Did you discuss the management of the patient with other professionals (professionals i.e. GERA Kearney, TRACK REPAIRER, lab, RT, psych nurse, nursing home social worker, restaurant host, teacher, sba business development officer, catalytic case operator)? Give summary @ -I spoke with [facility] hospitalist and they agreed to admit the patient admit the patient wrote admitting orders Was smoking cessation discussed for >3mins.? @ -No Was critical care preformed (if so, how long)? @ -No Were there social determinants of health that impacted care today? How? (Homelessness, low income, unemployed, alcoholism, drug addiction, transportation, low edu. Level, literacy, decrease access to med. care, longterm, rehab)? @ -No Was there de-escalation of care discussed even if they declined (Discuss DNR or withdrawal of care, Hospice)? DNR status @ -No What co-morbidities impacted this encounter? (DM, HTN, Smoking, COPD, CAD, Cancer, CVA, ARF, Chemo, Hep., AIDS, mental health diagnosis, sleep apnea, morbid obesity)? @ -None Was patient admitted / discharged? Hospital course, mention meds given and route, prescriptions, significant lab abnormalities, going to OR and other pertinent info. @ -Patient was already on heparin when she arrived we continue the heparin. I spoke with [facility] hospitalist they agreed admit the patient admit the patient wrote admitting orders and I consulted vascular surgery Undiagnosed new problem with uncertain prognosis? @ -No Drug Therapy requiring intensive monitoring for toxicity (Heparin, Nitro, Insulin, Cardizem)? @ -No Were any procedures done? @ -No Diagnosis/symptom? @ -DVT subclavian Acute, or Chronic, or Acute on Chronic? @ -Acute Uncomplicated (without systemic symptoms) or Complicated (systemic symptoms)? @ -Complicated Side effects of treatment? @ -No Exacerbation, Progression, or Severe Exacerbation? @ -No Poses a threat to life or bodily function? How? (Chest pain, [place], [place], pneumonia, PE, COPD, DKA, ARF, appy, cholecystitis, CVA, Diverticulitis, Homicidal, Suicidal, threat to staff... and all critical care pts) @ -Yes this can lead to a pulmonary embolism and endorgan dysfunction Disposition Clinical Impression: Deep vein thrombosis (DVT) Disposition: ADMITTED IP TO THIS HOSP Referrals: Tereza Webster MD [Primary Care Provider] - 1-2 days Time of Disposition: 21:07
[2023-09-01] MEDS: HEPARIN SOD,PORK IN 0.45% NACL 25,000 UNIT in 0.45% NACL 1 250ML.BAG IV SCH (21:15)
[2023-09-01] MEDS: SODIUM CHLORIDE 0.9% 1,000 ML IV ONE (22:30)
[2023-09-02] MEDS: ACETAMINOPHEN TAB 325 MG TAB PO PRN (00:52)
[2023-09-02] MEDS: METOPROLOL TARTRATE 12.5 MG TAB PO SCH (00:52)
--- NOTE | 2023-09-02 12:06 | P.NPCON ---
History of Present Illness - Reason for Consult end stage renal disease - History of Present Illness Patient is an 88-year-old female with history of end-stage renal disease maintained on hemodialysis on Thursday schedule. Patient is admitted to the hospital with left arm swelling. This is her access arm. She was diagnosed with DVT. Details are not available as this was performed at [facility]. Patient is currently maintained on IV heparin. Vascular surgery is on consult. AV fistula has been cleared for use. No complaints of chest pain shortness of breath nausea vomiting. Review of Systems As per HPI Past Medical History Past Medical History: Cancer, Heart Failure, Deep Vein Thrombosis (DVT), Hyperlipidemia, Hypertension, Renal Disease, Rheumatoid Arthritis (RA), Thyroid Disorder Additional Past Medical History / Comment(s): Gout, kidney damage from Rx - dialysis MWF, skin cancer, thyroid nodules. fisutla to left arm History of Any Multi-Drug Resistant Organisms: None Reported Past Surgical History: Cholecystectomy, Hysterectomy Additional Past Surgical History / Comment(s): Bilateral cataract surgery, skin cancer excised from nose X2, fistula left arm, "artery in left arm cleaned out.". mediport to rt chest,10/2022 has since plugged up. Past Anesthesia/Blood Transfusion Reactions: No Reported Reaction Past Psychological History: No Psychological Hx Reported Smoking Status: Never smoker Past Alcohol Use History: None Reported Past Drug Use History: None Reported - Past Family History Father Family Medical History: Unable to Obtain, Myocardial Infarction ([place]) Additional Family Medical History / Comment(s): Pt can't remember medical hx. Mother Family Medical History: Unable to Obtain, Myocardial Infarction ([place]) Additional Family Medical History / Comment(s): Pt can't remember medical hx. Medications and Allergies Home Medications Medication Instructions Recorded Confirmed Type allopurinoL [Zyloprim] 100 mg PO BID 06/05/20 09/01/23 History Midodrine [ProAmatine] 5 mg PO MOWEFR 04/23/23 09/01/23 History Acetaminophen Tab [Tylenol] 650 mg PO Q6H PRN 09/01/23 09/01/23 History Aspirin EC [Ecotrin Low Dose] 81 mg PO DAILY 09/01/23 09/01/23 History Atorvastatin [Lipitor] 20 mg PO HS 09/01/23 09/01/23 History Metoprolol Tartrate [Lopressor] 12.5 mg PO BID 09/01/23 09/01/23 History Psyllium Husk (with Sugar) 3.4 gm PO DAILY 09/01/23 09/01/23 History [Metamucil Powder] Vit B Comp No.3/Folic/C/Biotin 1 tab PO DAILY 09/01/23 09/01/23 History [Brittany-Bianca Rx Tablet] Allergies Allergy/AdvReac Type Severity Reaction Status Date / Time No Known Allergies Allergy Verified 09/01/23 21:36 Physical Exam Vitals: Vital Signs Temp Pulse Pulse Resp BP BP Pulse Ox 09/02/23 07:40 97.9 F 71 16 168/80 96 09/02/23 00:49 98.3 F 70 15 169/70 99 09/02/23 00:14 98 F 77 18 166/72 97 09/01/23 20:25 66 18 152/68 100 09/01/23 19:39 97.6 F 75 18 154/64 100 Intake and Output 09/01/23 09/02/23 09/02/23 22:59 06:59 14:59 Intake Total 49.643 Balance 49.643 Intake: Intake, IV Titration 49.643 Amount Heparin Sod,Pork in 0.45% 49.643 NaCl 25,000 unit In 0.45 % NaCl 1 250ml.bag @ 18 UNITS/KG/HR 9.798 mls/hr IV .Q24H [facility] Rx#: [id number] Other: # Voids 0 Weight 54.431 kg 54.431 kg Patient is awake, comfortable not in any acute distress Examination of the heart S1 and S2 Examination the lungs bilateral breath sounds are heard Abdomen is soft nontender Examination of lower extremities shows no edema Left arm is edematous AV fistula is functional Assessment and Plan Assessment: 1. End-stage renal disease on hemodialysis on Thursday schedule 2. Left arm swelling with DVT in left arm currently maintained on heparin. Left arm AV fistula clear for use by vascular surgery 3. CK D mineral bone disorder 4. History of rheumatoid arthritis Plan: Hemodialysis today DC IV fluids Possible dialysis in a.m. as patient needs to go for her 's on Thursday.
[2023-09-02] MEDS: FOLIC ACID-VIT B COMPLEX-VIT C 1 CAP PO SCH (12:46)
--- NOTE | 2023-09-02 15:14 | US ---
EXAMINATION TYPE: US venous doppler duplex UE LT DATE OF EXAM: 09/02/2023 COMPARISON: NONE CLINICAL INDICATION: Female, 88 years old with history of left upper extremity swelling; Patient had left UEV ultrasound at [facility] yesterday - found cephalic thrombus. Patient also has AV fistula le ft upper extremity. SIDE PERFORMED: Left Left Arm: There appears to be thrombus within the left cephalic vein. AV fistula is noted and appears patent. Patient was actively getting dialysis. No appearance of DVT within the left upper extremity. Exam somewhat limited due to active dialysis with tape and tubing over left upper extremity. Dialysis anodic operator was present in room during exam - was unable to move equipment for better imaging. IMPRESSION: 1. No evidence of deep venous thrombosis. 2. Suspected partially occlusive clot within the left cephalic vein. 3. Patent AV fistula.
--- NOTE | 2023-09-02 15:35 | P.GSCN ---
History of Present Illness Consult date: 09/02/23 Reason for Consult: DVT Requesting physician: John Milan History of present illness: This a pleasant 88-year-old female known to vascular surgery and Dr. Delatorre with a history of end-stage renal disease requiring hemodialysis. Patient has a left upper extremity AV graft and has had chronic history of left upper extremity swelling as well as known cephalic vein thrombus. Apparently yesterday patient was having some what she called increased swelling to the left upper extremity and went to [facility]. She was seen and evaluated there and reportedly had a left upper extremity ultrasound that reported acute DVT in the cephalic vein according to our ER notes however there is no available report. Patient was started on IV heparin drip. Patient states she gets dialysis Thursday and is due today. She has had no difficulty with getting her dialysis. She denies any pain in her left upper extremity. Patient states her on Thursday, is planned for Thursday. She is denying any shortness of breath, chest pain, lower extremity swelling Review of Systems A 14 point review systems was completed all pertinent positives and negatives as stated in the HPI. Past Medical History Past Medical History: Cancer, Heart Failure, Deep Vein Thrombosis (DVT), Hyperlipidemia, Hypertension, Renal Disease, Rheumatoid Arthritis (RA), Thyroid Disorder Additional Past Medical History / Comment(s): Gout, kidney damage from Rx - dialysis MWF, skin cancer, thyroid nodules. fisutla to left arm History of Any Multi-Drug Resistant Organisms: None Reported Past Surgical History: Cholecystectomy, Hysterectomy Additional Past Surgical History / Comment(s): Bilateral cataract surgery, skin cancer excised from nose X2, fistula left arm, "artery in left arm cleaned out.". mediport to rt chest,10/2022 has since plugged up. Past Anesthesia/Blood Transfusion Reactions: No Reported Reaction Past Psychological History: No Psychological Hx Reported Smoking Status: Never smoker Past Alcohol Use History: None Reported Past Drug Use History: None Reported - Past Family History Father Family Medical History: Unable to Obtain, Myocardial Infarction ([place]) Additional Family Medical History / Comment(s): Pt can't remember medical hx. Mother Family Medical History: Unable to Obtain, Myocardial Infarction ([place]) Additional Family Medical History / Comment(s): Pt can't remember medical hx. Medications and Allergies Home Medications Medication Instructions Recorded Confirmed Type allopurinoL [Zyloprim] 100 mg PO BID 06/05/20 09/01/23 History Midodrine [ProAmatine] 5 mg PO MOWEFR 04/23/23 09/01/23 History Acetaminophen Tab [Tylenol] 650 mg PO Q6H PRN 09/01/23 09/01/23 History Aspirin EC [Ecotrin Low Dose] 81 mg PO DAILY 09/01/23 09/01/23 History Atorvastatin [Lipitor] 20 mg PO HS 09/01/23 09/01/23 History Metoprolol Tartrate [Lopressor] 12.5 mg PO BID 09/01/23 09/01/23 History Psyllium Husk (with Sugar) 3.4 gm PO DAILY 09/01/23 09/01/23 History [Metamucil Powder] Vit B Comp No.3/Folic/C/Biotin 1 tab PO DAILY 09/01/23 09/01/23 History [Brittany-Bianca Rx Tablet] Allergies Allergy/AdvReac Type Severity Reaction Status Date / Time No Known Allergies Allergy Verified 09/01/23 21:36 Surgical - Exam Vital Signs Temp Pulse Resp BP Pulse Ox 97.6 F 75 18 154/64 100 09/01/23 19:39 09/01/23 19:39 09/01/23 19:39 09/01/23 19:39 09/01/23 19:39 General appearance: The patient is alert, oriented, appears in no acute distress. HET: Head is normocephalic and atraumatic. Pupils are equal and reactive. Neck: Supple. Heart: Regular. Lungs: Equal expansion, normal respiratory effort. Abdomen: Soft, nontender, nondistended. Extremities: Palpable radial pulse. left upper extremity swelling. Left upper extremity AV graft with palpable thrill and audible bruit. No tenderness. Neurological: No focal deficits. Strength and sensation are grossly intact. Results - Labs Abnormal Lab Results - Last 24 Hours (Table) 09/02/23 Range/Units 01:29 APTT 88.8 H (22.0-30.0) sec Assessment and Plan Assessment: 1. Left upper extremity swelling 2. Chronic thrombus of left cephalic vein 3. End-stage renal disease on hemodialysis Plan: 1. May discontinue IV heparin drip. No anticoagulation needed. Patient has known chronic thrombus to the left cephalic vein. 2. Consult nephrology for hemodialysis recommendations 3. Elevate left upper extremity 4. There is no indication for any vascular surgical intervention Thank you for this consultation, patient is cleared from vascular surgery for discharge. The impression and plan of care has been dictated as directed. Dr. Wang I performed a history and examination of this patient, discussed the same with the dictator. I agree with the dictator's note ,documented as a scribe. Any additional findings or plans will be noted.
[2023-09-02] MEDS: MIDODRINE 5 MG TAB PO SCH (15:44)
[2023-09-02 22:30] LABS: Hepatitis B Surface AB- Quant 3.5 mIU/mL; Hepatitis B Surface Antigen Nonreactive
[2023-09-02] MEDS: allopurinoL 100 MG TAB PO SCH (22:38)
[2023-09-02] MEDS: ATORVASTATIN 20 MG TAB PO SCH (22:39)
[2023-09-02] MEDS ORDERED: VANCOMYCIN IV PER PHARMACY 1 EACH MISC MISCELLANE PRN (22:46)
--- NOTE | 2023-09-02 22:48 | P.HPIM ---
History of Present Illness H&P Date: 09/02/23 Chief Complaint: Left arm swelling Patient is a 88-year-old female with a past medical history of hypertension, hyperlipidemia, rheumatoid arthritis, hypothyroidism, ESRD on hemodialysis Thursday via left arm fistula, history of gout and other medical problems presents to ER with complaints of left arm swelling. Patient states that she has increasing left arm swelling since yesterday and was seen at [facility]. Patient did have left upper extremity ultrasound and was noted to have acute DVT in the cephalic vein and was transferred to [facility] for vascular surgery evaluation. Ultrasound report from [facility] is not available at this time. Otherwise patient denies any injury to the left arm. No pain in the left upper extremity. No dizziness or lightheadedness. No chest pain or shortness of breath. No pleuritic pain. Patient was started on heparin drip. Patient states that her on Thursday and secondary to schedule for Thursday. Laboratory data from [facility] was reviewed. Review of Systems Constitutional: Patient denies any fever or chills . No generalized weakness or weight loss. Abdomen: Patient denied nausea vomiting and diarrhea and abdominal pain. Cardiovascular: Patient denies any chest pain or short of breath no palpitations. Respiratory: patient denied any cough is from production. No shortness of breath Neurologic: Patient denied any numbness or tingling headache. Musculoskeletal: Patient denies any complaints of joint swelling or deformity. Left arm swelling Skin: Negative Psychiatric: Negative Endocrine: No heat or cold intolerance. No recent weight gain. Genitourinary: No dysuria or hematuria. All other 14 point ROS negative except the above Past Medical History Past Medical History: Cancer, Heart Failure, Deep Vein Thrombosis (DVT), Hyperlipidemia, Hypertension, Renal Disease, Rheumatoid Arthritis (RA), Thyroid Disorder Additional Past Medical History / Comment(s): Gout, kidney damage from Rx - dialysis MWF, skin cancer, thyroid nodules. fisutla to left arm History of Any Multi-Drug Resistant Organisms: None Reported Past Surgical History: Cholecystectomy, Hysterectomy Additional Past Surgical History / Comment(s): Bilateral cataract surgery, skin cancer excised from nose X2, fistula left arm, "artery in left arm cleaned out.". mediport to rt chest,10/2022 has since plugged up. Past Anesthesia/Blood Transfusion Reactions: No Reported Reaction Past Psychological History: No Psychological Hx Reported Smoking Status: Never smoker Past Alcohol Use History: None Reported Past Drug Use History: None Reported - Past Family History Father Family Medical History: Unable to Obtain, Myocardial Infarction (MT) Additional Family Medical History / Comment(s): Pt can't remember medical hx. Mother Family Medical History: Unable to Obtain, Myocardial Infarction (MT) Additional Family Medical History / Comment(s): Pt can't remember medical hx. Medications and Allergies Home Medications Medication Instructions Recorded Confirmed Type allopurinoL [Zyloprim] 100 mg PO BID 06/05/20 09/01/23 History Midodrine [ProAmatine] 5 mg PO MOWEFR 04/23/23 09/01/23 History Acetaminophen Tab [Tylenol] 650 mg PO Q6H PRN 09/01/23 09/01/23 History Aspirin EC [Ecotrin Low Dose] 81 mg PO DAILY 09/01/23 09/01/23 History Atorvastatin [Lipitor] 20 mg PO HS 09/01/23 09/01/23 History Metoprolol Tartrate [Lopressor] 12.5 mg PO BID 09/01/23 09/01/23 History Psyllium Husk (with Sugar) 3.4 gm PO DAILY 09/01/23 09/01/23 History [Metamucil Powder] Vit B Comp No.3/Folic/C/Biotin 1 tab PO DAILY 09/01/23 09/01/23 History [Brittany-Bianca Rx Tablet] Allergies Allergy/AdvReac Type Severity Reaction Status Date / Time No Known Allergies Allergy Verified 09/01/23 21:36 Physical Exam Vitals: Vital Signs Temp Pulse Pulse Resp BP BP Pulse Ox 09/02/23 07:40 97.9 F 71 16 168/80 96 09/02/23 00:49 98.3 F 70 15 169/70 99 09/02/23 00:14 98 F 77 18 166/72 97 09/01/23 20:25 66 18 152/68 100 09/01/23 19:39 97.6 F 75 18 154/64 100 Intake and Output 09/01/23 09/02/23 09/02/23 22:59 06:59 14:59 Intake Total 49.643 Balance 49.643 Intake: Intake, IV Titration 49.643 Amount Heparin Sod,Pork in 0.45% 49.643 NaCl 25,000 unit In 0.45 % NaCl 1 250ml.bag @ 18 UNITS/KG/HR 9.798 mls/hr IV .Q24H [facility] Rx#: [id number] Other: # Voids 0 Weight 54.431 kg 54.431 kg PHYSICAL EXAMINATION: Patient is lying in the bed comfortably, no acute distress, awake alert and oriented.. HEENT: Normocephalic. Neck is supple. Pupils reactive. Nostrils clear. Oral cavity is moist. Neck reveals no JVD, carotid bruits, or thyromegaly. CHEST EXAMINATION: Trachea is central. Symmetrical expansion. Lung davidson clear to auscultation and percussion. CARDIAC: Normal S1, S2 with no gallops. No murmurs ABDOMEN: Soft. Bowel sounds normal. No organomegaly. No abdominal bruits. Extremities: Left upper extremity swelling. AV fistula thrill noted.. No clubbing or cyanosis Neurologically awake, alert, oriented x3 with well-coordinated movements. No focal deficits noted Skin: No rash or skin lesions. Psychiatric: Coperative. Nonsuicidal Musculoskeletal: No joint swelling or deformity. Normal range of motion. Results Labs: Abnormal Lab Results - Last 24 Hours (Table) 09/02/23 09/02/23 Range/Units 01:29 08:53 APTT 88.8 H 62.4 H (22.0-30.0) sec Thrombosis Risk Factor Assmnt - DVT/VTE Prophylaxis DVT/VTE Prophylaxis: Pharmacologic Prophylaxis ordered - Choose All That Apply Each Factor Represents 1 point: Medical pt on bed rest Each Risk Factor Represents 3 Points: Age 75 years or older, History of DVT/PE Thrombosis Risk Factor Assessment Total Risk Factor Score: 7 Thrombosis Risk Factor Assessment Level: High Risk Assessment and Plan Assessment: Left upper extremity swelling with possible acute DVT. Patient was told she has DVT at [facility]. Full report is not available. ESRD on hemodialysis Thursday with left upper arm AV fistula. History of DVT Hypertension Hypothyroidism Rheumatoid arthritis History of skin cancer s/p excision DVT prophylaxis. Patient is already on heparin drip Plan: Patient will be continued on heparin drip. Vascular surgery was consulted and repeat venous duplex was ordered. Nephrology and vascular surgery is on board. Continue pain management and continue with home medications and follow-up closely.
[2023-09-03 00:29] LABS: African American GFR (CKD) 35 (>60 ml/min/1.73 sqM); Anion Gap 2 mmol/L; Blood Urea Nitrogen 13 mg/dL (7-17); Calcium 7.8 mg/dL (8.4-10.2); Carbon Dioxide 30 mmol/L (22-30); Chloride 100 mmol/L (98-107); Glucose 110 mg/dL (74-99); Non-African American GFR(CKD) 31 (>60 ml/min/1.73 sqM); Potassium 3.6 mmol/L (3.5-5.1); Sodium 132 mmol/L (137-145)
[2023-09-03 00:42] LABS: Anisocytosis Slight; Basophils % (A) 0 %; Eosinophils # (A) 0.1 k/uL (0-0.7); Eosinophils % (A) 1 %; HCT 27.6 % (34.0-46.0); Hypochromasia Slight; Lymphocytes # (A) 1.2 k/uL (1.0-4.8); Lymphocytes % (A) 16 %; MCH 27.7 pg (25.0-35.0); MCHC 29.5 g/dL (31.0-37.0); MCV 94.1 fL (80.0-100.0); Mean Platelet Volume 7.3; Monocytes # (A) 0.4 k/uL (0-1.0); Monocytes % (A) 5 %; Neutrophils # (A) 5.9 k/uL (1.3-7.7); Neutrophils % (A) 77 %; Platelet Count 365 k/uL (150-450); RBC 2.93 m/uL (3.80-5.40); RDW 16.2 % (11.5-15.5); WBC 7.7 k/uL (3.8-10.6)
[2023-09-03 00:44] LABS: HGB 8.1 gm/dL (11.4-16.0)
[2023-09-03] MEDS: VANCOMYCIN 1,000 MG in SODIUM CHLORIDE 0.9% 250 ML IVPB ONE (01:15)
[2023-09-03 09:07] VITALS: PULSE 78
--- NOTE | 2023-09-03 10:23 | P.PN ---
Subjective Patient is seen for follow-up for end-stage renal disease. Seen on hemodialysis. Tolerating treatment well. Objective - Vital Signs Vital signs: Vital Signs Temp 97.8 F 09/03/23 08:00 Pulse 78 09/03/23 08:00 Resp 16 09/03/23 08:00 BP 154/63 09/03/23 08:00 Pulse Ox 97 09/03/23 08:00 FiO2 Intake & Output 09/02/23 09/03/23 09/03/23 18:59 06:59 18:59 Intake Total 400 Output Total 1400 Balance -1000 Intake: Hemodialysis 400 Output: Hemodialysis 1400 Other: Voiding Method Diaper # Voids 0 1 # Bowel Movements 1 - Exam Patient is awake, comfortable not in any acute distress Examination of lower extremities shows no edema Left arm is edematous AV fistula is functional - Labs CBC & Chem 7: 09/02/23 23:35 09/02/23 23:35 Labs: Abnormal Lab Results - Last 24 Hours (Table) 09/02/23 09/02/23 Range/Units 23:35 23:35 RBC 2.93 L (3.80-5.40) m/uL Hgb 8.1 L D (11.4-16.0) gm/dL Hct 27.6 L (34.0-46.0) % MCHC 29.5 L (31.0-37.0) g/dL RDW 16.2 H (11.5-15.5) % Sodium 132 L (137-145) mmol/L Creatinine 1.53 H (0.52-1.04) mg/dL Glucose 110 H (74-99) mg/dL Calcium 7.8 L (8.4-10.2) mg/dL Assessment and Plan Assessment: 1. End-stage renal disease on hemodialysis on Thursday schedule 2. Left arm swelling with DVT in left arm currently maintained on heparin. Left arm AV fistula clear for use by vascular surgery 3. CK D mineral bone disorder 4. History of rheumatoid arthritis Plan: Hemodialysis today as patient is not able to attend hemodialysis tomorrow due to her 's .
[2023-09-03 11:18] LABS: Basophils # (A) 0.04 X 10*3/uL (0.00-0.10); Basophils % (A) 0.4 %; Eosinophils # (A) 0.11 X 10*3/uL (0.04-0.35); Eosinophils % (A) 1.2 %; HCT 25.2 % (37.2-46.3); HGB 7.7 g/dL (12.0-15.0); Lymphocytes # (A) 1.61 X 10*3/uL (0.90-5.00); Lymphocytes % (A) 17.8 %; MCH 28.2 pg (27.0-32.0); MCHC 30.6 g/dL (32.0-37.0); MCV 92.3 FL (80.0-97.0); Mean Platelet Volume 9.3 FL (9.5-12.2); Monocytes # (A) 0.61 X 10*3/uL (0.20-1.00); Monocytes % (A) 6.8 %; NRBC Per 100 WBC 0 X 10*3/uL (0.00-0.01); Neutrophils # (A) 6.62 X 10*3/uL (1.80-7.70); Neutrophils % (A) 73.4 %; Platelet Count 294 X 10*3/uL (140-440); RBC 2.73 X 10*6/uL (4.10-5.20); RDW 16.4 % (11.5-14.5); WBC 9.03 X 10*3/uL (4.50-10.00)
[2023-09-03 11:41] LABS: BUN/Creat Ratio 7.29 Ratio (12.00-20.00); Blood Urea Nitrogen 12.4 mg/dL (9.0-27.0); Carbon Dioxide 27.1 mmol/L (21.6-31.8); Chloride 101 mmol/L (96-109); Glucose 87 mg/dL (70-110); Potassium 3.8 mmol/L (3.5-5.5); Sodium 136 mmol/L (135-145)
[2023-09-03] MEDS: ASPIRIN 81 MG PO SCH (12:11)
[2023-09-03 13:18] VITALS: BP 149/78; RESP 18; TEMP 97.6
--- NOTE | 2023-09-03 13:57 | P.DS ---
Providers Date of admission: 09/01/23 21:08 Expected date of discharge: 09/03/23 Attending physician: Marilu Kaplan Consults: 09/01/23 21:07 Consult Physician Urgent Consulting Provider: Mel Wang Consult Reason/Comments: DVT Do you want consulting provider notified?: Yes 09/02/23 09:04 Consult Physician Urgent Consulting Provider: Gloria Neely Consult Reason/Comments: dialysis treatment Do you want consulting provider notified?: Yes Primary care physician: Tereza Webster MD Hospital Course: Final diagnosis Left upper extremity swelling with possible acute DVT. Patient was told she has DVT at [facility]. Full report is not available. Repeat Doppler of the left upper extremity revealed chronic clot within the left cephalic vein with a patent AV fistula, DVT ruled out per vascular surgery ESRD on hemodialysis Thursday with left upper arm AV fistula. History of DVT Hypertension Hypothyroidism Rheumatoid arthritis History of skin cancer s/p excision DVT prophylaxis. GI prophylaxis No code Discharge disposition Patient is being discharged in a stable condition with guarded prognosis to [facility]. Patient will follow-up with Dr. Webster in the outpatient setting upon discharge. Patient is to continue with hemodialysis as scheduled. Patient to follow-up with vascular surgery Dr. Delatorre outpatient total time taken is greater than 35 minutes. Hospital course This is a 88-year-old female who was recently admitted with left upper extremity swelling with concerns of possible DVT. Patient was recently at [facility] and was told she had a DVT although imaging and full report was not available at the time. Patient came here for further evaluation evaluated by vascular surgery underwent repeat Doppler which showed a chronic clot within the left cephalic vein otherwise no DVT noted and patient had patent AV fistula. Patient has been followed by nephrology here as well underwent dialysis and has been cleared by consultations for discharge with no anticoagulation needed on discharge. Patient will be returning to [facility] where she resides. Patient is receiving dialysis today and will continue on her current schedule. Please refer to other consultation notes for further HPI. Currently no reports of chest pain, shortness of breath, or palpitations. Patient is afebrile. No reports of naus ea or vomiting and patient is tolerating diet. Patient will be going to [facility] today. Physical exam: Gen: This is a 88-year-old female who is awake, alert and oriented x 3, thin built, elderly appearing, well-developed HEENT: Head is atraumatic, normocephalic. Pupils equal, round. Sclerae is anicteric. NECK: Supple. No JVD. No lymphadenopathy. No thyromegaly. LUNGS: Clear to auscultation. No wheezes or rhonchi. No intercostal retractions. HEART: Regular rate and rhythm. No murmur. ABDOMEN: Soft. Bowel sounds are present. No masses. No tenderness. EXTREMITIES: No pedal edema. No calf tenderness. NEUROLOGICAL: Patient is awake, alert and oriented x3. Cranial nerves 2 through 12 are grossly intact. Generally weak Please refer to medication reconciliation sheet for a list of medications. The impression and plan of care has been dictated by Jayna Puga, Nurse Practitioner as directed. Dr. Evelia MD I have performed a history and examination and MDM of this patient, discussed the same with the dictator, and agree with the dictator's assessment and plan as written ,documented as a scribe. Based on total visit time, I have performed more than 50% of the visit. Patient Condition at Discharge: Stable Plan - Discharge Summary Discharge Rx Participant: Yes New Discharge Prescriptions: Continue allopurinoL [Zyloprim] 100 mg PO BID Midodrine [ProAmatine] 5 mg PO MOWEFR Metoprolol Tartrate [Lopressor] 12.5 mg PO BID Aspirin EC [Ecotrin Low Dose] 81 mg PO DAILY Acetaminophen Tab [Tylenol] 650 mg PO Q6H PRN PRN Reason: Pain Vit B Comp No.3/Folic/C/Biotin [Brittany-Bianca Rx Tablet] 1 tab PO DAILY Psyllium Husk (with Sugar) [Metamucil Powder] 3.4 gm PO DAILY Atorvastatin [Lipitor] 20 mg PO HS Discharge Medication List allopurinoL [Zyloprim] 100 mg PO BID 06/05/20 [History] Midodrine [ProAmatine] 5 mg PO MOWEFR 04/23/23 [History] Acetaminophen Tab [Tylenol] 650 mg PO Q6H PRN 09/01/23 [History] Aspirin EC [Ecotrin Low Dose] 81 mg PO DAILY 09/01/23 [History] Atorvastatin [Lipitor] 20 mg PO HS 09/01/23 [History] Metoprolol Tartrate [Lopressor] 12.5 mg PO BID 09/01/23 [History] Psyllium Husk (with Sugar) [Metamucil Powder] 3.4 gm PO DAILY 09/01/23 [History] Vit B Comp No.3/Folic/C/Biotin [Brittany-Bianca Rx Tablet] 1 tab PO DAILY 09/01/23 [History] Follow up Appointment(s)/Referral(s): Memo Delatorre DO [STAFF PHYSICIAN] - 1 Week (Office is not answering at time of discharge. Please call for follow-up apppointment.) Scott Monet, [NON-STAFF] - As Needed Tereza Webster MD [Primary Care Provider] - 1-2 days (ECF please call for follow-up appointment.) Activity/Diet/Wound Care/Special Instructions: Activity limited until follow-up Follow-up with primary care provider on discharge Continue with hemodialysis on your normal scheduled routine Follow-up with vascular surgery outpatient in 1 to 2 weeks Discharge Disposition: TRANSFER TO SNF/ECF
[2023-09-03] MEDS ORDERED: VANCOMYCIN 1,000 MG in SODIUM CHLORIDE 0.9% 250 ML IVPB ONE (18:00)
== END 2023-09-03 16:04 | DRG 299 ==
LOC: EC 19:35 → 4SSUR 21:08
PROVIDERS: ADMIT Hospitalist; ATTEND Hospitalist
PROC: 5A1D80Z Performance of Urinary Filtration, Prolonged Intermittent, 6-18 hours Per Day (ICD-10-PCS; principal; 2023-09-02)
DX: I82.712 Chronic embolism and thrombosis of superficial veins of left upper extremity (principal); N18.6 End stage renal disease; I13.2 Hypertensive heart and chronic kidney disease with heart failure and with stage 5 chronic kidney disease, or end stage renal disease; E83.9 Disorder of mineral metabolism, unspecified; I50.9 Heart failure, unspecified; M06.9 Rheumatoid arthritis, unspecified; E03.9 Hypothyroidism, unspecified; Z99.2 Dependence on renal dialysis; Z66 Do not resuscitate; E78.5 Hyperlipidemia, unspecified; M10.9 Gout, unspecified; Z79.82 Long term (current) use of aspirin; Z79.899 Other long term (current) drug therapy; Z85.828 Personal history of other malignant neoplasm of skin; Z82.49 Family history of ischemic heart disease and other diseases of the circulatory system
CPT/HCPCS: 80048; 85025; 85730; 86706; 87040; 87077; 87186; 87340; 90935; 93005; 96365; 96366; 99285

== ENCOUNTER 2024-01-28 20:40 | Inpatient (IN) | payer MEDICARE, OTHER ==
[2024-01-29] MEDS ORDERED: HEPARIN SODIUM,PORCINE 5,000 UNIT/ML 1 ML VIAL ONE ×2 (11:42→21:10)
[2024-01-29] MEDS ORDERED: ASPIRIN 81 MG ONE (11:42)
[2024-01-29] MEDS ORDERED: DAPAGLIFLOZIN PROPANEDIOL 10 MG TABLET ONE (11:42)
[2024-01-29] MEDS ORDERED: allopurinoL 100 MG TAB ONE ×2 (11:42→21:10)
[2024-01-29] MEDS ORDERED: METOPROLOL TARTRATE 12.5 MG TAB ONE ×2 (11:42→21:10)
[2024-01-29] MEDS ORDERED: ATORVASTATIN 20 MG TAB ONE (21:10)
[2024-01-29] MEDS ORDERED: MIRTAZAPINE 15 MG TAB ONE (21:11)
[2024-01-30] MEDS ORDERED: allopurinoL 100 MG TAB ONE (09:15)
[2024-01-30] MEDS ORDERED: HEPARIN SODIUM,PORCINE 5,000 UNIT/ML 1 ML VIAL ONE (09:15)
[2024-01-30] MEDS ORDERED: METOPROLOL SUCCINATE (ER) 25 MG TAB.ER.24H PO ONE (09:15)
[2024-01-30] MEDS ORDERED: ASPIRIN 81 MG ONE (09:15)
--- NOTE | 2024-02-24 18:37 | CT ---
Patient Shagufta Valverde ID [id number] Order # EXAMINATION TYPE: CT brain teodora sanchez DATE OF EXAM: 01/29/2024 COMPARISON: No comparison available on downtime PACS. HISTORY: Acute mental status changes, headache CT DLP: 1263.4 mGycm, Automated exposure control for dose reduction was used. CONTRAST: Patient injected with 0 mL of Isovue 300. CT of the brain is performed utilizing 3 mm thick sections through the posterior fossa and 3 mm thick sections through the remaining calvarium. Study is performed within 24 hours of arrival to the hospital. No abnormal hyperdensity is present to suggest an acute intracranial hemorrhage. No mass lesion is evident. No acute infarcts are evident. Periventricular white matter hypodensity is present, likely on the bas is of chronic white matter ischemic changes. Ventricles and sulci are prominent for the patient age. There is opacification of the left maxillary sinus. Remaining paranasal sinuses are clear. There is o pacification of the right mastoid air cells. Correlate for acute right mastoiditis. IMPRESSIONS: 1. No acute intracranial process. Follow-up MRI can be performed as clinically indicated. 2. Chronic appearing periventricular white matter ischemic changes with atrophy CT cervical spine. COMPARISON: None CT of the cervical spine is performed in the axial plane at 2 mm thick sections. Reconstructed images in the coronal, and sagittal plane are reviewed on the computer. No acute fractures are evident. Vertebral body alignment is normal. There is loss of disc height throughout the cervical spine this is greatest at the C5-6 and C3-4 leve ls. Vertebral body heights are preserved. There are large anterior vertebral body spurs. This has some fusion anteriorly at C4-5 C5-6. No spinal canal stenosis is evident. Uncovertebral joint hypertrophy contributes to foraminal narrowing at C3-4, C5-6 and C6-7 IMPRESSION: 1. Large anterior vertebral body spurring with some fusion C4-C6. 2. Degenerative disc changes greatest C3-4 and C5-6. 3. Uncovertebral joint hypertrophy contributing to foraminal narrowing discussed above 4. No acute osseous abnormality.
== END 2024-01-30 12:46 | DRG 314 ==
LOC: 3NCARDOBS 20:40
PROVIDERS: ADMIT Internal Medicine; ATTEND Internal Medicine
PROC: 5A1D70Z Performance of Urinary Filtration, Intermittent, Less than 6 Hours Per Day (ICD-10-PCS; principal; 2024-01-29)
DX: T82.898A Other specified complication of vascular prosthetic devices, implants and grafts, initial encounter (principal); N18.6 End stage renal disease; I13.2 Hypertensive heart and chronic kidney disease with heart failure and with stage 5 chronic kidney disease, or end stage renal disease; I50.22 Chronic systolic (congestive) heart failure; E11.22 Type 2 diabetes mellitus with diabetic chronic kidney disease; Z99.2 Dependence on renal dialysis; D63.1 Anemia in chronic kidney disease; E78.5 Hyperlipidemia, unspecified; Y71.1 Therapeutic (nonsurgical) and rehabilitative cardiovascular devices associated with adverse incidents; Z79.82 Long term (current) use of aspirin; Z79.899 Other long term (current) drug therapy